=== PATIENT | female | born 1940 | race Caucasian/White ===

== ENCOUNTER → 2016-08-10 | Outpatient (CLI) | payer MEDICARE, MEDICAID ==
[~2016-08-10] MED LIST: /CELE20CA OR; /ESOM40CA; /ZOLP6ER OR; /ZOLP6ER PO; ACET65TA; ACET65TA OR; ALLE25CA OR; AMBI10TA; AMLO5TAB OR; ASPI325T OR; ATEN50TA2; ATEN50TA2 PO; BABY81CH; CATA0.1T; CATA0.1T OR; CATA0.2T; CATA0.2T OR; CELE20TA; CELE40TA OR; CHOLESTEROL MED PO; CLONIDINE; COZAAR; FERR325T PO; FISH300C2 OR; FISHCAP; HYZAAR; LASI20TA PO; MELOPOW PO; MILKSUS OR; MIRALEX PO; MULTIVIT; NEXIUM PO; NORV5TAB; NORV5TAB OR; OXYC40TA19 OR; PERC5TAB8 OR; PERC7.5T8 OR; SENN8.6T5 OR; SOMA350T; SOMA350T OR; TRAM50TA2; TRAM50TA2 OR; VICODINES TAB; ZOCO40TA OR
--- NOTE | 2016-08-10 08:38 | REP ---
Clinical: Right upper quadrant abdominal pain. Technique: Winslow scale ultrasound using curved array transducer. Findings: The liver and pancreas are normal in contour, size, and echogenicity without focal hepatic or pancreatic lesions identified. The gallbladder is normal without gallstones, wall thickening or pericholecystic fluid. No intrahepatic biliary ductal dilatation is appreciated, and the common bile duct measures 9.0 mm diameter. The right kidney is normal in reniform shape without hydronephrosis and measures 9.4 x 5.3 x 5.6 cm. No ascites. Visualized portions of the abdominal aorta normal. A known midline fat containing ventral hernia inferior to the xyphoid is appreciated. Impression: Fat containing supraumbilical hernia. Mildly distended common bile duct measuring 9 mm but without further biliary ductal dilatation or findings related to the gallbladder. Signed by Rene Medina MD 08/10/2016 08:29 A
== END ==
LOC: M RAD 06:35
PROVIDERS: ATTEND Nurse Practitioner Family
DX: R10.11 Right upper quadrant pain (principal)

== ENCOUNTER → 2016-09-02 | Outpatient (CLI) | payer MEDICARE, MEDICAID ==
--- NOTE | 2016-09-02 15:49 | REP ---
UPPER GI, SINGLE CONTRAST: The procedure was performed under the direct supervision of Dr. Mendoza. The images were reviewed with Dr. Mendoza. The [place] film shows no organomegaly or pathological masses. Intestinal gas pattern is nonspecific. The patient is status post right hip arthroplasty. There are degenerative changes of the spine. Liquid barium was given in the erect and prone oblique positions. The oral and pharyngeal stages of deglutition are unremarkable. 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 During esophageal transport there are tertiary waves demonstrated. There is no esophagitis, stricture or mucosal ring. The patient is status post hiatal hernia repair. There is a small residual hiatal hernia. Gastroesophageal reflux is not demonstrated on this examination. The stomach was grossly normal. The rugal folds are smooth and regular. There is no evidence of gastritis, neoplasm or ulcer disease. The duodenum is grossly normal. The rugal folds are smooth and regular. There is no evidence of duodenitis, pancreatitis, peptic ulcer disease or neoplasm. The visualized portion of the proximal small bowel appears normal in course and caliber. IMPRESSION: 1. Cricopharyngeal hypertrophy. 2. Esophageal dysmotility. 3. The patient is status post hiatal hernia repair. There is a small residual hiatal hernia identified. 2 minutes and 7 seconds of fluoroscopy time was utilized for this procedure. IMPRESSION: 1. There is cricopharyngeal hypertrophy. 2. Esophageal dysmotility. 3. Status post hiatal hernia repair. There is a small residual hiatal hernia. Reviewed by RAJENDRA Lew 09/02/2016 04:09 PEdited and Signed by Son Mendoza MD 09/02/2016 07:23 P
== END ==
LOC: M RAD 10:03
PROVIDERS: ATTEND Nurse Practitioner Adult Health
DX: R10.13 Epigastric pain (principal)

== ENCOUNTER → 2016-10-19 | Outpatient (CLI) | payer MEDICARE, MEDICAID ==
--- NOTE | 2016-10-19 14:04 | REP ---
Clinical: Incisional hernia. Comparison: 06/23/2010. Findings: Lung bases demonstrate chronic interstitial changes. Liver, spleen, pancreas, gallbladder, bilateral adrenal glands and kidneys are essentially normal for noncontrast evaluation. Previously noted large hiatal hernia has improved. Fat containing midline ventral hernia is identified measuring roughly 8 cm in maximal diameter through an anterior abdominal wall defect of approximately 2 cm. Visualized small large bowel is grossly unremarkable. No free air. No ascites. No obvious adenopathy. Skeletal structures demonstrate degenerative changes. Impression: Moderate fat containing ventral hernia. Signed by Rene Medina MD 10/19/2016 01:55 P
== END ==
LOC: M RAD 12:55
PROVIDERS: ATTEND Surgery
DX: K43.3 Parastomal hernia with obstruction, without gangrene (principal)

== ENCOUNTER → 2016-12-02 | Outpatient (REF) | payer MEDICARE, MEDICAID ==
[~2016-12-02] MED LIST changes: +AMLO10TA2 PO; +ASPI1TAB PO; +IRON65TA PO; +METO-209 PO; +METO100T PO; +METO25TAB PO; +NEXI40CA PO; +SIMV20TA2 PO
[2016-12-02 11:50] LABS: MEAN CORPUSCULAR HEMOGLOBIN 31.6 pg (27.0-33.0); MEAN CORPUSCULAR HGB CONC 32.3 g/dl (32.0-36.5); MEAN CORPUSCULAR VOLUME 97.7 fl (80.0-96.0); RED CELL DISTRIBUTION WIDTH 13.3 % (11.5-14.5); WHITE BLOOD COUNT 4.9 K/mm3 (4.0-10.0)
[2016-12-02 12:08] LABS: ALBUMIN/GLOBULIN RATIO 1.29 (1.00-1.93); BILIRUBIN,TOTAL 0.6 MG/DL (0.2-1.0); CREATININE FOR GFR 0.98 MG/DL (0.55-1.02); GLOMERULAR FILTRATION RATE 59.1 (>39); POTASSIUM SERUM 4.4 MEQ/L (3.5-5.1); TOTAL PROTEIN 7.1 GM/DL (6.4-8.2)
== END ==
LOC: M SFHCPLAZ 07:58
PROVIDERS: ATTEND Internal Medicine
DX: Z01.818 Encounter for other preprocedural examination (principal); M19.90 Unspecified osteoarthritis, unspecified site; K21.9 Gastro-esophageal reflux disease without esophagitis; I10 Essential (primary) hypertension; I48.2 Chronic atrial fibrillation; Z79.899 Other long term (current) drug therapy; K43.0 Incisional hernia with obstruction, without gangrene; E78.5 Hyperlipidemia, unspecified
CPT/HCPCS: 36415; 80053; 80061; 84443; 85027; 93005; G0463

== ENCOUNTER → 2016-12-07 | Day surgery (SDC) | payer MEDICARE, MEDICAID ==
[~2016-12-07] VITALS: Ht 167.6 cm; Wt 90.7 kg
[~2016-12-07] MED LIST changes: +BUPIVACAINE/EPIN 0.25% 30 ML VIAL As Ordered ONE; +GLYCOPYRROLATE INJ 0.2 MG/ML 2 ML VIAL As Ordered ONE; +KETOROLAC 30 MG/ML VIAL (J1885) IV PRN; +LIDOCAINE 2% INJ 100 MG/5 ML SDV (FOR ANES.) As Ordered ONE; +LR 1,000 ML IV ONE; +LR 1,000 ML IV SCH; +MEPERIDINE INJ 25 MG/ML VIAL (J2175) IV PRN; +METOPROLOL SUCC (TopROL XL) 100MG *XL* TAB PO ONE; +MIDAZOLAM INJ 2 MG/2 ML VIAL (J2250) As Ordered ONE; +NEOSTIGMINE 1MG/ML 5 ML SYRINGE (J2710) As Ordered ONE; +NORCO, ANEXSIA 5/325MG TABLET (HYDROcodone/ACETAMINOPHEN) PO PRN; +ONDANSETRON 4MG/2ML VIAL (J2405) As Ordered ONE; +ONDANSETRON 4MG/2ML VIAL (J2405) IV PRN; +PERCOCET 5MG/325MG TAB As Ordered ONE; +PERCOCET 5MG/325MG TAB PO PRN; +PHENYLephrine HCL 500 MCG/5 ML (100MCG/ML) SYRINGE (J2370) As Ordered ONE; +PROPOFOL 200 MG/20 ML VIAL As Ordered ONE; +ROCURONIUM BROMIDE 50 MG/5 ML VIAL As Ordered ONE; +dexameTHASONE 4 MG/ML 1ML VIAL (J1100) As Ordered ONE; +ePHEDrine SULFATE 25 MG/5 ML(5MG/ML) SYRINGE As Ordered ONE; +fentaNYL 100 MCG/2 ML INJECTION (J3010) IV PRN; +fentaNYL 250 MCG/5 ML INJECTION (J3010) As Ordered ONE
[2016-12-07 07:25] VITALS: BP 120/71
[2016-12-07] MEDS: PERCOCET 5MG/325MG TAB PO PRN ×2 (11:11→12:07)
[2016-12-07 14:30] VITALS: BP 135/63
--- NOTE | 2016-12-08 11:29 | RO ---
DATE OF PROCEDURE: 12/07/2016 PREOPERATIVE DIAGNOSIS: Incarcerated incisional hernia. POSTOPERATIVE DIAGNOSIS: Incarcerated incisional hernia. PROCEDURE: Laparoscopic incarcerated incisional hernia repair with mesh. SURGEON: Dr. Cortez Love HOT BILLET SHEAR OPERATOR: None. ANESTHESIA: General: ESTIMATED BLOOD LOSS: 5. COMPLICATIONS: None. INDICATIONS FOR PROCEDURE: The patient is a 76-year-old female who underwent a laparoscopic Vicente fundoplication a few years ago. Postoperatively she developed a hernia in her upper midline of her abdomen, it has been increasing in size over the past couple of years and starting to cause her a lot of pain. She has CT scan which confirmed that there is a large hernia in the upper midline that corresponds with her port site. Recommendation was to proceed with laparoscopic possible open repair. Risks and benefits of the procedure not limited but including bleeding, infection, hernia formation, hernia recurrence, damage to surrounding structures, need for further surgery discussed detail. The patient formed was obtained. Procedure as planned. PROCEDURE: The patient brought back to operating room #3. After sufficient sedation the abdomen was sterilely prepped and draped. A time-out was done to confirm proper patient and proper procedure. Next a 5 mm incision made in left upper quadrant, Veress needle was inserted and the abdomen was insufflated 50 mmHg. Veress needle was then removed 5 mm port was used to gain access to the abdomen. Once the abdomen was entered the hernia site was examined. Anotehr 5 mm port was placed in left lower quadrant. Using the grasper the hernia was all reduced. Next the ENSEAL was used to excise the hernia sac and take down the falciform ligament. Once this was completed, a 9 cm round Parietex composite mesh was taken 0 Vicryl sutures placed in all four corners, it was rolled up placed inside the abdomen 0 Vicryl sutures were brought out through the abdominal wall through a stab incision using Vinny-Santillan needle and then tied in place. Once this was tied in place and the mesh was securely centered over top of the defect, two secure strap tackers were used to place three rows of tacks around the periphery of the mesh, thus holding it in place. The patient tolerated the procedure well. Abdomen was then desufflated. Skin incision closed with 4-0 Vicryl subcuticular sutures. The patient was awakened and brought to the PACU in stable condition.
== END | disposition home or self-care (01) ==
LOC: M SDC 05:53
PROVIDERS: ATTEND Surgery
DX: K43.0 Incisional hernia with obstruction, without gangrene (principal); I10 Essential (primary) hypertension; F41.9 Anxiety disorder, unspecified; D50.9 Iron deficiency anemia, unspecified; M54.5 Low back pain; G89.29 Other chronic pain; K21.9 Gastro-esophageal reflux disease without esophagitis; K57.30 Diverticulosis of large intestine without perforation or abscess without bleeding; I48.2 Chronic atrial fibrillation; M19.90 Unspecified osteoarthritis, unspecified site; G47.00 Insomnia, unspecified; G47.30 Sleep apnea, unspecified; Z91.040 Latex allergy status; Z79.899 Other long term (current) drug therapy; Z79.82 Long term (current) use of aspirin; Z96.651 Presence of right artificial knee joint; Z98.1 Arthrodesis status; Z87.891 Personal history of nicotine dependence; Z78.0 Asymptomatic menopausal state
CPT/HCPCS: 49655; C1781; J0690; J1100; J2250; J2370; J2405; J2710; J3010

== ENCOUNTER 2018-02-26 19:33 | Inpatient (IN) | payer MEDICARE, MEDICAID ==
[2018-02-26 20:09] LABS: VENOUS BASE EXCESS 3.4 (-2.0-2.0); VENOUS HCO3 29.2 MEQ/L (23.0-27.0); VENOUS O2 SATURATION 72.9 % (60.0-80.0); VENOUS PARTIAL PRESSURE CO2 48.2 mmHg (38.0-50.0); VENOUS PARTIAL PRESSURE O2 40.7 mmHg (30.0-50.0); VENOUS STANDARD HCO3 26.8 MEQ/L; VENOUS TOTAL CO2 30.7 MEQ/L (24.0-28.0)
[2018-02-26] MEDS: NS 1,000 ML IV (20:11)
[2018-02-26 20:31] LABS: AMMONIA 27 uMOL/L (<32)
[2018-02-26 20:32] LABS: LACTIC ACID SEPSIS PROTOCOL 1.8 MMOL/L (0.4-2.0)
[2018-02-26 20:57] LABS: BASO % 0.5 % (0.0-1.0); EOS % 0.5 % (0.0-3.0); HEMATOCRIT 36.8 % (36.0-47.0); HEMOGLOBIN 13.7 g/dl (12.0-15.5); IMMATURE GRANULOCYTE % 0.5 % (0-3.0); LYMPH # 0.6 10^3/uL (1.5-4.5); LYMPH % 7.5 % (24.0-44.0); MEAN CORPUSCULAR HEMOGLOBIN 30.9 pg (27.0-33.0); MEAN CORPUSCULAR VOLUME 83.1 fl (80.0-96.0); MONO # 1.1 10^3/uL (0.0-0.8); MONO % 14.9 % (0.0-5.0); NEUTROPHILS # 5.6 10^3/uL (1.8-7.7); NEUTROPHILS % 76.1 % (36.0-66.0); PLATELET COUNT, AUTOMATED 237 10^3/uL (150-450); RED BLOOD COUNT 4.43 10^6/uL (4.00-5.40); RED CELL DISTRIBUTION WIDTH 12.3 % (11.5-14.5); WHITE BLOOD COUNT 7.4 10^3/uL (4.0-10.0)
[2018-02-26 21:30] LABS: MEAN CORPUSCULAR HGB CONC 37.2 g/dl (32.0-36.5)
[2018-02-26 22:43] LABS: ALBUMIN 3.1 GM/DL (3.2-5.2); ALBUMIN/GLOBULIN RATIO 0.94 (1.00-1.93); ALT/SGPT 30 U/L (12-78); ANION GAP 18 MEQ/L (8-16); AST/SGOT 70 U/L (7-37); BILIRUBIN,DIRECT 0.2 MG/DL (0.0-0.2); BLOOD UREA NITROGEN 9 MG/DL (7-18); CARBON DIOXIDE LEVEL 24 MEQ/L (21-32); CHLORIDE LEVEL 75 MEQ/L (98-107); CPK CREATINE PHOSPHOKINASE 544 U/L (26-192); CREATININE FOR GFR 0.95 MG/DL (0.55-1.30); GLOMERULAR FILTRATION RATE > 60.0 (>39); POTASSIUM SERUM 3.4 MEQ/L (3.5-5.1); SALICYLATE LEVEL 1.9 MG/DL (5.0-30.0); TOTAL PROTEIN 6.4 GM/DL (6.4-8.2); TROPONIN I < 0.02 NG/ML (< 0.10)
[2018-02-26 22:45] LABS: KETONE, URINE AUTO RFX TRACE mg/dL (NEGATIVE); LEUKOCYTE ESTERASE UR AUTO RFX NEGATIVE (NEGATIVE); NITRITE, URINE AUTO RFX NEGATIVE (NEGATIVE); RBC, URINE AUTO RFX 1 /HPF (0-3); SPECIFIC GRAVITY UR AUTO RFX 1.004 (1.002-1.035); SQUAM EPITHELIAL CELL UR AURFX 0 /HPF (0-6); WBC, URINE AUTO RFX 5 /HPF (0-3)
[2018-02-26 22:48] LABS: CK-MB VALUE MASS 7.3 NG/ML (<3.6); MB/CK RELATIVE INDEX 1.34 (< OR =4)
[2018-02-26 23:02] LABS: AMPHETAMINES LEVEL URINE NEGATIVE (NEGATIVE); BARBITURATES URINE NEGATIVE (NEGATIVE); BENZODIAZEPINES URINE NEGATIVE (NEGATIVE); CANNABINOIDS URINE POSITIVE (NEGATIVE); COCAINE METABOLITE URINE NEGATIVE (NEGATIVE); METHADONE URINE NEGATIVE (NEGATIVE); OPIATES URINE NEGATIVE (NEGATIVE); PHENCYCLIDINE URINE NEGATIVE (NEGATIVE)
[2018-02-26 23:08] LABS: ACETAMINOPHEN LEVEL < 2.0 UG/ML (10.0-30.0); ALKALINE PHOSPHATASE 134 U/L (45-117); ETHYL ALCOHOL (ETHANOL) < 0.003 % (0.000-0.010); GLUCOSE, FASTING 83 MG/DL (70-100)
[2018-02-26 23:09] LABS: SODIUM LEVEL 117 MEQ/L (136-145)
[2018-02-27] MEDS ORDERED: BISACODYL 10 MG SUPP PR (01:45)
[2018-02-27] MEDS: NS 1,000 ML IV ×3 (02:51→11:00)
[2018-02-27 04:58] LABS: BASO % 0.2 % (0.0-1.0); EOS % 0.2 % (0.0-3.0); HEMATOCRIT 31.4 % (36.0-47.0); IMMATURE GRANULOCYTE % 0.4 % (0-3.0); LYMPH # 0.3 10^3/uL (1.5-4.5); LYMPH % 6.5 % (24.0-44.0); MEAN CORPUSCULAR HEMOGLOBIN 31.7 pg (27.0-33.0); MEAN CORPUSCULAR HGB CONC 36.9 g/dl (32.0-36.5); MEAN CORPUSCULAR VOLUME 85.8 fl (80.0-96.0); MONO # 0.6 10^3/uL (0.0-0.8); MONO % 10.6 % (0.0-5.0); NEUTROPHILS # 4.3 10^3/uL (1.8-7.7); NEUTROPHILS % 82.1 % (36.0-66.0); PLATELET COUNT, AUTOMATED 209 10^3/uL (150-450); RED BLOOD COUNT 3.66 10^6/uL (4.00-5.40); RED CELL DISTRIBUTION WIDTH 12.5 % (11.5-14.5); WHITE BLOOD COUNT 5.3 10^3/uL (4.0-10.0)
[2018-02-27 05:01] LABS: HEMOGLOBIN 11.6 g/dl (12.0-15.5)
[2018-02-27 05:17] LABS: ALBUMIN 2.9 GM/DL (3.2-5.2); ALBUMIN/GLOBULIN RATIO 0.94 (1.00-1.93); ALKALINE PHOSPHATASE 104 U/L (45-117); ALT/SGPT 35 U/L (12-78); ANION GAP 16 MEQ/L (8-16); AST/SGOT 96 U/L (7-37); BILIRUBIN,TOTAL 0.7 MG/DL (0.2-1.0); BLOOD UREA NITROGEN 10 MG/DL (7-18); CALCIUM LEVEL 7.3 MG/DL (8.8-10.2); CARBON DIOXIDE LEVEL 25 MEQ/L (21-32); CHLORIDE LEVEL 82 MEQ/L (98-107); CREATININE FOR GFR 0.87 MG/DL (0.55-1.30); GLOMERULAR FILTRATION RATE > 60.0 (>39); GLUCOSE, FASTING 85 MG/DL (70-100); POTASSIUM SERUM 2.5 MEQ/L (3.5-5.1); SODIUM LEVEL 123 MEQ/L (136-145)
[2018-02-27] MEDS: MAG SULF 1GM/100ML (MAG RUN) 1 GM in APPROPRIATE DILUENT 1 EA IV ×2 (06:00→13:51)
[2018-02-27] MEDS: POTASSIUM CHLORIDE 10 MEQ SR TABLET PO ×3 (06:02→13:51)
[2018-02-27] MEDS: HEPARIN SOD (PORCINE) 5000 UNITS/ML VIAL SC ×3 (06:02→21:27)
[2018-02-27] MEDS: KCL 10MEQ/100ML SWI (KRUN) 10 MEQ in APPROPRIATE DILUENT 1 EA IV ×2 (07:27→08:43)
[2018-02-27] MEDS: ASPIRIN 325 MG TAB PO (08:45)
[2018-02-27] MEDS: PANTOPRAZOLE 40MG TAB (PROTONIX) PO (08:45)
[2018-02-27] MEDS: FERROUS SULFATE 325MG TAB PO (08:46)
[2018-02-27] MEDS: PARoxetine 20 MG TAB PO (08:46)
[2018-02-27] MEDS: PREVNAR 13 VACCINE SYRINGE (CPT CODE:90670) IM (08:47)
[2018-02-27 11:30] LABS: PHOSPHORUS LEVEL 4.4 MG/DL (2.5-4.9)
[2018-02-27 12:56] LABS: ANION GAP 14 MEQ/L (8-16); BLOOD UREA NITROGEN 11 MG/DL (7-18); CALCIUM LEVEL 7.7 MG/DL (8.8-10.2); CARBON DIOXIDE LEVEL 26 MEQ/L (21-32); CHLORIDE LEVEL 85 MEQ/L (98-107); CREATININE FOR GFR 0.99 MG/DL (0.55-1.30); GLOMERULAR FILTRATION RATE 58.2 (>39); GLUCOSE, FASTING 86 MG/DL (70-100); MAGNESIUM LEVEL 1.5 MG/DL (1.8-2.4); POTASSIUM SERUM 3.1 MEQ/L (3.5-5.1); SODIUM LEVEL 125 MEQ/L (136-145)
[2018-02-27] MEDS: D5W 1,000 ML IV (13:52)
[2018-02-27] MEDS: NYSTATIN 100,000 UNITS/GM TOPICAL PWD 15 GM TOP ×2 (13:59→21:23)
[2018-02-27 15:04] LABS: CREATININE,RANDOM URINE 39.6 MG/DL; SODIUM,RANDOM URINE 17 MEQ/L
[2018-02-27 15:28] LABS: OSMOLALITY URINE 165 MOSM/KG (500-800)
[2018-02-27] MEDS: POTASSIUM CHLORIDE INJ 40 MEQ in D5W 1,000 ML IV (17:36)
[2018-02-27 17:40] LABS: OSMOLALITY URINE 336 MOSM/KG (500-800)
[2018-02-27 17:47] LABS: OSMOLALITY SERUM 257 MOSM/KG (280-301)
[2018-02-27 17:49] LABS: ANION GAP 10 MEQ/L (8-16); BLOOD UREA NITROGEN 13 MG/DL (7-18); CALCIUM LEVEL 7.9 MG/DL (8.8-10.2); CARBON DIOXIDE LEVEL 27 MEQ/L (21-32); CHLORIDE LEVEL 86 MEQ/L (98-107); CREATININE FOR GFR 1.15 MG/DL (0.55-1.30); GLUCOSE, FASTING 122 MG/DL (70-100); POTASSIUM SERUM 3.4 MEQ/L (3.5-5.1); SODIUM LEVEL 123 MEQ/L (136-145)
[2018-02-27 18:02] LABS: SODIUM,RANDOM URINE 13 MEQ/L
[2018-02-27] MEDS: SIMVASTATIN 20 MG TAB PO (21:22)
[2018-02-27 21:31] LABS: OSMOLALITY URINE 328 MOSM/KG (500-800)
[2018-02-27 21:45] LABS: SODIUM,RANDOM URINE 13 MEQ/L
[2018-02-27 21:51] LABS: ANION GAP 9 MEQ/L (8-16); BLOOD UREA NITROGEN 12 MG/DL (7-18); CALCIUM LEVEL 7.8 MG/DL (8.8-10.2); CARBON DIOXIDE LEVEL 27 MEQ/L (21-32); CHLORIDE LEVEL 88 MEQ/L (98-107); CREATININE FOR GFR 1.03 MG/DL (0.55-1.30); GLOMERULAR FILTRATION RATE 55.6 (>39); GLUCOSE, FASTING 120 MG/DL (70-100); SODIUM LEVEL 124 MEQ/L (136-145)
[2018-02-27] MEDS: KCL 40MEQ IN D5/0.45NS 1000ML 1,000 ML IV (22:59)
[2018-02-27] MEDS: VANCOMYCIN HCL 1,000 MG, VIAL MATE ADAPTER 1 EACH in D5W 250 ML IV (22:59)
[2018-02-28 01:17] LABS: ANION GAP 10 MEQ/L (8-16); BLOOD UREA NITROGEN 12 MG/DL (7-18); CALCIUM LEVEL 8.1 MG/DL (8.8-10.2); CARBON DIOXIDE LEVEL 26 MEQ/L (21-32); CHLORIDE LEVEL 87 MEQ/L (98-107); CREATININE FOR GFR 1.12 MG/DL (0.55-1.30); GLOMERULAR FILTRATION RATE 50.5 (>39); GLUCOSE, FASTING 144 MG/DL (70-100); POTASSIUM SERUM 3.9 MEQ/L (3.5-5.1); SODIUM LEVEL 123 MEQ/L (136-145)
[2018-02-28 01:50] LABS: SODIUM,RANDOM URINE 16 MEQ/L
[2018-02-28 01:51] LABS: OSMOLALITY URINE 357 MOSM/KG (500-800)
[2018-02-28 05:01] LABS: HEMATOCRIT 29.7 % (36.0-47.0); HEMOGLOBIN 10.7 g/dl (12.0-15.5); MEAN CORPUSCULAR HEMOGLOBIN 31.6 pg (27.0-33.0); MEAN CORPUSCULAR VOLUME 87.6 fl (80.0-96.0); PLATELET COUNT, AUTOMATED 198 10^3/uL (150-450); RED BLOOD COUNT 3.39 10^6/uL (4.00-5.40); RED CELL DISTRIBUTION WIDTH 12.9 % (11.5-14.5); WHITE BLOOD COUNT 5.9 10^3/uL (4.0-10.0)
[2018-02-28 05:07] LABS: OSMOLALITY URINE 191 MOSM/KG (500-800)
[2018-02-28 05:13] LABS: SODIUM,RANDOM URINE 14 MEQ/L
[2018-02-28 05:16] LABS: ANION GAP 9 MEQ/L (8-16); BLOOD UREA NITROGEN 11 MG/DL (7-18); C REACTIVE PROTEIN QUANTITATIV 2.82 MG/DL (0.00-0.30); CARBON DIOXIDE LEVEL 27 MEQ/L (21-32); CHLORIDE LEVEL 88 MEQ/L (98-107); CREATININE FOR GFR 0.92 MG/DL (0.55-1.30); GLOMERULAR FILTRATION RATE > 60.0 (>39); GLUCOSE, FASTING 111 MG/DL (70-100); MAGNESIUM LEVEL 1.4 MG/DL (1.8-2.4); POTASSIUM SERUM 3.9 MEQ/L (3.5-5.1); SODIUM LEVEL 124 MEQ/L (136-145)
[2018-02-28] MEDS: NS 1,000 ML IV (06:17)
[2018-02-28] MEDS: FUROSEMIDE 20 MG/2 ML VIAL (J1940) IV (06:18)
[2018-02-28] MEDS: HEPARIN SOD (PORCINE) 5000 UNITS/ML VIAL SC ×3 (06:18→21:32)
[2018-02-28] MEDS: MAG SULF 1GM/100ML (MAG RUN) 1 GM in APPROPRIATE DILUENT 1 EA IV (07:21)
[2018-02-28] MEDS: NYSTATIN 100,000 UNITS/GM TOPICAL PWD 15 GM TOP ×2 (08:09→21:30)
[2018-02-28] MEDS: FERROUS SULFATE 325MG TAB PO (08:09)
[2018-02-28] MEDS: ASPIRIN 325 MG TAB PO (08:09)
[2018-02-28] MEDS: MAGNESIUM OXIDE 400 MG TAB (MAG-OX) PO ×2 (08:09→20:22)
[2018-02-28] MEDS: PANTOPRAZOLE 40MG TAB (PROTONIX) PO (08:09)
[2018-02-28] MEDS: ACETAMINOPHEN TAB 650MG DOSE (2X325MG) PO ×2 (08:21→18:24)
[2018-02-28 08:51] LABS: SODIUM,RANDOM URINE 83 MEQ/L
[2018-02-28 08:57] LABS: OSMOLALITY URINE 242 MOSM/KG (500-800)
[2018-02-28] MEDS: POTASSIUM CHLORIDE 10 MEQ SR TABLET PO ×2 (09:53→12:41)
[2018-02-28] MEDS: VANCOMYCIN HCL 1,000 MG, VIAL MATE ADAPTER 1 EACH in D5W 250 ML IV ×2 (09:54→21:29)
[2018-02-28 09:57] LABS: CORTISOL AM 20.6 UG/DL (4.3-22.4)
[2018-02-28 10:13] LABS: ANION GAP 9 MEQ/L (8-16); BLOOD UREA NITROGEN 9 MG/DL (7-18); CALCIUM LEVEL 8.7 MG/DL (8.8-10.2); CARBON DIOXIDE LEVEL 28 MEQ/L (21-32); CHLORIDE LEVEL 88 MEQ/L (98-107); CREATININE FOR GFR 1.09 MG/DL (0.55-1.30); GLOMERULAR FILTRATION RATE 52.1 (>39); GLUCOSE, FASTING 113 MG/DL (70-100); POTASSIUM SERUM 3.4 MEQ/L (3.5-5.1); SODIUM LEVEL 125 MEQ/L (136-145)
[2018-02-28 12:53] LABS: OSMOLALITY URINE 364 MOSM/KG (500-800)
[2018-02-28 13:07] LABS: ANION GAP 9 MEQ/L (8-16); BLOOD UREA NITROGEN 10 MG/DL (7-18); CALCIUM LEVEL 8.8 MG/DL (8.8-10.2); CARBON DIOXIDE LEVEL 29 MEQ/L (21-32); CHLORIDE LEVEL 86 MEQ/L (98-107); CREATININE FOR GFR 1.11 MG/DL (0.55-1.30); GLUCOSE, FASTING 113 MG/DL (70-100); POTASSIUM SERUM 3.8 MEQ/L (3.5-5.1); SODIUM LEVEL 124 MEQ/L (136-145)
[2018-02-28 13:24] LABS: SODIUM,RANDOM URINE 56 MEQ/L
[2018-02-28] MEDS: TOLVAPTAN 15 MG TAB (SAMSCA) PO (13:58)
[2018-02-28 16:36] LABS: ANION GAP 9 MEQ/L (8-16); BLOOD UREA NITROGEN 12 MG/DL (7-18); CALCIUM LEVEL 8.5 MG/DL (8.8-10.2); CARBON DIOXIDE LEVEL 27 MEQ/L (21-32); CHLORIDE LEVEL 89 MEQ/L (98-107); CREATININE FOR GFR 1.15 MG/DL (0.55-1.30); GLUCOSE, FASTING 104 MG/DL (70-100); POTASSIUM SERUM 4.1 MEQ/L (3.5-5.1); SODIUM LEVEL 125 MEQ/L (136-145)
[2018-02-28 16:49] LABS: SODIUM,RANDOM URINE 12 MEQ/L
[2018-02-28] MEDS ORDERED: SODIUM CHLORIDE 0.9% INJ 10 ML SYR IV (17:00)
[2018-02-28 17:43] LABS: OSMOLALITY URINE 74 MOSM/KG (500-800)
[2018-02-28] MEDS: SODIUM CHLORIDE 0.9% INJ 10 ML SYR IV (18:00)
[2018-02-28] MEDS: SIMVASTATIN 20 MG TAB PO (20:22)
[2018-02-28 20:41] LABS: OSMOLALITY URINE 119 MOSM/KG (500-800)
[2018-02-28 20:47] LABS: SODIUM,RANDOM URINE < 10 MEQ/L
[2018-02-28 20:55] LABS: ANION GAP 9 MEQ/L (8-16); BLOOD UREA NITROGEN 14 MG/DL (7-18); CALCIUM LEVEL 8.5 MG/DL (8.8-10.2); CARBON DIOXIDE LEVEL 29 MEQ/L (21-32); CHLORIDE LEVEL 92 MEQ/L (98-107); CREATININE FOR GFR 1.01 MG/DL (0.55-1.30); GLOMERULAR FILTRATION RATE 56.9 (>39); GLUCOSE, FASTING 108 MG/DL (70-100); POTASSIUM SERUM 4.2 MEQ/L (3.5-5.1); SODIUM LEVEL 130 MEQ/L (136-145); VANCOMYCIN LEVEL TROUGH 17.2 UG/ML (10.0-20.0)
[2018-03-01 00:21] LABS: OSMOLALITY URINE 146 MOSM/KG (500-800)
[2018-03-01 00:28] LABS: SODIUM,RANDOM URINE < 10 MEQ/L
[2018-03-01 00:37] LABS: ANION GAP 6 MEQ/L (8-16); BLOOD UREA NITROGEN 14 MG/DL (7-18); CALCIUM LEVEL 8.5 MG/DL (8.8-10.2); CARBON DIOXIDE LEVEL 31 MEQ/L (21-32); CHLORIDE LEVEL 93 MEQ/L (98-107); CREATININE FOR GFR 0.92 MG/DL (0.55-1.30); GLOMERULAR FILTRATION RATE > 60.0 (>39); GLUCOSE, FASTING 99 MG/DL (70-100); POTASSIUM SERUM 4.5 MEQ/L (3.5-5.1); SODIUM LEVEL 130 MEQ/L (136-145)
[2018-03-01 04:31] LABS: OSMOLALITY URINE 110 MOSM/KG (500-800)
[2018-03-01 04:34] LABS: HEMATOCRIT 30.4 % (36.0-47.0); HEMOGLOBIN 10.7 g/dl (12.0-15.5); MEAN CORPUSCULAR HEMOGLOBIN 31.5 pg (27.0-33.0); MEAN CORPUSCULAR HGB CONC 35.2 g/dl (32.0-36.5); MEAN CORPUSCULAR VOLUME 89.4 fl (80.0-96.0); PLATELET COUNT, AUTOMATED 220 10^3/uL (150-450); RED CELL DISTRIBUTION WIDTH 13.4 % (11.5-14.5); WHITE BLOOD COUNT 5.5 10^3/uL (4.0-10.0)
[2018-03-01 04:45] LABS: SODIUM,RANDOM URINE 11 MEQ/L
[2018-03-01 04:52] LABS: ANION GAP 9 MEQ/L (8-16); BLOOD UREA NITROGEN 11 MG/DL (7-18); CALCIUM LEVEL 8.8 MG/DL (8.8-10.2); CARBON DIOXIDE LEVEL 30 MEQ/L (21-32); CHLORIDE LEVEL 94 MEQ/L (98-107); CREATININE FOR GFR 0.85 MG/DL (0.55-1.30); GLOMERULAR FILTRATION RATE > 60.0 (>39); GLUCOSE, FASTING 90 MG/DL (70-100); MAGNESIUM LEVEL 1.7 MG/DL (1.8-2.4); POTASSIUM SERUM 4.6 MEQ/L (3.5-5.1); SODIUM LEVEL 133 MEQ/L (136-145)
[2018-03-01] MEDS: SODIUM CHLORIDE 0.9% INJ 10 ML SYR IV ×2 (06:37→17:58)
[2018-03-01] MEDS: HEPARIN SOD (PORCINE) 5000 UNITS/ML VIAL SC ×3 (06:37→21:06)
[2018-03-01] MEDS: PANTOPRAZOLE 40MG TAB (PROTONIX) PO (08:36)
[2018-03-01] MEDS: MAG SULF 1GM/100ML (MAG RUN) 1 GM in APPROPRIATE DILUENT 1 EA IV (08:36)
[2018-03-01] MEDS: ASPIRIN 325 MG TAB PO (08:36)
[2018-03-01] MEDS: NYSTATIN 100,000 UNITS/GM TOPICAL PWD 15 GM TOP ×2 (08:37→21:06)
[2018-03-01] MEDS: MAGNESIUM OXIDE 400 MG TAB (MAG-OX) PO ×2 (08:37→21:06)
[2018-03-01] MEDS: FERROUS SULFATE 325MG TAB PO (08:37)
[2018-03-01] MEDS: ACETAMINOPHEN TAB 650MG DOSE (2X325MG) PO ×2 (08:39→19:53)
[2018-03-01] MEDS: METOPROLOL SUCC (TopROL XL) 100MG *XL* TAB PO (08:39)
[2018-03-01 09:01] LABS: SODIUM,RANDOM URINE 37 MEQ/L
[2018-03-01 09:11] LABS: ANION GAP 8 MEQ/L (8-16); BLOOD UREA NITROGEN 11 MG/DL (7-18); CALCIUM LEVEL 9.2 MG/DL (8.8-10.2); CARBON DIOXIDE LEVEL 29 MEQ/L (21-32); CHLORIDE LEVEL 95 MEQ/L (98-107); CREATININE FOR GFR 0.92 MG/DL (0.55-1.30); GLOMERULAR FILTRATION RATE > 60.0 (>39); GLUCOSE, FASTING 116 MG/DL (70-100); POTASSIUM SERUM 4.4 MEQ/L (3.5-5.1); SODIUM LEVEL 132 MEQ/L (136-145)
[2018-03-01 09:14] LABS: OSMOLALITY URINE 254 MOSM/KG (500-800)
[2018-03-01] MEDS: SODIUM CHLORIDE 1 GM TAB PO ×2 (11:43→21:06)
[2018-03-01] MEDS: FUROSEMIDE 20 MG TAB PO ×2 (11:43→17:57)
[2018-03-01] MEDS: ANALGESIC BALM CRM 120 GM TOP ×2 (11:44→19:53)
[2018-03-01 18:38] LABS: ALBUMIN 3.5 GM/DL (3.2-5.2); ANION GAP 10 MEQ/L (8-16); BLOOD UREA NITROGEN 12 MG/DL (7-18); CALCIUM LEVEL 9.2 MG/DL (8.8-10.2); CARBON DIOXIDE LEVEL 28 MEQ/L (21-32); CHLORIDE LEVEL 93 MEQ/L (98-107); CREATININE FOR GFR 1.05 MG/DL (0.55-1.30); GLOMERULAR FILTRATION RATE 54.4 (>39); GLUCOSE, FASTING 137 MG/DL (70-100); PHOSPHORUS LEVEL 2.6 MG/DL (2.5-4.9); POTASSIUM SERUM 4.2 MEQ/L (3.5-5.1); SODIUM LEVEL 131 MEQ/L (136-145)
[2018-03-01] MEDS: SIMVASTATIN 20 MG TAB PO (21:06)
[2018-03-01] MEDS: ONDANSETRON 4 MG TAB (S0181) PO (21:13)
[2018-03-02] MEDS: HEPARIN SOD (PORCINE) 5000 UNITS/ML VIAL SC ×3 (05:00→21:39)
[2018-03-02] MEDS: SODIUM CHLORIDE 0.9% INJ 10 ML SYR IV ×2 (05:00→17:04)
[2018-03-02 05:12] LABS: HEMATOCRIT 29.1 % (36.0-47.0); HEMOGLOBIN 10.3 g/dl (12.0-15.5); MEAN CORPUSCULAR HEMOGLOBIN 32.1 pg (27.0-33.0); MEAN CORPUSCULAR HGB CONC 35.4 g/dl (32.0-36.5); MEAN CORPUSCULAR VOLUME 90.7 fl (80.0-96.0); PLATELET COUNT, AUTOMATED 218 10^3/uL (150-450); RED BLOOD COUNT 3.21 10^6/uL (4.00-5.40); RED CELL DISTRIBUTION WIDTH 13.7 % (11.5-14.5); WHITE BLOOD COUNT 5.4 10^3/uL (4.0-10.0)
[2018-03-02 05:17] LABS: MAGNESIUM LEVEL 1.5 MG/DL (1.8-2.4)
[2018-03-02 07:57] LABS: PHOSPHORUS LEVEL 3.2 MG/DL (2.5-4.9)
[2018-03-02 08:11] LABS: BEDSIDE GLUCOSE 114 MG/DL (83-110)
[2018-03-02] MEDS: MAG SULF 1GM/100ML (MAG RUN) 1 GM in APPROPRIATE DILUENT 1 EA IV ×2 (08:20→08:23)
[2018-03-02] MEDS: FUROSEMIDE 20 MG TAB PO ×2 (08:21→17:00)
[2018-03-02] MEDS: PANTOPRAZOLE 40MG TAB (PROTONIX) PO (08:21)
[2018-03-02] MEDS: FERROUS SULFATE 325MG TAB PO (08:21)
[2018-03-02] MEDS: SODIUM CHLORIDE 1 GM TAB PO ×2 (08:21→21:39)
[2018-03-02] MEDS: ASPIRIN 325 MG TAB PO (08:21)
[2018-03-02] MEDS: MAGNESIUM OXIDE 400 MG TAB (MAG-OX) PO ×3 (08:22→21:39)
[2018-03-02] MEDS: METOPROLOL SUCC (TopROL XL) 100MG *XL* TAB PO (08:22)
[2018-03-02] MEDS: NYSTATIN 100,000 UNITS/GM TOPICAL PWD 15 GM TOP ×2 (08:23→21:38)
[2018-03-02] MEDS: ACETAMINOPHEN TAB 650MG DOSE (2X325MG) PO ×2 (09:08→21:41)
[2018-03-02 09:35] LABS: ALBUMIN 2.9 GM/DL (3.2-5.2); BLOOD UREA NITROGEN 14 MG/DL (7-18); CALCIUM LEVEL 9.1 MG/DL (8.8-10.2); CHLORIDE LEVEL 94 MEQ/L (98-107); CREATININE FOR GFR 0.85 MG/DL (0.55-1.30); GLOMERULAR FILTRATION RATE > 60.0 (>39); GLUCOSE, FASTING 87 MG/DL (70-100); POTASSIUM SERUM 4.5 MEQ/L (3.5-5.1); SODIUM LEVEL 132 MEQ/L (136-145)
[2018-03-02 09:51] LABS: CARBON DIOXIDE LEVEL 29 MEQ/L (21-32)
[2018-03-02 09:54] LABS: ANION GAP 9 MEQ/L (8-16)
[2018-03-02] MEDS: ANALGESIC BALM CRM 120 GM TOP (21:38)
[2018-03-02] MEDS: SIMVASTATIN 20 MG TAB PO (21:39)
[2018-03-03] MEDS: SODIUM CHLORIDE 0.9% INJ 10 ML SYR IV ×2 (05:04→17:07)
[2018-03-03] MEDS: HEPARIN SOD (PORCINE) 5000 UNITS/ML VIAL SC ×3 (05:04→21:52)
[2018-03-03 05:16] LABS: HEMATOCRIT 30.3 % (36.0-47.0); HEMOGLOBIN 10.4 g/dl (12.0-15.5); MEAN CORPUSCULAR HEMOGLOBIN 31.2 pg (27.0-33.0); MEAN CORPUSCULAR HGB CONC 34.3 g/dl (32.0-36.5); PLATELET COUNT, AUTOMATED 217 10^3/uL (150-450); RED BLOOD COUNT 3.33 10^6/uL (4.00-5.40); RED CELL DISTRIBUTION WIDTH 13.7 % (11.5-14.5); WHITE BLOOD COUNT 6.4 10^3/uL (4.0-10.0)
[2018-03-03 05:30] LABS: ANION GAP 5 MEQ/L (8-16); BLOOD UREA NITROGEN 14 MG/DL (7-18); CALCIUM LEVEL 9.1 MG/DL (8.8-10.2); CARBON DIOXIDE LEVEL 34 MEQ/L (21-32); CHLORIDE LEVEL 92 MEQ/L (98-107); CREATININE FOR GFR 0.74 MG/DL (0.55-1.30); GLOMERULAR FILTRATION RATE > 60.0 (>39); GLUCOSE, FASTING 93 MG/DL (70-100); MAGNESIUM LEVEL 1.6 MG/DL (1.8-2.4); POTASSIUM SERUM 4.4 MEQ/L (3.5-5.1); SODIUM LEVEL 131 MEQ/L (136-145)
[2018-03-03] MEDS: FERROUS SULFATE 325MG TAB PO (08:44)
[2018-03-03] MEDS: KCL 10MEQ/100ML SWI (KRUN) 10 MEQ in APPROPRIATE DILUENT 1 EA IV (08:44)
[2018-03-03] MEDS: ASPIRIN 325 MG TAB PO (08:46)
[2018-03-03] MEDS: MAGNESIUM OXIDE 400 MG TAB (MAG-OX) PO ×3 (08:47→21:52)
[2018-03-03] MEDS: SODIUM CHLORIDE 1 GM TAB PO ×2 (08:47→21:52)
[2018-03-03] MEDS: PANTOPRAZOLE 40MG TAB (PROTONIX) PO (08:47)
[2018-03-03] MEDS: FUROSEMIDE 20 MG TAB PO ×2 (08:47→17:00)
[2018-03-03] MEDS: METOPROLOL SUCC (TopROL XL) 100MG *XL* TAB PO (08:48)
[2018-03-03] MEDS: MAG SULF 1GM/100ML (MAG RUN) 1 GM in APPROPRIATE DILUENT 1 EA IV ×2 (09:24→10:51)
[2018-03-03] MEDS: ACETAMINOPHEN TAB 650MG DOSE (2X325MG) PO (09:36)
[2018-03-03] MEDS: NYSTATIN 100,000 UNITS/GM TOPICAL PWD 15 GM TOP ×2 (12:22→21:55)
[2018-03-03] MEDS: SIMVASTATIN 20 MG TAB PO (21:52)
[2018-03-04] MEDS: HEPARIN SOD (PORCINE) 5000 UNITS/ML VIAL SC ×3 (05:49→21:00)
[2018-03-04] MEDS: SODIUM CHLORIDE 0.9% INJ 10 ML SYR IV ×2 (05:49→17:10)
[2018-03-04 06:03] LABS: HEMOGLOBIN 10.2 g/dl (12.0-15.5); MEAN CORPUSCULAR HEMOGLOBIN 31.6 pg (27.0-33.0); MEAN CORPUSCULAR HGB CONC 35.2 g/dl (32.0-36.5); MEAN CORPUSCULAR VOLUME 89.8 fl (80.0-96.0); PLATELET COUNT, AUTOMATED 234 10^3/uL (150-450); RED BLOOD COUNT 3.23 10^6/uL (4.00-5.40); RED CELL DISTRIBUTION WIDTH 13.6 % (11.5-14.5); WHITE BLOOD COUNT 5.4 10^3/uL (4.0-10.0)
[2018-03-04 07:26] LABS: ANION GAP 8 MEQ/L (8-16); BLOOD UREA NITROGEN 16 MG/DL (7-18); CALCIUM LEVEL 9.4 MG/DL (8.8-10.2); CARBON DIOXIDE LEVEL 32 MEQ/L (21-32); CHLORIDE LEVEL 95 MEQ/L (98-107); CREATININE FOR GFR 0.85 MG/DL (0.55-1.30); GLOMERULAR FILTRATION RATE > 60.0 (>39); GLUCOSE, FASTING 88 MG/DL (70-100); MAGNESIUM LEVEL 1.7 MG/DL (1.8-2.4); POTASSIUM SERUM 4.5 MEQ/L (3.5-5.1); SODIUM LEVEL 135 MEQ/L (136-145)
[2018-03-04] MEDS: MAGNESIUM OXIDE 400 MG TAB (MAG-OX) PO ×3 (09:49→20:59)
[2018-03-04] MEDS: FERROUS SULFATE 325MG TAB PO (09:50)
[2018-03-04] MEDS: ASPIRIN 325 MG TAB PO (09:50)
[2018-03-04] MEDS: PANTOPRAZOLE 40MG TAB (PROTONIX) PO (09:50)
[2018-03-04] MEDS: METOPROLOL SUCC (TopROL XL) 100MG *XL* TAB PO (09:51)
[2018-03-04] MEDS: FUROSEMIDE 20 MG TAB PO ×2 (09:51→17:11)
[2018-03-04] MEDS: SODIUM CHLORIDE 1 GM TAB PO ×2 (09:52→20:59)
[2018-03-04] MEDS: NYSTATIN 100,000 UNITS/GM TOPICAL PWD 15 GM TOP ×2 (09:53→21:00)
[2018-03-04] MEDS: SIMVASTATIN 20 MG TAB PO (20:59)
[2018-03-05] MEDS: HEPARIN SOD (PORCINE) 5000 UNITS/ML VIAL SC ×3 (05:54→20:40)
[2018-03-05] MEDS: SODIUM CHLORIDE 0.9% INJ 10 ML SYR IV ×2 (05:55→18:17)
[2018-03-05 06:20] LABS: HEMATOCRIT 31.1 % (36.0-47.0); HEMOGLOBIN 10.8 g/dl (12.0-15.5); MEAN CORPUSCULAR HEMOGLOBIN 31.6 pg (27.0-33.0); MEAN CORPUSCULAR HGB CONC 34.7 g/dl (32.0-36.5); MEAN CORPUSCULAR VOLUME 90.9 fl (80.0-96.0); PLATELET COUNT, AUTOMATED 261 10^3/uL (150-450); RED BLOOD COUNT 3.42 10^6/uL (4.00-5.40); RED CELL DISTRIBUTION WIDTH 13.8 % (11.5-14.5); WHITE BLOOD COUNT 5.4 10^3/uL (4.0-10.0)
[2018-03-05 06:42] LABS: ANION GAP 8 MEQ/L (8-16); BLOOD UREA NITROGEN 15 MG/DL (7-18); CALCIUM LEVEL 9.1 MG/DL (8.8-10.2); CARBON DIOXIDE LEVEL 33 MEQ/L (21-32); CHLORIDE LEVEL 93 MEQ/L (98-107); CREATININE FOR GFR 0.76 MG/DL (0.55-1.30); GLOMERULAR FILTRATION RATE > 60.0 (>39); GLUCOSE, FASTING 91 MG/DL (70-100); POTASSIUM SERUM 4.2 MEQ/L (3.5-5.1); SODIUM LEVEL 134 MEQ/L (136-145)
[2018-03-05 07:34] LABS: MAGNESIUM LEVEL 1.5 MG/DL (1.8-2.4)
[2018-03-05] MEDS: FERROUS SULFATE 325MG TAB PO (09:40)
[2018-03-05] MEDS: SODIUM CHLORIDE 1 GM TAB PO ×2 (09:40→20:39)
[2018-03-05] MEDS: PANTOPRAZOLE 40MG TAB (PROTONIX) PO (09:40)
[2018-03-05] MEDS: ASPIRIN 325 MG TAB PO (09:40)
[2018-03-05] MEDS: FUROSEMIDE 20 MG TAB PO ×2 (09:41→16:46)
[2018-03-05] MEDS: METOPROLOL SUCC (TopROL XL) 100MG *XL* TAB PO (09:42)
[2018-03-05] MEDS: MAGNESIUM OXIDE 400 MG TAB (MAG-OX) PO ×3 (09:42→20:39)
[2018-03-05] MEDS: NYSTATIN 100,000 UNITS/GM TOPICAL PWD 15 GM TOP ×2 (09:43→20:39)
[2018-03-05] MEDS: MAG SULF 1GM/100ML (MAG RUN) 1 GM in APPROPRIATE DILUENT 1 EA IV ×2 (11:59→12:00)
[2018-03-05 12:51] LABS: AMMONIA 12 uMOL/L (<32)
[2018-03-05 13:27] LABS: ALBUMIN 3.4 GM/DL (3.2-5.2); ALBUMIN/GLOBULIN RATIO 1.03 (1.00-1.93); ALKALINE PHOSPHATASE 101 U/L (45-117); ALT/SGPT 27 U/L (12-78); AST/SGOT 33 U/L (7-37); BILIRUBIN,DIRECT 0.1 MG/DL (0.0-0.2); BILIRUBIN,TOTAL 0.5 MG/DL (0.2-1.0); TOTAL PROTEIN 6.7 GM/DL (6.4-8.2)
[2018-03-05] MEDS: SIMVASTATIN 20 MG TAB PO (20:39)
[2018-03-06] MEDS: SODIUM CHLORIDE 0.9% INJ 10 ML SYR IV ×2 (05:25→17:23)
[2018-03-06] MEDS: HEPARIN SOD (PORCINE) 5000 UNITS/ML VIAL SC ×3 (05:27→20:47)
[2018-03-06 05:40] LABS: HEMATOCRIT 31.3 % (36.0-47.0); HEMOGLOBIN 10.9 g/dl (12.0-15.5); MEAN CORPUSCULAR HEMOGLOBIN 31.9 pg (27.0-33.0); MEAN CORPUSCULAR HGB CONC 34.8 g/dl (32.0-36.5); MEAN CORPUSCULAR VOLUME 91.5 fl (80.0-96.0); PLATELET COUNT, AUTOMATED 283 10^3/uL (150-450); RED BLOOD COUNT 3.42 10^6/uL (4.00-5.40); RED CELL DISTRIBUTION WIDTH 13.9 % (11.5-14.5); WHITE BLOOD COUNT 6.2 10^3/uL (4.0-10.0)
[2018-03-06 06:00] LABS: KETONE, URINE AUTO RFX NEGATIVE (NEGATIVE); NITRITE, URINE AUTO RFX NEGATIVE (NEGATIVE); RBC, URINE AUTO RFX 24 /HPF (0-3); SPECIFIC GRAVITY UR AUTO RFX 1.014 (1.002-1.035); SQUAM EPITHELIAL CELL UR AURFX 3 /HPF (0-6); TRANSITIONAL EPITHELIAL AU RFX 4 /HPF
[2018-03-06 06:06] LABS: ANION GAP 8 MEQ/L (8-16); BLOOD UREA NITROGEN 18 MG/DL (7-18); CALCIUM LEVEL 9.5 MG/DL (8.8-10.2); CARBON DIOXIDE LEVEL 31 MEQ/L (21-32); CHLORIDE LEVEL 95 MEQ/L (98-107); CREATININE FOR GFR 0.87 MG/DL (0.55-1.30); GLOMERULAR FILTRATION RATE > 60.0 (>39); GLUCOSE, FASTING 102 MG/DL (70-100); LEUKOCYTE ESTERASE UR AUTO RFX 3+ (NEGATIVE); POTASSIUM SERUM 4.2 MEQ/L (3.5-5.1); SODIUM LEVEL 134 MEQ/L (136-145); WBC, URINE AUTO RFX TNTC /HPF (0-3)
[2018-03-06 08:31] LABS: MAGNESIUM LEVEL 1.9 MG/DL (1.8-2.4)
[2018-03-06] MEDS: PANTOPRAZOLE 40MG TAB (PROTONIX) PO (09:30)
[2018-03-06] MEDS: MAGNESIUM OXIDE 400 MG TAB (MAG-OX) PO ×3 (09:30→20:46)
[2018-03-06] MEDS: FERROUS SULFATE 325MG TAB PO (09:30)
[2018-03-06] MEDS: ASPIRIN 325 MG TAB PO (09:30)
[2018-03-06] MEDS: SODIUM CHLORIDE 1 GM TAB PO ×2 (09:30→20:46)
[2018-03-06] MEDS: FUROSEMIDE 20 MG TAB PO ×2 (09:31→17:23)
[2018-03-06] MEDS: NYSTATIN 100,000 UNITS/GM TOPICAL PWD 15 GM TOP ×2 (09:33→20:48)
[2018-03-06] MEDS: METOPROLOL SUCC (TopROL XL) 100MG *XL* TAB PO (09:33)
[2018-03-06] MEDS: SIMVASTATIN 20 MG TAB PO (20:46)
[2018-03-06] MEDS: ONDANSETRON 4 MG TAB (S0181) PO (21:40)
[2018-03-06] MEDS: ACETAMINOPHEN TAB 650MG DOSE (2X325MG) PO (21:40)
[2018-03-06] MEDS: NITROFURANTOIN (MACROBID) 100 MG CAP PO (21:56)
[2018-03-07] MEDS: HEPARIN SOD (PORCINE) 5000 UNITS/ML VIAL SC ×3 (05:34→21:13)
[2018-03-07] MEDS: SODIUM CHLORIDE 0.9% INJ 10 ML SYR IV ×2 (05:34→17:41)
[2018-03-07 05:45] LABS: BASO # 0.1 10^3/uL (0.0-0.2); BASO % 1.5 % (0.0-1.0); EOS # 0.3 10^3/uL (0.0-0.50); EOS % 5.3 % (0.0-3.0); HEMATOCRIT 33.5 % (36.0-47.0); HEMOGLOBIN 11.4 g/dl (12.0-15.5); IMMATURE GRANULOCYTE % 0.4 % (0-3.0); LYMPH # 1.2 10^3/uL (1.5-4.5); LYMPH % 22.1 % (24.0-44.0); MEAN CORPUSCULAR HEMOGLOBIN 31.1 pg (27.0-33.0); MEAN CORPUSCULAR VOLUME 91.3 fl (80.0-96.0); MONO # 0.7 10^3/uL (0.0-0.8); MONO % 12.4 % (0.0-5.0); NEUTROPHILS # 3.2 10^3/uL (1.8-7.7); NEUTROPHILS % 58.3 % (36.0-66.0); PLATELET COUNT, AUTOMATED 306 10^3/uL (150-450); RED BLOOD COUNT 3.67 10^6/uL (4.00-5.40); RED CELL DISTRIBUTION WIDTH 13.6 % (11.5-14.5); WHITE BLOOD COUNT 5.5 10^3/uL (4.0-10.0)
[2018-03-07 06:27] LABS: ANION GAP 8 MEQ/L (8-16); BLOOD UREA NITROGEN 19 MG/DL (7-18); CALCIUM LEVEL 9.5 MG/DL (8.8-10.2); CARBON DIOXIDE LEVEL 30 MEQ/L (21-32); CHLORIDE LEVEL 97 MEQ/L (98-107); CREATININE FOR GFR 0.86 MG/DL (0.55-1.30); GLOMERULAR FILTRATION RATE > 60.0 (>39); GLUCOSE, FASTING 95 MG/DL (70-100); POTASSIUM SERUM 4.1 MEQ/L (3.5-5.1); SODIUM LEVEL 135 MEQ/L (136-145)
[2018-03-07] MEDS: ASPIRIN 325 MG TAB PO (09:22)
[2018-03-07] MEDS: SODIUM CHLORIDE 1 GM TAB PO ×2 (09:22→21:13)
[2018-03-07] MEDS: FUROSEMIDE 20 MG TAB PO ×2 (09:23→16:44)
[2018-03-07] MEDS: FERROUS SULFATE 325MG TAB PO (09:23)
[2018-03-07] MEDS: PANTOPRAZOLE 40MG TAB (PROTONIX) PO (09:23)
[2018-03-07] MEDS: MAGNESIUM OXIDE 400 MG TAB (MAG-OX) PO ×3 (09:23→21:13)
[2018-03-07] MEDS: NYSTATIN 100,000 UNITS/GM TOPICAL PWD 15 GM TOP ×2 (09:24→21:13)
[2018-03-07] MEDS: NITROFURANTOIN (MACROBID) 100 MG CAP PO ×2 (09:29→21:13)
[2018-03-07] MEDS: METOPROLOL SUCC (TopROL XL) 100MG *XL* TAB PO (09:29)
[2018-03-07] MEDS: SIMVASTATIN 20 MG TAB PO (21:13)
[2018-03-08 00:13] LABS: ADH PANEL OSMOLALITY 253 mOsmol/kg (280-301); ANTI-DIURETIC HORMONE <0.8 pg/mL (0.0-4.7)
[2018-03-08] MEDS: HEPARIN SOD (PORCINE) 5000 UNITS/ML VIAL SC ×3 (04:57→20:54)
[2018-03-08] MEDS: SODIUM CHLORIDE 0.9% INJ 10 ML SYR IV ×2 (04:57→17:08)
[2018-03-08 06:19] LABS: BASO # 0.1 10^3/uL (0.0-0.2); BASO % 1.6 % (0.0-1.0); EOS # 0.3 10^3/uL (0.0-0.50); EOS % 4.7 % (0.0-3.0); HEMATOCRIT 32.2 % (36.0-47.0); IMMATURE GRANULOCYTE % 0.7 % (0-3.0); LYMPH # 1.1 10^3/uL (1.5-4.5); LYMPH % 20.4 % (24.0-44.0); MEAN CORPUSCULAR HEMOGLOBIN 31.6 pg (27.0-33.0); MEAN CORPUSCULAR HGB CONC 34.2 g/dl (32.0-36.5); MEAN CORPUSCULAR VOLUME 92.5 fl (80.0-96.0); MONO # 0.7 10^3/uL (0.0-0.8); MONO % 12.6 % (0.0-5.0); NEUTROPHILS # 3.3 10^3/uL (1.8-7.7); PLATELET COUNT, AUTOMATED 319 10^3/uL (150-450); RED BLOOD COUNT 3.48 10^6/uL (4.00-5.40); RED CELL DISTRIBUTION WIDTH 13.7 % (11.5-14.5); WHITE BLOOD COUNT 5.5 10^3/uL (4.0-10.0)
[2018-03-08 06:39] LABS: ANION GAP 9 MEQ/L (8-16); BLOOD UREA NITROGEN 19 MG/DL (7-18); CALCIUM LEVEL 9.6 MG/DL (8.8-10.2); CARBON DIOXIDE LEVEL 29 MEQ/L (21-32); CHLORIDE LEVEL 99 MEQ/L (98-107); CREATININE FOR GFR 0.89 MG/DL (0.55-1.30); GLOMERULAR FILTRATION RATE > 60.0 (>39); GLUCOSE, FASTING 91 MG/DL (70-100); POTASSIUM SERUM 3.9 MEQ/L (3.5-5.1); SODIUM LEVEL 137 MEQ/L (136-145)
[2018-03-08] MEDS: ASPIRIN 325 MG TAB PO (08:51)
[2018-03-08] MEDS: FERROUS SULFATE 325MG TAB PO (08:52)
[2018-03-08] MEDS: NITROFURANTOIN (MACROBID) 100 MG CAP PO (08:52)
[2018-03-08] MEDS: PANTOPRAZOLE 40MG TAB (PROTONIX) PO (08:52)
[2018-03-08] MEDS: MAGNESIUM OXIDE 400 MG TAB (MAG-OX) PO ×3 (08:52→20:53)
[2018-03-08] MEDS: SODIUM CHLORIDE 1 GM TAB PO ×2 (08:52→20:53)
[2018-03-08] MEDS: METOPROLOL SUCC (TopROL XL) 100MG *XL* TAB PO (08:52)
[2018-03-08] MEDS: NYSTATIN 100,000 UNITS/GM TOPICAL PWD 15 GM TOP ×2 (08:53→20:54)
[2018-03-08] MEDS: FUROSEMIDE 20 MG TAB PO ×2 (08:53→17:08)
[2018-03-08] MEDS: ONDANSETRON 4 MG TAB (S0181) PO (10:03)
[2018-03-08] MEDS: ACETAMINOPHEN TAB 650MG DOSE (2X325MG) PO (11:00)
[2018-03-08] MEDS: LevoFLOXacin 500 MG TABLET PO (14:58)
[2018-03-08] MEDS: SIMVASTATIN 20 MG TAB PO (20:53)
[2018-03-09] MEDS: LevoFLOXacin 500 MG TABLET PO (05:34)
[2018-03-09] MEDS: SODIUM CHLORIDE 0.9% INJ 10 ML SYR IV (05:35)
[2018-03-09] MEDS: HEPARIN SOD (PORCINE) 5000 UNITS/ML VIAL SC (05:35)
[2018-03-09 05:55] LABS: BASO # 0.1 10^3/uL (0.0-0.2); BASO % 1.3 % (0.0-1.0); EOS # 0.2 10^3/uL (0.0-0.50); EOS % 2.9 % (0.0-3.0); HEMATOCRIT 33.5 % (36.0-47.0); HEMOGLOBIN 11.6 g/dl (12.0-15.5); IMMATURE GRANULOCYTE % 0.3 % (0-3.0); LYMPH # 1.3 10^3/uL (1.5-4.5); LYMPH % 20.1 % (24.0-44.0); MEAN CORPUSCULAR HEMOGLOBIN 31.3 pg (27.0-33.0); MEAN CORPUSCULAR HGB CONC 34.6 g/dl (32.0-36.5); MEAN CORPUSCULAR VOLUME 90.3 fl (80.0-96.0); MONO # 0.9 10^3/uL (0.0-0.8); MONO % 14.7 % (0.0-5.0); NEUTROPHILS # 3.8 10^3/uL (1.8-7.7); NEUTROPHILS % 60.7 % (36.0-66.0); PLATELET COUNT, AUTOMATED 351 10^3/uL (150-450); RED BLOOD COUNT 3.71 10^6/uL (4.00-5.40); RED CELL DISTRIBUTION WIDTH 13.7 % (11.5-14.5); WHITE BLOOD COUNT 6.3 10^3/uL (4.0-10.0)
[2018-03-09 06:35] LABS: BLOOD UREA NITROGEN 23 MG/DL (7-18); CHLORIDE LEVEL 98 MEQ/L (98-107); CREATININE FOR GFR 0.99 MG/DL (0.55-1.30); GLOMERULAR FILTRATION RATE 58.1 (>39); GLUCOSE, FASTING 92 MG/DL (70-100); POTASSIUM SERUM 4.1 MEQ/L (3.5-5.1); SODIUM LEVEL 136 MEQ/L (136-145)
[2018-03-09 06:36] LABS: ANION GAP 7 MEQ/L (8-16); CALCIUM LEVEL 9.7 MG/DL (8.8-10.2); CARBON DIOXIDE LEVEL 31 MEQ/L (21-32)
[2018-03-09] MEDS: NYSTATIN 100,000 UNITS/GM TOPICAL PWD 15 GM TOP (09:28)
[2018-03-09] MEDS: ASPIRIN 325 MG TAB PO (09:28)
[2018-03-09] MEDS: FUROSEMIDE 20 MG TAB PO (09:29)
[2018-03-09] MEDS: MAGNESIUM OXIDE 400 MG TAB (MAG-OX) PO (09:29)
[2018-03-09] MEDS: SODIUM CHLORIDE 1 GM TAB PO (09:30)
[2018-03-09] MEDS: FERROUS SULFATE 325MG TAB PO (09:30)
[2018-03-09] MEDS: PANTOPRAZOLE 40MG TAB (PROTONIX) PO (09:30)
[2018-03-09] MEDS: METOPROLOL SUCC (TopROL XL) 100MG *XL* TAB PO (09:31)
== END 2018-03-09 11:27 | disposition home or self-care (01) | DRG 641 ==
LOC: M ED INP 02-27 01:36 → M MS5PR 03-03 12:39 → M PCU 02-27 04:14 → M ICU 02-27 14:29 → M ED 19:33
PROC: 02HV33Z Insertion of Infusion Device into Superior Vena Cava, Percutaneous Approach (ICD-10-PCS; principal; 2018-02-28)
DX: E87.1 Hypo-osmolality and hyponatremia (principal); N39.0 Urinary tract infection, site not specified; K21.9 Gastro-esophageal reflux disease without esophagitis; R41.82 Altered mental status, unspecified; I48.2 Chronic atrial fibrillation; I10 Essential (primary) hypertension; E87.8 Other disorders of electrolyte and fluid balance, not elsewhere classified; E83.42 Hypomagnesemia; E66.9 Obesity, unspecified; F41.9 Anxiety disorder, unspecified; E78.5 Hyperlipidemia, unspecified; E87.6 Hypokalemia; Z79.82 Long term (current) use of aspirin; Z79.899 Other long term (current) drug therapy; Z91.040 Latex allergy status; F03.90 Unspecified dementia, unspecified severity, without behavioral disturbance, psychotic disturbance, mood disturbance, and anxiety; B96.1 Klebsiella pneumoniae [K. pneumoniae] as the cause of diseases classified elsewhere; B96.4 Proteus (mirabilis) (morganii) as the cause of diseases classified elsewhere

== ENCOUNTER 2018-03-10 21:02 | Inpatient (IN) | payer MEDICARE, MEDICAID ==
[2018-03-10] MEDS: SIMVASTATIN 20 MG TAB PO (21:00)
[2018-03-10 21:53] LABS: BASO # 0.1 10^3/uL (0.0-0.2); BASO % 0.9 % (0.0-1.0); EOS # 0.2 10^3/uL (0.0-0.50); EOS % 2.3 % (0.0-3.0); HEMATOCRIT 36.2 % (36.0-47.0); HEMOGLOBIN 12.3 g/dl (12.0-15.5); IMMATURE GRANULOCYTE % 0.4 % (0-3.0); LYMPH # 1.4 10^3/uL (1.5-4.5); LYMPH % 20.1 % (24.0-44.0); MEAN CORPUSCULAR HEMOGLOBIN 31.5 pg (27.0-33.0); MEAN CORPUSCULAR VOLUME 92.8 fl (80.0-96.0); MONO % 14.5 % (0.0-5.0); NEUTROPHILS # 4.2 10^3/uL (1.8-7.7); NEUTROPHILS % 61.8 % (36.0-66.0); PLATELET COUNT, AUTOMATED 369 10^3/uL (150-450); RED CELL DISTRIBUTION WIDTH 13.8 % (11.5-14.5); WHITE BLOOD COUNT 6.8 10^3/uL (4.0-10.0)
[2018-03-10 21:57] LABS: APPEARANCE, URINE CLEAR (CLEAR); BACTERIA, URINE AUTO NEGATIVE (NEGATIVE); BILIRUBIN, URINE AUTO NEGATIVE (NEGATIVE); BLOOD, URINE BLOOD NEGATIVE (NEGATIVE); COLOR, URINE YELLOW (YELLOW); GLUCOSE, URINE (UA) AUTO NEGATIVE (NEGATIVE); KETONE, URINE AUTO NEGATIVE (NEGATIVE); LEUKOCYTE ESTERASE, URINE AUTO TRACE (NEGATIVE); MUCUS, URINE SMALL (NEGATIVE); NITRITE, URINE AUTO NEGATIVE (NEGATIVE); PROTEIN, URINE AUTO NEGATIVE (NEGATIVE); RBC, URINE AUTO 2 /HPF (0-3); SPECIFIC GRAVITY URINE AUTO 1.008 (1.002-1.035); SQUAMOUS EPITHELIAL CELL UR AU 0 /HPF (0-6); TRANSITIONAL EPITHELIAL AUTO <1 /HPF; UROBILINOGEN, URINE AUTO 0.2 mg/dL (0.0-2.0); WBC, URINE AUTO 3 /HPF (0-3)
[2018-03-10] MEDS: NS 500 ML IV ×2 (22:05→22:48)
[2018-03-10 22:16] LABS: LACTIC ACID SEPSIS PROTOCOL 1.5 MMOL/L (0.4-2.0)
[2018-03-10 22:25] LABS: ALBUMIN 3.4 GM/DL (3.2-5.2); ALBUMIN/GLOBULIN RATIO 0.89 (1.00-1.93); ALKALINE PHOSPHATASE 105 U/L (45-117); ALT/SGPT 25 U/L (12-78); ANION GAP 10 MEQ/L (8-16); AST/SGOT 29 U/L (7-37); BILIRUBIN,DIRECT 0.1 MG/DL (0.0-0.2); BILIRUBIN,TOTAL 0.4 MG/DL (0.2-1.0); BLOOD UREA NITROGEN 21 MG/DL (7-18); CALCIUM LEVEL 9.6 MG/DL (8.8-10.2); CARBON DIOXIDE LEVEL 27 MEQ/L (21-32); CHLORIDE LEVEL 99 MEQ/L (98-107); CREATININE FOR GFR 1.18 MG/DL (0.55-1.30); FREE THYROXINE INDEX 3.6 % (1.3-4.8); GLOMERULAR FILTRATION RATE 47.4 (>39); GLUCOSE, FASTING 106 MG/DL (70-100); POTASSIUM SERUM 4.1 MEQ/L (3.5-5.1); SODIUM LEVEL 136 MEQ/L (136-145); T UPTAKE 36 % (30-39); TOTAL PROTEIN 7.2 GM/DL (6.4-8.2)
[2018-03-10 22:34] LABS: ABG HCO3 23.7 MEQ/L (22.0-26.0); ABG O2 SATURATION 98.6 % (95.0-99.0); ABG PARTIAL PRESSURE CO2 31.9 mmHg (35.0-45.0); ABG PARTIAL PRESSURE O2 113.3 mmHg (75.0-100.0); ABG STANDARD HCO3 25.4 MEQ/L (22.0-26.0); ABG TOTAL CO2 24.7 MEQ/L (23.0-31.0); ABG pH (ARTERIAL) 7.489 UNITS (7.350-7.450)
[2018-03-10 22:38] LABS: CK-MB VALUE MASS 1.1 NG/ML (<3.6); CPK CREATINE PHOSPHOKINASE 38 U/L (26-192); MB/CK RELATIVE INDEX 2.89 (< OR =4); TROPONIN I < 0.02 NG/ML (< 0.10)
[2018-03-10 23:38] LABS: ETHYL ALCOHOL (ETHANOL) 0.005 % (0.000-0.010)
[2018-03-10 23:51] LABS: AMPHETAMINES LEVEL URINE NEGATIVE (NEGATIVE); BARBITURATES URINE NEGATIVE (NEGATIVE); BENZODIAZEPINES URINE NEGATIVE (NEGATIVE); CANNABINOIDS URINE NEGATIVE (NEGATIVE); COCAINE METABOLITE URINE NEGATIVE (NEGATIVE); METHADONE URINE NEGATIVE (NEGATIVE); OPIATES URINE NEGATIVE (NEGATIVE); PHENCYCLIDINE URINE NEGATIVE (NEGATIVE)
[2018-03-10] MEDS: NS 1,000 ML IV (23:58)
[2018-03-11] MEDS ORDERED: ISOVUE-370 76% 100ML VIAL (Q9967) As Ordered (00:04)
[2018-03-11 00:42] LABS: AMMONIA 28 uMOL/L (<32)
[2018-03-11 05:44] LABS: BASO # 0.1 10^3/uL (0.0-0.2); BASO % 1.3 % (0.0-1.0); EOS # 0.2 10^3/uL (0.0-0.50); EOS % 2.4 % (0.0-3.0); HEMATOCRIT 31.3 % (36.0-47.0); IMMATURE GRANULOCYTE % 0.4 % (0-3.0); LYMPH # 1.2 10^3/uL (1.5-4.5); LYMPH % 17.8 % (24.0-44.0); MEAN CORPUSCULAR HEMOGLOBIN 31.6 pg (27.0-33.0); MEAN CORPUSCULAR HGB CONC 35.1 g/dl (32.0-36.5); MEAN CORPUSCULAR VOLUME 89.9 fl (80.0-96.0); MONO # 0.9 10^3/uL (0.0-0.8); MONO % 13.3 % (0.0-5.0); NEUTROPHILS # 4.4 10^3/uL (1.8-7.7); NEUTROPHILS % 64.8 % (36.0-66.0); PLATELET COUNT, AUTOMATED 341 10^3/uL (150-450); RED BLOOD COUNT 3.48 10^6/uL (4.00-5.40); RED CELL DISTRIBUTION WIDTH 13.6 % (11.5-14.5); WHITE BLOOD COUNT 6.8 10^3/uL (4.0-10.0)
[2018-03-11 06:03] LABS: ALBUMIN/GLOBULIN RATIO 0.86 (1.00-1.93); ALKALINE PHOSPHATASE 83 U/L (45-117); ALT/SGPT 21 U/L (12-78); ANION GAP 7 MEQ/L (8-16); AST/SGOT 23 U/L (7-37); BILIRUBIN,TOTAL 0.5 MG/DL (0.2-1.0); BLOOD UREA NITROGEN 19 MG/DL (7-18); CALCIUM LEVEL 9.1 MG/DL (8.8-10.2); CARBON DIOXIDE LEVEL 27 MEQ/L (21-32); CHLORIDE LEVEL 103 MEQ/L (98-107); CREATININE FOR GFR 0.86 MG/DL (0.55-1.30); GLOMERULAR FILTRATION RATE > 60.0 (>39); GLUCOSE, FASTING 99 MG/DL (70-100); POTASSIUM SERUM 3.5 MEQ/L (3.5-5.1); SODIUM LEVEL 137 MEQ/L (136-145); TOTAL PROTEIN 6.5 GM/DL (6.4-8.2)
[2018-03-11] MEDS: HEPARIN SOD (PORCINE) 5000 UNITS/ML VIAL SC ×3 (06:39→21:25)
[2018-03-11 07:06] LABS: PHOSPHORUS LEVEL 4.2 MG/DL (2.5-4.9)
[2018-03-11] MEDS: MAGNESIUM OXIDE 400 MG TAB (MAG-OX) PO ×3 (09:51→21:25)
[2018-03-11] MEDS: PANTOPRAZOLE 40MG TAB (PROTONIX) PO (09:51)
[2018-03-11] MEDS: LevoFLOXacin 500 MG TABLET PO (09:51)
[2018-03-11] MEDS: ASPIRIN 325 MG TAB PO (09:51)
[2018-03-11] MEDS: METOPROLOL SUCC (TopROL XL) 100MG *XL* TAB PO (09:51)
[2018-03-11] MEDS: PARoxetine 20 MG TAB PO (09:52)
[2018-03-11] MEDS: FUROSEMIDE 20 MG TAB PO ×2 (09:52→17:31)
[2018-03-11] MEDS: FERROUS SULFATE 325MG TAB PO (09:52)
[2018-03-11] MEDS: SIMVASTATIN 20 MG TAB PO (21:24)
[2018-03-12] MEDS: HEPARIN SOD (PORCINE) 5000 UNITS/ML VIAL SC ×4 (05:27→21:05)
[2018-03-12 06:54] LABS: BASO # 0.1 10^3/uL (0.0-0.2); BASO % 1.5 % (0.0-1.0); EOS # 0.2 10^3/uL (0.0-0.50); EOS % 3.2 % (0.0-3.0); HEMOGLOBIN 10.8 g/dl (12.0-15.5); IMMATURE GRANULOCYTE % 0.6 % (0-3.0); LYMPH # 1.2 10^3/uL (1.5-4.5); LYMPH % 22.2 % (24.0-44.0); MEAN CORPUSCULAR HEMOGLOBIN 31.3 pg (27.0-33.0); MEAN CORPUSCULAR HGB CONC 34.8 g/dl (32.0-36.5); MEAN CORPUSCULAR VOLUME 89.9 fl (80.0-96.0); MONO # 0.6 10^3/uL (0.0-0.8); MONO % 12.1 % (0.0-5.0); NEUTROPHILS # 3.2 10^3/uL (1.8-7.7); NEUTROPHILS % 60.4 % (36.0-66.0); PLATELET COUNT, AUTOMATED 291 10^3/uL (150-450); RED BLOOD COUNT 3.45 10^6/uL (4.00-5.40); RED CELL DISTRIBUTION WIDTH 13.8 % (11.5-14.5); WHITE BLOOD COUNT 5.3 10^3/uL (4.0-10.0)
[2018-03-12 07:16] LABS: POS COUNT POS FLAG
[2018-03-12 07:32] LABS: ALBUMIN/GLOBULIN RATIO 0.81 (1.00-1.93); ALKALINE PHOSPHATASE 80 U/L (45-117); ALT/SGPT 19 U/L (12-78); ANION GAP 8 MEQ/L (8-16); AST/SGOT 23 U/L (7-37); BILIRUBIN,TOTAL 0.4 MG/DL (0.2-1.0); BLOOD UREA NITROGEN 18 MG/DL (7-18); CALCIUM LEVEL 9.4 MG/DL (8.8-10.2); CARBON DIOXIDE LEVEL 24 MEQ/L (21-32); CHLORIDE LEVEL 105 MEQ/L (98-107); CREATININE FOR GFR 0.83 MG/DL (0.55-1.30); GLOMERULAR FILTRATION RATE > 60.0 (>39); GLUCOSE, FASTING 86 MG/DL (70-100); SODIUM LEVEL 137 MEQ/L (136-145); TOTAL PROTEIN 6.7 GM/DL (6.4-8.2)
[2018-03-12] MEDS: LevoFLOXacin 500 MG TABLET PO (09:46)
[2018-03-12] MEDS: PARoxetine 20 MG TAB PO (09:47)
[2018-03-12] MEDS: FERROUS SULFATE 325MG TAB PO (09:47)
[2018-03-12] MEDS: METOPROLOL SUCC (TopROL XL) 100MG *XL* TAB PO (09:48)
[2018-03-12] MEDS: PANTOPRAZOLE 40MG TAB (PROTONIX) PO (09:48)
[2018-03-12] MEDS: ASPIRIN 325 MG TAB PO (09:48)
[2018-03-12] MEDS: FUROSEMIDE 20 MG TAB PO ×2 (09:48→16:26)
[2018-03-12] MEDS: MAGNESIUM OXIDE 400 MG TAB (MAG-OX) PO ×3 (09:48→20:41)
[2018-03-12] MEDS: SIMVASTATIN 20 MG TAB PO (20:41)
[2018-03-13] MEDS: HEPARIN SOD (PORCINE) 5000 UNITS/ML VIAL SC ×3 (05:44→21:00)
[2018-03-13] MEDS: PARoxetine 20 MG TAB PO (08:41)
[2018-03-13] MEDS: FERROUS SULFATE 325MG TAB PO (08:41)
[2018-03-13] MEDS: LevoFLOXacin 500 MG TABLET PO (08:41)
[2018-03-13] MEDS: PANTOPRAZOLE 40MG TAB (PROTONIX) PO (08:41)
[2018-03-13] MEDS: ASPIRIN 325 MG TAB PO (08:41)
[2018-03-13] MEDS: MAGNESIUM OXIDE 400 MG TAB (MAG-OX) PO ×3 (08:41→20:58)
[2018-03-13] MEDS: FUROSEMIDE 20 MG TAB PO ×2 (08:41→16:13)
[2018-03-13] MEDS: METOPROLOL SUCC (TopROL XL) 100MG *XL* TAB PO (08:41)
[2018-03-13 08:49] LABS: HEMATOCRIT 37.8 % (36.0-47.0); MEAN CORPUSCULAR HEMOGLOBIN 31.7 pg (27.0-33.0); MEAN CORPUSCULAR HGB CONC 33.9 g/dl (32.0-36.5); MEAN CORPUSCULAR VOLUME 93.6 fl (80.0-96.0); PLATELET COUNT, AUTOMATED 339 10^3/uL (150-450); RED BLOOD COUNT 4.04 10^6/uL (4.00-5.40); RED CELL DISTRIBUTION WIDTH 13.5 % (11.5-14.5); WHITE BLOOD COUNT 6.7 10^3/uL (4.0-10.0)
[2018-03-13 08:52] LABS: HEMOGLOBIN 12.8 g/dl (12.0-15.5)
[2018-03-13 09:15] LABS: ANION GAP 10 MEQ/L (8-16); BLOOD UREA NITROGEN 20 MG/DL (7-18); CALCIUM LEVEL 9.5 MG/DL (8.8-10.2); CARBON DIOXIDE LEVEL 22 MEQ/L (21-32); CHLORIDE LEVEL 102 MEQ/L (98-107); CREATININE FOR GFR 0.94 MG/DL (0.55-1.30); GLOMERULAR FILTRATION RATE > 60.0 (>39); GLUCOSE, FASTING 106 MG/DL (70-100); MAGNESIUM LEVEL 1.4 MG/DL (1.8-2.4); POTASSIUM SERUM 3.8 MEQ/L (3.5-5.1); SODIUM LEVEL 134 MEQ/L (136-145)
[2018-03-13] MEDS: SIMVASTATIN 20 MG TAB PO (20:58)
[2018-03-13] MEDS: ACETAMINOPHEN TAB 650MG DOSE (2X325MG) PO (23:23)
[2018-03-14] MEDS: HEPARIN SOD (PORCINE) 5000 UNITS/ML VIAL SC ×3 (06:20→21:11)
[2018-03-14 08:16] LABS: HEMATOCRIT 35.1 % (36.0-47.0); HEMOGLOBIN 12.2 g/dl (12.0-15.5); MEAN CORPUSCULAR HEMOGLOBIN 31.5 pg (27.0-33.0); MEAN CORPUSCULAR HGB CONC 34.8 g/dl (32.0-36.5); MEAN CORPUSCULAR VOLUME 90.7 fl (80.0-96.0); PLATELET COUNT, AUTOMATED 388 10^3/uL (150-450); RED BLOOD COUNT 3.87 10^6/uL (4.00-5.40); RED CELL DISTRIBUTION WIDTH 13.5 % (11.5-14.5); WHITE BLOOD COUNT 5.6 10^3/uL (4.0-10.0)
[2018-03-14 08:41] LABS: ALBUMIN 3.2 GM/DL (3.2-5.2); ALBUMIN/GLOBULIN RATIO 0.94 (1.00-1.93); ALKALINE PHOSPHATASE 78 U/L (45-117); ALT/SGPT 16 U/L (12-78); ANION GAP 12 MEQ/L (8-16); AST/SGOT 19 U/L (7-37); BILIRUBIN,TOTAL 0.6 MG/DL (0.2-1.0); BLOOD UREA NITROGEN 24 MG/DL (7-18); CALCIUM LEVEL 9.4 MG/DL (8.8-10.2); CARBON DIOXIDE LEVEL 25 MEQ/L (21-32); CHLORIDE LEVEL 101 MEQ/L (98-107); CREATININE FOR GFR 1.07 MG/DL (0.55-1.30); GLOMERULAR FILTRATION RATE 53.1 (>39); GLUCOSE, FASTING 129 MG/DL (70-100); MAGNESIUM LEVEL 1.5 MG/DL (1.8-2.4); POTASSIUM SERUM 3.9 MEQ/L (3.5-5.1); SODIUM LEVEL 138 MEQ/L (136-145); TOTAL PROTEIN 6.6 GM/DL (6.4-8.2)
[2018-03-14] MEDS: ASPIRIN 325 MG TAB PO (09:22)
[2018-03-14] MEDS: MAGNESIUM OXIDE 400 MG TAB (MAG-OX) PO ×3 (09:23→21:10)
[2018-03-14] MEDS: FERROUS SULFATE 325MG TAB PO (09:23)
[2018-03-14] MEDS: PARoxetine 20 MG TAB PO (09:23)
[2018-03-14] MEDS: FUROSEMIDE 20 MG TAB PO ×2 (09:23→18:02)
[2018-03-14] MEDS: PANTOPRAZOLE 40MG TAB (PROTONIX) PO (09:23)
[2018-03-14] MEDS: METOPROLOL SUCC (TopROL XL) 100MG *XL* TAB PO (09:23)
[2018-03-14] MEDS: ACETAMINOPHEN TAB 650MG DOSE (2X325MG) PO (14:36)
[2018-03-14] MEDS ORDERED: SLF 3 ML SYR IV ×2 (18:00→22:00)
[2018-03-14 18:51] LABS: FOLATE 9.6 NG/ML (>5.4)
[2018-03-14] MEDS: SIMVASTATIN 20 MG TAB PO (21:11)
[2018-03-15] MEDS: HEPARIN SOD (PORCINE) 5000 UNITS/ML VIAL SC ×3 (05:46→20:52)
[2018-03-15 06:31] LABS: HEMATOCRIT 35.4 % (36.0-47.0); HEMOGLOBIN 11.9 g/dl (12.0-15.5); MEAN CORPUSCULAR HEMOGLOBIN 30.9 pg (27.0-33.0); MEAN CORPUSCULAR HGB CONC 33.6 g/dl (32.0-36.5); MEAN CORPUSCULAR VOLUME 91.9 fl (80.0-96.0); PLATELET COUNT, AUTOMATED 367 10^3/uL (150-450); RED BLOOD COUNT 3.85 10^6/uL (4.00-5.40); RED CELL DISTRIBUTION WIDTH 13.6 % (11.5-14.5)
[2018-03-15 06:47] LABS: ANION GAP 7 MEQ/L (8-16); BLOOD UREA NITROGEN 26 MG/DL (7-18); CALCIUM LEVEL 9.4 MG/DL (8.8-10.2); CARBON DIOXIDE LEVEL 26 MEQ/L (21-32); CHLORIDE LEVEL 104 MEQ/L (98-107); CREATININE FOR GFR 1.02 MG/DL (0.55-1.30); GLOMERULAR FILTRATION RATE 56.1 (>39); GLUCOSE, FASTING 87 MG/DL (70-100); MAGNESIUM LEVEL 1.7 MG/DL (1.8-2.4); POTASSIUM SERUM 4.2 MEQ/L (3.5-5.1); SODIUM LEVEL 137 MEQ/L (136-145)
[2018-03-15] MEDS: ACETAMINOPHEN TAB 650MG DOSE (2X325MG) PO ×2 (10:03→17:17)
[2018-03-15] MEDS: METOPROLOL SUCC (TopROL XL) 100MG *XL* TAB PO (10:04)
[2018-03-15] MEDS: MAGNESIUM OXIDE 400 MG TAB (MAG-OX) PO ×3 (10:04→20:52)
[2018-03-15] MEDS: FUROSEMIDE 20 MG TAB PO ×2 (10:05→17:17)
[2018-03-15] MEDS: PANTOPRAZOLE 40MG TAB (PROTONIX) PO (10:05)
[2018-03-15] MEDS: FERROUS SULFATE 325MG TAB PO (10:05)
[2018-03-15] MEDS: ASPIRIN 325 MG TAB PO (10:05)
[2018-03-15] MEDS: SIMVASTATIN 40 MG TAB PO (20:52)
[2018-03-16] MEDS: HEPARIN SOD (PORCINE) 5000 UNITS/ML VIAL SC ×3 (05:31→21:08)
[2018-03-16 06:07] LABS: HEMATOCRIT 35.1 % (36.0-47.0); HEMOGLOBIN 11.9 g/dl (12.0-15.5); MEAN CORPUSCULAR HEMOGLOBIN 31.4 pg (27.0-33.0); MEAN CORPUSCULAR HGB CONC 33.9 g/dl (32.0-36.5); MEAN CORPUSCULAR VOLUME 92.6 fl (80.0-96.0); PLATELET COUNT, AUTOMATED 372 10^3/uL (150-450); RED BLOOD COUNT 3.79 10^6/uL (4.00-5.40); RED CELL DISTRIBUTION WIDTH 13.6 % (11.5-14.5); WHITE BLOOD COUNT 4.6 10^3/uL (4.0-10.0)
[2018-03-16 06:20] LABS: ANION GAP 7 MEQ/L (8-16); BLOOD UREA NITROGEN 26 MG/DL (7-18); CALCIUM LEVEL 9.3 MG/DL (8.8-10.2); CARBON DIOXIDE LEVEL 27 MEQ/L (21-32); CHLORIDE LEVEL 103 MEQ/L (98-107); GLOMERULAR FILTRATION RATE 57.4 (>39); GLUCOSE, FASTING 86 MG/DL (70-100); MAGNESIUM LEVEL 1.8 MG/DL (1.8-2.4); POTASSIUM SERUM 4.3 MEQ/L (3.5-5.1); SODIUM LEVEL 137 MEQ/L (136-145)
[2018-03-16] MEDS: CLOPIDOGREL 75 MG TAB PO (08:22)
[2018-03-16] MEDS: FUROSEMIDE 20 MG TAB PO ×2 (08:23→16:17)
[2018-03-16] MEDS: FERROUS SULFATE 325MG TAB PO (08:23)
[2018-03-16] MEDS: ACETAMINOPHEN TAB 650MG DOSE (2X325MG) PO ×2 (08:23→16:17)
[2018-03-16] MEDS: MAGNESIUM OXIDE 400 MG TAB (MAG-OX) PO ×3 (08:23→21:07)
[2018-03-16] MEDS: PANTOPRAZOLE 40MG TAB (PROTONIX) PO (08:23)
[2018-03-16] MEDS: METOPROLOL SUCC (TopROL XL) 100MG *XL* TAB PO (08:24)
[2018-03-16] MEDS: SIMVASTATIN 40 MG TAB PO (21:08)
[2018-03-17 05:35] LABS: HEMATOCRIT 34.7 % (36.0-47.0); HEMOGLOBIN 11.8 g/dl (12.0-15.5); MEAN CORPUSCULAR HEMOGLOBIN 31.1 pg (27.0-33.0); MEAN CORPUSCULAR VOLUME 91.3 fl (80.0-96.0); PLATELET COUNT, AUTOMATED 390 10^3/uL (150-450); RED CELL DISTRIBUTION WIDTH 13.3 % (11.5-14.5)
[2018-03-17] MEDS: HEPARIN SOD (PORCINE) 5000 UNITS/ML VIAL SC ×3 (05:38→20:48)
[2018-03-17 05:50] LABS: ANION GAP 9 MEQ/L (8-16); BLOOD UREA NITROGEN 23 MG/DL (7-18); CALCIUM LEVEL 9.4 MG/DL (8.8-10.2); CARBON DIOXIDE LEVEL 28 MEQ/L (21-32); CHLORIDE LEVEL 101 MEQ/L (98-107); CREATININE FOR GFR 0.91 MG/DL (0.55-1.30); GLOMERULAR FILTRATION RATE > 60.0 (>39); GLUCOSE, FASTING 83 MG/DL (70-100); MAGNESIUM LEVEL 1.9 MG/DL (1.8-2.4); POTASSIUM SERUM 3.9 MEQ/L (3.5-5.1); SODIUM LEVEL 138 MEQ/L (136-145)
[2018-03-17] MEDS: PANTOPRAZOLE 40MG TAB (PROTONIX) PO (08:40)
[2018-03-17] MEDS: FUROSEMIDE 20 MG TAB PO ×2 (08:40→16:17)
[2018-03-17] MEDS: MAGNESIUM OXIDE 400 MG TAB (MAG-OX) PO ×3 (08:40→20:48)
[2018-03-17] MEDS: FERROUS SULFATE 325MG TAB PO (08:40)
[2018-03-17] MEDS: CLOPIDOGREL 75 MG TAB PO (08:40)
[2018-03-17] MEDS: METOPROLOL SUCC (TopROL XL) 100MG *XL* TAB PO (08:48)
[2018-03-17] MEDS: SIMVASTATIN 40 MG TAB PO (20:48)
[2018-03-17] MEDS: ACETAMINOPHEN TAB 650MG DOSE (2X325MG) PO (21:18)
[2018-03-18] MEDS: HEPARIN SOD (PORCINE) 5000 UNITS/ML VIAL SC ×2 (05:34→13:23)
[2018-03-18 06:02] LABS: HEMATOCRIT 34.8 % (36.0-47.0); HEMOGLOBIN 11.6 g/dl (12.0-15.5); MEAN CORPUSCULAR HGB CONC 33.3 g/dl (32.0-36.5); PLATELET COUNT, AUTOMATED 389 10^3/uL (150-450); RED BLOOD COUNT 3.74 10^6/uL (4.00-5.40); RED CELL DISTRIBUTION WIDTH 13.5 % (11.5-14.5); WHITE BLOOD COUNT 5.4 10^3/uL (4.0-10.0)
[2018-03-18 06:30] LABS: ANION GAP 8 MEQ/L (8-16); BLOOD UREA NITROGEN 26 MG/DL (7-18); CALCIUM LEVEL 9.5 MG/DL (8.8-10.2); CARBON DIOXIDE LEVEL 30 MEQ/L (21-32); CHLORIDE LEVEL 101 MEQ/L (98-107); CREATININE FOR GFR 1.08 MG/DL (0.55-1.30); GLOMERULAR FILTRATION RATE 52.5 (>39); GLUCOSE, FASTING 88 MG/DL (70-100); MAGNESIUM LEVEL 1.8 MG/DL (1.8-2.4); SODIUM LEVEL 139 MEQ/L (136-145)
[2018-03-18] MEDS: CLOPIDOGREL 75 MG TAB PO (09:32)
[2018-03-18] MEDS: PANTOPRAZOLE 40MG TAB (PROTONIX) PO (09:32)
[2018-03-18] MEDS: FERROUS SULFATE 325MG TAB PO (09:32)
[2018-03-18] MEDS: FUROSEMIDE 20 MG TAB PO ×2 (09:32→16:36)
[2018-03-18] MEDS: METOPROLOL SUCC (TopROL XL) 100MG *XL* TAB PO (09:33)
[2018-03-18] MEDS: MAGNESIUM OXIDE 400 MG TAB (MAG-OX) PO ×2 (09:33→16:36)
[2018-03-21 00:07] LABS: VITAMIN B1 LEVEL WHOLE BLOOD 67.7 nmol/L (66.5-200.0)
== END 2018-03-18 19:13 | disposition home health service (06) | DRG 65 ==
LOC: M ED INP 23:58 → M PCU 03-11 01:56 → M MS5PR 03-12 11:21 → M ED 21:02
DX: I63.9 Cerebral infarction, unspecified (principal); N39.0 Urinary tract infection, site not specified; G37.2 Central pontine myelinolysis; F03.90 Unspecified dementia, unspecified severity, without behavioral disturbance, psychotic disturbance, mood disturbance, and anxiety; R47.01 Aphasia; I10 Essential (primary) hypertension; I48.91 Unspecified atrial fibrillation; E78.5 Hyperlipidemia, unspecified; K21.9 Gastro-esophageal reflux disease without esophagitis; F41.9 Anxiety disorder, unspecified; Z79.82 Long term (current) use of aspirin; Z79.899 Other long term (current) drug therapy; Z91.040 Latex allergy status

== ENCOUNTER → 2018-04-20 | Outpatient (REF) | payer MEDICARE, MEDICAID | LOC: M LAB REF 18:00 | DX: R19.7 Diarrhea, unspecified (principal) | CPT/HCPCS: 87507 ==

== ENCOUNTER → 2018-05-10 | Outpatient (REF) | payer MEDICARE, MEDICAID ==
[2018-05-10 16:05] LABS: HEMATOCRIT 38.8 % (36.0-47.0); HEMOGLOBIN 13.3 g/dl (12.0-15.5); MEAN CORPUSCULAR HEMOGLOBIN 31.4 pg (27.0-33.0); MEAN CORPUSCULAR HGB CONC 34.3 g/dl (32.0-36.5); MEAN CORPUSCULAR VOLUME 91.5 fl (80.0-96.0); PLATELET COUNT, AUTOMATED 324 10^3/uL (150-450); RED BLOOD COUNT 4.24 10^6/uL (4.00-5.40); RED CELL DISTRIBUTION WIDTH 12.6 % (11.5-14.5); WHITE BLOOD COUNT 7.2 10^3/uL (4.0-10.0)
[2018-05-10 16:37] LABS: ALBUMIN 4.4 GM/DL (3.2-5.2); ALBUMIN/GLOBULIN RATIO 1.33 (1.00-1.93); ALKALINE PHOSPHATASE 120 U/L (45-117); ALT/SGPT 15 U/L (12-78); ANION GAP 12 MEQ/L (8-16); AST/SGOT 20 U/L (7-37); BILIRUBIN,TOTAL 0.5 MG/DL (0.2-1.0); BLOOD UREA NITROGEN 12 MG/DL (7-18); CARBON DIOXIDE LEVEL 29 MEQ/L (21-32); CHLORIDE LEVEL 92 MEQ/L (98-107); CHOLESTEROL LEVEL 211 MG/DL (<200); CHOLESTEROL RISK RATIO 2.397 (<5); CREATININE FOR GFR 0.82 MG/DL (0.55-1.30); GLOMERULAR FILTRATION RATE > 60.0 (>39); GLUCOSE, FASTING 86 MG/DL (70-100); HDL CHOLESTEROL 88 MG/DL (>40); LDL CHOLESTEROL 95 MG/DL (<100); NON-HDL-C 123 MG/DL; POTASSIUM SERUM 4.1 MEQ/L (3.5-5.1); SODIUM LEVEL 133 MEQ/L (136-145); TOTAL PROTEIN 7.7 GM/DL (6.4-8.2); TRIGLYCERIDES LEVEL 142 MG/DL (<150)
== END ==
LOC: M SFHCPLAZ 13:50
DX: D50.9 Iron deficiency anemia, unspecified (principal); E78.2 Mixed hyperlipidemia; I10 Essential (primary) hypertension; Z23 Encounter for immunization
CPT/HCPCS: 80053

== ENCOUNTER 2018-06-14 13:07 | Emergency (ER) | payer MEDICARE, MEDICAID ==
[2018-06-14] MEDS: GI COCKTAIL 50ML BTL(HYOSCYAMINE/MAALOX/LIDOCAINE VISCOUS)(1:3:1) PO (14:51)
[2018-06-14 15:42] LABS: BASO # 0.1 10^3/uL (0.0-0.2); BASO % 0.9 % (0.0-1.0); EOS # 0.1 10^3/uL (0.0-0.50); EOS % 1.6 % (0.0-3.0); HEMATOCRIT 36.3 % (36.0-47.0); HEMOGLOBIN 12.4 g/dl (12.0-15.5); IMMATURE GRANULOCYTE % 0.3 % (0-3.0); LYMPH # 1.3 10^3/uL (1.5-4.5); LYMPH % 18.8 % (24.0-44.0); MEAN CORPUSCULAR HEMOGLOBIN 31.2 pg (27.0-33.0); MEAN CORPUSCULAR HGB CONC 34.2 g/dl (32.0-36.5); MEAN CORPUSCULAR VOLUME 91.2 fl (80.0-96.0); MONO # 0.7 10^3/uL (0.0-0.8); MONO % 10.7 % (0.0-5.0); NEUTROPHILS # 4.6 10^3/uL (1.8-7.7); NEUTROPHILS % 67.7 % (36.0-66.0); PLATELET COUNT, AUTOMATED 370 10^3/uL (150-450); RED BLOOD COUNT 3.98 10^6/uL (4.00-5.40); RED CELL DISTRIBUTION WIDTH 11.5 % (11.5-14.5); WHITE BLOOD COUNT 6.8 10^3/uL (4.0-10.0)
[2018-06-14 16:09] LABS: LACTIC ACID SEPSIS PROTOCOL 0.9 MMOL/L (0.4-2.0)
[2018-06-14 16:11] LABS: ALBUMIN 3.7 GM/DL (3.2-5.2); ALBUMIN/GLOBULIN RATIO 1.06 (1.00-1.93); ALKALINE PHOSPHATASE 114 U/L (45-117); ALT/SGPT 14 U/L (12-78); ANION GAP 9 MEQ/L (8-16); AST/SGOT 14 U/L (7-37); BILIRUBIN,DIRECT 0.1 MG/DL (0.0-0.2); BILIRUBIN,TOTAL 0.4 MG/DL (0.2-1.0); BLOOD UREA NITROGEN 18 MG/DL (7-18); CALCIUM LEVEL 9.9 MG/DL (8.8-10.2); CARBON DIOXIDE LEVEL 31 MEQ/L (21-32); CHLORIDE LEVEL 94 MEQ/L (98-107); CK-MB VALUE MASS < 1.0 NG/ML (<3.6); CPK CREATINE PHOSPHOKINASE 54 U/L (26-192); CREATININE FOR GFR 0.82 MG/DL (0.55-1.30); GLOMERULAR FILTRATION RATE > 60.0 (>39); GLUCOSE, FASTING 93 MG/DL (70-100); LIPASE 93 U/L (73-393); MB/CK RELATIVE INDEX 1.85 (< OR =4); POTASSIUM SERUM 3.8 MEQ/L (3.5-5.1); SODIUM LEVEL 134 MEQ/L (136-145); TOTAL PROTEIN 7.2 GM/DL (6.4-8.2); TROPONIN I < 0.02 NG/ML (< 0.10)
[2018-06-14] MEDS ORDERED: ISOVUE-370 76% 100ML VIAL (Q9967) As Ordered (16:58)
[2018-06-14] MEDS: SUCRALFATE SUSP 1GM/10ML UD PO (18:51)
== END 2018-06-14 18:56 | disposition home or self-care (01) ==
LOC: M ED 13:07
DX: K29.70 Gastritis, unspecified, without bleeding (principal); J44.9 Chronic obstructive pulmonary disease, unspecified; I48.91 Unspecified atrial fibrillation; I44.4 Left anterior fascicular block; K42.9 Umbilical hernia without obstruction or gangrene; K57.90 Diverticulosis of intestine, part unspecified, without perforation or abscess without bleeding; M51.36 Other intervertebral disc degeneration, lumbar region; Z96.641 Presence of right artificial hip joint; Z86.73 Personal history of transient ischemic attack (TIA), and cerebral infarction without residual deficits; E78.5 Hyperlipidemia, unspecified; F32.9 Major depressive disorder, single episode, unspecified; D50.9 Iron deficiency anemia, unspecified; K21.9 Gastro-esophageal reflux disease without esophagitis; Z79.899 Other long term (current) drug therapy; Z91.040 Latex allergy status
CPT/HCPCS: Q9967

== ENCOUNTER → 2018-11-19 | Outpatient (REF) | payer MEDICARE, MEDICAID ==
[~2018-11-19] MED LIST changes: -/CELE20CA OR; -/ESOM40CA; -AMLO10TA2 PO; +AMLO10TA5 PO; +ASPI-1 PO; -ASPI1TAB PO; +ASPI81TA26 PO; -BUPIVACAINE/EPIN 0.25% 30 ML VIAL As Ordered ONE; +CELE1CAP4 OR; +CLOP75TA2 PO; +FERR1TAB8 PO; +FURO20TA2 PO; -GLYCOPYRROLATE INJ 0.2 MG/ML 2 ML VIAL As Ordered ONE; -KETOROLAC 30 MG/ML VIAL (J1885) IV PRN; +LASI20TA3 PO; +LEVA1TAB2 PO; -LIDOCAINE 2% INJ 100 MG/5 ML SDV (FOR ANES.) As Ordered ONE; -LR 1,000 ML IV ONE; -LR 1,000 ML IV SCH; +MAG400TA PO; +MAGN400T2 PO; -MEPERIDINE INJ 25 MG/ML VIAL (J2175) IV PRN; -METO-209 PO; -METO100T PO; +METO100T5 PO; +METO1TAB33 PO; +METO25TA4 PO; -METO25TAB PO; -METOPROLOL SUCC (TopROL XL) 100MG *XL* TAB PO ONE; -MIDAZOLAM INJ 2 MG/2 ML VIAL (J2250) As Ordered ONE; -NEOSTIGMINE 1MG/ML 5 ML SYRINGE (J2710) As Ordered ONE; +NEXI1CAP3; +NORC1TAB7 PO; -NORCO, ANEXSIA 5/325MG TABLET (HYDROcodone/ACETAMINOPHEN) PO PRN; -ONDANSETRON 4MG/2ML VIAL (J2405) As Ordered ONE; -ONDANSETRON 4MG/2ML VIAL (J2405) IV PRN; +PARO20TA3 PO; +PATIENT COMMENTS; -PERCOCET 5MG/325MG TAB As Ordered ONE; -PERCOCET 5MG/325MG TAB PO PRN; -PHENYLephrine HCL 500 MCG/5 ML (100MCG/ML) SYRINGE (J2370) As Ordered ONE; -PROPOFOL 200 MG/20 ML VIAL As Ordered ONE; -ROCURONIUM BROMIDE 50 MG/5 ML VIAL As Ordered ONE; +SIMV40TA2 PO; +SUCR1TAB56 PO; -dexameTHASONE 4 MG/ML 1ML VIAL (J1100) As Ordered ONE; -ePHEDrine SULFATE 25 MG/5 ML(5MG/ML) SYRINGE As Ordered ONE; -fentaNYL 100 MCG/2 ML INJECTION (J3010) IV PRN; -fentaNYL 250 MCG/5 ML INJECTION (J3010) As Ordered ONE
[2018-11-19 11:58] LABS: HEMATOCRIT 37.9 % (36.0-47.0); HEMOGLOBIN 11.9 g/dl (12.0-15.5); MEAN CORPUSCULAR HEMOGLOBIN 29.2 pg (27.0-33.0); MEAN CORPUSCULAR HGB CONC 31.4 g/dl (32.0-36.5); MEAN CORPUSCULAR VOLUME 92.9 fl (80.0-96.0); PLATELET COUNT, AUTOMATED 287 10^3/uL (150-450); RED BLOOD COUNT 4.08 10^6/uL (4.00-5.40)
[2018-11-19 12:33] LABS: BILIRUBIN,TOTAL 0.4 MG/DL (0.2-1.0); CALCIUM LEVEL 8.9 MG/DL (8.8-10.2); CREATININE FOR GFR 1.2 MG/DL (0.55-1.30); GLOMERULAR FILTRATION RATE 46.5 (>39); POTASSIUM SERUM 4.7 MEQ/L (3.5-5.1)
[2018-11-19 12:34] LABS: ALBUMIN 3.7 GM/DL (3.2-5.2); CHOLESTEROL RISK RATIO 2.279 (<5); PERCENT SATURATION 23.9 % (13.2-45.0); THYROID STIMULATING HORMONE 3.23 uIU/ML (0.358-3.740); TOTAL PROTEIN 6.8 GM/DL (6.4-8.2)
== END ==
LOC: M SFHCPLAZ 10:38
PROVIDERS: ATTEND Nurse Practitioner Adult Health
DX: E78.2 Mixed hyperlipidemia (principal); D50.9 Iron deficiency anemia, unspecified; I10 Essential (primary) hypertension; I48.2 Chronic atrial fibrillation
CPT/HCPCS: 36415; 80053; 80061; 82728; 83550; 84443; 85027; G0463

== ENCOUNTER 2018-12-10 12:41 | Emergency (ER) | payer MEDICARE, MEDICAID ==
[~2018-12-10] VITALS: Ht 167.6 cm; Wt 90.9 kg
[2018-12-10] MEDS ORDERED: GI COCKTAIL 50ML BTL(HYOSCYAMINE/MAALOX/LIDOCAINE VISCOUS)(1:3:1) PO ONE (13:30)
[2018-12-10 14:15] LABS: BASO % 0.6 % (0.0-1.0); EOS # 0.1 10^3/uL (0.0-0.50); HEMATOCRIT 40.3 % (36.0-47.0); HEMOGLOBIN 13.3 g/dl (12.0-15.5); LYMPH # 1.1 10^3/uL (1.5-4.5); LYMPH % 15.3 % (24.0-44.0); MEAN CORPUSCULAR HEMOGLOBIN 29.7 pg (27.0-33.0); MONO # 0.6 10^3/uL (0.0-0.8); MONO % 8.8 % (0.0-5.0); NEUTROPHILS # 5.2 10^3/uL (1.8-7.7); NEUTROPHILS % 74.2 % (36.0-66.0); PLATELET COUNT, AUTOMATED 262 10^3/uL (150-450); RED BLOOD COUNT 4.48 10^6/uL (4.00-5.40); WHITE BLOOD COUNT 7.1 10^3/uL (4.0-10.0)
[2018-12-10] MEDS: GASTROGRAFIN SOLUTION 30ML PO SCH ×2 (14:35→14:57)
[2018-12-10 14:43] LABS: ALBUMIN 3.8 GM/DL (3.2-5.2); ALT/SGPT 16 U/L (12-78); BILIRUBIN,DIRECT 0.2 MG/DL (0.0-0.2); BILIRUBIN,TOTAL 0.5 MG/DL (0.2-1.0); BLOOD UREA NITROGEN 11 MG/DL (7-18); CALCIUM LEVEL 9.5 MG/DL (8.8-10.2); CARBON DIOXIDE LEVEL 27 MEQ/L (21-32); CHLORIDE LEVEL 101 MEQ/L (98-107); CK-MB VALUE MASS < 1.0 NG/ML (<3.6); CPK CREATINE PHOSPHOKINASE 45 U/L (26-192); CREATININE FOR GFR 0.78 MG/DL (0.55-1.30); GLOMERULAR FILTRATION RATE > 60.0 (>39); GLUCOSE, FASTING 96 MG/DL (70-100); LIPASE 83 U/L (73-393); MB/CK RELATIVE INDEX 2.22 (< OR =4); POTASSIUM SERUM 4.1 MEQ/L (3.5-5.1); SODIUM LEVEL 137 MEQ/L (136-145); TOTAL PROTEIN 7.4 GM/DL (6.4-8.2); TROPONIN I < 0.02 NG/ML (< 0.10)
[2018-12-10] MEDS ORDERED: ISOVUE-370 76% 100ML VIAL (Q9967) As Ordered ONE (15:27)
--- NOTE | 2018-12-10 15:37 | ECGEPIP ---
Stationary ECG Study [facility] - ED Test Date: 2018-12-10 Pat Name: GRETEL BUTT Department: Room: - Gender: F Data Architect Manager: : 1940 Requested By: LEILA CRISOSTOMO Order Number: [id number] Reading MD: Ifrah Dan Measurements Intervals [place] Rate: 101 P: DC: 0 QRS: -44 QRSD: 110 T: 41 QT: 372 QTc: 483 Interpretive Statements ATRIAL FIBRILLATION WITH RAPID VENTRICULAR RESPONSE MARKED LEFT AXIS DEVIATION MODERATE VOLTAGE CRITERIA FOR LVH, CONSIDER NORMAL VARIANT INCREASED RATE 06/14/18 Electronically Signed On 12-10-2018 15:37:45 EDT by Ifrah Dan
--- NOTE | 2018-12-10 17:45 | REP ---
CT abdomen pelvis with IV and oral contrast: History: Upper abdominal pain. Hiatal hernia. Comparison CT study is from June 14, 2018. CT contrast dose: 100 ml of intravenous Isovue [address] findings: Digital preliminary international travel consultant radiograph is noncontributory. A right hip arthroplasty is seen. The lung bases show mild interstitial fibrosis bilaterally. There is a small sliding-type hiatal hernia. No pleural effusion or upper abdominal ascites is seen. The heart is quite enlarged with four-chamber dilation. There is reflux of contrast opacified blood from the right heart into the intrahepatic and subhepatic of vena cava and reflux is seen well into the hepatic veins. This is consistent with significant right heart failure. No focal liver lesion is seen. Spleen is unremarkable. No adrenal lesion is seen. The kidneys enhance symmetrically and are morphologically intact. Vascular calcification is noted. Normal caliber aorta is seen. No pancreatic abnormality or gallbladder abnormality is seen. Small and large bowel loops are normal in caliber. No obstructive lesion is seen. There is diverticulosis affecting the sigmoid colon without CT evidence of diverticulitis. No uterine abnormality is seen. No ovarian mass lesion is observed. Urinary bladder is unremarkable. The appendix is not separately identified but there is no CT evidence to suggest acute appendicitis. No bony destructive lesion is appreciated. Impression: Four-chamber cardiac enlargement. Findings consistent with significant right heart failure with reflux of contrast opacified blood into the hepatic veins, the intrahepatic and subhepatic segment of the IVC. Question hepatic congestion. There is sigmoid colon diverticulosis without CT evidence of diverticulitis. No other acute abnormality. Electronically Signed by Son Mendoza MD 12/10/2018 07:37 P
[2018-12-10 18:17] VITALS: BP 156/62
--- NOTE | 2018-12-11 21:11 | ED PDOC ---
Post-Departure Follow-Up [facility] faxed formal report of ct abd/p for fu Jean Mast MD December 11, 2018 21:11
== END 2018-12-10 18:18 | disposition home or self-care (01) ==
LOC: M ED 12:41
DX: K44.9 Diaphragmatic hernia without obstruction or gangrene (principal); K76.1 Chronic passive congestion of liver; I11.0 Hypertensive heart disease with heart failure; I50.810 Right heart failure, unspecified; I48.91 Unspecified atrial fibrillation; E78.5 Hyperlipidemia, unspecified; K21.9 Gastro-esophageal reflux disease without esophagitis; K57.30 Diverticulosis of large intestine without perforation or abscess without bleeding; Z86.73 Personal history of transient ischemic attack (TIA), and cerebral infarction without residual deficits; Z91.040 Latex allergy status; Z79.899 Other long term (current) drug therapy; Z79.02 Long term (current) use of antithrombotics/antiplatelets
CPT/HCPCS: 36415; 74177; 80048; 80076; 82550; 82553; 83690; 84484; 85025; 93005; 99284; Q9963; Q9967

== ENCOUNTER → 2019-05-22 | Outpatient (REF) | payer MEDICARE, MEDICAID ==
[2019-05-22 13:58] LABS: HEMATOCRIT 43.6 % (36.0-47.0); HEMOGLOBIN 15.1 g/dl (12.0-15.5); MEAN CORPUSCULAR HEMOGLOBIN 30.9 pg (27.0-33.0); MEAN CORPUSCULAR HGB CONC 34.6 g/dl (32.0-36.5); MEAN CORPUSCULAR VOLUME 89.2 fl (80.0-96.0); PLATELET COUNT, AUTOMATED 306 10^3/uL (150-450); RED BLOOD COUNT 4.89 10^6/uL (4.00-5.40); WHITE BLOOD COUNT 6.9 10^3/uL (4.0-10.0)
[2019-05-22 14:26] LABS: ALBUMIN 4.2 GM/DL (3.2-5.2); ALT/SGPT 16 U/L (12-78); BILIRUBIN,TOTAL 0.5 MG/DL (0.2-1.0); BLOOD UREA NITROGEN 29 MG/DL (7-18); CALCIUM LEVEL 10.1 MG/DL (8.8-10.2); CARBON DIOXIDE LEVEL 28 MEQ/L (21-32); CHLORIDE LEVEL 94 MEQ/L (98-107); CHOLESTEROL LEVEL 242 MG/DL (<200); CHOLESTEROL RISK RATIO 2.349 (<5); CREATININE FOR GFR 0.91 MG/DL (0.55-1.30); FERRITIN 580 NG/ML (8-252); GLOMERULAR FILTRATION RATE > 60.0 (>39); GLUCOSE, FASTING 80 MG/DL (70-100); HDL CHOLESTEROL 103 MG/DL (>40); IRON (FE) 85 UG/DL (50-170); LDL CHOLESTEROL 120 MG/DL (<100); NON-HDL-C 139 MG/DL; POTASSIUM SERUM 3.6 MEQ/L (3.5-5.1); SODIUM LEVEL 130 MEQ/L (136-145); TOTAL IRON BINDING CAPACITY 387 UG/DL (250-450); TOTAL PROTEIN 8.1 GM/DL (6.4-8.2); TRIGLYCERIDES LEVEL 96 MG/DL (<150)
== END ==
LOC: M SFHCPLAZ 11:32
PROVIDERS: ATTEND Nurse Practitioner Adult Health
DX: D50.9 Iron deficiency anemia, unspecified (principal); I10 Essential (primary) hypertension; E78.2 Mixed hyperlipidemia; I48.20 Chronic atrial fibrillation, unspecified
CPT/HCPCS: 36415; 80053; 80061; 82728; 83550; 84443; 85027; 90682; G0008

== ENCOUNTER → 2019-07-09 | Outpatient (REF) | payer MEDICARE, MEDICAID ==
[~2019-07-09] MED LIST changes: -SIMV20TA2 PO; +SIMV20TA22 PO; -SIMV40TA2 PO; +SIMV40TA20 PO
[2019-07-09 16:47] LABS: C REACTIVE PROTEIN QUANTITATIV < 0.30 MG/DL (0.00-0.30); RHEUMATOID FACTOR QUANT 19.7 IU/ML (<15.0)
== END ==
LOC: M LABDRAW1 15:41
PROVIDERS: ATTEND Physician Assistant
DX: M47.894 Other spondylosis, thoracic region (principal)

== ENCOUNTER 2019-12-25 15:49 | Emergency (ER) | payer MEDICARE, OTHER ==
[~2019-12-25] VITALS: Ht 167.6 cm; Wt 94.1 kg
[2019-12-25] MEDS ORDERED: SPIR-10 (16:10)
[2019-12-25] MEDS ORDERED: GABA-1171 (16:10)
[2019-12-25 18:23] LABS: BASO # 0.1 10^3/uL (0.0-0.2); BASO % 0.7 % (0.0-1.0); EOS # 0.3 10^3/uL (0.0-0.5); HEMATOCRIT 41.9 % (36.0-47.0); LYMPH # 0.9 10^3/uL (1.5-5.0); LYMPH % 10.9 % (24.0-44.0); MEAN CORPUSCULAR HEMOGLOBIN 30.2 pg (27.0-33.0); MEAN CORPUSCULAR HGB CONC 33.4 g/dl (32.0-36.5); MEAN CORPUSCULAR VOLUME 90.3 fl (80.0-96.0); MONO # 0.8 10^3/uL (0.0-0.8); NEUTROPHILS # 6.3 10^3/uL (1.5-8.5); PLATELET COUNT, AUTOMATED 288 10^3/uL (150-450); RED BLOOD COUNT 4.64 10^6/uL (4.00-5.40); WHITE BLOOD COUNT 8.4 10^3/uL (4.0-10.0)
[2019-12-25 18:41] LABS: ERYTHROCYTE SEDIMENTATION RATE 40 mm/hr (0-30)
[2019-12-25 18:54] LABS: ALBUMIN 4.1 GM/DL (3.2-5.2); ALT/SGPT 26 U/L (12-78); BILIRUBIN,DIRECT 0.2 MG/DL (0.0-0.2); BILIRUBIN,TOTAL 0.7 MG/DL (0.2-1.0); BLOOD UREA NITROGEN 17 MG/DL (7-18); CALCIUM LEVEL 9.8 MG/DL (8.8-10.2); CARBON DIOXIDE LEVEL 28 MEQ/L (21-32); CHLORIDE LEVEL 96 MEQ/L (98-107); CREATININE FOR GFR 0.75 MG/DL (0.55-1.30); GLOMERULAR FILTRATION RATE > 60.0 (>39); GLUCOSE, FASTING 73 MG/DL (70-100); POTASSIUM SERUM 4.3 MEQ/L (3.5-5.1); SODIUM LEVEL 134 MEQ/L (136-145); TOTAL PROTEIN 7.9 GM/DL (6.4-8.2)
[2019-12-25] MEDS ORDERED: CLEO300C2 PO (19:09)
[2019-12-25] MEDS ORDERED: CLINDAMYCIN 150MG CAPSULE PO ONE (19:15)
[2019-12-25 19:20] VITALS: BP 171/91
== END 2019-12-25 19:21 | disposition home or self-care (01) ==
LOC: M ED 15:49
DX: L89.511 Pressure ulcer of right ankle, stage 1 (principal); L03.115 Cellulitis of right lower limb

== ENCOUNTER → 2020-01-10 | Outpatient (CLI) | payer MEDICARE, OTHER ==
[~2020-01-10] MED LIST changes: +CLEO300C2 PO; +GABA-1171; +SPIR-10
--- NOTE | 2020-01-10 13:59 | REP ---
REASON FOR EXAM: Atherosclerosis. Bilateral exam. RIGHT: Ankle-brachial index could not be obtained. PEAK SYSTOLIC VELOCITY PHASICITY WARP KNIT OPERATOR 64.5 cm/s Triphasic Profunda 37.0 cm/s Biphasic SFA proximal 74.0 cm/s Triphasic SFA mid 80.1 cm/s Triphasic SFA distal 84.2 cm/s Triphasic Popliteal 56.9 cm/s Triphasic DRAKE proximal 50.8 cm/s Biphasic Tibioperoneal trunk 50.8 cm/s Biphasic HARNESS INSTALLER proximal 53.9 cm/s Biphasic HARNESS INSTALLER distal 46.3 cm/s Biphasic DRAKE distal 57.0 cm/s Biphasic LEFT: Ankle-brachial index was not obtained PEAK SYSTOLIC VELOCITY PHASICITY WARP KNIT OPERATOR 78.3 cm/s Triphasic Profunda 39.5 cm/s Triphasic SFA proximal 65.9 cm/s Triphasic SFA mid 57.4 cm/s Triphasic SFA distal 61.1 cm/s Triphasic Popliteal 46.9 cm/s Triphasic DRAKE proximal 42.0 cm/s Biphasic Tibioperoneal trunk 27.1 cm/s Biphasic HARNESS INSTALLER proximal 21.3 cm/s Biphasic HARNESS INSTALLER distal 30.4 cm/s Biphasic DRAKE distal 44.2 cm/s Biphasic The technologist made note on the worksheet that vessels were heavily calcified, particularly HARNESS INSTALLER and DRAKE bilaterally. Electronically Signed by Ryan Quiñonez DO 01/10/2020 03:06 P
== END ==
LOC: M RAD 10:57
PROVIDERS: ATTEND Surgery Vascular Surgery
DX: I70.203 Unspecified atherosclerosis of native arteries of extremities, bilateral legs (principal); I72.8 Aneurysm of other specified arteries

== ENCOUNTER → 2020-01-13 | Outpatient (CLI) | payer MEDICARE, MEDICAID | LOC: M LABSMTC 11:56 | PROVIDERS: ATTEND Family Medicine | DX: Z03.818 Encounter for observation for suspected exposure to other biological agents ruled out (principal); Z11.59 Encounter for screening for other viral diseases | CPT/HCPCS: C9803; U0003 ==

== ENCOUNTER 2020-02-05 06:37 | Observation (INO) | payer MEDICARE, MEDICAID ==
[~2020-02-05] VITALS: Ht 168.9 cm; Wt 100.0 kg
[2020-02-05] MEDS ORDERED: fentaNYL 100 MCG/2 ML INJECTION (J3010) As Ordered ONE ×2 (07:24→08:31)
[2020-02-05] MEDS ORDERED: MIDAZOLAM INJ 2MG/2ML VIAL (J2250 PER 1MG) As Ordered ONE ×2 (07:24→08:32)
[2020-02-05] MEDS ORDERED: LIDOCAINE 1% MDV 20ML VIAL As Ordered ONE (07:25)
[2020-02-05] MEDS ORDERED: ISOVUE-300 61% 50ML VIAL As Ordered ONE (07:25)
[2020-02-05 08:10] LABS: HEMATOCRIT 37.8 % (36.0-47.0); HEMOGLOBIN 12.9 g/dl (12.0-15.5); MEAN CORPUSCULAR HEMOGLOBIN 30.1 pg (27.0-33.0); MEAN CORPUSCULAR HGB CONC 34.1 g/dl (32.0-36.5); MEAN CORPUSCULAR VOLUME 88.3 fl (80.0-96.0); PLATELET COUNT, AUTOMATED 183 10^3/uL (150-450); RED BLOOD COUNT 4.28 10^6/uL (4.00-5.40); WHITE BLOOD COUNT 5.3 10^3/uL (4.0-10.0)
[2020-02-05 08:41] LABS: ALT/SGPT 15 U/L (12-78); BILIRUBIN,TOTAL 0.3 MG/DL (0.2-1.0); BLOOD UREA NITROGEN 24 MG/DL (7-18); CALCIUM LEVEL 9.3 MG/DL (8.8-10.2); CARBON DIOXIDE LEVEL 23 MEQ/L (21-32); CHLORIDE LEVEL 100 MEQ/L (98-107); GLOMERULAR FILTRATION RATE > 60.0 (>39); GLUCOSE, FASTING 83 MG/DL (70-100); POTASSIUM SERUM 3.7 MEQ/L (3.5-5.1); SODIUM LEVEL 131 MEQ/L (136-145); TOTAL PROTEIN 7.1 GM/DL (6.4-8.2)
--- NOTE | 2020-02-05 09:39 | ROOPDOC ---
[facility] Report Of Operation Report of Operation DATE OF PROCEDURE: 02/05/20 PREPROCEDURE DIAGNOSES: Atherosclerosis of the [place] arteries with nonhealing wound right ankle and exposed orthopedic hardware POSTPROCEDURE DIAGNOSES: Same. PROCEDURE: 1. Ultrasound-guided access left common femoral artery 2. Aortoiliofemoral arteriogram 3. Selection of right common femoral and superficial femoral artery with right lower extremity runoff 4. Selection of distal right posterior tibial artery with arteriogram 5. Angioplasty right posterior tibial artery with 2.5 x 220 man balloon 6. Angioplasty right peroneal artery with 2.5 x 220 man balloon 7. Angioplasty right anterior tibial artery with 2.5 x 220 man balloon 8. Completion arteriograms 9. Mynx closure left common femoral artery SURGEON: Tim Sterling MD ANESTHESIA: Local anesthesia 8 mL lidocaine. Moderate intravenous conscious sedation was supervised by Dr. Sterling. The patient was independently monitored by registered nurse assigned in the department of radiology using automated blood pressure, EKG, and pulse oximetry. The detailed sedation record is permanently stored in the hospital information system. The following is a brief sedation record: Start time 08:12, stop time: 9:07, Versed 2.5 mg IV, fentanyl 125 g IV, heparin 5000 units IV. CONTRAST: 44 mL Isovue-300 INDICATION FOR PROCEDURE: This is a very pleasant 79-year-old patient with atherosclerosis of the [place] arteries and exposed hardware in the right ankle with a nonhealing ulceration. Although I did not see a significant amount of occlusive arterial disease or heavy stenosis in the right lower extremity, there is heavy calcification, especially in the tibial vessels, and if we can improve flow through the tibials this will help when the patient has future interventions to manage the exposed hardware. Any additional blood flow we can give her will be helpful. Risks benefits and alternatives to an arteriogram and potential intervention were discussed at length and she is agreeable to proceed. Informed consent was obtained. INTERPRETATION: 1. The distal aorta and iliac arteries are somewhat calcified but widely patent. No flow-limiting lesions are noted. There is excellent flow through the common i liacs, hypogastrics, and external iliac arteries. 2. The right common femoral artery and profunda are widely patent. There is e xcellent flow through the superficial femoral artery and the popliteal artery, although there are a few areas of mild calcified plaque, with a few focal stenoses that are less than 20%, and not flow-limiting. There is 3 vessel runoff to the foot. The posterior tibial artery appears to be the best of the 3, but it occludes just distal to the patient's hardware and then reconstitutes into the plantar vessels from collaterals at and proximal to the hardware that supply the distal pedal vessels. There is more sluggish flow through the anterior tibial and peroneal artery, which are somewhat diminutive in size compared to the posterior tibial artery. The tibials are calcified with scattered stenoses ranging from 30-60% focally, worse at the distal peroneal and anterior tibial artery, and a few in the mid and distal posterior tibial arteries well. The anterior tibial artery runs off into the dorsal pedis to the distal foot. The peroneal artery collateralizes around the hardware to give additional flow to the foot. 3. After angioplasty of all 3 tibial vessels with a 2.5 x 220 man balloon, there was improved rapid three-vessel tibial runoff to the ankle and foot. Although we were not able to cross the most distal occlusion of the posterior tibial vessel into the plantar vessel, there is still excellent collateralization from the posterior tibial and peroneal artery down to the plantar vessels in the foot. No embolization, extravasation, or dissections were noted post angioplasty. REPORT OF OPERATION: The patient was brought to the angiographic suite in stable condition. Her bilateral groins were prepped and draped in a sterile fashion. A timeout was performed. Sedation was administered without complication. Local anesthesia was administered to skin and subcutaneous tissue over the left common femoral artery and ultrasound was used to guide access with a microneedle. A wire was passed through this access and a 4 Congolese sheath was placed and flushed with saline. A Glidewire and flushing catheter were advanced into the distal aorta. An aortoiliofemoral arteriogram was performed, please see interpretation above. We then went up and over the bifurcation with a Glidewire in the flushing catheter and selected the right common femoral and superficial femoral artery. The right lower extremity arteriogram and runoff or perform, please see interpretation above. We then advanced a Glidewire under fluoroscopic guidance into the distal popliteal artery. The sheath was exchanged for a 6 Congolese 65 cm destination sheath. The sheath was flushed with saline. 5000 units of heparin was given a lab to circulate. In 018 Glidewire advantage was advanced into the posterior tibial artery under fluoroscopic guidance. We were able to cross to the ankle just distal to the hardware, but could not cross into the plantar vessels. We spent quite a bit of time with the wire and crossing catheter attempting to cross into the medial plantar vessels, but the occlusion was chronic. The vessels do fill distally from collaterals more proximally on the ankle that thread around through the hardware and down to the distal foot. We then angioplastied along the length of the posterior tibial artery for multiple three-minute inflations. There were several areas that appeared to have mild stenoses on initial arteriogram that had tight waist restrictions on the balloon. These took multiple inflations in order to open them. After multiple angioplasties, we had brisk patent inflow through the posterior tibial artery with collateralization around the hardware distal at the ankle into the foot. Next, we selected the peroneal artery with a Glidewire and were able to cross to the distal ankle. We angioplastied the length of the vessel with a 2.5 x 220 starling balloon for tube three-minute inflations. There were also lesions in the peroneal artery that were tighter than the appeared on initial arteriogram and can stick to the balloon considerably focally in those areas. However, we were able to open the areas with multiple inflations of the balloon. Following this, there was widely patent two-vessel brisk flow to the foot whereas before it was very sluggish flow. We then selected the anterior tibial artery and were able to cross to the dorsal pedis artery. We angioplastied the length of the vessel with a 2.5 x 220 starling balloon for three-minute inflations along the length of the vessel. Following this, we had rapid 3 vessel flow to the ankle and foot. No embolization extravasation or dissections were noted. Residual stenoses in the areas of heaviest plaque were less than 20%. We then exchange the sheath over an O35 Glidewire for short 6 Congolese sheath in a Mynx closure device was deployed in the left common femoral artery with good hemostasis. Pressure was held for 5 minutes and sterile dressings were applied. The patient was taken to recovery in stable condition. She tolerated the procedure and the sedation well. ESTIMATED BLOOD LOSS: Approximately 5 mL. COMPLICATIONS: None. PLAN: It is okay to resume the home diet and medications including Plavix. We will see the patient back in a week to check her groin access site and make sure she is doing okay after revascularization. I recommend she follow up with orthopedics as soon as she is able to discuss options for exposed hardware and nonhealing wound on the right ankle. Although her arterial flow in the right lower extremity is not perfect, it is very good and should be adequate from an arterial standpoint for healing. We appreciate the opportunity to participate the care of this patient. TIM STERLING MD Feb 05, 2020 09:39
[2020-02-05] MEDS ORDERED: ACETAMINOPHEN TAB 650MG DOSE (2X325MG) PO PRN (10:30)
[2020-02-05] MEDS ORDERED: NS 1,000 ML IV SCH (10:30)
[2020-02-05] MEDS ORDERED: ONDANSETRON 4MG/2ML VIAL As Ordered ONE (10:33)
[2020-02-05] MEDS ORDERED: ATROPINE SULF 1MG/10ML SYRINGE (J0461) As Ordered ONE (10:35)
[2020-02-05 10:49] LABS: HEMATOCRIT 35.3 % (36.0-47.0); HEMOGLOBIN 11.7 g/dl (12.0-15.5); MEAN CORPUSCULAR HEMOGLOBIN 30.6 pg (27.0-33.0); MEAN CORPUSCULAR HGB CONC 33.1 g/dl (32.0-36.5); MEAN CORPUSCULAR VOLUME 92.4 fl (80.0-96.0); RED BLOOD COUNT 3.82 10^6/uL (4.00-5.40); WHITE BLOOD COUNT 6.6 10^3/uL (4.0-10.0)
[2020-02-05 10:53] LABS: PLATELET COUNT, AUTOMATED 283 10^3/uL (150-450)
--- NOTE | 2020-02-05 12:20 | ECGEPIP ---
[facility] Test Date: 2020-02-05 Pat Name: GRETEL BUTT Department: Room: - Gender: Female Greige Goods Examiner: : 1940 Requested By: TIM Dover Order Number: [id number] Reading MD: Gardenia Castaneda Measurements Intervals [place] Rate: 59 P: IN: 0 QRS: -53 QRSD: 115 T: 23 QT: 496 QTc: 495 Interpretive Statements ATRIAL FIBRILLATION WITH SLOW VENTRICULAR RESPONSE LEFT ANTERIOR FASCICULAR BLOCK PROLONGED QT INTERVAL RATE SLOWER C/W 12/10/18 Electronically Signed on 02-05-2020 12:19:40 EDT by Gardenia Castaneda
[2020-02-05 12:48] LABS: CK-MB VALUE MASS < 1.0 NG/ML (<3.6); CPK CREATINE PHOSPHOKINASE 110 U/L (26-192); MB/CK RELATIVE INDEX 0.91 (< OR =4); TROPONIN I < 0.02 NG/ML (< 0.10)
[2020-02-05] MEDS: ACETAMINOPHEN TAB 650MG DOSE (2X325MG) PO PRN (14:13)
[2020-02-05 14:24] VITALS: BP 130/71
[2020-02-05] MEDS ORDERED: VITA400C53 PO (14:44)
[2020-02-05] MEDS ORDERED: VITA1TAB61 PO (14:44)
[2020-02-05] MEDS ORDERED: FURO20TA2 PO (14:44)
[2020-02-05] MEDS ORDERED: SPIR-10 PO (14:44)
[2020-02-05] MEDS ORDERED: EMER1CHW PO (14:44)
[2020-02-05] MEDS ORDERED: FERR325T3 PO (14:44)
[2020-02-05] MEDS ORDERED: MAGN400T2 PO (14:44)
[2020-02-05] MEDS ORDERED: METO1TAB33 PO (14:44)
[2020-02-05] MEDS ORDERED: SIMV40TA20 PO (14:44)
[2020-02-05] MEDS ORDERED: PLAV1TAB2 PO (14:44)
[2020-02-05] MEDS ORDERED: BRONCHW PO (14:44)
[2020-02-05] MEDS ORDERED: KETO0.3S OD (14:47)
[2020-02-05] MEDS ORDERED: NEOM1SUS22 OD (14:47)
[2020-02-05] MEDS ORDERED: PREDOPD OD (14:47)
[2020-02-05 15:00] VITALS: BP 139/66
[2020-02-05] MEDS: PERCOCET 5MG/325MG TAB PO PRN ×2 (15:27→21:42)
[2020-02-05] MEDS: CLOPIDOGREL 75 MG TAB PO SCH (15:28)
--- NOTE | 2020-02-05 15:50 | HPEPDOC ---
General Date of Admission Feb 05, 2020 at 12:22 Date of Service: Feb 05, 2020 Chief Complaint The patient is a 79-year-old female who I was called to evaluate for hypotensive/bradycardic patient post angiogram History of Present Illness Patient is a 79-year-old female with a PMHx of Dementia, HTN, A. fib (not on anticoagulation), DLP, Anxiety, GERD who presented to [facility] for an elective angiography of her right lower extremity for non-healing ulcer on the medial aspect of her right ankle. Patient has been following with her primary care provider who had referred her to Dr. Mason for continued wound care for her right lower extremity ulcer.. She was also scheduled with fast for surgery for angiography for evaluation of peripheral vascular disease. Patient received her angiography via her left groin for evaluation of her right lower extremity. She had an uneventful procedure. She received Versed 2.5 mg and fentanyl throughout the procedure. Patient was doing well after the procedure and was eating a meal when she began to experience nausea at that point she was found to be hypotensive and bradycardic. Patient was placed in Trendelenburg position, her blood pressure improved and heart rate normalized. Upon my evaluation, patient was laid down flat and eventually sat up she had normalization of her blood pressure and heart rate. Patient denied chest pain, shortness breath, palpitations, cough, nausea, vomiting, abdominal pain this patient, diarrhea, urinary discomfort or any recent fevers or chills. . She has not experienced any change in her weight or appetite. Home Medications Scheduled Clopidogrel Bisulfate (Plavix) 75 Mg Tablet, 75 MG PO DAILY, (Reported) Ferrous Sulfate (Ferrous Sulfate) 325 Mg Tablet.dr, 325 MG PO DAILY, (Reported) Furosemide (Furosemide) 20 Mg Tablet, 20 MG PO DAILY, (Reported) Ketorolac Tromethamine (Ketorolac Tromethamine) 0.4% Drops, 1 DROP OD QID, (Reported) STARTED 01/30/20 FOR 7 DAYS FOLLOWING SURGERY Magnesium Oxide (Magnesium Oxide) 400 Mg Tablet, 400 MG PO DAILY, (Reported) Metoprolol Succinate (Metoprolol Succinate) 100 Mg Tab.er.24h, 150 MG PO DAILY, (Reported) Multivitamin (Chewable-Cande) 1 Each Tab.chew, 1 CHW PO DAILY, (Reported) Neomycin/Polymyxin B/Dexametha (Ryista-Vamye-Tgvyolns Eye Drop) 5 Ml Drops.susp, 1 DROP OD QID, (Reported) STARTED 01/30/20 FOR 7 DAYS FOLLOWING SURGERY Prednisolone Acetate (Prednisolone Acetate 1% Opth Susp) 5 Ml Drops.susp, 1 DROP OD QID, (Reported) STARTED 01/30/20 FOR 8 DAYS FOLLOWING SURGERY Simvastatin (Simvastatin) 40 Mg Tablet, 40 MG PO QHS, (Reported) Spironolactone (Spironolactone) 25 Mg Tablet, 25 MG PO DAILY, (Reported) Vit C/Ascorb Sod/Multivit-Min (Emergen-C 500 mg Chewable Tab) 500 Mg Tab.chew, 2 CHW PO DAILY, (Reported) Vitamin C/Biotin (Hair, Skin and Nails Gummies) 1 Each Tab.chew, 1 CHEW PO DAILY, (Reported) Vitamin E (Vitamin E) 400 Unit Capsule, 400 UNIT PO DAILY, (Reported) Allergies Coded Allergies: latex (Verified Allergy, Intermediate, RASH, 12/10/18) Past Medical History Medical History Dementia, HTN, A. 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 - General: Lying in bed, Speaking in full sentences, AAOx3 - HEENT: NC, AT, PERRLA - CVS: RRR, +S1S2 - Lungs: Fair air entry bilaterally, No appreciable wheezing / rales / rhonchi - Abdomen: Soft, Non-distended, Non-tender - Extremities: No lower extremity edema, No calf tenderness - Neuro: No focal motor or sensory deficit - Skin: No visible rashes Laboratory Data Labs 24H Laboratory Tests 2 02/05/20 07:49: Nucleated Red Blood Cells % (auto) 0.0, Anion Gap 8, Glomerular Filtration Rate > 60.0, Calcium Level 9.3, Total Bilirubin 0.3, Aspartate Amino Transf (AST/SGOT) 20, Alanine Aminotransferase (ALT/SGPT) 15, Alkaline Phosphatase 104, Total Protein 7.1, Albumin 3.0L, Albumin/Globulin Ratio 0.7L 02/05/20 10:40: Nucleated Red Blood Cells % (auto) 0.0, Troponin I < 0.02 02/05/20 12:10: Troponin I < 0.02, Total Creatine Kinase 110, Creatine Kinase MB < 1.0, Creatine Kinase MB Relative Index 0.91 CBC/BMP Laboratory Tests 02/05/20 07:49 02/05/20 10:40 Plan / VTE VTE Prophylaxis Ordered?: Yes Plan Plan Hypotension/bradycardia - possibly 2/2 vasovagal episode - Patient was awake, alert and oriented throughout the event - Did not lose any consciousness - Physical did not reveal any deficits - Currently patient is hemodynamically stable and afebrile - EKG was reviewed and is without any ischemic changes; similar to prior - Will continue with telemetry monitoring - Will check echo and trend troponins Dementia - Patient is oriented to person, place and time - He does have a visiting home health aide that comes 3 times a week - Will order PT HTN - BP well controlled - c/w Metoprolol with holding parameters A. fib - Currently patient appears to be rate controlled A. fib - Well continue with rate control with metoprolol with holding parameters - She is not on full anticoagulation - Was on ASA alone initially; was switched to Plavix after she developed a CVA - Given her CHADSVASC, she would benefit from receiving full anticoagulation; - Discussed this with the patient and she has verbalized understanding; will have follow up with cardiology for further discussion Hx of CVA - c/w Simvastatin and Plavix DLP - c/w simvastatin Anxiety - currently not on any medications GERD - currently not on any medications DVT prophylaxis - Will start Eber/STERLING Handy MD Feb 05, 2020 15:50
[2020-02-05 16:00] VITALS: BP 157/79
[2020-02-05] MEDS: prednisoLONE ACET 1% OPHTH SUSP 5ML OD SCH ×2 (17:07→20:22)
[2020-02-05] MEDS: MAXITROL OPHTH SUSP 5 ML OD SCH ×2 (17:08→20:22)
[2020-02-05 18:40] LABS: CK-MB VALUE MASS < 1.0 NG/ML (<3.6); CPK CREATINE PHOSPHOKINASE 49 U/L (26-192); MB/CK RELATIVE INDEX 2.04 (< OR =4); TROPONIN I < 0.02 NG/ML (< 0.10)
[2020-02-05 20:00] VITALS: BP 104/73
[2020-02-05] MEDS ORDERED: SIMVASTATIN 40 MG TAB PO SCH (21:00)
[2020-02-06] VITALS (9 sets, daily range): BP systolic 96–142; BP diastolic 55–76
[2020-02-06 00:19] LABS: CK-MB VALUE MASS < 1.0 NG/ML (<3.6); CPK CREATINE PHOSPHOKINASE 27 U/L (26-192); TROPONIN I 0.02 NG/ML (< 0.10)
[2020-02-06] MEDS: ACETAMINOPHEN TAB 650MG DOSE (2X325MG) PO PRN (00:32)
[2020-02-06] MEDS: PERCOCET 5MG/325MG TAB PO PRN (05:23)
[2020-02-06 05:49] LABS: BASO % 0.4 % (0.0-1.0); EOS # 0.1 10^3/uL (0.0-0.5); EOS % 1.5 % (0.0-3.0); HEMATOCRIT 31.7 % (36.0-47.0); HEMOGLOBIN 10.3 g/dl (12.0-15.5); LYMPH # 1.2 10^3/uL (1.5-5.0); LYMPH % 14.7 % (24.0-44.0); MEAN CORPUSCULAR HEMOGLOBIN 30.1 pg (27.0-33.0); MEAN CORPUSCULAR HGB CONC 32.5 g/dl (32.0-36.5); MEAN CORPUSCULAR VOLUME 92.7 fl (80.0-96.0); MONO % 11.9 % (0.0-5.0); NEUTROPHILS # 5.7 10^3/uL (1.5-8.5); NEUTROPHILS % 71.1 % (36.0-66.0); PLATELET COUNT, AUTOMATED 273 10^3/uL (150-450); RED BLOOD COUNT 3.42 10^6/uL (4.00-5.40)
[2020-02-06 06:29] LABS: BLOOD UREA NITROGEN 19 MG/DL (7-18); CALCIUM LEVEL 9.1 MG/DL (8.8-10.2); CARBON DIOXIDE LEVEL 25 MEQ/L (21-32); CHLORIDE LEVEL 103 MEQ/L (98-107); CREATININE FOR GFR 0.86 MG/DL (0.55-1.30); GLOMERULAR FILTRATION RATE > 60.0 (>39); GLUCOSE, FASTING 88 MG/DL (70-100); MAGNESIUM LEVEL 1.7 MG/DL (1.8-2.4); POTASSIUM SERUM 4.3 MEQ/L (3.5-5.1); SODIUM LEVEL 136 MEQ/L (136-145)
[2020-02-06] MEDS: CLOPIDOGREL 75 MG TAB PO SCH (08:35)
[2020-02-06] MEDS: prednisoLONE ACET 1% OPHTH SUSP 5ML OD SCH ×2 (08:37→13:53)
[2020-02-06] MEDS: MAXITROL OPHTH SUSP 5 ML OD SCH ×2 (08:37→13:53)
[2020-02-06] MEDS ORDERED: MULTIVITAMINS/MINERALS THERAP 1 TAB PO SCH (09:00)
[2020-02-06] MEDS ORDERED: MAGNESIUM OXIDE 400 MG TAB (MAG-OX) PO SCH (09:00)
[2020-02-06] MEDS ORDERED: METOPROLOL SUCC (TopROL XL) 50MG **XL** TAB PO SCH (09:00)
[2020-02-06] MEDS ORDERED: FERROUS SULFATE 325MG TAB PO SCH (09:00)
--- NOTE | 2020-02-06 10:20 | DS.PDOC ---
Discharge Summary General Date of Admission Feb 05, 2020 at 12:22 Date of Discharge 02/06/2020 Discharge Summary ADMITTING DIAGNOSES / DISCHARGE DIAGNOSES: Hypotension/bradycardia - possibly 2/2 vasovagal episode Dementia HTN A. fib Hx of CVA DLP Anxiety GERD COMPLICATIONS/CHIEF COMPLAINT: Hypotension / Bradycardia HISTORY OF PRESENT ILLNESS: Patient is a 79-year-old female with a PMHx of Dementia, HTN, A. fib (not on anticoagulation), DLP, Anxiety, GERD who presented to [facility] for an elective angiography of her right lower extremity for non-healing ulcer on the medial aspect of her right ankle. Patient has been following with her primary care provider who had referred her to Dr. Mason for continued wound care for her right lower extremity ulcer. She was also scheduled with vascular surgery for angiography for evaluation of peripheral vascular disease. Patient received her angiography via her left groin for evaluation of her right lower extremity. She had an uneventful procedure. She received Versed 2.5 mg and fentanyl throughout the procedure. Patient was doing well after the procedure and was eating a meal when she began to experience nausea at that point she was found to be hypotensive and bradycardic. Patient was placed in Trendelenburg position, her blood pressure improved and heart rate normalized. Upon my evaluation, patient was laid down flat and eventually sat up she had normalization of her blood pressure and heart rate. HOSPITAL COURSE: Hypotension/bradycardia - possibly 2/2 vasovagal episode - Patient was awake, alert and oriented throughout the event - Did not lose any consciousness; physical did not reveal any deficits - Currently patient is hemodynamically stable and afebrile - Troponin x 3 negative - EKG was reviewed and is without any ischemic changes; similar to prior - No event on telemetry - ECHO will be completed prior to discharge - We'll have outpatient follow-up with primary care provider, vascular surgery a nd cardiology within 7 days Dementia - Patient is oriented to person, place and time - He does have a visiting home health aide that comes 3 times a week - Cleared PT for DC home HTN - BP well controlled - c/w Metoprolol with holding parameters A. fib - Currently patient appears to be rate controlled A. fib - Will continue with rate control with metoprolol with holding parameters - She is not on full anticoagulation - Was on ASA alone initially; was switched to Plavix after she developed a CVA - Given her CHADSVASC, she would benefit from receiving full anticoagulation; - Discussed this with the patient and she has verbalized understanding; will have follow up with cardiology for further discussion - Will have follow-up with cardiology within 7 days Hx of CVA - c/w Simvastatin and Plavix DLP - c/w simvastatin Anxiety - currently not on any medications GERD - currently not on any medications DVT prophylaxis - c/w TEDs/Sequentials DISCHARGE MEDICATIONS: Please see below. ALLERGIES: Please see below. PHYSICAL EXAMINATION ON DISCHARGE: VITAL SIGNS: Please see below. Vitals (See below) General: Lying in bed, appears comfortable, AAOx3 HEENT: NC, AT CVS: +S1S2 Lungs: Fair air entry b/l, air entry is fair bilaterally without evidence of rhonchi, crackles or wheezing Abdomen: Soft, ND, NT Extremities: - Edema, - Calf tenderness LABORATORY DATA: Please see below. ACTIVITY: [As tolerated]. DISCHARGE PLAN: Follow-up with primary care provider, vascular surgery, and cardiology within 7 days Remain compliant with treatment plan and medications Return to the ER if you experience any problems DISPOSITION: Home DISCHARGE CONDITION: [Stable]. TIME SPENT ON DISCHARGE: 20 minutes Vital Signs/I&Os Vital Signs Date Time Temp Pulse Resp B/P (MAP) Pulse Ox O2 Delivery O2 Flow Rate FiO2 02/06/20 08:36 81 130/60 02/06/20 08:00 97.9 20 97 Room Air 02/05/20 16:00 2.0 97 I&O- Last 24 Hours up to 6 AM 02/06/20 06:00 Intake Total 240 ml Balance 240 ml Laboratory Data Labs 24H Laboratory Tests 2 02/05/20 10:40: Nucleated Red Blood Cells % (auto) 0.0, Troponin I < 0.02 02/05/20 12:10: Troponin I < 0.02, Total Creatine Kinase 110, Creatine Kinase MB < 1.0, Creatine Kinase MB Relative Index 0.91 02/05/20 17:53: Troponin I < 0.02, Total Creatine Kinase 49, Creatine Kinase MB < 1.0, Creatine Kinase MB Relative Index 2.04 02/05/20 23:31: Troponin I 0.02, Total Creatine Kinase 27, Creatine Kinase MB < 1.0, Creatine Kinase MB Relative Index 3.70 02/06/20 05:07: Immature Granulocyte % (Auto) 0.4, Neutrophils (%) (Auto) 71.1H, Lymphocytes (%) (Auto) 14.7L, Monocytes (%) (Auto) 11.9H, Eosinophils (%) (Auto) 1.5, Basophils (%) (Auto) 0.4, Neutrophils # (Auto) 5.7, Lymphocytes # (Auto) 1.2L, Monocytes # (Auto) 1.0H, Eosinophils # (Auto) 0.1, Basophils # (Auto) 0.0, Nucleated Red Blood Cells % (auto) 0.0, Anion Gap 8, Glomerular Filtration Rate > 60.0, Calcium Level 9.1, Magnesium Level 1.7L CBC/BMP Laboratory Tests 02/05/20 10:40 02/06/20 05:07 Discharge Medications Scheduled Clopidogrel Bisulfate (Plavix) 75 Mg Tablet, 75 MG PO DAILY, (Reported) Ferrous Sulfate (Ferrous Sulfate) 325 Mg Tablet.dr, 325 MG PO DAILY, (Reported) Furosemide (Furosemide) 20 Mg Tablet, 20 MG PO DAILY, (Reported) Ketorolac Tromethamine (Ketorolac Tromethamine) 0.4% Drops, 1 DROP OD QID, (Reported) STARTED 01/30/20 FOR 7 DAYS FOLLOWING SURGERY Magnesium Oxide (Magnesium Oxide) 400 Mg Tablet, 400 MG PO DAILY, (Reported) Metoprolol Succinate (Metoprolol Succinate) 100 Mg Tab.er.24h, 150 MG PO DAILY, (Reported) Multivitamin (Chewable-Cande) 1 Each Tab.chew, 1 CHW PO DAILY, (Reported) Neomycin/Polymyxin B/Dexametha (Hpagys-Wotpp-Sokxrucv Eye Drop) 5 Ml Drops.susp, 1 DROP OD QID, (Reported) STARTED 01/30/20 FOR 7 DAYS FOLLOWING SURGERY Prednisolone Acetate (Prednisolone Acetate 1% Opth Susp) 5 Ml Drops.susp, 1 DROP OD QID, (Reported) STARTED 01/30/20 FOR 8 DAYS FOLLOWING SURGERY Simvastatin (Simvastatin) 40 Mg Tablet, 40 MG PO QHS, (Reported) Spironolactone (Spironolactone) 25 Mg Tablet, 25 MG PO DAILY, (Reported) Vit C/Ascorb Sod/Multivit-Min (Emergen-C 500 mg Chewable Tab) 500 Mg Tab.chew, 2 CHW PO DAILY, (Reported) Vitamin C/Biotin (Hair, Skin and Nails Gummies) 1 Each Tab.chew, 1 CHEW PO DAILY, (Reported) Vitamin E (Vitamin E) 400 Unit Capsule, 400 UNIT PO DAILY, (Reported) Allergies Coded Allergies: latex (Verified Allergy, Intermediate, RASH, 12/10/18) STERLING MITCHELL MD Feb 06, 2020 10:20
--- NOTE | 2020-02-07 07:53 | IPNPDOC ---
Date Seen The patient was seen on 02/06/20. Progress Note Pt seen and examined in the morning POD #1 s/p RLE arteriogram and intervention, admitted post procedure for observation by our hospitalist colleagues 2/2 a suspected vasovagal episode after eating post procedure. She had acute hypotension, bradycardia. This resolved spontaneously after 20-30 min. She did well overnight. VSS. No new issues. Says she feels well and ready to go home. Her left groin access site is c/d/i with scant bruising, soft, no hematoma noted, dressing dry. RLE DP/PT signals biphasic and strong. Foot pink and warm, <1sec capillary refill. Ulcer right ankle clean, new dressing applied. Ok for d/c home from vascular standpoint. Plavix has been resumed without bleeding postprocedure, and will continue at home. We will see the patient back in a week to check her incision. We appreciate the hospitalist assistance with this patricio patient. VS, I&O, 24H, Fishbone Vital Signs/I&O Vital Signs Date Time Temp Pulse Resp B/P (MAP) Pulse Ox O2 Delivery O2 Flow Rate FiO2 02/06/20 14:05 97.1 88 18 142/76 (98) 99 Room Air 02/05/20 16:00 2.0 97 I&O- Last 24 Hours up to 6 AM 02/07/20 06:00 Intake Total 560 ml Balance 560 ml TIM GARCIA MD Feb 07, 2020 07:53
--- NOTE | 2020-02-07 18:07 | ECHO ---
DATE OF PROCEDURE: 02/06/2020 DATE OF : 1940 REFERRING PROVIDER: Dr. Barrera Tucker ROOM NUMBER: [id number] REASON FOR THE STUDY: Abnormal EKG. 2D MEASUREMENTS: IVS: 1.0 cm LV: 5.0 cm LVPW: 1.2 cm LA: 4.8 cm Aorta: 3.2 cm IVC: 1.9 cm DOPPLER MEASUREMENTS: Peak velocity across the aortic valve: 1.2 meters per second. Peak velocity across the LVOT: 0.5 meters per second. Maximum tricuspid valve velocity: 2.7 meters per second 2D COMMENTS: 1. Normal left ventricular size, wall thickness, and left ventricular systolic function appeared to be moderately depressed. The estimated left ventricular systolic ejection fraction is 35%. 2. Mildly enlarged left atrium and right atrium. Normal right ventricle. 3. The atrial septum appeared to be normal without evidence of defect or shunt. 4. Normal aortic root. 5. No pericardial effusion seen. 6. Mildly calcified aortic valve with normal leaflet excursion. Mildly calcified mitral annulus with normal anterior mitral valve leaflet motion. Normal tricuspid valve and pulmonic valve. The proximal pulmonary artery branches were not well visualized. 7. The inferior vena cava was not well visualized. DOPPLER: It detects trace aortic regurgitation, mild mitral regurgitation, mild tricuspid regurgitation. The calculated pulmonary artery systolic pressure varies between 30-40 mmHg. Assessment of the left ventricular diastolic function was limited in view of the underlying arrhythmias. IMPRESSION: 1. Moderate global left ventricular systolic dysfunction with diffuse hypokinesis. Assessment of the left ventricular diastolic function was limited. 2. Aortic valve sclerosis with trace aortic regurgitation but no aortic stenosis. 3. Mitral annulus calcification with a mildly enlarged left atrium and mild mitral regurgitation. 4. Mild tricuspid regurgitation with probably mild pulmonary hypertension. The right atrium appeared to be mildly enlarged. The right ventricle was normal in size.
== END 2020-02-06 18:10 | disposition home or self-care (01) ==
LOC: M IRPRO 06:37 → M ICU 12:22
PROVIDERS: ADMIT Internal Medicine; ATTEND Internal Medicine
DX: I70.233 Atherosclerosis of native arteries of right leg with ulceration of ankle (principal); L97.319 Non-pressure chronic ulcer of right ankle with unspecified severity; I95.9 Hypotension, unspecified; R00.1 Bradycardia, unspecified; I10 Essential (primary) hypertension; I48.91 Unspecified atrial fibrillation; E78.00 Pure hypercholesterolemia, unspecified; E78.5 Hyperlipidemia, unspecified; F03.90 Unspecified dementia, unspecified severity, without behavioral disturbance, psychotic disturbance, mood disturbance, and anxiety; F32.9 Major depressive disorder, single episode, unspecified; F41.9 Anxiety disorder, unspecified; K21.9 Gastro-esophageal reflux disease without esophagitis; Z79.02 Long term (current) use of antithrombotics/antiplatelets; Z79.899 Other long term (current) drug therapy; Z86.73 Personal history of transient ischemic attack (TIA), and cerebral infarction without residual deficits; Z87.81 Personal history of (healed) traumatic fracture; Z91.040 Latex allergy status
CPT/HCPCS: 36415; 37228; 37232; 75630; 75774; 80048; 80053; 82550; 82553; 83735; 84484; 85025; 85027; 93005; 93306; 97161; 99152; 99153; C1725; C1729; C1760; C1769; C1887; C1894; G0378; J1644; J2250; J2405; J3010; Q9967

== ENCOUNTER → 2020-02-28 | Outpatient (CLI) | payer MEDICARE, MEDICAID ==
[~2020-02-28] MED LIST changes: -AMLO10TA5 PO; +AMLO1TAB25 PO; +BRONCHW PO; +EMER1CHW PO; +FERR325T3 PO; +KETO0.3S OD; +NEOM1SUS22 OD; +PLAV1TAB2 PO; +PREDOPD OD; +SPIR-10 PO; +VITA1TAB61 PO; +VITA400C53 PO
== END ==
LOC: M LABSMTC 11:40
PROVIDERS: ATTEND Orthopaedic Surgery
DX: Z11.59 Encounter for screening for other viral diseases (principal); Z20.828 Contact with and (suspected) exposure to other viral communicable diseases

== ENCOUNTER → 2020-03-02 | Outpatient (CLI) | payer MEDICARE, MEDICAID | LOC: M LABSMTC 10:55 | PROVIDERS: ATTEND Orthopaedic Surgery | DX: Z11.59 Encounter for screening for other viral diseases (principal); Z20.828 Contact with and (suspected) exposure to other viral communicable diseases | CPT/HCPCS: C9803; U0003 ==

== ENCOUNTER → 2020-03-02 | Outpatient (CLI) | payer MEDICARE, MEDICAID ==
--- NOTE | 2020-04-11 14:48 | ECGEPIP ---
[facility] Test Date: 2020-03-02 Pat Name: GRETEL BUTT Department: Room: - Gender: Female Travel Manager: LETITIA : 1940 Requested By: Debbie Kaye Order Number: [id number] Reading MD: Marco A Holloway Measurements Intervals [place] Rate: 84 P: [place]: 0 QRS: -44 QRSD: 117 T: 48 QT: 392 QTc: 465 Interpretive Statements ATRIAL FIBRILLATION WITH CONTROLLED VR LAFB NO COMPARISON AVAILABLE SEE SCANNED DOWNTIME REPORT
== END ==
LOC: M EKG 12:35
PROVIDERS: ATTEND Orthopaedic Surgery
DX: Z01.818 Encounter for other preprocedural examination (principal); I10 Essential (primary) hypertension

== ENCOUNTER → 2020-03-20 | Outpatient (REF) | payer MEDICARE, MEDICAID, OTHER | LOC: M LAB REF 11:59 | PROVIDERS: ATTEND Surgery | DX: I70.25 Atherosclerosis of native arteries of other extremities with ulceration (principal); L98.499 Non-pressure chronic ulcer of skin of other sites with unspecified severity ==

== ENCOUNTER → 2020-04-15 | Outpatient (CLI) | payer MEDICARE, MEDICAID ==
--- NOTE | 2020-05-01 14:17 | REP ---
BILATERAL LOWER EXTREMITY ULTRASOUND: 04/15/20 CLINICAL: Atherosclerotic disease for follow-up. COMPARISON: 01/10/20. TECHNIQUE: Real time albarran scale and color Doppler evaluation using linear high frequency transducer. FINDINGS: Extensive marked calcified atherosclerotic changes are noted throughout the bilateral lateral extremities and significantly prominent involving the calves and bilateral ankles (left greater than right).Vessels appear attenuated thought he calve and ankle. No discrete focal area of stenosis or occlusion is appreciated bilaterally. RIGHT LEFT SENIOR FIELD SERVICE ENGINEER: 99 biphasic 64 triphasic Profunda: 49 biphasic 45 triphasic Proximal SFA: 76 biphasic 58 triphasic Mid SFA: 76 biphasic 52 triphasic Distal SFA: 69 biphasic 43 triphasic Popliteal artery: 42 biphasic 28 biphasic Proximal DRAKE: 43 biphasic 45 biphasic Tibial peroneal trunk: 40 biphasic 28 biphasic Proximal SERVICE MANAGER: 28 biphasic 28 biphasic Distal SERVICE MANAGER: 43 biphasic 12 monophasic Distal DRAKE: 33 biphasic 25 biphasic IMPRESSION: Extensive calcified atherosclerotic changes noted bilaterally. Findings extending into the left ankle may have progressed since prior examination. MTDD
== END ==
LOC: M RAD 10:38
PROVIDERS: ATTEND Physician Assistant
DX: I70.233 Atherosclerosis of native arteries of right leg with ulceration of ankle (principal); I70.202 Unspecified atherosclerosis of native arteries of extremities, left leg

== ENCOUNTER 2020-06-20 11:40 | Observation (INO) | payer MEDICARE, MEDICAID ==
[~2020-06-20] VITALS: Ht 167.6 cm; Wt 89.1 kg
[2020-06-20 13:07] LABS: BASO # 0.1 10^3/uL (0.0-0.2); BASO % 0.7 % (0.0-1.0); EOS # 0.2 10^3/uL (0.0-0.5); EOS % 2.5 % (0.0-3.0); HEMATOCRIT 40.9 % (36.0-47.0); HEMOGLOBIN 13.1 g/dl (12.0-15.5); LYMPH # 0.9 10^3/uL (1.5-5.0); LYMPH % 12.6 % (24.0-44.0); MEAN CORPUSCULAR HEMOGLOBIN 29.3 pg (27.0-33.0); MEAN CORPUSCULAR VOLUME 91.5 fl (80.0-96.0); MONO # 0.6 10^3/uL (0.0-0.8); MONO % 9.2 % (0.0-5.0); NEUTROPHILS % 74.9 % (36.0-66.0); PLATELET COUNT, AUTOMATED 278 10^3/uL (150-450); RED BLOOD COUNT 4.47 10^6/uL (4.00-5.40); WHITE BLOOD COUNT 6.7 10^3/uL (4.0-10.0)
--- NOTE | 2020-06-20 13:17 | REP ---
INDICATION: RUQ pain into LUQ COMPARISON: None. TECHNIQUE: Real time albarran scale ultrasound examination using curved array transducer. FINDINGS: Liver is normal in contour, size, and echogenicity without focal hepatic lesions identified. Pancreas is incompletely evaluated due to interposed bowel gas. The gallbladder is contracted and incompletely evaluated, but cholelithiasis is suggested. No obvious biliary ductal dilatation is appreciated and the common bile duct measures 3.6 mm diameter. Right kidney is normal in reniform shape without hydronephrosis and measures 8.2 x 4.4 x 4.1 cm. No ascites in the visualized right upper quadrant. IMPRESSION: 1. Gallbladder is incompletely evaluated due to extensive overlying bowel gas, but cholelithiasis is suggested. No biliary ductal dilatation noted. 2. Otherwise normal right upper quadrant ultrasound. <Electronically signed by Rene Medina > 06/20/20 [id number]
[2020-06-20 13:33] LABS: ALBUMIN 4.4 GM/DL (3.2-5.2); ALT/SGPT 15 U/L (12-78); BILIRUBIN,DIRECT 0.2 MG/DL (0.0-0.2); BILIRUBIN,TOTAL 0.6 MG/DL (0.2-1.0); BLOOD UREA NITROGEN 18 MG/DL (7-18); CALCIUM LEVEL 9.7 MG/DL (8.8-10.2); CARBON DIOXIDE LEVEL 28 MEQ/L (21-32); CHLORIDE LEVEL 103 MEQ/L (98-107); CPK CREATINE PHOSPHOKINASE 48 U/L (26-192); CREATININE FOR GFR 0.84 MG/DL (0.55-1.30); GLOMERULAR FILTRATION RATE > 60.0 (>39); GLUCOSE, FASTING 87 MG/DL (70-100); LIPASE 93 U/L (73-393); MB/CK RELATIVE INDEX 2.08 (< OR =4); POTASSIUM SERUM 4.5 MEQ/L (3.5-5.1); SODIUM LEVEL 136 MEQ/L (136-145); TOTAL PROTEIN 7.5 GM/DL (6.4-8.2); TROPONIN I < 0.02 NG/ML (< 0.10)
[2020-06-20] MEDS ORDERED: MORPHINE 4 MG/ML 1ML VIAL/SYRINGE (J2270) IV ONE (13:45)
[2020-06-20] MEDS ORDERED: ONDANSETRON 4MG/2ML VIAL IV ONE (13:45)
[2020-06-20] MEDS ORDERED: ISOVUE-370 76% 100ML VIAL As Ordered ONE ×2 (13:52→15:47)
--- NOTE | 2020-06-20 15:07 | ECGEPIP ---
[facility] - ED Test Date: 2020-06-20 Pat Name: GRETEL BUTT Department: Room: - Gender: Female Law Enforcement Instructor: shanna : 1940 Requested By: HARRY Hilton PA-C Order Number: [id number] Reading MD: Jean Gtz Measurements Intervals [place] Rate: 90 P: [place]: 0 QRS: -45 QRSD: 110 T: 41 QT: 348 QTc: 427 Interpretive Statements ATRIAL FIBRILLATION PATTERN CONSISTENT WITH PULMONARY DISEASE LAD LEFT ANTERIOR FASCICULAR BLOCK MODERATE VOLTAGE CRITERIA FOR LVH, CONSIDER NORMAL VARIANT CW 03/02/[address] T WAVE CHANGES Electronically Signed on 06-20-2020 15:07:16 EST by Jean Gtz
[2020-06-20 15:12] LABS: INR 1.2; PROTHROMBIN TIME 15.5 SECONDS (12.5-14.3)
[2020-06-20 15:13] LABS: PARTIAL THROMBOPLASTIN TIME 26.9 SECONDS (24.2-38.5)
[2020-06-20 15:15] LABS: D-DIMER QUANT 1451.74 ng/ml (<500)
--- NOTE | 2020-06-20 15:38 | REP ---
INDICATION: upper abd pain into back COMPARISON: 03/10/2018 TECHNIQUE: PA and lateral. FINDINGS: Cardiomegaly again noted. Lung peralta demonstrate chronic interstitial changes. No focal consolidation, effusion, or pneumothorax. Skeletal structures demonstrate osteopenia and age-related degenerative changes. IMPRESSION: Cardiomegaly and diffuse chronic interstitial changes. No focal consolidation or effusion. <Electronically signed by Rene Medina > 06/20/20 [id number]
[2020-06-20 16:00] LABS: NT-PRO BNP 3448 PG/ML (<450)
--- NOTE | 2020-06-20 16:14 | REP ---
INDICATION: severe epigastic pain into back COMPARISON: None. TECHNIQUE: Axial contrast enhanced images from the thoracic inlet to the upper abdomen using arterial angiographic technique with multiplanar re-formations. 75 ml Isovue 370 intravenous contrast material administered without complication. This CT examination was performed using the following dose reduction techniques: Automated exposure control, adjustment of mA and/or kv according to the patient's size, and use of iterative reconstruction technique. FINDINGS: Satisfactory enhancement of the thoracic aorta is achieved and there is no evidence for thoracic aortic aneurysm or dissection. Mild cardiomegaly is appreciated along with atherosclerotic changes to the coronary arteries. No pericardial effusion. The pulmonary vasculature appears normal and without filling defect to suggest pulmonary embolus. Lung peralta demonstrate chronic subpleural fibrosis and interstitial changes without acute consolidation. No pleural effusion or pneumothorax. No adenopathy. Musculoskeletal structures demonstrate age-related changes without acute osseous abnormality. IMPRESSION: 1. No evidence for thoracic aortic aneurysm or dissection. 2. No obvious pulmonary embolus. 3. Lung peralta demonstrate chronic fibrosis and interstitial changes without acute mediastinal or pleuroparenchymal process. <Electronically signed by Rene Medina > 06/20/20 [id number]
--- NOTE | 2020-06-20 16:18 | REP ---
INDICATION: severe epigastic pain into back COMPARISON: 06/14/2018, 12/10/2018 TECHNIQUE: Axial noncontrast images from the lung bases to the pubic symphysis with coronal and sagittal reformations using arterial angiographic technique. 75 cc Isovue 370 intravenous contrast material administered without complication. This CT examination was performed using the following dose reduction techniques: Automated exposure control, adjustment of mA and/or kv according to the patient's size, and use of iterative reconstruction technique. FINDINGS: Abdominal aorta appears essentially normal and without evidence for aneurysm or dissection and no significant atherosclerotic changes. Liver, spleen, pancreas, gallbladder, bilateral adrenal glands and kidneys are essentially normal. The enteric system is without obstruction or acute inflammatory process. Scattered colonic and sigmoid diverticulosis noted without acute diverticulitis. Pelvis demonstrates normal bladder and age-appropriate uterus/adnexa. No ascites. No free air. No adenopathy. Osseous structures demonstrate degenerative changes without acute fracture or dislocation. Right hip replacement noted. IMPRESSION: 1. Normal abdominal aorta without aneurysm or dissection. 2. Colonic diverticulosis without acute diverticulitis. 3. No acute abdominopelvic pathology appreciated. <Electronically signed by Rene Medina > 06/20/20 [id number]
[2020-06-20] MEDS ORDERED: FUROSEMIDE 20MG/2ML VIAL (J1940) IV ONE (17:00)
[2020-06-20] MEDS ORDERED: ACETAMINOPHEN TAB 650MG DOSE (2X325MG) PO PRN (17:45)
[2020-06-20] MEDS ORDERED: B-12100021 PO (17:50)
[2020-06-20] MEDS ORDERED: ESOM40CA35 PO (17:50)
--- NOTE | 2020-06-20 18:21 | HPEPDOC ---
[facility] Medical History & Physical Date of Admission Jun 20, 2020 Date of Service: Jun 20, 2020 Primary Care Physician: Nighat Huertas Attending Physician: BARRERA TUCKER MD History and Physical CHIEF COMPLAINT: epigastric/RUQ pain HISTORY OF PRESENT ILLNESS: Koki Robles is a 80-year-old female who presented to the emergency room today with epigastric and right upper quadrant pain. She states her pain has been going on for the past couple of weeks but has been more consistent over the past 3 days. She states she gets a sharp pain from her epigastric area that radiates. This last about a minute and has been waxing and waning. She also has noted some nausea especially over the past 3 days which has been quite consistent. She denies any vomiting. She also notes one episode of loose diarrhea yesterday. Denies any persistent diarrhea, constipation, or blood in her stool. She also denies any black tarry stools. On ED evaluation she was found to have possible gallstones on gallbladder ultrasound. CTA of the chest, abdomen, and pelvis was negative for aneurysm. The patient was also found to have an elevated BNP and give a dose of IV lasix. She denies any shortness of breath or leg swelling. PAST MEDICAL HISTORY: 1. Dementia 2. Atrial fibrillation, not on anticoagulation 3. HTN 4. PVD 5. HLD 6. Depression 7. GERD 8. Iron deficiency anemia 9. Subacute CVA 10. Portal HTN 11. Right sided heart failure 12. Osteoarthritis PAST SURGICAL HISTORY: 1. Lumbar vertebral fusion 2. Right hip replacement 3. Right ankle repair 4. Removal of hardware from right ankle 5. Laprascopic Vicente Fundoplication with repair of Paresophageal hernia-repair 6. 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 ALLERGIES: Please see below. REVIEW OF SYSTEMS: CONSTITUTIONAL: Denies fevers, chills, night sweats, fatigue, unexpected change in weight. HEENT: Denies change in vision, change in hearing. CARDIOVASCULAR: Denies chest pain, palpitations, shortness of breath, lightheadedness. RESPIRATORY: Denies dyspnea, cough, wheezing. GASTROINTESTINAL: Endorses pain per HPI. Denies vomiting, constipation. GENITOURINARY: Denies dysuria, urinary frequency, urinary urgency. SKIN: Denies rash, lesions. MUSCULOSKELETAL: Endorses chronic joint pains due to osteoarthritis. NEUROLOGICAL: Denies headache, dizziness, weakness. PSYCHIATRIC: Denies change in mood. HOME MEDICATIONS: Please see below. PHYSICAL EXAMINATION: VITAL SIGNS: see below GENERAL: Alert, comfortable, in no acute distress HEENT: Normocephalic, atraumatic, EOMI, moist mucous membranes NECK: Trachea midline, no JVD CARDIOVASCULAR: Normal rate with irregularly irregular rhythm, normal S1 and S2. RESPIRATORY: Clear to auscultation bilaterally with equal air entry bilaterally. No wheezing, rhonchi, or rales. ABDOMEN: Obese, soft, nondistended, bowel sounds present, tenderness to palpation over the epigastric area and the right upper quadrant with a positive Melendez sign. EXTREMITIES: No cyanosis or edema. Pulses 2+/4 in bilateral upper and lower extremities SKIN: Ulceration over the right medial ankle covered in a clean bandage, appears clean without any drainage or surrounding erythema, warmth, swelling. NEUROLOGIC: Alert and oriented x3 to person, place and time. No focal deficits appreciated PSYCHIATRIC: Mood and affect appropriate LABORATORY DATA: See below. IMAGING: -Gallbladder U/S 1. Gallbladder is incompletely evaluated due to extensive overlying bowel gas, but cholelithiasis is suggested. No biliary ductal dilatation noted. 2. Otherwise normal right upper quadrant ultrasound. -CTA abdomen/pelvis 1. Normal abdominal aorta without aneurysm or dissection. 2. Colonic diverticulosis without acute diverticulitis. 3. No acute abdominopelvic pathology appreciated. -CTA chest 1. No evidence for thoracic aortic aneurysm or dissection. 2. No obvious pulmonary embolus. 3. Lung peralta demonstrate chronic fibrosis and interstitial changes without acute mediastinal or pleuroparenchymal process. -CXR Cardiomegaly and diffuse chronic interstitial changes. No focal consolidation or effusion. MICROBIOLOGY: Please see below. ASSESSMENT: 80-year-old female with past history of atrial fibrillation, hypertension, possible right heart failure, dementia, and history of CVA, who presented with right upper quadrant pain, found to have possible gallstones on gallbladder ultrasound, admitted for observation of likely biliary colic PLAN: 1. RUQ and epigastric pain - Suspected biliary colic without evidence of acute cholecystitis - Case discussed by ED provider with Dr. Erwin who recommended outpatient follow up - Will start clear liquid diet and progress to low fat diet as tolerated - Pain control with Tylenol and IV morphine prn 2. Atrial fibrillation - Currently patient appears to be rate controlled A. fib - Continue with Metoprolol for rate control - She is not on full anticoagulation, per PCP notes she has refused this. On Plavix due to hx of CVA - Given her CHADSVASC, she would benefit from receiving full anticoagulation; - Discussed this with the patient and she has verbalized understanding; will have follow up with cardiology for further discussion 3. Possible Right Heart Failure - Elevated BNP without evidence of fluid overload. No evidence of acute heart failure. - Per PCP record, pt has right heart failure. f/u PCP for echocardiogram - continue Lasix and Spironolactone 4. HTN - continue Metoprolol, Spironolactone, Lasix 5. Dementia - Patient is oriented to person, place and time 6. Hx of CVA - continue Simvastatin and Plavix 7. Iron deficiency anemia - continue oral iron supplement 8. GERD - continue PPI 9. Chronic right medial ankle wound - follow with Dr. Mason, no sign of acute infection DVT prophylaxis: TEDs/Sequentials Disposition: admitted for observation, likely d/c within 24 hours if tolerating low fat diet Vital Signs Vital Signs Date Time Temp Pulse Resp B/P (MAP) Pulse Ox O2 Delivery O2 Flow Rate FiO2 06/20/20 17:13 16 06/20/20 17:04 74 99 06/20/20 17:00 171/77 (108) 06/20/20 16:25 Room Air 06/20/20 11:51 97.0 Laboratory Data Labs 24H Laboratory Tests 2 06/20/20 12:11: Immature Granulocyte % (Auto) 0.1, Neutrophils (%) (Auto) 74.9H, Lymphocytes (%) (Auto) 12.6L, Monocytes (%) (Auto) 9.2H, Eosinophils (%) (Auto) 2.5, Basophils (%) (Auto) 0.7, Neutrophils # (Auto) 5.0, Lymphocytes # (Auto) 0.9L, Monocytes # (Auto) 0.6, Eosinophils # (Auto) 0.2, Basophils # (Auto) 0.1, Nucleated Red Blood Cells % (auto) 0.0, Anion Gap 5L, Glomerular Filtration Rate > 60.0, Calcium Level 9.7, Total Bilirubin 0.6, Direct Bilirubin 0.2, Aspartate Amino Transf (AST/SGOT) 21, Alanine Aminotransferase (ALT/SGPT) 15, Alkaline Phosphatase 115, Total Creatine Kinase 48, Creatine Kinase MB 1.0, Creatine Kinase MB Relative Index 2.08, Troponin I < 0.02, PR-Gmo-T-Type Natriuretic Peptide 3448H, Total Protein 7.5, Albumin 4.4, Albumin/Globulin Ratio 1.4, Lipase 93 06/20/20 12:16: Urine Color COLORLESS, Urine Appearance CLEAR, Urine pH 6.0, Urine Specific [place] 1.004, Urine Protein NEGATIVE, Urine Glucose (UA) NEGATIVE, Urine Ketones NEGATIVE, Urine Blood NEGATIVE, Urine Nitrite NEGATIVE, Urine Bilirubin NEGATIVE, Urine Urobilinogen 0.2, Urine Leukocyte Esterase NEGATIVE, Urine WBC (Auto) 0, Urine RBC (Auto) 0, Urine Hyaline Casts (Auto) 0, Urine Bacteria (Auto) NEGATIVE, Urine Squamous Epithelial Cells 0, Urine Sperm (Auto) 06/20/20 14:52: Prothrombin Time 15.5H, Prothromb Time International Ratio 1.20, Activated Partial Thromboplast Time 26.9, D-Dimer, Quantitative 1451.74H CBC/BMP Laboratory Tests 06/20/20 12:11 Home Medications Scheduled Clopidogrel Bisulfate (Plavix) 75 Mg Tablet, 75 MG PO DAILY Cyanocobalamin (Vitamin B-12) (B-12) 1,000 Mcg Tablet, 500 MCG PO DAILY Esomeprazole Magnesium (Esomeprazole Magnesium Dr) 40 Mg Capsule.dr, 40 MG PO DAILY Ferrous Sulfate (Ferrous Sulfate) 325 Mg Tablet.dr, 325 MG PO DAILY Furosemide (Furosemide) 20 Mg Tablet, 20 MG PO BID Ketorolac Tromethamine (Ketorolac Tromethamine) 0.4% Drops, 1 DROP OD QID VERIFIED WITH MD CONTINUE UNTIL 06/02/20 Metoprolol Succinate (Metoprolol Succinate) 100 Mg Tab.er.24h, 150 MG PO DAILY Prednisolone Acetate (Prednisolone Acetate 1% Opth Susp) 5 Ml Drops.susp, 1 DROP OD QID VERIFIED WITH MD CONTINUE UNTIL 06/02/20 Simvastatin (Simvastatin) 40 Mg Tablet, 40 MG PO QHS Spironolactone (Spironolactone) 25 Mg Tablet, 25 MG PO DAILY Vitamin E (Vitamin E) 400 Unit Capsule, 400 UNIT PO DAILY Scheduled PRN Acetaminophen/Diphenhydramine (Acetaminophen-Diphenhyd 500-25) 1 Each Tablet, 2 TAB PO QHS PRN for SLEEP Tramadol HCl (Tramadol HCl ER) 100 Mg Tbmp.24hr, 1 TAB PO DAILYPRN PRN for pain Allergies Coded Allergies: latex (Verified Allergy, Intermediate, RASH, 06/20/20) A-FIB/CHADSVASC A-FIB History Current/History of A-Fib/PAF?: Yes Current PO Anticoag Therapy: No Age/Risk Factor Scoring CHADSVASC: CHADSVASC Response (Comments) Value Age Risk Factor Age >/= 75 years old 2 Gender Risk Factor Female 1 Hx of CHF No 0 Hx of HTN Yes 1 Hx of Stroke/TIA/or VTE Yes 2 Hx of Diabetes No 0 Hx of Vascular Disease No 0 Total 6 Treatment Treatment ordered: NONE Reason Anticoagulant not given: Patient refusal GME ATTESTATION GME ATTESTATION My faculty preceptor for this patient encounter was physically present during the encounter and was fully available. All aspects of the patient interview, examination, medical decision making process, and medical care plan development were reviewed and approved by the faculty preceptor. The faculty preceptor is aware and concurs with the plan as stated in the body of this note and will attest to such by his/her cosignature. ATTENDING NOTE I, Barrera Tucker, have independently examined this patient and performed my own physical exam, as well as reviewed the documentation and edited where necessary. I have discussed in detail with the resident / student the findings and plan of treatment as documented by the resident / student and edited their note. I agree with their findings and treatment plan and have edited their documentation. I will continue to follow the patient during this hospital stay. JOAO KING D.O. Jun 20, 2020 18:21 BARRERA TUCKER MD Jul 01, 2020 05:26
[2020-06-20 19:38] VITALS: BP 164/89
[2020-06-20] MEDS ORDERED: SIMVASTATIN 40 MG TAB PO SCH (21:00)
[2020-06-20] MEDS: MORPHINE 2 MG/ML 1ML VIAL (J2270) IV PRN (21:26)
[2020-06-20] MEDS: prednisoLONE ACET 1% OPHTH SUSP 5ML OD SCH (21:27)
[2020-06-21] MEDS: ONDANSETRON 4 MG ORAL DISINTEGRATING TAB PO PRN ×2 (05:26→11:57)
[2020-06-21] MEDS: MORPHINE 2 MG/ML 1ML VIAL (J2270) IV PRN (05:38)
[2020-06-21 06:00] VITALS: BP 131/74
[2020-06-21 06:35] LABS: HEMATOCRIT 41.8 % (36.0-47.0); HEMOGLOBIN 13.6 g/dl (12.0-15.5); MEAN CORPUSCULAR HEMOGLOBIN 29.6 pg (27.0-33.0); MEAN CORPUSCULAR HGB CONC 32.5 g/dl (32.0-36.5); MEAN CORPUSCULAR VOLUME 90.9 fl (80.0-96.0); PLATELET COUNT, AUTOMATED 271 10^3/uL (150-450); WHITE BLOOD COUNT 6.1 10^3/uL (4.0-10.0)
[2020-06-21 07:11] LABS: BLOOD UREA NITROGEN 16 MG/DL (7-18); CALCIUM LEVEL 9.3 MG/DL (8.8-10.2); CARBON DIOXIDE LEVEL 27 MEQ/L (21-32); CHLORIDE LEVEL 100 MEQ/L (98-107); CREATININE FOR GFR 0.92 MG/DL (0.55-1.30); GLOMERULAR FILTRATION RATE > 60.0 (>39); GLUCOSE, FASTING 75 MG/DL (70-100); POTASSIUM SERUM 4.2 MEQ/L (3.5-5.1); SODIUM LEVEL 133 MEQ/L (136-145)
[2020-06-21 08:20] VITALS: BP 129/71
[2020-06-21] MEDS: prednisoLONE ACET 1% OPHTH SUSP 5ML OD SCH ×2 (08:20→12:00)
[2020-06-21] MEDS ORDERED: SPIRONOLACTONE 25 MG TAB PO SCH (09:00)
[2020-06-21] MEDS ORDERED: PANTOPRAZOLE 40MG TAB (PROTONIX) PO SCH (09:00)
[2020-06-21] MEDS ORDERED: CLOPIDOGREL 75 MG TAB PO SCH (09:00)
[2020-06-21] MEDS ORDERED: FERROUS SULFATE 325MG TAB PO SCH (09:00)
[2020-06-21] MEDS ORDERED: METOPROLOL SUCC (TopROL XL) 50MG **XL** TAB PO SCH (09:00)
[2020-06-21] MEDS ORDERED: FUROSEMIDE 20 MG TAB PO SCH (09:00)
[2020-06-21 10:01] LABS: ALBUMIN 3.7 GM/DL (3.2-5.2); ALT/SGPT 16 U/L (12-78); BILIRUBIN,DIRECT 0.1 MG/DL (0.0-0.2); BILIRUBIN,TOTAL 0.6 MG/DL (0.2-1.0); TOTAL PROTEIN 7.2 GM/DL (6.4-8.2)
--- NOTE | 2020-06-21 11:26 | DS.PDOC ---
Discharge Summary General Date of Admission Jun 20, 2020 at 17:35 Date of Discharge 06/21/2020 Discharge Summary PROCEDURES PERFORMED DURING STAY: [None]. ADMITTING DIAGNOSES / DISCHARGE DIAGNOSES: s/p Right upper quadrant pain - likely 2/2 biliary colic, less likely 2/2 acute cholecystitis Atrial fibrillation Possible Right Heart Failure HTN Dementia Hx of CVA Iron deficiency anemia GERD Chronic right medial ankle wound DVT prophylaxis COMPLICATIONS/CHIEF COMPLAINT: Right upper abdominal pain HISTORY OF PRESENT ILLNESS: Patient is a 80-year-old female with a PMHx of Dementia, A. fib (not on anticoagulation), HTN, Right sided CHF, PVD, DLP, Depression, VEGA, Hx of CVA, OA, GERD who presented to the hospital with complaints of right upper quadrant abdominal pain. Patient reports that she's been expressing this pain for a year on and off. Patient reports that currently it has worsened over this one week and she has come to the emergency room for further evaluation. Patient reports that the pain is intermittent and describes it as a sharp / spastic pain. Patient reports that the pain at the highest is a 10, but then comes down to 0 when it's gone. Patient has reported nausea earlier this week but is currently not nauseous. Has not experience any vomiting. Denies any chest pain, shortness breath, palpitations, constipation, diarrhea, or urinary discomfort. In the emergency room, patient has had extensive CT angiogram imaging of her chest, abdomen and pelvis and US imaging of her gallbladder; which was all relatively unrevealing. HOSPITAL COURSE: s/p Right upper quadrant pain - likely 2/2 biliary colic, less likely 2/2 acute cholecystitis - Currently patient has had significant improvement of her right upper quadrant pain - Lab work without any elevation of bilirubin / liver function - Imaging reviewed without any evidence of acute cholecystitis - Suspected biliary colic without evidence of acute cholecystitis - Patient's diet has been advanced to low cholesterol / low fat diet - has been tolerating - c/w Tylenol as an outpatient - Will have outpatient follow-up with primary care provider and surgery within next 7 days Atrial fibrillation - Currently patient appears to be rate controlled A. fib - c/w Metoprolol for rate control - She is not on full anticoagulation, per PCP notes she has refused this. On Plavix due to hx of CVA - Given her CHADSVASC, she would benefit from receiving full anticoagulation; - Discussed this with the patient and she has verbalized understanding; will have follow up with cardiology for further discussion - Will have outpatient follow up with PCP / Cardiology Possible Right Heart Failure - Elevated BNP without evidence of fluid overload. No evidence of acute heart failure. - Per PCP record, pt has right heart failure. f/u PCP for echocardiogram - c/w Lasix and Spironolactone on discharge HTN - c/w Metoprolol, Spironolactone, Lasix Dementia - Patient is oriented to person, place and time - Patient is functional and can perform all her ADLs - Will provide home health services on discharge Hx of CVA - c/w Simvastatin and Plavix Iron deficiency anemia - c/w iron supplement GERD - c/w PPI Chronic right medial ankle wound - Follow with Dr. Mason, no sign of acute infection DVT prophylaxis - c/w TEDs/Sequentials DISCHARGE MEDICATIONS: Please see below. ALLERGIES: Please see below. PHYSICAL EXAMINATION ON DISCHARGE: Vitals (See below) General: Lying in bed, remains comfortable, AAOx3 HEENT: NC, AT CVS: RRR, +S1S2 Lungs: Fair air entry b/l, -w/r/r Abdomen: Soft, ND, NT Extremities: Right ankle with dressing in place - no evidence of infection, - Edema, - Calf tenderness LABORATORY DATA: Please see below. ACTIVITY: [As tolerated]. DISCHARGE PLAN: Follow-up with primary care provider and surgery within the next 7 days Remain compliant with treatment plan and medications Return to the ER if you experience any problems DISPOSITION: Home with services DISCHARGE CONDITION: [Stable]. TIME SPENT ON DISCHARGE: 25 minutes. Vital Signs/I&Os Vital Signs Date Time Temp Pulse Resp B/P (MAP) Pulse Ox O2 Delivery O2 Flow Rate FiO2 06/21/20 08:20 76 129/71 06/21/20 06:00 96.6 18 98 Room Air I&O- Last 24 Hours up to 6 AM 06/21/20 06:00 Intake Total 100 ml Output Total 200 ml Balance -100 ml Laboratory Data Labs 24H Laboratory Tests 2 06/20/20 12:11: Immature Granulocyte % (Auto) 0.1, Neutrophils (%) (Auto) 74.9H, Lymphocytes (%) (Auto) 12.6L, Monocytes (%) (Auto) 9.2H, Eosinophils (%) (Auto) 2.5, Basophils (%) (Auto) 0.7, Neutrophils # (Auto) 5.0, Lymphocytes # (Auto) 0.9L, Monocytes # (Auto) 0.6, Eosinophils # (Auto) 0.2, Basophils # (Auto) 0.1, Nucleated Red Blood Cells % (auto) 0.0, Anion Gap 5L, Glomerular Filtration Rate > 60.0, Calcium Level 9.7, Total Bilirubin 0.6, Direct Bilirubin 0.2, Aspartate Amino Transf (AST/SGOT) 21, Alanine Aminotransferase (ALT/SGPT) 15, Alkaline Phosphatase 115, Total Creatine Kinase 48, Creatine Kinase MB 1.0, Creatine Kinase MB Relative Index 2.08, Troponin I < 0.02, QQ-Yba-T-Type Natriuretic Peptide 3448H, Total Protein 7.5, Albumin 4.4, Albumin/Globulin Ratio 1.4, Lipase 93 06/20/20 12:16: Urine Color COLORLESS, Urine Appearance CLEAR, Urine pH 6.0, Urine Specific [place] 1.004, Urine Protein NEGATIVE, Urine Glucose (UA) NEGATIVE, Urine K etones NEGATIVE, Urine Blood NEGATIVE, Urine Nitrite NEGATIVE, Urine Bilirubin NEGATIVE, Urine Urobilinogen 0.2, Urine Leukocyte Esterase NEGATIVE, Urine WBC (Auto) 0, Urine RBC (Auto) 0, Urine Hyaline Casts (Auto) 0, Urine Bacteria (Auto) NEGATIVE, Urine Squamous Epithelial Cells 0, Urine Sperm (Auto) 06/20/20 14:52: Prothrombin Time 15.5H, Prothromb Time International Ratio 1.20, Activated Partial Thromboplast Time 26.9, D-Dimer, Quantitative 1451.74H 06/20/20 18:10: Coronavirus (COVID-19)(PCR) NEGATIVE 06/21/20 05:51: Nucleated Red Blood Cells % (auto) 0.0, Anion Gap 6L, Glomerular Filtration Rate > 60.0, Calcium Level 9.3, Total Bilirubin 0.6, Direct Bilirubin 0.1, Aspartate Amino Transf (AST/SGOT) 28, Alanine Aminotransferase (ALT/SGPT) 16, Alkaline Phosphatase 87, Total Protein 7.2, Albumin 3.7, Albumin/Globulin Ratio 1.1L CBC/BMP Laboratory Tests 06/20/20 12:11 06/21/20 05:51 Discharge Medications Scheduled Clopidogrel Bisulfate (Plavix) 75 Mg Tablet, 75 MG PO DAILY, (Reported) Cyanocobalamin (Vitamin B-12) (B-12) 1,000 Mcg Tablet, 500 MCG PO DAILY, (Reported) Esomeprazole Magnesium (Esomeprazole Magnesium Dr) 40 Mg Capsule.dr, 40 MG PO DAILY, (Reported) Ferrous Sulfate (Ferrous Sulfate) 325 Mg Tablet.dr, 325 MG PO DAILY, (Reported) Furosemide (Furosemide) 20 Mg Tablet, 20 MG PO BID, (Reported) Ketorolac Tromethamine (Ketorolac Tromethamine) 0.4% Drops, 1 DROP OD QID, (Reported) Metoprolol Succinate (Metoprolol Succinate) 100 Mg Tab.er.24h, 150 MG PO DAILY, (Reported) Prednisolone Acetate (Prednisolone Acetate 1% Opth Susp) 5 Ml Drops.susp, 1 DROP OD QID, (Reported) Simvastatin (Simvastatin) 40 Mg Tablet, 40 MG PO QHS, (Reported) Spironolactone (Spironolactone) 25 Mg Tablet, 25 MG PO DAILY, (Reported) Vitamin E (Vitamin E) 400 Unit Capsule, 400 UNIT PO DAILY, (Reported) Allergies Coded Allergies: latex (Verified Allergy, Intermediate, RASH, 06/20/20) STERLING MITCHELL MD Jun 21, 2020 11:26
== END 2020-06-21 13:34 | disposition home or self-care (01) ==
LOC: EDBD 11:40 → M ED 11:40 → M ED INP 17:35 → ENRESERV 18:03 → M MSPAV 19:44
PROVIDERS: ADMIT Internal Medicine; ATTEND Internal Medicine
DX: K80.50 Calculus of bile duct without cholangitis or cholecystitis without obstruction (principal); I48.91 Unspecified atrial fibrillation; I10 Essential (primary) hypertension; F03.90 Unspecified dementia, unspecified severity, without behavioral disturbance, psychotic disturbance, mood disturbance, and anxiety; Z86.73 Personal history of transient ischemic attack (TIA), and cerebral infarction without residual deficits; D50.9 Iron deficiency anemia, unspecified; L97.319 Non-pressure chronic ulcer of right ankle with unspecified severity; I73.9 Peripheral vascular disease, unspecified; E78.49 Other hyperlipidemia; F32.9 Major depressive disorder, single episode, unspecified; K21.9 Gastro-esophageal reflux disease without esophagitis; Z91.040 Latex allergy status; Z79.899 Other long term (current) drug therapy

== ENCOUNTER 2020-06-23 13:41 | Inpatient (IN) | payer MEDICARE, MEDICAID ==
[~2020-06-23] VITALS: Ht 167.6 cm; Wt 71.2 kg
[~2020-06-23 13:41] MED LIST changes: +B-12100021 PO; +ESOM40CA35 PO
[2020-06-23] MEDS ORDERED: NS 500 ML IV ONE (14:15)
[2020-06-23] MEDS ORDERED: MORPHINE 2 MG/ML 1ML VIAL (J2270) IV ONE (14:15)
[2020-06-23] MEDS ORDERED: ONDANSETRON 4MG/2ML VIAL IV ONE (14:15)
[2020-06-23 15:41] LABS: CLOSTRIDIUM DIFFICILE PCR NEGATIVE (NEGATIVE)
[2020-06-23 17:36] LABS: BASO % 0.3 % (0.0-1.0); EOS % 0.2 % (0.0-3.0); HEMOGLOBIN 14.7 g/dl (12.0-15.5); LYMPH # 0.5 10^3/uL (1.5-5.0); LYMPH % 3.4 % (24.0-44.0); MEAN CORPUSCULAR HEMOGLOBIN 29.7 pg (27.0-33.0); MEAN CORPUSCULAR HGB CONC 32.7 g/dl (32.0-36.5); MEAN CORPUSCULAR VOLUME 90.9 fl (80.0-96.0); MONO % 6.9 % (0.0-5.0); NEUTROPHILS # 13.4 10^3/uL (1.5-8.5); NEUTROPHILS % 88.9 % (36.0-66.0); PLATELET COUNT, AUTOMATED 287 10^3/uL (150-450); RED BLOOD COUNT 4.95 10^6/uL (4.00-5.40); WHITE BLOOD COUNT 15.1 10^3/uL (4.0-10.0)
[2020-06-23 18:04] LABS: ALBUMIN 3.8 GM/DL (3.2-5.2); ALT/SGPT 14 U/L (12-78); BILIRUBIN,DIRECT 0.2 MG/DL (0.0-0.2); BILIRUBIN,TOTAL 0.7 MG/DL (0.2-1.0); BLOOD UREA NITROGEN 28 MG/DL (7-18); CALCIUM LEVEL 10.5 MG/DL (8.8-10.2); CARBON DIOXIDE LEVEL 26 MEQ/L (21-32); CHLORIDE LEVEL 99 MEQ/L (98-107); CK-MB VALUE MASS < 1.0 NG/ML (<3.6); CPK CREATINE PHOSPHOKINASE 64 U/L (26-192); CREATININE FOR GFR 1.06 MG/DL (0.55-1.30); GLOMERULAR FILTRATION RATE 53.4 (>39); GLUCOSE, FASTING 94 MG/DL (70-100); LIPASE 56 U/L (73-393); MB/CK RELATIVE INDEX 1.56 (< OR =4); POTASSIUM SERUM 4.3 MEQ/L (3.5-5.1); SODIUM LEVEL 133 MEQ/L (136-145); TOTAL PROTEIN 6.9 GM/DL (6.4-8.2); TROPONIN I < 0.02 NG/ML (< 0.10)
[2020-06-23] MEDS ORDERED: DICYCLOMINE INJ 20MG/2ML (J0500) IM ONE (18:30)
[2020-06-23] MEDS ORDERED: ISOVUE-370 76% 100ML VIAL As Ordered ONE (18:41)
--- NOTE | 2020-06-23 19:11 | REPVR ---
PROCEDURE INFORMATION: Exam: CT Abdomen And Pelvis With Contrast Exam date and time: 06/23/2020 6:39 PM Age: 80 years old Clinical indication: Abdominal pain; Generalized; Additional info: Upper abdominal pain/diarrhea; R/O cholecystitis/colitis TECHNIQUE: Imaging protocol: Computed tomography of the abdomen and pelvis with intravenous contrast. Radiation optimization: All CT scans at this facility use at least one of these dose optimization techniques: automated exposure control; mA and/or kV adjustment per patient size (includes targeted exams where dose is matched to clinical indication); or iterative reconstruction. Contrast material: ISOVUE 370; Contrast volume: 100 ml; Contrast route: INTRAVENOUS (IV); COMPARISON: CT ANGIO ABD/PEL 06/20/2020 1:50 PM FINDINGS: Lungs: No suspicious mass or airspace process in the visualized lung bases. Mediastinal space: Small hiatal hernia measuring 4 cm, with suggestion of mucosal edema or possibly shallow ulceration. Liver: Liver appears normal with no focal abnormality. Gallbladder and bile ducts: Gallbladder is distended without stones. Intra and extrahepatic bile duct dilatation is present without calcified stone. Common duct measures up to 14 mm. Pancreas: Pancreas appears normal. No focal mass or peripancreatic inflammation. Spleen: Spleen appears homogeneous without focal mass. Adrenal glands: Adrenal glands are normal in appearance. Kidneys and ureters: Kidneys appear normal, with no stone, solid mass or hydronephrosis. Stomach and bowel: No evidence of small bowel obstruction. Long segment pericolonic stranding and mural edema involving the distal descending and proximal sigmoid colon with inspissated enteric contents. No identifiable mass. Distal to this segment, diverticular changes are present, but the overall pattern is not suggestive of diverticulitis given the segmental length. Appendix: Normal caliber appendix is identified, with no adjacent inflammation. Intraperitoneal space: No pneumoperitoneum. Vasculature: Atherosclerotic change present in the aorta, without aneurysm. Main portal and splenic veins enhance normally. Lymph nodes: No enlarged lymph nodes. Urinary bladder: Urinary bladder appears normal. Reproductive: No overt enlargement of the uterus. Poor visualization because of orthopedic hardware. Bones/joints: Bony structures are normal except for lumbar spine degenerative disc changes. Right hip arthroplasty hardware is present. Soft tissues: Hernia repair changes are present with ventral mesh and no complication. No concerning focal abnormality of the extra-abdominal and pelvic soft tissues. IMPRESSION: 1. Inflammatory process involving the distal descending and sigmoid colon and probable focal fecal impaction in the sigmoid. No identifiable obstructing mass or evidence of perforation or ischemia. This is new since the CT 3 days ago, suggesting an infectious or inflammatory process 2. Small hiatal hernia and possible distal esophageal reflux changes. 3. Intra and extrahepatic bile duct dilatation without evidence of stone or pancreatic head mass. This is a new finding since June 20 and should be correlated with biliary labs. Electronically signed by: Jose Angel Hinson On 06/23/2020 19:11:58 PM
[2020-06-23] MEDS ORDERED: PIPERACILLIN/TAZOBACTAM SOD 3.375 GM in D5W MINI-BAG PLUS 50 ML IV ONE (19:30)
[2020-06-23] MEDS ORDERED: ACET-1146 PO (19:44)
--- NOTE | 2020-06-23 19:44 | HPEPDOC ---
[facility] Medical History & Physical Date of Admission Jun 23, 2020 Date of Service: Jun 23, 2020 Primary Care Physician: Nighat Huertas Attending Physician: SHANDA FELIX MD History and Physical CHIEF COMPLAINT: RUQ abdominal pain, nausea HISTORY OF PRESENT ILLNESS: Patient is a 80-year-old female who presented to the emergency department via EMS with a chief complaint of continued right upper quadrant pain in the setting of nausea and emesis. Of historical note, patient was recently admitted overnight for observation for similar complaint on 06/20/20 and discharged . Patient states that when she was discharged home she was feeling much better however, given that she lives by herself and she is required to be up and active. She says that her increased activity has really exacerbated her right upper quadrant abdominal pain. She says the pain radiates posteriorly to her back right shoulder. This pain comes and goes, worse with activity. She has been able to eat up until today when nausea limited her intake. She has continued to have loose stools but denies any persistent diarrhea, constipation or dark tarry stools or hematochezia. Emergency department, laboratory evaluation demonstrated a an elevated white count of 15.1. H&H and MCV within normal limits. Sodium of 133, BUN/CR of 28/1.06, T bili, direct bili, AST/ALT within normal limits. Mild elevation of alkaline phosphatase at 133. Lipase of 56. C. difficile testing negative, GI panel pending. Patient was given 2 mg of morphine IV for her pain and discomfort, Zofran for nausea. She did receive a liter bolus, Bentyl and started on Zosyn. Repeat CT imaging consistent with focal fecal impaction of the sigmoid, question of inflammatory process in the distal and sigmoid colon. No evidence of mass, perforation or ischemia. Bile duct dilation without any evidence of stone or pancreatic mass. Given the above findings, in the setting of the patient's continued pain and discomfort, she will be admitted to the floor for further evaluation and management. 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 FAMILY HISTORY: Mother: , 84, colon cancer Father, , 72, CVA ALLERGIES: Latex REVIEW OF SYSTEMS: CONSTITUTIONAL: Denies fevers, chills, night sweats, fatigue, unexpected change in weight. HEENT: Denies change in vision, change in hearing. No difficulty swallowing CARDIOVASCULAR: Denies chest pain, palpitations, shortness of breath, lightheadedness. RESPIRATORY: Denies dyspnea, cough, wheezing. GASTROINTESTINAL: Please see HPI, patient indicates a 2 day history of worsening nausea and dry emesis. Right upper quadrant abdominal pain, worse with movement with radiation to her back. Patient reports that she is able to pass flatus, loose bowel movements. GENITOURINARY: Denies dysuria, urinary frequency, urinary urgency. SKIN: Right lower extremity ulceration, currently being followed by wound clinic. Denies any changes. MUSCULOSKELETAL: Reports chronic joint pains due to osteoarthritis. NEUROLOGICAL: Denies headache, dizziness, weakness. PSYCHIATRIC: Denies change in mood. HOME MEDICATIONS: Please see below. PHYSICAL EXAMINATION: VITAL SIGNS: Please see below GENERAL: Patient was interviewed and examined in the emergency department. Patient was found to be resting comfortably on her side in no acute distress. Patient was easily arousable, alert and oriented and able to give an accurate account of her medical history. She appears stated age. HEENT: Normocephalic, atraumatic, EOMI, moist mucous membranes NECK: Trachea midline, no appreciable JVD CARDIOVASCULAR: Normal rate with irregularly irregular rhythm, normal S1 and S2 that any murmurs. RESPIRATORY: Clear to auscultation bilaterally with equal air entry bilaterally. No wheezing, rhonchi, or rales. Conversational dyspnea. ABDOMEN: Obese, soft, nondistended, bowel sounds present, tenderness to palpation over the epigastric area and the right upper quadrant with a positive Melendez sign. EXTREMITIES: No lower extremity edema or calf tenderness. Pulses 2+/4 in bilateral upper and lower extremities SKIN: Ulceration over the right medial ankle covered in a clean bandage, appears clean without any drainage or surrounding erythema, warmth, swelling. NEUROLOGIC: Alert and oriented x3 to person, place and time. No focal deficits a ppreciated PSYCHIATRIC: Mood and affect appropriate LABORATORY DATA: See below. IMAGING: EKG (06/23/20) atrial fibrillation, left anterior fascicular block, minimal voltage criteria for LVH, consider normal variant, delayed anterior R-wave progression Gallbladder ultrasound (06/20/20): Gallbladder is incompletely evaluated due to extensive overlying bowel gas, but cholelithiasis is suggested. No biliary duct dilation noted. Otherwise normal right upper quadrant ultrasound. CT angiogram abdomen/pelvis (06/20/20): Normal abdominal aorta without aneurysm or dissection. Colonic diverticulosis without acute diverticulitis. No acute abdomenopelvic pathology appreciated. CT angiogram chest (06/20/20): No evidence for thoracic aortic aneurysm or dissection. No obvious pulmonary embolus. Lung peralta demonstrate chronic fibrosis interstitial changes without acute mediastinal or pleural parenchymal process. Chest x-ray (06/20/20): 30 mentally and diffuse chronic interstitial changes. No focal consolidation or effusion. CT abdomen/pelvis (06/23/20): Inflammatory process involving the distal d escending and sigmoid colon and probable focal fecal impaction in the sigmoid. No identifiable obstructing mass or evidence of perforation or ischemia. This is new since CT 3 days ago suggesting an infectious or inflammatory process. Small hiatal hernia and possible distal esophageal reflux changes. Intra-and extrahepatic bile duct dilation without evidence of stone or pancreatic head mass. This is a new finding since June 20 and should be correlated with biliary labs. MICROBIOLOGY: Stool panel (06/23/20): Pending ASSESSMENT: Patient is is a 80-year-old female who returns to the hospital with a chief complaint of right upper quadrant abdominal pain, nausea and emesis. Question of biliary colic versus inflammatory process. Admitted to the floor for continued pain/ nausea control and further workup/management. PLAN: #RUQ pain, biliary colic versus enteritis -Intrafuctal dilation of bile duct without evidence of stone, AKLP slightly elevated. Bili/AST/ALT/Lipase WNL. -Plan to repeat RUQ US, cholithiasis suggested on previous US imaging. Consider surgical consultation. -Discomfort well controlled at the time of admission. -PPI, IVF, pain control with morphine PRN, zofran for nausea. #Fecal impaction versus inflammatory reaction -WBC of 15. Afebrile. GI panel pending. S/P Zosyn in the ED -Continue stool softner -Trend Vitals, WBC, BMP #Atrial fibrillation -Rate controlled atrial fibrillation -Well-controlled with home dose of metoprolol -Patient not on anticoagulation, only on Plavix secondary to history of CVA -Mentioned in prior admission notes, patient would benefit from full anticoagulation, though she continues to remain hesitant. -Continue to stress outpatient discussion with primary care provider. -Patient also states that she does not follow with cardiology, suggest referral upon discharge. #Possible Right Heart Failure -Patient carries a history of right-sided heart failure -Last echo from 02/06/20, EF of 35%, global left ventricular systolic d ysfunction, trace aortic regurg, mild mitral regurg and mild tricuspid regurg. 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 Mason, no sign of acute infection DVT PROPHYLAXIS: TEDS/Seq CODE STATUS: FULL CODE DISPOSITION: Anticipate 2 nights stay Vital Signs Vital Signs Date Time Temp Pulse Resp B/P (MAP) Pulse Ox O2 Delivery O2 Flow Rate FiO2 06/23/20 18:00 87 18 99 Room Air 06/23/20 17:46 130/58 (82) 06/23/20 13:46 96.4 Laboratory Data Labs 24H Laboratory Tests 2 06/23/20 14:44: Clostridium difficile [id number] PRESUMPTIVE NEGATIVE, Clostridium difficile Toxin (PCR) NEGATIVE 06/23/20 17:24: Immature Granulocyte % (Auto) 0.3, Neutrophils (%) (Auto) 88.9H, Lymphocytes (%) (Auto) 3.4L, Monocytes (%) (Auto) 6.9H, Eosinophils (%) (Auto) 0.2, Basophils (%) (Auto) 0.3, Neutrophils # (Auto) 13.4H, Lymphocytes # (Auto) 0.5L, Monocytes # (Auto) 1.0H, Eosinophils # (Auto) 0.0, Basophils # (Auto) 0.0, Nucleated Red Blood Cells % (auto) 0.0, Anion Gap 8, Glomerular Filtration Rate 53.4, Calcium Level 10.5H, Total Bilirubin 0.7, Direct Bilirubin 0.2, Aspartate Amino Transf (AST/SGOT) 23, Alanine Aminotransferase (ALT/SGPT) 14, Alkaline Phosphatase 133H, Total Creatine Kinase 64, Creatine Kinase MB < 1.0, Creatine Kinase MB Relative Index 1.56, Troponin I < 0.02, Total Protein 6.9, Albumin 3.8, Albumin/Globulin Ratio 1.2, Lipase 56L CBC/BMP Laboratory Tests 06/23/20 17:24 Microbiology Microbiology 06/23/20 Campylobacter (PCR), Received Pending 06/23/20 Clostridium difficile Toxin A&B PCR, Received Pending 06/23/20 Plesiomonas shigelloides (PCR), Received Pending 06/23/20 Salmonella (PCR)(HEIDI), Received Pending 06/23/20 Vibrio Species (PCR), Received Pending 06/23/20 Vibrio Cholerae (PCR), Received Pending 06/23/20 Yersinia enterocolitica (PCR), Received Pending 06/23/20 Enteroaggregative E. coli (PCR), Received Pending 06/23/20 Enteropathogenic E. coli (PCR), Received Pending 06/23/20 Enterotoxigenic E. coli (PCR), Received Pending 06/23/20 E. coli Shiga-like Toxin (PCR), Received Pending 06/23/20 Escherichia coli 0157 (PCR), Received Pending 06/23/20 Enteroinvasive E. coli/Shigella PCR, Received Pending 06/23/20 Cryptosporidium (PCR), Received Pending 06/23/20 Cyclospora cayetanensis (PCR), Received Pending 06/23/20 Entamoeba histolytica (PCR), Received Pending 06/23/20 Giardia lamblia (PCR), Received Pending 06/23/20 Adenovirus Type F 40/41 (PCR), Received Pending 06/23/20 Astrovirus (PCR), Received Pending 06/23/20 Norovirus GI/GII (PCR), Received Pending 06/23/20 Rotavirus A (PCR), Received Pending 06/23/20 Sapovirus I/II/IV/V (PCR), Received Pending Home Medications Scheduled Clopidogrel Bisulfate (Plavix) 75 Mg Tablet, 75 MG PO DAILY Cyanocobalamin (Vitamin B-12) (B-12) 1,000 Mcg Tablet, 500 MCG PO DAILY Esomeprazole Magnesium (Esomeprazole Magnesium Dr) 40 Mg Capsule.dr, 40 MG PO DAILY Ferrous Sulfate (Ferrous Sulfate) 325 Mg Tablet.dr, 325 MG PO DAILY Furosemide (Furosemide) 20 Mg Tablet, 20 MG PO BID Ketorolac Tromethamine (Ketorolac Tromethamine) 0.4% Drops, 1 DROP OD QID VERIFIED WITH MD CONTINUE UNTIL 06/02/20 Metoprolol Succinate (Metoprolol Succinate) 100 Mg Tab.er.24h, 150 MG PO DAILY Prednisolone Acetate (Prednisolone Acetate 1% Opth Susp) 5 Ml Drops.susp, 1 DROP OD QID VERIFIED WITH MD CONTINUE UNTIL 06/02/20 Simvastatin (Simvastatin) 40 Mg Tablet, 40 MG PO QHS Spironolactone (Spironolactone) 25 Mg Tablet, 25 MG PO DAILY Vitamin E (Vitamin E) 400 Unit Capsule, 400 UNIT PO DAILY Scheduled PRN Acetaminophen/Diphenhydramine (Acetaminophen-Diphenhyd 500-25) 1 Each Tablet, 2 TAB PO QHS PRN for SLEEP Allergies Coded Allergies: latex (Verified Allergy, Intermediate, RASH, 06/20/20) A-FIB/CHADSVASC A-FIB History Current/History of A-Fib/PAF?: No Current PO Anticoag Therapy: No GME ATTESTATION GME ATTESTATION My faculty preceptor for this patient encounter was physically present during t he encounter and was fully available. All aspects of the patient interview, examination, medical decision making process, and medical care plan development were reviewed and approved by the faculty preceptor. The faculty preceptor is aware and concurs with the plan as stated in the body of this note and will attest to such by his/her cosignature. ATTENDING NOTE Time of service 10:55 PM Ms. Robles is a 80 yr old with a history of mentioned, HTN, A. fib, PVD, depression, VEGA, subacute CVA, and right-sided heart failure who presented with complaints of nausea and nonbloody diarrhea; CT revealed the presence of inflammation at the distal descending and sigmoid colon along with fecal impaction. She will be admitted for management of enteritis. - f/u stool panel, consider PO abx if she develops SIRS vs early dc Rest per Dr. Casey's H&P ALEXIA CASEY DO Jun 23, 2020 19:44 SHANDA FELIX MD Jun 24, 2020 06:34
[2020-06-23] MEDS ORDERED: MORPHINE 2 MG/ML 1ML VIAL (J2270) IV PRN (19:45)
[2020-06-23] MEDS: NS 1,000 ML IV SCH (21:33)
--- NOTE | 2020-06-23 22:06 | ECGEPIP ---
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
[2020-06-23 22:55] VITALS: BP 115/73
[2020-06-24] MEDS: ONDANSETRON 4MG/2ML VIAL IV PRN ×2 (00:10→16:19)
[2020-06-24] MEDS: SIMVASTATIN 40 MG TAB PO SCH ×2 (00:10→21:11)
[2020-06-24] MEDS: NS 1,000 ML IV SCH ×2 (05:39→12:25)
[2020-06-24 06:00] VITALS: BP 114/55
[2020-06-24 06:38] LABS: HEMATOCRIT 41.2 % (36.0-47.0); HEMOGLOBIN 13.8 g/dl (12.0-15.5); MEAN CORPUSCULAR HEMOGLOBIN 30.5 pg (27.0-33.0); MEAN CORPUSCULAR HGB CONC 33.5 g/dl (32.0-36.5); MEAN CORPUSCULAR VOLUME 91.2 fl (80.0-96.0); PLATELET COUNT, AUTOMATED 272 10^3/uL (150-450); RED BLOOD COUNT 4.52 10^6/uL (4.00-5.40)
[2020-06-24 07:03] LABS: BILIRUBIN,TOTAL 0.7 MG/DL (0.2-1.0); CREATININE FOR GFR 1.03 MG/DL (0.55-1.30); GLOMERULAR FILTRATION RATE 55.2 (>39); MAGNESIUM LEVEL 1.8 MG/DL (1.8-2.4); POTASSIUM SERUM 3.8 MEQ/L (3.5-5.1); TOTAL PROTEIN 6.5 GM/DL (6.4-8.2)
[2020-06-24] MEDS: prednisoLONE ACET 1% OPHTH SUSP 5ML OD SCH ×4 (09:00→21:00)
[2020-06-24] MEDS ORDERED: CLOPIDOGREL 75 MG TAB PO SCH (09:00)
[2020-06-24] MEDS: FUROSEMIDE 20 MG TAB PO SCH ×2 (09:59→16:19)
[2020-06-24] MEDS: FERROUS SULFATE 325MG TAB PO SCH (10:00)
[2020-06-24] MEDS: SPIRONOLACTONE 25 MG TAB PO SCH (10:00)
[2020-06-24] MEDS: METOPROLOL SUCC (TopROL XL) 50MG **XL** TAB PO SCH (10:01)
[2020-06-24 14:00] VITALS: BP 120/76
--- NOTE | 2020-06-24 16:02 | IPNPDOC ---
Text Note Date of Service The patient was seen on 06/24/20. NOTE Subjective: Patient stated that she feels better today. She stated that she feels nauseated. She had a bowel movement in the morning. Objective: GENERAL APPEARANCE: NAD HEENT: no scleral icterus, no JVD, EOMI CARDIOVASCULAR: S1S2 LUNGS: Diminished lung sounds ABDOMEN: Mild Right upper quadrant tenderness MUSCULOSKELETAL: no cyanosis, no swelling, stage III wound on tibial surface of the right ankle with some purulent discharge NEUROLOGICAL: cranial nerve function from 2-12 intact intact, follows commands, speech not dysarthric Assessment and plan Patient is 80 years old female with past history of dementia, atrial fibrillation, hypertension, CVA presented to the hospital with right upper quadrant pain. Right upper quadrant pain CT abdomen/pelvis (06/23/20): Inflammatory process involving the distal descending and sigmoid colon and probable focal fecal impaction in the sigmoid. No identifiable obstructing mass or evidence of perforation or ischemia Gallbladder ultrasound (06/20/20): Gallbladder is incompletely evaluated due to extensive overlying bowel gas, but cholelithiasis is suggested. No biliary duct dilation noted. Otherwise normal right upper quadrant ultrasound. Will repeat ultrasound tomorrow. There is concern for acute cholecystitis, biliary colic. Continue IV antibiotics Pain management I will hold Plavix for now due to possible cholecystectomy. I will ask surgical evaluation after ultrasound results Constipation Resolved Atrial fibrillation Heart rate under control Patient refused oral targeted anticoagulation in the past I stopped Plavix for now due to possible cholecystectomy Systolic CHF Node-negative exacerbation I's and O's Continue cardiac diet Last echo from 02/06/20, EF of 35%, global left ventricular systolic dysfunctio n, trace aortic regurg, mild mitral regurg and mild tricuspid regurg. Hypertension Blood pressure control Continue home cardioprotective medications History of CVA Continue statin Plavix and hold Chronic right medial ankle wound Appreciate/agree with Dr. Mason consult Armin VOGT I+O Armin VOGT I+O Laboratory Tests 06/23/20 17:24 06/24/20 05:58 Vital Signs Date Time Temp Pulse Resp B/P (MAP) Pulse Ox O2 Delivery O2 Flow Rate FiO2 06/24/20 14:00 97.5 88 16 120/76 (91) 96 Room Air I&O- Last 24 Hours up to 6 AM 06/24/20 06:00 Intake Total 1810 ml Output Total 100 ml Balance 1710 ml FRANCIS FRANCIS DO Jun 24, 2020 16:02
[2020-06-24] MEDS: PIPERACILLIN/TAZOBACTAM SOD 3.375 GM in D5W MINI-BAG PLUS 50 ML IV SCH ×2 (16:19→21:10)
[2020-06-24] MEDS: ACETAMINOPHEN TAB 650MG DOSE (2X325MG) PO PRN (21:11)
[2020-06-24 22:00] VITALS: BP 129/66
[2020-06-25] MEDS: NS 1,000 ML IV SCH ×3 (00:40→12:32)
[2020-06-25] MEDS: PIPERACILLIN/TAZOBACTAM SOD 3.375 GM in D5W MINI-BAG PLUS 50 ML IV SCH ×4 (03:57→21:19)
[2020-06-25 06:00] VITALS: BP 127/68
--- NOTE | 2020-06-25 06:55 | REPVR ---
PROCEDURE INFORMATION: Exam: US Abdomen, Limited; Right Upper Quadrant Exam date and time: 06/25/2020 6:39 AM Age: 80 years old Clinical indication: Abdominal pain; Epigastric; Additional info: Ruq pain TECHNIQUE: Imaging protocol: US abdomen. Real time ultrasound with image documentation. Limited exam focused on the right upper quadrant. COMPARISON: GALLBLADDER US 06/20/2020 12:57 PM FINDINGS: Liver: Limited visualization of the liver demonstrate coarse echotexture possibly due to fatty infiltration. Gallbladder: Minimal amount of gallbladder sludge seen. Sonographic Melendez's sign was reported by technologist. Common bile duct: The CBD is dilated measuring up to 1.5 cm in diameter. Pancreas: The pancreas is obscured by bowel gas. Right kidney: The right kidney measures 9.4 x 3.9 x 4.4 cm. There is a 0.8 x 0.8 x 0.4 cm right upper renal pole hypoechogenicity likely a cyst, incompletely characterized on this exam. IMPRESSION: Mild gallbladder sludge with reported sonographic Melendez's sign and significant dilatation of the CBD up to 1.5 cm suggestive of CBD obstructive process. Correlation with clinical history, LFTs and bilirubin level as well as MRI with MRCP is suggested. COMMENTS: Consistent with the [place] [employer]'s Incidental Findings Committee white paper (J Am Solis Radiol 2018): Any incidental renal lesion less than 1 cm or classified as too small to characterize, or any incidental cystic renal lesion characterized as simple-appearing, is likely benign. No follow-up imaging is recommended for these lesions per consensus recommendations based on imaging criteria. Electronically signed by: Franck Mcneil On 06/25/2020 06:55:05 AM
[2020-06-25] MEDS: prednisoLONE ACET 1% OPHTH SUSP 5ML OD SCH ×5 (09:00→21:22)
[2020-06-25 09:11] LABS: HEMATOCRIT 36.5 % (36.0-47.0); MEAN CORPUSCULAR HEMOGLOBIN 30.2 pg (27.0-33.0); MEAN CORPUSCULAR HGB CONC 32.3 g/dl (32.0-36.5); MEAN CORPUSCULAR VOLUME 93.4 fl (80.0-96.0); PLATELET COUNT, AUTOMATED 248 10^3/uL (150-450); RED BLOOD COUNT 3.91 10^6/uL (4.00-5.40); WHITE BLOOD COUNT 6.7 10^3/uL (4.0-10.0)
[2020-06-25] MEDS: FUROSEMIDE 20 MG TAB PO SCH ×2 (09:18→17:38)
[2020-06-25] MEDS: FERROUS SULFATE 325MG TAB PO SCH (09:18)
[2020-06-25] MEDS: SPIRONOLACTONE 25 MG TAB PO SCH (09:18)
[2020-06-25] MEDS: METOPROLOL SUCC (TopROL XL) 50MG **XL** TAB PO SCH (09:19)
[2020-06-25 09:27] LABS: HEMOGLOBIN 11.8 g/dl (12.0-15.5)
[2020-06-25 09:33] LABS: ALT/SGPT 10 U/L (12-78); BILIRUBIN,TOTAL 0.8 MG/DL (0.2-1.0); BLOOD UREA NITROGEN 17 MG/DL (7-18); CALCIUM LEVEL 8.6 MG/DL (8.8-10.2); CARBON DIOXIDE LEVEL 26 MEQ/L (21-32); CHLORIDE LEVEL 106 MEQ/L (98-107); CREATININE FOR GFR 0.95 MG/DL (0.55-1.30); GLOMERULAR FILTRATION RATE > 60.0 (>39); GLUCOSE, FASTING 80 MG/DL (70-100); MAGNESIUM LEVEL 1.4 MG/DL (1.8-2.4); POTASSIUM SERUM 3.5 MEQ/L (3.5-5.1); SODIUM LEVEL 139 MEQ/L (136-145); TOTAL PROTEIN 5.7 GM/DL (6.4-8.2)
[2020-06-25] MEDS ORDERED: POTASSIUM CHLORIDE 10 MEQ SR TABLET PO ONE (10:30)
--- NOTE | 2020-06-25 12:20 | REPVR ---
PROCEDURE INFORMATION: Exam: MR Abdomen Without Contrast, MRCP Exam date and time: 06/25/2020 10:23 AM Age: 80 years old Clinical indication: Abdominal pain; Tenderness; Right; Patient HX: Pain, dilatation; Additional info: Cbd dilatation TECHNIQUE: Imaging protocol: MR of the abdomen without contrast. Exam focused on the bile ducts and pancreatic ducts. 3D MRCP images were acquired and processed without radiologist supervision. 3D rendering (Not supervised by radiologist): MIP and/or 3D reconstructed images were created by the technologist. COMPARISON: CT ABD/PEL W/IV CONTRAST ONLY 06/23/2020 6:33 PM FINDINGS: Liver: Mild intrahepatic biliary ductal dilatation. Gallbladder and bile ducts: The common bile duct measures 11.2 mm. No ductal calculi. A single 3.8 mm gallstone is present dependently in the nondistended gallbladder. No wall thickening or pericholecystic fluid identified. Pancreas: No pancreatic mass or pancreatic ductal dilatation identified. Intraperitoneal space: No fluid collection. IMPRESSION: 1. Cholelithiasis. 2. Intrahepatic and extrahepatic biliary ductal dilatation without evidence of choledocholithiasis. Electronically signed by: Apollo Johnson On 06/25/2020 12:20:51 PM
--- NOTE | 2020-06-25 13:01 | IPNPDOC ---
Text Note Date of Service The patient was seen on 06/25/20. NOTE Subjective: Patient stated that she feels better today. Patient denies fever, chills, nausea, diarrhea or dysuria Objective: GENERAL APPEARANCE: NAD HEENT: no scleral icterus, no JVD, EOMI CARDIOVASCULAR: S1S2 LUNGS: Diminished lung sounds ABDOMEN: Mild Right upper quadrant tenderness MUSCULOSKELETAL: no cyanosis, no swelling, stage III wound on tibial surface of the right ankle with some purulent discharge NEUROLOGICAL: cranial nerve function from 2-12 intact intact, follows commands, speech not dysarthric Assessment and plan Patient is 80 years old female with past history of dementia, atrial fibrillation, hypertension, CVA presented to the hospital with right upper quadrant pain. Right upper quadrant pain CT abdomen/pelvis (06/23/20): Inflammatory process involving the distal descending and sigmoid colon and probable focal fecal impaction in the sigmoid. No identifiable obstructing mass or evidence of perforation or ischemia Gallbladder ultrasound (06/20/20): Gallbladder is incompletely evaluated due to extensive overlying bowel gas, but cholelithiasis is suggested. No biliary duct dilation noted. Otherwise normal right upper quadrant ultrasound. MRCP showed 1 Cholelithiasis. 2. Intrahepatic and extrahepatic biliary ductal dilatation without evidence of choledocholithiasis I talked to Dr. Pan, he recommended HIDA scan Constipation Resolved Atrial fibrillation Heart rate under control Patient refused oral targeted anticoagulation in the past I stopped Plavix for now due to possible cholecystectomy Systolic CHF Node-negative exacerbation I's and O's Continue cardiac diet Last echo from 02/06/20, EF of 35%, global left ventricular systolic dysfunction, trace aortic regurg, mild mitral regurg and mild tricuspid regurg. Hypertension Blood pressure control Continue home cardioprotective medications History of CVA Continue statin Plavix and hold Chronic right medial ankle wound Appreciate/agree with Dr. Mason consult VS,Armin, I+O VS, Armin, I+O Laboratory Tests 06/25/20 08:38 Vital Signs Date Time Temp Pulse Resp B/P (MAP) Pulse Ox O2 Delivery O2 Flow Rate FiO2 06/25/20 09:19 85 127/69 06/25/20 06:00 97.0 18 96 Room Air I&O- Last 24 Hours up to 6 AM 06/25/20 06:00 Intake Total 1280 ml Output Total 500 ml Balance 780 ml FRANCIS FRANCIS DO Jun 25, 2020 13:01
[2020-06-25 14:00] VITALS: BP 114/53
[2020-06-25] MEDS ORDERED: MOM 30ML SUSPENSION UDC PO ONE (17:00)
[2020-06-25] MEDS: MIRALAX *UNIT DOSE* 17GM PACKET PO SCH (17:38)
[2020-06-25] MEDS: SIMVASTATIN 40 MG TAB PO SCH (21:19)
[2020-06-25 22:00] VITALS: BP 131/77
[2020-06-26] MEDS: NS 1,000 ML IV SCH (01:45)
[2020-06-26] MEDS: PIPERACILLIN/TAZOBACTAM SOD 3.375 GM in D5W MINI-BAG PLUS 50 ML IV SCH (03:59)
[2020-06-26 06:00] VITALS: BP 132/79
[2020-06-26 07:42] LABS: ALBUMIN 3.3 GM/DL (3.2-5.2); ALT/SGPT 12 U/L (12-78); BILIRUBIN,TOTAL 0.7 MG/DL (0.2-1.0); BLOOD UREA NITROGEN 11 MG/DL (7-18); CALCIUM LEVEL 9.1 MG/DL (8.8-10.2); CARBON DIOXIDE LEVEL 22 MEQ/L (21-32); CHLORIDE LEVEL 107 MEQ/L (98-107); CREATININE FOR GFR 0.94 MG/DL (0.55-1.30); GLOMERULAR FILTRATION RATE > 60.0 (>39); GLUCOSE, FASTING 77 MG/DL (70-100); MAGNESIUM LEVEL 1.5 MG/DL (1.8-2.4); POTASSIUM SERUM 4.7 MEQ/L (3.5-5.1); SODIUM LEVEL 138 MEQ/L (136-145); TOTAL PROTEIN 6.3 GM/DL (6.4-8.2)
[2020-06-26 07:42] LABS: BASO # 0.1 10^3/uL (0.0-0.2); EOS # 0.3 10^3/uL (0.0-0.5); EOS % 3.8 % (0.0-3.0); HEMATOCRIT 37.8 % (36.0-47.0); HEMOGLOBIN 12.4 g/dl (12.0-15.5); LYMPH # 1.3 10^3/uL (1.5-5.0); LYMPH % 15.2 % (24.0-44.0); MEAN CORPUSCULAR HEMOGLOBIN 30.4 pg (27.0-33.0); MEAN CORPUSCULAR HGB CONC 32.8 g/dl (32.0-36.5); MEAN CORPUSCULAR VOLUME 92.6 fl (80.0-96.0); MONO # 0.8 10^3/uL (0.0-0.8); MONO % 8.6 % (0.0-5.0); NEUTROPHILS # 6.3 10^3/uL (1.5-8.5); NEUTROPHILS % 71.1 % (36.0-66.0); PLATELET COUNT, AUTOMATED 267 10^3/uL (150-450); RED BLOOD COUNT 4.08 10^6/uL (4.00-5.40); WHITE BLOOD COUNT 8.8 10^3/uL (4.0-10.0)
[2020-06-26] MEDS: MIRALAX *UNIT DOSE* 17GM PACKET PO SCH (09:32)
[2020-06-26] MEDS: SPIRONOLACTONE 25 MG TAB PO SCH (09:33)
[2020-06-26] MEDS: FERROUS SULFATE 325MG TAB PO SCH (09:33)
[2020-06-26] MEDS: FUROSEMIDE 20 MG TAB PO SCH ×2 (09:33→17:51)
[2020-06-26] MEDS: METOPROLOL SUCC (TopROL XL) 50MG **XL** TAB PO SCH (09:36)
[2020-06-26] MEDS: prednisoLONE ACET 1% OPHTH SUSP 5ML OD SCH ×4 (09:36→20:03)
--- NOTE | 2020-06-26 12:20 | IPNPDOC ---
Text Note Date of Service The patient was seen on 06/26/20. NOTE Subjective: No any acute events overnight. Patient denies fever, chills, nausea, diarrhea or dysuria Objective: GENERAL APPEARANCE: NAD HEENT: no scleral icterus, no JVD, EOMI CARDIOVASCULAR: S1S2 LUNGS: Diminished lung sounds ABDOMEN: Mild Right upper quadrant tenderness MUSCULOSKELETAL: no cyanosis, no swelling, stage III wound on tibial surface of the right ankle with some purulent discharge NEUROLOGICAL: cranial nerve function from 2-12 intact intact, follows commands, speech not dysarthric Assessment and plan Patient is 80 years old female with past history of dementia, atrial fibrillation, hypertension, CVA presented to the hospital with right upper quadrant pain. Right upper quadrant pain CT abdomen/pelvis (06/23/20): Inflammatory process involving the distal descending and sigmoid colon and probable focal fecal impaction in the sigmoid. No identifiable obstructing mass or evidence of perforation or ischemia Gallbladder ultrasound (06/20/20): Gallbladder is incompletely evaluated due to extensive overlying bowel gas, but cholelithiasis is suggested. No biliary duct dilation noted. Otherwise normal right upper quadrant ultrasound. MRCP showed 1 Cholelithiasis. 2. Intrahepatic and extrahepatic biliary ductal dilatation without evidence of choledocholithiasis I talked to Dr. Pan, he recommended HIDA scan. HIDA scan not available today Right upper quadrant pain resolved DC antibiotics Constipation Resolved Atrial fibrillation Heart rate under control Patient refused oral targeted anticoagulation in the past I stopped Plavix for now due to possible cholecystectomy Systolic CHF Node-negative exacerbation I's and O's Continue cardiac diet Last echo from 02/06/20, EF of 35%, global left ventricular systolic dysfunction, trace aortic regurg, mild mitral regurg and mild tricuspid regurg. Hypertension Blood pressure control Continue home cardioprotective medications History of CVA Continue statin Plavix on hold Chronic right medial ankle wound Appreciate/agree with Dr. Mason consult Armin VOGT I+O Armin VOGT I+O Laboratory Tests 06/26/20 06:33 06/26/20 07:21 Vital Signs Date Time Temp Pulse Resp B/P (MAP) Pulse Ox O2 Delivery O2 Flow Rate FiO2 06/26/20 09:36 86 136/78 06/26/20 06:00 97.6 18 96 Room Air I&O- Last 24 Hours up to 6 AM 06/26/20 06:00 Intake Total 2120 ml Output Total 1250 ml Balance 870 ml FRANCIS FRANCIS DO Jun 26, 2020 12:20
--- NOTE | 2020-06-26 12:32 | CR ---
CONSULTATION I saw this patient inpatient. REQUESTING PHYSICIAN: Hospitalist service. REASON FOR CONSULTATION: Right-sided abdominal pain and abnormal CT scan. HISTORY OF PRESENT ILLNESS: Mrs. Rojas is a 80-year-old female with a lengthy history of intermittent episodes of right-sided abdominal pain that resolve after she lies flat but exacerbates when she lifts or moves about the house. This not a constant feature; however, it is intermittent. The patient presented to the hospital and was evaluated for right-sided abdominal pain by ultrasound and CT scan. Her ultrasound shows possible gallstones and a 14-15 mm common bile duct and some intrahepatic duct dilatation. It is noted that her liver enzymes are completely normal without any cholestasis. She subsequently underwent a CT of the abdomen and pelvis, which again shows some intrahepatic ductal dilatation of her bile duct up to 14 mm. On followup lab evaluations, again, her lab work reveals normal liver functions. She underwent magnetic resonance cholangiopancreatography (MRCP), which showed mild intra and extrahepatic ductal dilatation up to 11 mm but no obstructing lesions or stones. She did have a gallstone in her gallbladder. MEDICAL HISTORY: 1. Dementia. 2. Atrial fibrillation, not in anticoagulation. 3. Hypertension. 4. Right-sided heart failure. 5. Gastroesophageal reflux disease. 6. Anemia. SURGICAL HISTORY: 1. Paraesophageal hernia repair. 2. Vicente fundoplication. 3. Incisional hernia repair. 4. Lumbar vertebral fusion. SOCIAL HISTORY: Negative for tobacco. Negative for alcohol. FAMILY HISTORY: Noncontributory. ALLERGIES: LATEX. HOME MEDICATIONS: Plavix, cyanocobalamin, esomeprazole, iron sulfate, Lasix, metoprolol, prednisolone, simvastatin, spironolactone, and vitamin E. PHYSICAL EXAMINATION: VITAL SIGNS: Temperature 97.0, heart rate is 85 and regular, blood pressure 127/69. Her weight is 90.3 kg. GENERAL: She is awake, alert, and oriented in no acute distress. She is not toxic in appearance. HEAD, EYES, EARS, NOSE, AND THROAT: Grossly without abnormality. There is no oral thrush. NECK: Negative for lymphadenopathy or thyromegaly. CHEST: Distant breath sounds but clear. No rhonchi or crackles are appreciated. Her chest wall is markedly tender to palpation along the right costal margin and right flank but also over her sternum and left costal margin. ABDOMEN: Soft, nontender, Positive bowel sounds. No masses appreciated. No rebound tenderness. Her abdominal exam is benign, EXTREMITIES: Negative for edema. Rectal examination has been deferred as per patient's request. CT scan of June 23, abdominal ultrasound of June 25, and MRCP of June 25 have been reviewed. Lab work has been reviewed. IMPRESSION: 1. Chest wall pain, Teitze syndrome. 2. History of possible abdominal pain, resolved. 3. Abnormal CT, ultrasound, and MRCP with a dilated common bile duct, intrahepatic duct, but normal liver enzymes. 4. History of paraesophageal hernia repair. 5. Abnormal CT showing a fecal impaction in the sigmoid. DISCUSSION: At this time of my examination, the patient has no biliary symptoms whatsoever. Her abdominal exam is benign. The only discomfort I can elicit is very exquisite right costal margin tenderness to light palpation even. Palpation over the rest of her chest wall also reveals tenderness but to a lesser degree. The only pain I can elicit today is that of costochondritis rather than abdominal pain. In view of abnormal radiology, however, I would continue evaluating her biliary tree via MRCP, and if that is negative would proceed with a CCK-HIDA. This will allow us to delineate her gallbladder function as well as prove patency of her bile duct. I think the lack of liver enzyme elevation/cholestasis is likely sufficient proof; however, in view of her recurrent presentation, I think this is prudent. 2. Would recommend a dose of milk of magnesia 60 mL today and start her on a dose of MiraLax on a daily basis to treat and prevent fecal impactions in future. 3. Depending on results above, further recommendations to follow.
[2020-06-26 14:00] VITALS: BP 134/80
[2020-06-26] MEDS: SIMVASTATIN 40 MG TAB PO SCH (20:02)
[2020-06-26 21:32] VITALS: BP 140/90
[2020-06-26] MEDS: ACETAMINOPHEN TAB 650MG DOSE (2X325MG) PO PRN (22:13)
[2020-06-27 06:00] VITALS: BP 162/82
[2020-06-27 06:17] LABS: BASO # 0.1 10^3/uL (0.0-0.2); BASO % 0.9 % (0.0-1.0); EOS # 0.3 10^3/uL (0.0-0.5); EOS % 4.7 % (0.0-3.0); HEMATOCRIT 35.9 % (36.0-47.0); HEMOGLOBIN 11.8 g/dl (12.0-15.5); LYMPH # 1.2 10^3/uL (1.5-5.0); MEAN CORPUSCULAR HEMOGLOBIN 29.5 pg (27.0-33.0); MEAN CORPUSCULAR HGB CONC 32.9 g/dl (32.0-36.5); MEAN CORPUSCULAR VOLUME 89.8 fl (80.0-96.0); MONO # 0.6 10^3/uL (0.0-0.8); MONO % 9.7 % (0.0-5.0); NEUTROPHILS # 4.1 10^3/uL (1.5-8.5); NEUTROPHILS % 65.5 % (36.0-66.0); PLATELET COUNT, AUTOMATED 279 10^3/uL (150-450); WHITE BLOOD COUNT 6.3 10^3/uL (4.0-10.0)
[2020-06-27 06:35] LABS: ALBUMIN 3.3 GM/DL (3.2-5.2); ALT/SGPT 12 U/L (12-78); BILIRUBIN,TOTAL 0.5 MG/DL (0.2-1.0); BLOOD UREA NITROGEN 13 MG/DL (7-18); CALCIUM LEVEL 9.1 MG/DL (8.8-10.2); CARBON DIOXIDE LEVEL 27 MEQ/L (21-32); CHLORIDE LEVEL 103 MEQ/L (98-107); CREATININE FOR GFR 0.82 MG/DL (0.55-1.30); GLOMERULAR FILTRATION RATE > 60.0 (>39); GLUCOSE, FASTING 84 MG/DL (70-100); MAGNESIUM LEVEL 1.4 MG/DL (1.8-2.4); POTASSIUM SERUM 3.8 MEQ/L (3.5-5.1); SODIUM LEVEL 137 MEQ/L (136-145); TOTAL PROTEIN 6.1 GM/DL (6.4-8.2)
[2020-06-27] MEDS: FUROSEMIDE 20 MG TAB PO SCH ×2 (08:53→17:17)
[2020-06-27] MEDS: FERROUS SULFATE 325MG TAB PO SCH (08:53)
[2020-06-27] MEDS: MIRALAX *UNIT DOSE* 17GM PACKET PO SCH (08:53)
[2020-06-27] MEDS: SPIRONOLACTONE 25 MG TAB PO SCH (08:53)
[2020-06-27] MEDS: prednisoLONE ACET 1% OPHTH SUSP 5ML OD SCH ×4 (08:54→21:32)
[2020-06-27] MEDS: METOPROLOL SUCC (TopROL XL) 50MG **XL** TAB PO SCH (08:54)
--- NOTE | 2020-06-27 11:25 | IPNPDOC ---
Text Note Date of Service The patient was seen on 06/27/20. NOTE Subjective: No any acute events overnight. Objective: GENERAL APPEARANCE: NAD HEENT: no scleral icterus, no JVD, EOMI CARDIOVASCULAR: S1S2 LUNGS: Diminished lung sounds ABDOMEN: Mild Right upper quadrant tenderness MUSCULOSKELETAL: no cyanosis, no swelling, stage III wound on tibial surface of the right ankle with some purulent discharge NEUROLOGICAL: cranial nerve function from 2-12 intact intact, follows commands, speech not dysarthric Assessment and plan Patient is 80 years old female with past history of dementia, atrial fibrillation, hypertension, CVA presented to the hospital with right upper quadrant pain. Right upper quadrant pain CT abdomen/pelvis (06/23/20): Inflammatory process involving the distal descending and sigmoid colon and probable focal fecal impaction in the sigmoid. No identifiable obstructing mass or evidence of perforation or ischemia Gallbladder ultrasound (06/20/20): Gallbladder is incompletely evaluated due to extensive overlying bowel gas, but cholelithiasis is suggested. No biliary duct dilation noted. Otherwise normal right upper quadrant ultrasound. MRCP showed 1 Cholelithiasis. 2. Intrahepatic and extrahepatic biliary ductal dilatation without evidence of choledocholithiasis I talked to Dr. Pan, he recommended HIDA scan. HIDA scan not available today Right upper quadrant pain resolved DC antibiotics Constipation Resolved Chronic Atrial fibrillation Heart rate under control Patient refused oral targeted anticoagulation in the past I stopped Plavix for now due to possible cholecystectomy Systolic CHF Node-negative exacerbation I's and O's Continue cardiac diet Last echo from 02/06/20, EF of 35%, global left ventricular systolic dysfunction, trace aortic regurg, mild mitral regurg and mild tricuspid regurg. Hypertension Blood pressure control Continue home cardioprotective medications History of CVA Continue statin Plavix on hold Chronic right medial ankle wound Appreciate/agree with Dr. Mason consult VS,Armin, I+O VS, Armin, I+O Laboratory Tests 06/27/20 05:25 Vital Signs Date Time Temp Pulse Resp B/P (MAP) Pulse Ox O2 Delivery O2 Flow Rate FiO2 06/27/20 08:54 79 163/83 06/27/20 06:00 96.8 16 96 Room Air I&O- Last 24 Hours up to 6 AM 06/27/20 06:00 Intake Total 900 ml Output Total 0 ml Balance 900 ml FRANCIS FRANCIS DO Jun 27, 2020 11:25
[2020-06-27] MEDS: MAGNESIUM CHLORIDE 64 MG TABCR (SLO MAG) PO SCH (11:47)
[2020-06-27 14:00] VITALS: BP 162/73
[2020-06-27 15:15] VITALS: BP 152/90
[2020-06-27] MEDS: ACETAMINOPHEN TAB 650MG DOSE (2X325MG) PO PRN (15:24)
[2020-06-27] MEDS: SIMVASTATIN 40 MG TAB PO SCH (21:32)
[2020-06-27 22:00] VITALS: BP 155/80
[2020-06-28 06:00] VITALS: BP 153/81
[2020-06-28 06:09] LABS: BASO # 0.1 10^3/uL (0.0-0.2); BASO % 0.9 % (0.0-1.0); EOS # 0.3 10^3/uL (0.0-0.5); EOS % 4.3 % (0.0-3.0); HEMATOCRIT 36.3 % (36.0-47.0); HEMOGLOBIN 11.9 g/dl (12.0-15.5); LYMPH # 1.4 10^3/uL (1.5-5.0); LYMPH % 24.1 % (24.0-44.0); MEAN CORPUSCULAR HEMOGLOBIN 29.5 pg (27.0-33.0); MEAN CORPUSCULAR HGB CONC 32.8 g/dl (32.0-36.5); MEAN CORPUSCULAR VOLUME 89.9 fl (80.0-96.0); MONO # 0.7 10^3/uL (0.0-0.8); MONO % 11.5 % (0.0-5.0); NEUTROPHILS # 3.5 10^3/uL (1.5-8.5); PLATELET COUNT, AUTOMATED 286 10^3/uL (150-450); RED BLOOD COUNT 4.04 10^6/uL (4.00-5.40); WHITE BLOOD COUNT 5.8 10^3/uL (4.0-10.0)
[2020-06-28 06:22] LABS: ALT/SGPT 12 U/L (12-78); BILIRUBIN,TOTAL 0.5 MG/DL (0.2-1.0); BLOOD UREA NITROGEN 16 MG/DL (7-18); CARBON DIOXIDE LEVEL 24 MEQ/L (21-32); CHLORIDE LEVEL 101 MEQ/L (98-107); CREATININE FOR GFR 0.81 MG/DL (0.55-1.30); GLOMERULAR FILTRATION RATE > 60.0 (>39); GLUCOSE, FASTING 92 MG/DL (70-100); MAGNESIUM LEVEL 1.5 MG/DL (1.8-2.4); SODIUM LEVEL 134 MEQ/L (136-145); TOTAL PROTEIN 6.3 GM/DL (6.4-8.2)
[2020-06-28] MEDS: prednisoLONE ACET 1% OPHTH SUSP 5ML OD SCH ×4 (09:00→20:38)
[2020-06-28] MEDS: FUROSEMIDE 20 MG TAB PO SCH ×2 (09:34→17:31)
[2020-06-28] MEDS: SPIRONOLACTONE 25 MG TAB PO SCH (09:34)
[2020-06-28] MEDS: MIRALAX *UNIT DOSE* 17GM PACKET PO SCH (09:34)
[2020-06-28] MEDS: FERROUS SULFATE 325MG TAB PO SCH (09:35)
[2020-06-28] MEDS: METOPROLOL SUCC (TopROL XL) 50MG **XL** TAB PO SCH (09:38)
[2020-06-28] MEDS: MAGNESIUM CHLORIDE 64 MG TABCR (SLO MAG) PO SCH (09:41)
[2020-06-28] MEDS ORDERED: SENNA 8.6 MG TAB (SENOKOT) PO ONE (11:15)
--- NOTE | 2020-06-28 11:17 | IPNPDOC ---
Text Note Date of Service The patient was seen on 06/28/20. NOTE Subjective: No any acute events overnight. Patient denied fever, chills, nausea, vomiting, diarrhea or dysuria Objective: GENERAL APPEARANCE: NAD HEENT: no scleral icterus, no JVD, EOMI CARDIOVASCULAR: S1S2 LUNGS: Diminished lung sounds ABDOMEN: Mild Right upper quadrant tenderness MUSCULOSKELETAL: no cyanosis, no swelling, stage III wound on tibial surface of the right ankle with some purulent discharge NEUROLOGICAL: cranial nerve function from 2-12 intact intact, follows commands, speech not dysarthric Assessment and plan Patient is 80 years old female with past history of dementia, atrial fibrillation, hypertension, CVA presented to the hospital with right upper quadrant pain. Right upper quadrant pain CT abdomen/pelvis (06/23/20): Inflammatory process involving the distal descending and sigmoid colon and probable focal fecal impaction in the sigmoid. No identifiable obstructing mass or evidence of perforation or ischemia Gallbladder ultrasound (06/20/20): Gallbladder is incompletely evaluated due to extensive overlying bowel gas, but cholelithiasis is suggested. No biliary duct dilation noted. Otherwise normal right upper quadrant ultrasound. MRCP showed 1 Cholelithiasis. 2. Intrahepatic and extrahepatic biliary ductal dilatation without evidence of choledocholithiasis I talked to Dr. Pan, he recommended HIDA scan. HIDA scan not available today Right upper quadrant pain resolved DC antibiotics Constipation Resolved Chronic Atrial fibrillation Heart rate under control Patient refused oral targeted anticoagulation in the past I stopped Plavix for now due to possible cholecystectomy Systolic CHF Node-negative exacerbation I's and O's Continue cardiac diet Last echo from 02/06/20, EF of 35%, global left ventricular systolic dysfunct ion, trace aortic regurg, mild mitral regurg and mild tricuspid regurg. Hypertension Blood pressure control Continue home cardioprotective medications History of CVA Continue statin Plavix on hold Chronic right medial ankle wound Appreciate/agree with Dr. Mason consult Armin VOGT I+O Armin VOGT I+O Laboratory Tests 06/28/20 05:19 Vital Signs Date Time Temp Pulse Resp B/P (MAP) Pulse Ox O2 Delivery O2 Flow Rate FiO2 06/28/20 09:38 92 142/95 06/28/20 06:00 96.6 18 96 Room Air I&O- Last 24 Hours up to 6 AM 06/28/20 06:00 Intake Total 1230 ml Output Total 2200 ml Balance -970 ml FRANCIS FRANCIS DO Jun 28, 2020 11:17
[2020-06-28] MEDS: ASPIRIN 81 MG CHEW TABLET PO SCH (12:45)
[2020-06-28 14:00] VITALS: BP 154/85
[2020-06-28] MEDS: SIMVASTATIN 40 MG TAB PO SCH (20:37)
[2020-06-28 22:00] VITALS: BP 142/86
[2020-06-29 06:00] VITALS: BP 149/79
[2020-06-29 07:04] LABS: BASO # 0.1 10^3/uL (0.0-0.2); BASO % 1.2 % (0.0-1.0); EOS # 0.2 10^3/uL (0.0-0.5); EOS % 3.5 % (0.0-3.0); HEMATOCRIT 40.1 % (36.0-47.0); HEMOGLOBIN 13.5 g/dl (12.0-15.5); LYMPH # 1.3 10^3/uL (1.5-5.0); LYMPH % 19.1 % (24.0-44.0); MEAN CORPUSCULAR HEMOGLOBIN 30.6 pg (27.0-33.0); MEAN CORPUSCULAR HGB CONC 33.7 g/dl (32.0-36.5); MEAN CORPUSCULAR VOLUME 90.9 fl (80.0-96.0); MONO # 0.7 10^3/uL (0.0-0.8); MONO % 11.2 % (0.0-5.0); NEUTROPHILS # 4.2 10^3/uL (1.5-8.5); NEUTROPHILS % 64.7 % (36.0-66.0); PLATELET COUNT, AUTOMATED 311 10^3/uL (150-450); RED BLOOD COUNT 4.41 10^6/uL (4.00-5.40); WHITE BLOOD COUNT 6.5 10^3/uL (4.0-10.0)
[2020-06-29 07:30] LABS: ALBUMIN 3.3 GM/DL (3.2-5.2); ALT/SGPT 11 U/L (12-78); BILIRUBIN,TOTAL 0.5 MG/DL (0.2-1.0); BLOOD UREA NITROGEN 19 MG/DL (7-18); CALCIUM LEVEL 9.3 MG/DL (8.8-10.2); CARBON DIOXIDE LEVEL 25 MEQ/L (21-32); CHLORIDE LEVEL 101 MEQ/L (98-107); CREATININE FOR GFR 0.83 MG/DL (0.55-1.30); GLOMERULAR FILTRATION RATE > 60.0 (>39); GLUCOSE, FASTING 91 MG/DL (70-100); MAGNESIUM LEVEL 1.7 MG/DL (1.8-2.4); SODIUM LEVEL 132 MEQ/L (136-145); TOTAL PROTEIN 6.8 GM/DL (6.4-8.2)
[2020-06-29] MEDS: FUROSEMIDE 40 MG TAB PO SCH ×2 (09:00→17:10)
[2020-06-29] MEDS: prednisoLONE ACET 1% OPHTH SUSP 5ML OD SCH ×4 (09:00→21:09)
--- NOTE | 2020-06-29 10:32 | IPNPDOC ---
Text Note Date of Service The patient was seen on 06/29/20. NOTE Subjective: Patient stated that abdominal pain resolved. Patient denied fever, chills, nausea, vomiting, diarrhea or dysuria Objective: GENERAL APPEARANCE: NAD HEENT: no scleral icterus, no JVD, EOMI CARDIOVASCULAR: S1S2 LUNGS: Diminished lung sounds ABDOMEN: Mild Right upper quadrant tenderness MUSCULOSKELETAL: no cyanosis, no swelling, stage III wound on tibial surface of the right ankle with some purulent discharge NEUROLOGICAL: cranial nerve function from 2-12 intact intact, follows commands, speech not dysarthric Assessment and plan Patient is 80 years old female with past history of dementia, atrial fibrillation, hypertension, CVA presented to the hospital with right upper quadrant pain. Right upper quadrant pain CT abdomen/pelvis (06/23/20): Inflammatory process involving the distal descending and sigmoid colon and probable focal fecal impaction in the sigmoid. No identifiable obstructing mass or evidence of perforation or ischemia Gallbladder ultrasound (06/20/20): Gallbladder is incompletely evaluated due to extensive overlying bowel gas, but cholelithiasis is suggested. No biliary duct dilation noted. Otherwise normal right upper quadrant ultrasound. MRCP showed 1 Cholelithiasis. 2. Intrahepatic and extrahepatic biliary ductal dilatation without evidence of choledocholithiasis I talked to Dr. Pan, he recommended HIDA scan. HIDA scan will be done today Right upper quadrant pain resolved Constipation Resolved Chronic Atrial fibrillation Heart rate under control Patient refused oral targeted anticoagulation in the past I stopped Plavix for now due to possible cholecystectomy Systolic CHF Node-negative exacerbation I's and O's Continue cardiac diet Last echo from 02/06/20, EF of 35%, global left ventricular systolic dysfuncti on, trace aortic regurg, mild mitral regurg and mild tricuspid regurg. Hypertension Blood pressure control Continue home cardioprotective medications History of CVA Continue statin Plavix on hold Chronic right medial ankle wound Appreciate/agree with Dr. Mason consult VSArmin I+O VSArmin I+O Laboratory Tests 06/29/20 06:45 Vital Signs Date Time Temp Pulse Resp B/P (MAP) Pulse Ox O2 Delivery O2 Flow Rate FiO2 06/29/20 06:00 97.9 87 19 149/79 (102) 97 Room Air I&O- Last 24 Hours up to 6 AM 06/29/20 06:00 Intake Total 1240 ml Output Total 0 ml Balance 1240 ml DROZHZHIN,FRANCIS DO Jun 29, 2020 10:32
[2020-06-29] MEDS: MAGNESIUM CHLORIDE 64 MG TABCR (SLO MAG) PO SCH (13:18)
[2020-06-29] MEDS: ASPIRIN 81 MG CHEW TABLET PO SCH (13:18)
[2020-06-29] MEDS: FERROUS SULFATE 325MG TAB PO SCH (13:18)
[2020-06-29] MEDS: MIRALAX *UNIT DOSE* 17GM PACKET PO SCH (13:18)
[2020-06-29] MEDS: METOPROLOL SUCC (TopROL XL) 50MG **XL** TAB PO SCH (13:18)
[2020-06-29] MEDS: SPIRONOLACTONE 25 MG TAB PO SCH (13:18)
--- NOTE | 2020-06-29 13:18 | REP ---
INDICATION: acute cholecystitis. COMPARISON: Comparison MR high abdomen study June 25, 2020, MRCP exam.. TECHNIQUE/RADIOTRACER AND DOSE: 6.6 mCi of Technetium-99m mebrofenin was injected and sequential anterior images are acquired. FINDINGS: The initial hepatocellular parenchymal uptake phase is normal and homogeneous. Intra- and extra-hepatic bile ducts are labeled by the 15-minute image. The gallbladder is first labeled on the 30-minute image. There is normal washout from the liver parenchyma into the gallbladder and small intestine on subsequent images. There is no scintigraphic evidence of cholecystitis. IMPRESSION: Normal hepatobiliary scan. No evidence of cholecystitis. <Electronically signed by Sarmad Mendoza > 06/29/20 [id number]
[2020-06-29 14:00] VITALS: BP 173/74
[2020-06-29 18:54] VITALS: BP 143/84
[2020-06-29] MEDS: SIMVASTATIN 40 MG TAB PO SCH (21:09)
[2020-06-29] MEDS: ACETAMINOPHEN TAB 650MG DOSE (2X325MG) PO PRN (21:11)
[2020-06-29 22:00] VITALS: BP 155/89
[2020-06-30] MEDS: ACETAMINOPHEN TAB 650MG DOSE (2X325MG) PO PRN (03:33)
[2020-06-30 06:00] VITALS: BP 155/90
[2020-06-30 07:12] LABS: BASO # 0.1 10^3/uL (0.0-0.2); BASO % 1.1 % (0.0-1.0); EOS # 0.2 10^3/uL (0.0-0.5); HEMATOCRIT 39.7 % (36.0-47.0); HEMOGLOBIN 13.2 g/dl (12.0-15.5); LYMPH # 1.2 10^3/uL (1.5-5.0); LYMPH % 18.4 % (24.0-44.0); MEAN CORPUSCULAR HEMOGLOBIN 30.3 pg (27.0-33.0); MEAN CORPUSCULAR HGB CONC 33.2 g/dl (32.0-36.5); MEAN CORPUSCULAR VOLUME 91.1 fl (80.0-96.0); MONO # 0.8 10^3/uL (0.0-0.8); MONO % 12.6 % (0.0-5.0); NEUTROPHILS # 4.1 10^3/uL (1.5-8.5); NEUTROPHILS % 64.4 % (36.0-66.0); PLATELET COUNT, AUTOMATED 323 10^3/uL (150-450); RED BLOOD COUNT 4.36 10^6/uL (4.00-5.40); WHITE BLOOD COUNT 6.4 10^3/uL (4.0-10.0)
[2020-06-30 07:37] LABS: ALBUMIN 3.6 GM/DL (3.2-5.2); ALT/SGPT 12 U/L (12-78); BILIRUBIN,TOTAL 0.5 MG/DL (0.2-1.0); BLOOD UREA NITROGEN 25 MG/DL (7-18); CALCIUM LEVEL 9.9 MG/DL (8.8-10.2); CARBON DIOXIDE LEVEL 28 MEQ/L (21-32); CHLORIDE LEVEL 99 MEQ/L (98-107); CREATININE FOR GFR 0.94 MG/DL (0.55-1.30); GLOMERULAR FILTRATION RATE > 60.0 (>39); GLUCOSE, FASTING 91 MG/DL (70-100); MAGNESIUM LEVEL 1.8 MG/DL (1.8-2.4); POTASSIUM SERUM 4.6 MEQ/L (3.5-5.1); SODIUM LEVEL 133 MEQ/L (136-145); TOTAL PROTEIN 6.8 GM/DL (6.4-8.2)
[2020-06-30] MEDS: prednisoLONE ACET 1% OPHTH SUSP 5ML OD SCH ×2 (09:00→13:00)
[2020-06-30] MEDS: ASPIRIN 81 MG CHEW TABLET PO SCH (09:35)
[2020-06-30] MEDS: FUROSEMIDE 40 MG TAB PO SCH (09:35)
[2020-06-30] MEDS: FERROUS SULFATE 325MG TAB PO SCH (09:36)
[2020-06-30] MEDS: MIRALAX *UNIT DOSE* 17GM PACKET PO SCH (09:36)
[2020-06-30] MEDS: SPIRONOLACTONE 25 MG TAB PO SCH (09:36)
[2020-06-30] MEDS: MAGNESIUM CHLORIDE 64 MG TABCR (SLO MAG) PO SCH (09:36)
[2020-06-30 09:38] VITALS: BP 112/62
[2020-06-30] MEDS: METOPROLOL SUCC (TopROL XL) 50MG **XL** TAB PO SCH (09:38)
[2020-06-30] MEDS ORDERED: TRAM100T18 PO (13:23)
--- NOTE | 2020-06-30 15:25 | CR ---
CONSULTATION Advanced wound care consult performed via telemedicine consent obtained verbally from patient CONSULTATION REQUESTED BY: Dr. Gilmore A 80-year-old female, admitted for gallbladder symptoms, undergoing workup, which incudes ultrasound of the gallbladder and HIDA scan. Patient has been followed at our clinic for a right medial ankle wound secondary to an orthopedic procedure to remove internal hardware. This wound has shown significant improvement and has been treated with wound debridement, foam dressings, and more recently with an advanced tissue product, Myriad. The wound is now almost closed. It measures 4.5 cm x 0.5 cm with scattered small area of denuded tissue. The majority of the wound is epithelialized. There is minimal serous drainage noted. There is no significant edema involving the leg. Patient is scheduled for discharge and will be seen in our clinic in followup, as she is an established patient with us. At this time, a protective foam dressing and a TubiGrip support stocking is advised. No indication for antibiotic therapy. MTDD
--- NOTE | 2020-06-30 16:28 | DS.PDOC ---
Discharge Summary General Date of Admission Jun 23, 2020 at 19:25 Date of Discharge 06/30/20 Discharge Summary PROCEDURES PERFORMED DURING STAY: [None]. ADMITTING DIAGNOSES: Constipation Right upper quadrant pain Chronic Atrial fibrillation Systolic CHF History of CVA Hypertension Chronic right medial ankle wound DISCHARGE DIAGNOSES: Constipation Right upper quadrant pain Chronic Atrial fibrillation Systolic CHF History of CVA Hypertension Chronic right medial ankle wound COMPLICATIONS/CHIEF COMPLAINT: Abd Pain. HISTORY OF PRESENT ILLNESS: Patient is 80 years old female with past history of dementia, atrial fibrillation, hypertension, CVA presented to the hospital with right upper quadrant pain. HOSPITAL COURSE: During hospital stay following issue addressed Right upper quadrant pain CT abdomen/pelvis (06/23/20): Inflammatory process involving the distal descending and sigmoid colon and probable focal fecal impaction in the sigmoid. No identifiable obstructing mass or evidence of perforation or ischemia Gallbladder ultrasound (06/20/20): Gallbladder is incompletely evaluated due to extensive overlying bowel gas, but cholelithiasis is suggested. No biliary duct dilation noted. Otherwise normal right upper quadrant ultrasound. MRCP showed 1 Cholelithiasis. 2. Intrahepatic and extrahepatic biliary ductal dilatation without evidence of choledocholithiasis I talked to Dr. Pan, he recommended HIDA scan. See HIDA scan reported below Right upper quadrant pain resolved Constipation Resolved Chronic Atrial fibrillation Heart rate under control Patient refused oral targeted anticoagulation in the past Systolic CHF Node-negative exacerbation I's and O's Continue cardiac diet Last echo from 02/06/20, EF of 35%, global left ventricular systolic dysfunction, trace aortic regurg, mild mitral regurg and mild tricuspid regurg. Hypertension Blood pressure control Continue home cardioprotective medications History of CVA Continue statin Chronic right medial ankle wound Appreciate/agree with Dr. Mason consult DISCHARGE MEDICATIONS: Please see below. ALLERGIES: Please see below. PHYSICAL EXAMINATION ON DISCHARGE: VITAL SIGNS: Please see below. GENERAL APPEARANCE: NAD HEENT: no scleral icterus, no JVD, EOMI CARDIOVASCULAR: S1S2 LUNGS: Diminished lung sounds ABDOMEN: Mild Right upper quadrant tenderness MUSCULOSKELETAL: no cyanosis, no swelling, stage III wound on tibial surface of the right ankle with some purulent discharge NEUROLOGICAL: cranial nerve function from 2-12 intact intact, follows commands, speech not dysarthric LABORATORY DATA: Please see below. IMAGING:acute cholecystitis. COMPARISON: Comparison MR high abdomen study June 25, 2020, MRCP exam.. TECHNIQUE/RADIOTRACER AND DOSE: 6.6 mCi of Technetium-99m mebrofenin was injected and sequential anterior images are acquired. FINDINGS: The initial hepatocellular parenchymal uptake phase is normal and homogeneous. Intra- and extra-hepatic bile ducts are labeled by the 15-minute image. The gallbladder is first labeled on the 30-minute image. There is normal washout from the liver parenchyma into the gallbladder and small intestine on subsequent images. There is no scintigraphic evidence of cholecystitis. IMPRESSION: Normal hepatobiliary scan. No evidence of cholecystitis. PROGNOSIS: Fair ACTIVITY: [As tolerated]. DIET: Cardiac DISPOSITION: 01 Home, Self-Care. ITEMS TO FOLLOWUP ON ON OUTPATIENT: Follow-up with PCP in the outpatient settings DISCHARGE CONDITION: [Stable]. TIME SPENT ON DISCHARGE: Greater than 30 minutes. Vital Signs/I&Os Vital Signs Date Time Temp Pulse Resp B/P (MAP) Pulse Ox O2 Delivery O2 Flow Rate FiO2 06/30/20 09:38 98 112/62 06/30/20 06:00 98.0 18 98 06/29/20 14:00 Room Air I&O- Last 24 Hours up to 6 AM 06/30/20 06:00 Intake Total 1050 ml Output Total 800 ml Balance 250 ml Laboratory Data Labs 24H Laboratory Tests 2 06/30/20 06:34: Anion Gap 6L, Glomerular Filtration Rate > 60.0, Calcium Level 9.9, Magnesium Level 1.8, Total Bilirubin 0.5, Aspartate Amino Transf (AST/SGOT) 18, Alanine Aminotransferase (ALT/SGPT) 12, Alkaline Phosphatase 88, Total Protein 6.8, Albumin 3.6, Albumin/Globulin Ratio 1.1L 06/30/20 06:35: Immature Granulocyte % (Auto) 0.5, Neutrophils (%) (Auto) 64.4, Lymphocytes (%) (Auto) 18.4L, Monocytes (%) (Auto) 12.6H, Eosinophils (%) (Auto) 3.0, Basophils (%) (Auto) 1.1H, Neutrophils # (Auto) 4.1, Lymphocytes # (Auto) 1.2L, Monocytes # (Auto) 0.8, Eosinophils # (Auto) 0.2, Basophils # (Auto) 0.1, Nucleated Red Blood Cells % (auto) 0.0 CBC/BMP Laboratory Tests 06/30/20 06:34 06/30/20 06:35 Microbiology Microbiology 06/23/20 Campylobacter (PCR) - Final, Complete 06/23/20 Clostridium difficile Toxin A&B PCR - Final, Complete 06/23/20 Plesiomonas shigelloides (PCR) - Final, Complete 06/23/20 Salmonella (PCR)(HEIDI) - Final, Complete 06/23/20 Vibrio Species (PCR) - Final, Complete 06/23/20 Vibrio Cholerae (PCR) - Final, Complete 06/23/20 Yersinia enterocolitica (PCR) - Final, Complete 06/23/20 Enteroaggregative E. coli (PCR) - Final, Complete 06/23/20 Enteropathogenic E. coli (PCR) - Final, Complete 06/23/20 Enterotoxigenic E. coli (PCR) - Final, Complete 06/23/20 E. coli Shiga-like Toxin (PCR) - Final, Complete 06/23/20 Escherichia coli 0157 (PCR) - Final, Complete 06/23/20 Enteroinvasive E. coli/Shigella PCR - Final, Complete 06/23/20 Cryptosporidium (PCR) - Final, Complete 06/23/20 Cyclospora cayetanensis (PCR) - Final, Complete 06/23/20 Entamoeba histolytica (PCR) - Final, Complete 06/23/20 Giardia lamblia (PCR) - Final, Complete 06/23/20 Adenovirus Type F 40/41 (PCR) - Final, Complete 06/23/20 Astrovirus (PCR) - Final, Complete 06/23/20 Norovirus GI/GII (PCR) - Final, Complete 06/23/20 Rotavirus A (PCR) - Final, Complete 06/23/20 Sapovirus I/II/IV/V (PCR) - Final, Complete Discharge Medications Scheduled Clopidogrel Bisulfate (Plavix) 75 Mg Tablet, 75 MG PO DAILY, (Reported) Cyanocobalamin (Vitamin B-12) (B-12) 1,000 Mcg Tablet, 500 MCG PO DAILY, (R eported) Esomeprazole Magnesium (Esomeprazole Magnesium Dr) 40 Mg Capsule.dr, 40 MG PO DAILY, (Reported) Ferrous Sulfate (Ferrous Sulfate) 325 Mg Tablet.dr, 325 MG PO DAILY, (Reported) Furosemide (Furosemide) 20 Mg Tablet, 20 MG PO BID, (Reported) Ketorolac Tromethamine (Ketorolac Tromethamine) 0.4% Drops, 1 DROP OD QID, (Reported) VERIFIED WITH MD CONTINUE UNTIL 06/02/20 Metoprolol Succinate (Metoprolol Succinate) 100 Mg Tab.er.24h, 150 MG PO DAILY, (Reported) Prednisolone Acetate (Prednisolone Acetate 1% Opth Susp) 5 Ml Drops.susp, 1 DROP OD QID, (Reported) VERIFIED WITH MD CONTINUE UNTIL 06/02/20 Simvastatin (Simvastatin) 40 Mg Tablet, 40 MG PO QHS, (Reported) Spironolactone (Spironolactone) 25 Mg Tablet, 25 MG PO DAILY, (Reported) Vitamin E (Vitamin E) 400 Unit Capsule, 400 UNIT PO DAILY, (Reported) Scheduled PRN Acetaminophen/Diphenhydramine (Acetaminophen-Diphenhyd 500-25) 1 Each Tablet, 2 TAB PO QHS PRN for SLEEP, (Reported) Tramadol HCl (Tramadol HCl ER) 100 Mg Tbmp.24hr, 1 TAB PO DAILYPRN PRN for pain Allergies Coded Allergies: latex (Verified Allergy, Intermediate, RASH, 06/20/20) FRANCIS FRANCIS DO Jun 30, 2020 16:28
== END 2020-06-30 14:06 | disposition home health service (06) | DRG 392 ==
LOC: M ED 13:41 → EDBD 13:41 → M ED INP 19:25 → ENRESERV 22:11 → M MSPAV 22:59
PROVIDERS: ADMIT Internal Medicine; ATTEND Internal Medicine
DX: K59.00 Constipation, unspecified (principal); K76.6 Portal hypertension; I50.22 Chronic systolic (congestive) heart failure; I48.20 Chronic atrial fibrillation, unspecified; K56.41 Fecal impaction; F03.90 Unspecified dementia, unspecified severity, without behavioral disturbance, psychotic disturbance, mood disturbance, and anxiety; I11.0 Hypertensive heart disease with heart failure; I73.9 Peripheral vascular disease, unspecified; E78.5 Hyperlipidemia, unspecified; K52.9 Noninfective gastroenteritis and colitis, unspecified; F32.9 Major depressive disorder, single episode, unspecified; K21.9 Gastro-esophageal reflux disease without esophagitis; D50.9 Iron deficiency anemia, unspecified; M94.0 Chondrocostal junction syndrome [Tietze]; I50.810 Right heart failure, unspecified; M19.90 Unspecified osteoarthritis, unspecified site; Z96.641 Presence of right artificial hip joint; Z86.73 Personal history of transient ischemic attack (TIA), and cerebral infarction without residual deficits; Z91.040 Latex allergy status; Z79.02 Long term (current) use of antithrombotics/antiplatelets; Z79.52 Long term (current) use of systemic steroids; Z79.899 Other long term (current) drug therapy; Z20.828 Contact with and (suspected) exposure to other viral communicable diseases; Z98.1 Arthrodesis status

== ENCOUNTER → 2020-12-21 | Outpatient (REF) | payer MEDICARE, MEDICAID ==
[~2020-12-21] MED LIST changes: +ACET-1146 PO; -MAG400TA PO; +MAGN400T35 PO; +TRAM100T18 PO
[2020-12-21 17:58] LABS: HEMATOCRIT 36.1 % (36.0-47.0); HEMOGLOBIN 12.1 g/dl (12.0-15.5); MEAN CORPUSCULAR HEMOGLOBIN 31.8 pg (27.0-33.0); MEAN CORPUSCULAR HGB CONC 33.5 g/dl (32.0-36.5); PLATELET COUNT, AUTOMATED 276 10^3/uL (150-450); WHITE BLOOD COUNT 4.8 10^3/uL (4.0-10.0)
[2020-12-21 18:27] LABS: ALBUMIN 4.2 GM/DL (3.2-5.2); BILIRUBIN,TOTAL 0.5 MG/DL (0.2-1.0); CALCIUM LEVEL 9.4 MG/DL (8.8-10.2); CHOLESTEROL RISK RATIO 2.476 (<5); CREATININE FOR GFR 1.2 MG/DL (0.55-1.30); GLOMERULAR FILTRATION RATE 46.3 (>39); PERCENT SATURATION 24.4 % (13.2-45.0); POTASSIUM SERUM 4.7 MEQ/L (3.5-5.1); THYROID STIMULATING HORMONE 2.04 uIU/ML (0.358-3.740)
== END ==
LOC: M SFHCPLAZ 14:55
PROVIDERS: ATTEND Nurse Practitioner Adult Health
DX: I50.42 Chronic combined systolic (congestive) and diastolic (congestive) heart failure (principal); E78.2 Mixed hyperlipidemia; I48.20 Chronic atrial fibrillation, unspecified
CPT/HCPCS: 36415; 80053; 80061; 82728; 83550; 83880; 84443; 85027; G0463

== ENCOUNTER → 2021-04-07 | Outpatient (CLI) | payer MEDICARE, OTHER ==
--- NOTE | 2021-04-07 14:35 | REP ---
INDICATION: PVD COMPARISON: None. TECHNIQUE: Bilateral real-time sonographic evaluation of the lower extremity arteries with Doppler FINDINGS: All numeric values represent peak systolic velocities in cm/SEC On the right: The ankle brachial index is unobtainable. ANTISQUEAK APPLIER: 98.1 biphasic Profunda: 64.0 triphasic SFA proximal: 71.5 triphasic SFA Mid: 67.3 biphasic/triphasic SFA distal: 81.0 biphasic Popliteal: 45.6 biphasic DRAKE proximal: 39.1 biphasic Tibioperoneal trunk: 32.6 biphasic TOOL RADIAL DRILL PRESS SET UP OPERATOR proximal: 33.8 biphasic TOOL RADIAL DRILL PRESS SET UP OPERATOR distal: Occluded versus heavily calcified DRAKE distal: 55.1 biphasic On the left: The ankle brachial index is unobtainable ANTISQUEAK APPLIER: 67.4 triphasic Profunda: 77.8 triphasic SFA proximal: 118.3 triphasic SFA Mid: 79.7 triphasic SFA distal: 63.6 biphasic Popliteal: 53.6 biphasic DRAKE proximal: 45.3 biphasic Tibioperoneal trunk: 33.8 biphasic TOOL RADIAL DRILL PRESS SET UP OPERATOR proximal: 19.3 biphasic TOOL RADIAL DRILL PRESS SET UP OPERATOR distal: 22.0 monophasic DRAKE distal: 49.5 biphasic Heavily calcified vessels were seen throughout both legs with a small degree of stenosis in the left superficial femoral artery proximally. The degree of calcification in the right posterior tibial artery distally made that artery difficult to evaluate. It appeared occluded or just severely heavily calcified. IMPRESSION: As above <Electronically signed by Ryan Quiñonez > 04/07/21 [id number]
== END ==
LOC: M RAD 12:34
PROVIDERS: ATTEND Physician Assistant
DX: I73.9 Peripheral vascular disease, unspecified (principal)

== ENCOUNTER → 2021-04-16 | Outpatient (CLI) | payer MEDICARE, MEDICAID ==
[2021-04-16 17:44] LABS: HEMATOCRIT 36.8 % (36.0-47.0); HEMOGLOBIN 12.3 g/dl (12.0-15.5); MEAN CORPUSCULAR HEMOGLOBIN 30.7 pg (27.0-33.0); MEAN CORPUSCULAR HGB CONC 33.4 g/dl (32.0-36.5); MEAN CORPUSCULAR VOLUME 91.8 fl (80.0-96.0); PLATELET COUNT, AUTOMATED 263 10^3/uL (150-450); RED BLOOD COUNT 4.01 10^6/uL (4.00-5.40); WHITE BLOOD COUNT 5.7 10^3/uL (4.0-10.0)
[2021-04-16 18:08] LABS: ALBUMIN 3.8 GM/DL (3.2-5.2); BILIRUBIN,TOTAL 0.5 MG/DL (0.2-1.0); C REACTIVE PROTEIN QUANTITATIV 0.3 MG/DL (0.00-0.30); CALCIUM LEVEL 9.5 MG/DL (8.8-10.2); CREATININE FOR GFR 1.1 MG/DL (0.55-1.30); POTASSIUM SERUM 4.6 MEQ/L (3.5-5.1); TOTAL PROTEIN 7.1 GM/DL (6.4-8.2)
[2021-04-16 19:18] LABS: ERYTHROCYTE SEDIMENTATION RATE 21 mm/hr (0-30)
== END ==
LOC: M PLALAB 15:06
PROVIDERS: ATTEND Physician Assistant
DX: R19.7 Diarrhea, unspecified (principal)

== ENCOUNTER → 2021-04-16 | Outpatient (REF) | payer MEDICARE, MEDICAID | LOC: M SFHCPLAZ 16:54 | PROVIDERS: ATTEND Physician Assistant | DX: R19.7 Diarrhea, unspecified (principal) | CPT/HCPCS: 36415; 80053; 83690; 85027; 85652; 86140; 87426; U0003 ==

== ENCOUNTER → 2021-05-04 | Outpatient (REF) | payer MEDICARE, MEDICAID | LOC: M LAB REF 12:45 | PROVIDERS: ATTEND Nurse Practitioner Adult Health | DX: R19.7 Diarrhea, unspecified (principal) ==

== ENCOUNTER → 2021-05-26 | Outpatient (REF) | payer MEDICARE, MEDICAID | LOC: M SFHCPLAZ 14:55 | PROVIDERS: ATTEND Nurse Practitioner Adult Health | DX: R19.7 Diarrhea, unspecified (principal) ==

== ENCOUNTER → 2021-07-07 | Outpatient (CLI) | payer MEDICARE, MEDICAID ==
--- NOTE | 2021-07-08 03:42 | REP ---
INDICATION: RT HIP PAIN, RT RADHA COMPARISON: None. TECHNIQUE: Limited images of the pelvis along with neutral and frog-lateral views of the right hip FINDINGS: Patient is status post satisfactory right hip replacement. No evidence for dislocation. No obvious loosening related to orthopedic hardware noted. IMPRESSION: Satisfactory right hip replacement radiographs. <Electronically signed by Rene Medina > 07/08/21 [id number]
== END ==
LOC: M SOG 13:02
PROVIDERS: ATTEND Orthopaedic Surgery Adult Reconstructive Orthopaedic Surgery
DX: M25.551 Pain in right hip (principal); Z96.641 Presence of right artificial hip joint

== ENCOUNTER 2021-12-10 09:31 | Emergency (ER) | payer MEDICAID, MEDICARE, OTHER ==
[~2021-12-10] VITALS: Ht 170.2 cm; Wt 79.1 kg
[~2021-12-10 09:31] MED LIST changes: +TRAM100T14 PO; -TRAM100T18 PO
[2021-12-10] MEDS ORDERED: ASPI81CH33 PO (10:02)
[2021-12-10] MEDS ORDERED: VITMTA PO (10:02)
[2021-12-10] MEDS ORDERED: ELIQ5TAB PO (10:02)
[2021-12-10] MEDS ORDERED: ENTR1TAB PO (10:02)
[2021-12-10 10:09] LABS: BASO # 0.1 10^3/uL (0.0-0.2); EOS % 0.4 % (0.0-3.0); HEMATOCRIT 25.6 % (36.0-47.0); HEMOGLOBIN 8.7 g/dl (12.0-15.5); LYMPH # 0.6 10^3/uL (1.5-5.0); LYMPH % 12.1 % (24.0-44.0); MEAN CORPUSCULAR HEMOGLOBIN 31.6 pg (27.0-33.0); MEAN CORPUSCULAR VOLUME 93.1 fl (80.0-96.0); MONO # 0.7 10^3/uL (0.0-0.8); MONO % 12.6 % (2.0-8.0); NEUTROPHILS # 3.9 10^3/uL (1.5-8.5); NEUTROPHILS % 73.7 % (36.0-66.0); PLATELET COUNT, AUTOMATED 190 10^3/uL (150-450); RED BLOOD COUNT 2.75 10^6/uL (4.00-5.40); WHITE BLOOD COUNT 5.2 10^3/uL (4.0-10.0)
[2021-12-10 10:38] LABS: CREATININE FOR GFR 1.2 MG/DL (0.55-1.30); GLOMERULAR FILTRATION RATE 46.1 (>39); POTASSIUM SERUM 4.7 MEQ/L (3.5-5.1)
[2021-12-10 10:45] VITALS: BP 149/68
== END 2021-12-10 11:56 | disposition home or self-care (01) ==
LOC: EDBD 09:31 → M ED 09:31
DX: S30.0XXA Contusion of lower back and pelvis, initial encounter (principal); W01.0XXA Fall on same level from slipping, tripping and stumbling without subsequent striking against object, initial encounter; Y92.009 Unspecified place in unspecified non-institutional (private) residence as the place of occurrence of the external cause; Y93.9 Activity, unspecified; Y99.9 Unspecified external cause status; Z96.641 Presence of right artificial hip joint; I50.9 Heart failure, unspecified; I48.91 Unspecified atrial fibrillation; E78.5 Hyperlipidemia, unspecified; D50.9 Iron deficiency anemia, unspecified; K21.9 Gastro-esophageal reflux disease without esophagitis; Z91.040 Latex allergy status; Z79.01 Long term (current) use of anticoagulants; Z79.82 Long term (current) use of aspirin; Z79.899 Other long term (current) drug therapy

== ENCOUNTER 2022-03-25 21:30 | Inpatient (IN) | payer MEDICAID, MEDICARE, OTHER ==
[~2022-03-25] VITALS: Ht 167.6 cm; Wt 76.5 kg
[~2022-03-25 21:30] MED LIST changes: +ASPI81CH33 PO; +ELIQ5TAB PO; +ENTR1TAB PO; +VITMTA PO
[2022-03-25] MEDS ORDERED: FUROSEMIDE 40MG/4ML VIAL (J1940) IV ONE (21:40)
[2022-03-25 22:12] LABS: BASO % 0.2 % (0.0-1.0); HEMATOCRIT 44.1 % (36.0-47.0); HEMOGLOBIN 13.7 g/dl (12.0-15.5); LYMPH # 0.8 10^3/uL (1.5-5.0); LYMPH % 6.4 % (24.0-44.0); MEAN CORPUSCULAR HEMOGLOBIN 31.3 pg (27.0-33.0); MEAN CORPUSCULAR HGB CONC 31.1 g/dl (32.0-36.5); MEAN CORPUSCULAR VOLUME 100.7 fl (80.0-96.0); MONO % 7.6 % (2.0-8.0); NEUTROPHILS # 10.6 10^3/uL (1.5-8.5); NEUTROPHILS % 84.8 % (36.0-66.0); PLATELET COUNT, AUTOMATED 283 10^3/uL (150-450); RED BLOOD COUNT 4.38 10^6/uL (4.00-5.40); WHITE BLOOD COUNT 12.4 10^3/uL (4.0-10.0)
[2022-03-25 22:50] LABS: RSV AMPLIFICATION NEGATIVE (NEGATIVE)
[2022-03-25 23:16] LABS: ALBUMIN 4.1 GM/DL (3.2-5.2); BILIRUBIN,DIRECT 0.6 MG/DL (0.0-0.2); CALCIUM LEVEL 10.1 MG/DL (8.8-10.2); CREATININE FOR GFR 2.62 MG/DL (0.55-1.30); GLOMERULAR FILTRATION RATE 18.7 (>32); POTASSIUM SERUM 5.3 MEQ/L (3.5-5.1); TOTAL PROTEIN 7.5 GM/DL (6.4-8.2)
[2022-03-25] MEDS ORDERED: PIPERACILLIN/TAZOBACTAM SOD 2.25 GM in D5W MINI-BAG PLUS 50 ML IV ONE (23:55)
[2022-03-26] VITALS (54 sets, daily range): BP systolic 65–145; BP diastolic 31–82
[2022-03-26] MEDS ORDERED: FLUC150T9 PO (00:44)
[2022-03-26] MEDS ORDERED: LEXA1TAB2 PO (00:44)
[2022-03-26] MEDS ORDERED: LOPE1CAP5 PO (00:44)
[2022-03-26] MEDS ORDERED: med rec comment (00:46)
[2022-03-26] MEDS ORDERED: HOME MED LIST COMPLETE! XX SCH (00:50)
[2022-03-26] MEDS ORDERED: GLUCOSE 4GM CHEW TABLET PO PRN (01:55)
[2022-03-26] MEDS ORDERED: DEXTROSE 50% 50 ML SYRINGE IV PRN (01:55)
[2022-03-26] MEDS ORDERED: SODIUM BICARBONATE 8.4% INJ 50 ML SYRINGE IV STA (02:04)
[2022-03-26] MEDS ORDERED: NS 1,000 ML IV SCH (02:40)
[2022-03-26] MEDS ORDERED: VANCOMYCIN INTERMITTENT/PULSE DOSING BY CLINICAL PHARMACIST PER DOSING PROTOCOL XX SCH (03:30)
[2022-03-26] MEDS: CEFEPIME HCL 1 GM in D5W MINI-BAG PLUS 50 ML IV SCH ×2 (03:56→16:20)
[2022-03-26] MEDS: D5W/0.9% SODIUM CHLORIDE 1,000 ML IV SCH ×2 (04:48→16:18)
[2022-03-26] MEDS ORDERED: VANCOMYCIN HCL 1,000 MG, VIAL MATE ADAPTER 1 EACH in NS 250 ML IV ONE (05:00)
[2022-03-26] MEDS ORDERED: HEPARIN SOD (PORCINE) 5000UNITS/ML 1ML VIAL/SYRINGE IV PRN (05:45)
[2022-03-26] MEDS ORDERED: VANCOMYCIN HCL 500 MG in D5W MINI-BAG PLUS 100 ML IV ONE (06:00)
[2022-03-26 06:33] LABS: BASO % 0.1 % (0.0-1.0); HEMATOCRIT 34.9 % (36.0-47.0); LYMPH # 0.4 10^3/uL (1.5-5.0); LYMPH % 2.8 % (24.0-44.0); MEAN CORPUSCULAR HEMOGLOBIN 31.3 pg (27.0-33.0); MEAN CORPUSCULAR HGB CONC 32.1 g/dl (32.0-36.5); MEAN CORPUSCULAR VOLUME 97.5 fl (80.0-96.0); MONO # 0.9 10^3/uL (0.0-0.8); NEUTROPHILS # 13.4 10^3/uL (1.5-8.5); NEUTROPHILS % 90.3 % (36.0-66.0); PLATELET COUNT, AUTOMATED 224 10^3/uL (150-450); RED BLOOD COUNT 3.58 10^6/uL (4.00-5.40); WHITE BLOOD COUNT 14.8 10^3/uL (4.0-10.0)
[2022-03-26 06:34] LABS: VENOUS BASE EXCESS -3.2 (-2.0-2.0); VENOUS HCO3 25.7 MEQ/L (23.0-27.0); VENOUS O2 SATURATION 67.7 % (60.0-80.0); VENOUS PARTIAL PRESSURE CO2 65.9 mmHg (38.0-50.0); VENOUS PARTIAL PRESSURE O2 42.8 mmHg (30.0-50.0); VENOUS PH 7.209 UNITS (7.330-7.430); VENOUS STANDARD HCO3 21.2 MEQ/L; VENOUS TOTAL CO2 27.7 MEQ/L (24.0-28.0)
[2022-03-26 06:44] LABS: HEMOGLOBIN 11.2 g/dl (12.0-15.5)
[2022-03-26 06:54] LABS: INR 3.27; PARTIAL THROMBOPLASTIN TIME 38.9 SECONDS (25.9-37.0); PROTHROMBIN TIME 33.6 SECONDS (12.7-14.5)
[2022-03-26 06:59] LABS: MAGNESIUM LEVEL 1.8 MG/DL (1.8-2.4); POTASSIUM SERUM 4.4 MEQ/L (3.5-5.1)
[2022-03-26 07:20] LABS: ALBUMIN 3.5 GM/DL (3.2-5.2); BILIRUBIN,TOTAL 0.5 MG/DL (0.2-1.0); CREATININE FOR GFR 2.95 MG/DL (0.55-1.30); GLOMERULAR FILTRATION RATE 16.3 (>32); POTASSIUM SERUM 4.3 MEQ/L (3.5-5.1); TOTAL PROTEIN 6.2 GM/DL (6.4-8.2)
[2022-03-26] MEDS: HEPARIN DRIP 25,000 UNITS in IV 1 EA IV SCH (07:33)
[2022-03-26] MEDS ORDERED: NS 500 ML IV ONE (08:35)
[2022-03-26] MEDS ORDERED: ENTRESTO 24-26MG TABLET (SACUBITRIL/VALSARTAN) PO SCH (09:00)
[2022-03-26] MEDS ORDERED: METOPROLOL SUCC (TopROL XL) 100MG *XL* TAB PO SCH (09:00)
[2022-03-26] MEDS ORDERED: ESCITALOPRAM OXALATE 10 MG TAB (LEXAPRO) PO SCH (09:00)
[2022-03-26] MEDS: PANTOPRAZOLE 40MG VIAL IV SCH (09:28)
[2022-03-26] MEDS: NOREPINEPHRINE/DEXTROSE 8 MG in IV 1 EA IV SCH ×3 (09:28→23:25)
[2022-03-26 09:38] LABS: ABG BASE EXCESS -5.6 (-2.0-2.0); ABG HCO3 20.8 MEQ/L (22.0-26.0); ABG O2 SATURATION 97.6 % (95.0-99.0); ABG PARTIAL PRESSURE CO2 43.9 mmHg (35.0-45.0); ABG PARTIAL PRESSURE O2 113.7 mmHg (75.0-100.0); ABG STANDARD HCO3 19.9 MEQ/L (22.0-26.0); ABG TOTAL CO2 22.1 MEQ/L (23.0-31.0); ABG pH (ARTERIAL) 7.293 UNITS (7.350-7.450)
[2022-03-26 10:34] LABS: SQUAMOUS EPITHELIAL CELL URINE SMALL AMOUNT /hpf (SMALL AMT); TRANSITIONAL EPI CELLS, URINE SMALL AMOUNT /hpf
[2022-03-26 10:35] LABS: BACTERIA, URINE SMALL AMOUNT; HYALINE CAST, URINE NONE SEEN /lpf (0-1)
[2022-03-26 10:46] LABS: AMPHETAMINES LEVEL URINE NEGATIVE (NEGATIVE); BARBITURATES URINE NEGATIVE (NEGATIVE); BENZODIAZEPINES URINE NEGATIVE (NEGATIVE); CANNABINOIDS URINE POSITIVE (NEGATIVE); COCAINE METABOLITE URINE NEGATIVE (NEGATIVE); METHADONE URINE POSITIVE (NEGATIVE); OPIATES URINE NEGATIVE (NEGATIVE); PHENCYCLIDINE URINE NEGATIVE (NEGATIVE)
[2022-03-26 10:47] LABS: CREATININE,RANDOM URINE 91.6 MG/DL
[2022-03-26 16:14] LABS: ABG BASE EXCESS -5.7 (-2.0-2.0); ABG HCO3 21.8 MEQ/L (22.0-26.0); ABG O2 SATURATION 97.4 % (95.0-99.0); ABG PARTIAL PRESSURE CO2 50.9 mmHg (35.0-45.0); ABG PARTIAL PRESSURE O2 107.6 mmHg (75.0-100.0); ABG STANDARD HCO3 19.8 MEQ/L (22.0-26.0); ABG TOTAL CO2 23.3 MEQ/L (23.0-31.0); ABG pH (ARTERIAL) 7.249 UNITS (7.350-7.450)
[2022-03-26] MEDS ORDERED: SIMVASTATIN 40 MG TAB PO SCH (21:00)
[2022-03-27] VITALS (81 sets, daily range): BP systolic 83–155; BP diastolic 39–89
[2022-03-27] MEDS: D5W/0.9% SODIUM CHLORIDE 1,000 ML IV SCH ×4 (01:51→20:38)
[2022-03-27] MEDS: CEFEPIME HCL 1 GM in D5W MINI-BAG PLUS 50 ML IV SCH ×2 (04:12→16:30)
[2022-03-27 04:32] LABS: BASO % 0.3 % (0.0-1.0); EOS % 0.2 % (0.0-3.0); HEMATOCRIT 35.5 % (36.0-47.0); HEMOGLOBIN 11.3 g/dl (12.0-15.5); LYMPH # 0.7 10^3/uL (1.5-5.0); LYMPH % 5.6 % (24.0-44.0); MEAN CORPUSCULAR HEMOGLOBIN 30.5 pg (27.0-33.0); MEAN CORPUSCULAR HGB CONC 31.8 g/dl (32.0-36.5); MEAN CORPUSCULAR VOLUME 95.9 fl (80.0-96.0); MONO # 0.7 10^3/uL (0.0-0.8); MONO % 6.1 % (2.0-8.0); NEUTROPHILS # 10.1 10^3/uL (1.5-8.5); NEUTROPHILS % 87.3 % (36.0-66.0); PLATELET COUNT, AUTOMATED 217 10^3/uL (150-450); WHITE BLOOD COUNT 11.6 10^3/uL (4.0-10.0)
[2022-03-27 05:55] LABS: ALBUMIN 3.3 GM/DL (3.2-5.2); BILIRUBIN,TOTAL 0.4 MG/DL (0.2-1.0); CREATININE FOR GFR 3.71 MG/DL (0.55-1.30); GLOMERULAR FILTRATION RATE 12.5 (>32); POTASSIUM SERUM 3.9 MEQ/L (3.5-5.1); THYROID STIMULATING HORMONE 2.35 uIU/ML (0.358-3.740); TOTAL PROTEIN 6.1 GM/DL (6.4-8.2); VANCOMYCIN RANDOM 16.2 UG/ML
[2022-03-27 06:00] LABS: ABG BASE EXCESS -4.2 (-2.0-2.0); ABG HCO3 22.8 MEQ/L (22.0-26.0); ABG O2 SATURATION 98.6 % (95.0-99.0); ABG PARTIAL PRESSURE CO2 49.6 mmHg (35.0-45.0); ABG PARTIAL PRESSURE O2 131.2 mmHg (75.0-100.0); ABG TOTAL CO2 24.3 MEQ/L (23.0-31.0)
[2022-03-27] MEDS ORDERED: VANCOMYCIN HCL 1,000 MG, VIAL MATE ADAPTER 1 EACH in NS 250 ML IV ONE (07:00)
[2022-03-27] MEDS: NOREPINEPHRINE/DEXTROSE 8 MG in IV 1 EA IV SCH (07:34)
[2022-03-27] MEDS: PANTOPRAZOLE 40MG VIAL IV SCH (07:51)
[2022-03-27] MEDS: HEPARIN DRIP 25,000 UNITS in IV 1 EA IV SCH (07:53)
[2022-03-27 11:38] LABS: ACETAMINOPHEN LEVEL 3.7 UG/ML (10.0-30.0)
[2022-03-27 12:10] LABS: CK-MB VALUE MASS 16.1 NG/ML (<3.6); MB/CK RELATIVE INDEX 1.05 (< OR =4)
[2022-03-28] VITALS (46 sets, daily range): BP systolic 96–184; BP diastolic 50–115
[2022-03-28] MEDS: CEFEPIME HCL 1 GM in D5W MINI-BAG PLUS 50 ML IV SCH ×2 (04:22→15:25)
[2022-03-28] MEDS: NOREPINEPHRINE/DEXTROSE 8 MG in IV 1 EA IV SCH (04:29)
[2022-03-28 05:34] LABS: ABG BASE EXCESS -5.7 (-2.0-2.0); ABG HCO3 19.2 MEQ/L (22.0-26.0); ABG O2 SATURATION 96.2 % (95.0-99.0); ABG PARTIAL PRESSURE CO2 35.4 mmHg (35.0-45.0); ABG PARTIAL PRESSURE O2 87.2 mmHg (75.0-100.0); ABG STANDARD HCO3 19.8 MEQ/L (22.0-26.0); ABG TOTAL CO2 20.3 MEQ/L (23.0-31.0); ABG pH (ARTERIAL) 7.353 UNITS (7.350-7.450)
[2022-03-28 05:57] LABS: CREATININE FOR GFR 3.79 MG/DL (0.55-1.30); GLOMERULAR FILTRATION RATE 12.2 (>32); POTASSIUM SERUM 3.5 MEQ/L (3.5-5.1)
[2022-03-28 05:58] LABS: ALBUMIN 2.6 GM/DL (3.2-5.2); BILIRUBIN,TOTAL 0.6 MG/DL (0.2-1.0); VANCOMYCIN RANDOM 22.9 UG/ML
[2022-03-28] MEDS: D5W/0.9% SODIUM CHLORIDE 1,000 ML IV SCH ×2 (06:38→15:23)
[2022-03-28] MEDS: PANTOPRAZOLE 40MG VIAL IV SCH (08:23)
[2022-03-28] MEDS ORDERED: FUROSEMIDE 20MG/2ML VIAL (J1940) IV ONE (11:15)
[2022-03-28 14:54] LABS: INR 1.69; PROTHROMBIN TIME 20.3 SECONDS (12.7-14.5)
[2022-03-28] MEDS ORDERED: LIDOCAINE 1% MDV 20ML VIAL As Ordered ONE (16:20)
[2022-03-28] MEDS: ROSUVASTATIN 10 MG TAB (CRESTOR) PO SCH (20:02)
[2022-03-28] MEDS: HEPARIN DRIP 25,000 UNITS in IV 1 EA IV SCH (22:55)
[2022-03-28 22:56] LABS: HEMOGLOBIN A1c 5.7 %
[2022-03-28 23:11] LABS: CHOLESTEROL RISK RATIO 2.894 (<5)
[2022-03-29] VITALS (11 sets, daily range): BP systolic 136–177; BP diastolic 63–109
[2022-03-29] MEDS: D5W/0.9% SODIUM CHLORIDE 1,000 ML IV SCH ×3 (01:38→18:41)
[2022-03-29] MEDS: CEFEPIME HCL 1 GM in D5W MINI-BAG PLUS 50 ML IV SCH ×2 (04:33→16:30)
[2022-03-29 05:21] LABS: BASO % 0.1 % (0.0-1.0); EOS % 0.2 % (0.0-3.0); HEMATOCRIT 27.2 % (36.0-47.0); LYMPH # 0.5 10^3/uL (1.5-5.0); LYMPH % 5.5 % (24.0-44.0); MEAN CORPUSCULAR HEMOGLOBIN 30.7 pg (27.0-33.0); MEAN CORPUSCULAR HGB CONC 33.1 g/dl (32.0-36.5); MEAN CORPUSCULAR VOLUME 92.8 fl (80.0-96.0); MONO # 0.9 10^3/uL (0.0-0.8); MONO % 10.5 % (2.0-8.0); NEUTROPHILS # 7.3 10^3/uL (1.5-8.5); NEUTROPHILS % 83.2 % (36.0-66.0); PLATELET COUNT, AUTOMATED 172 10^3/uL (150-450); RED BLOOD COUNT 2.93 10^6/uL (4.00-5.40); WHITE BLOOD COUNT 8.8 10^3/uL (4.0-10.0)
[2022-03-29 05:55] LABS: ALBUMIN 2.5 GM/DL (3.2-5.2); BILIRUBIN,TOTAL 0.9 MG/DL (0.2-1.0); CREATININE FOR GFR 3.49 MG/DL (0.55-1.30); GLOMERULAR FILTRATION RATE 13.4 (>32); MAGNESIUM LEVEL 1.3 MG/DL (1.8-2.4); PHOSPHORUS LEVEL 2.7 MG/DL (2.5-4.9); POTASSIUM SERUM 3.4 MEQ/L (3.5-5.1); TOTAL PROTEIN 5.3 GM/DL (6.4-8.2); VANCOMYCIN RANDOM 20.1 UG/ML
[2022-03-29] MEDS: KCL 10MEQ/100ML SWI (KRUN) 10 MEQ in IV 1 EA IV SCH ×2 (06:34→07:49)
[2022-03-29] MEDS: MAG SULF 1GM/100ML (MAG RUN) 1 GM in IV 1 EA IV SCH ×2 (06:40→07:50)
[2022-03-29] MEDS: PANTOPRAZOLE 40MG VIAL IV SCH (08:19)
[2022-03-29] MEDS ORDERED: KCL 20MEQ IN 100ML SWI (KRUN) 20 MEQ in IV 1 EA IV ONE ×2 (08:25)
[2022-03-29] MEDS ORDERED: ASPIRIN 81 MG CHEW TABLET PO SCH (09:00)
[2022-03-29] MEDS: ASPIRIN 300 MG SUPP PR SCH (16:30)
[2022-03-29 19:58] LABS: CALCIUM LEVEL 8.6 MG/DL (8.8-10.2); CREATININE FOR GFR 3.16 MG/DL (0.55-1.30); GLOMERULAR FILTRATION RATE 15.1 (>32); POTASSIUM SERUM 3.8 MEQ/L (3.5-5.1)
[2022-03-30] VITALS (22 sets, daily range): BP systolic 103–171; BP diastolic 54–97
[2022-03-30] MEDS: HYDROMORPHONE HCL 0.5 MG/ 0.5 ML SYRINGE (J1170 PER 1) IV PRN ×5 (01:15→21:14)
[2022-03-30] MEDS ORDERED: NS 250 ML IV ONE ×2 (01:40→03:10)
[2022-03-30] MEDS ORDERED: HYDROMORPHONE HCL 0.5 MG/ 0.5 ML SYRINGE (J1170 PER 1) IV ONE (03:10)
[2022-03-30] MEDS: CEFEPIME HCL 1 GM in D5W MINI-BAG PLUS 50 ML IV SCH ×2 (03:21→16:00)
[2022-03-30] MEDS: HEPARIN DRIP 25,000 UNITS in IV 1 EA IV SCH (03:24)
[2022-03-30 05:12] LABS: BASO % 0.1 % (0.0-1.0); LYMPH # 0.4 10^3/uL (1.5-5.0); LYMPH % 3.8 % (24.0-44.0); MEAN CORPUSCULAR HEMOGLOBIN 30.8 pg (27.0-33.0); MEAN CORPUSCULAR HGB CONC 32.8 g/dl (32.0-36.5); MEAN CORPUSCULAR VOLUME 93.8 fl (80.0-96.0); MONO # 1.2 10^3/uL (0.0-0.8); MONO % 12.9 % (2.0-8.0); NEUTROPHILS # 7.7 10^3/uL (1.5-8.5); NEUTROPHILS % 82.5 % (36.0-66.0); PLATELET COUNT, AUTOMATED 146 10^3/uL (150-450); RED BLOOD COUNT 2.11 10^6/uL (4.00-5.40); WHITE BLOOD COUNT 9.4 10^3/uL (4.0-10.0)
[2022-03-30 05:15] LABS: HEMATOCRIT 19.8 % (36.0-47.0); HEMOGLOBIN 6.5 g/dl (12.0-15.5)
[2022-03-30 05:42] LABS: ALBUMIN 2.2 GM/DL (3.2-5.2); CALCIUM LEVEL 8.1 MG/DL (8.8-10.2); CREATININE FOR GFR 3.06 MG/DL (0.55-1.30); GLOMERULAR FILTRATION RATE 15.6 (>32); POTASSIUM SERUM 3.7 MEQ/L (3.5-5.1); TOTAL PROTEIN 4.5 GM/DL (6.4-8.2)
[2022-03-30] MEDS ORDERED: LR 1,000 ML IV SCH (06:55)
[2022-03-30] MEDS: PANTOPRAZOLE 40MG VIAL IV SCH (09:37)
[2022-03-30] MEDS: D5W/0.9% SODIUM CHLORIDE 1,000 ML IV SCH (09:38)
[2022-03-30] MEDS: metroNIDAZOLE 500 MG in IV 1 EA IV SCH ×2 (14:15→21:09)
[2022-03-30 17:26] LABS: BASO % 0.1 % (0.0-1.0); HEMATOCRIT 24.1 % (36.0-47.0); HEMOGLOBIN 8.1 g/dl (12.0-15.5); LYMPH # 0.4 10^3/uL (1.5-5.0); LYMPH % 2.9 % (24.0-44.0); MEAN CORPUSCULAR HEMOGLOBIN 30.9 pg (27.0-33.0); MEAN CORPUSCULAR HGB CONC 33.6 g/dl (32.0-36.5); MONO % 14.9 % (2.0-8.0); NEUTROPHILS # 10.5 10^3/uL (1.5-8.5); NEUTROPHILS % 81.4 % (36.0-66.0); PLATELET COUNT, AUTOMATED 132 10^3/uL (150-450); RED BLOOD COUNT 2.62 10^6/uL (4.00-5.40); WHITE BLOOD COUNT 12.9 10^3/uL (4.0-10.0)
[2022-03-30 17:42] LABS: MONO # 1.9 10^3/uL (0.0-0.8)
[2022-03-31] VITALS (22 sets, daily range): BP systolic 99–162; BP diastolic 50–103
[2022-03-31] MEDS: HYDROMORPHONE HCL 0.5 MG/ 0.5 ML SYRINGE (J1170 PER 1) IV PRN ×2 (02:56→06:02)
[2022-03-31] MEDS: CEFEPIME HCL 1 GM in D5W MINI-BAG PLUS 50 ML IV SCH ×2 (04:25→15:18)
[2022-03-31] MEDS: D5W/0.9% SODIUM CHLORIDE 1,000 ML IV SCH ×2 (04:26→13:40)
[2022-03-31] MEDS: metroNIDAZOLE 500 MG in IV 1 EA IV SCH ×3 (05:38→21:44)
[2022-03-31 05:57] LABS: HEMOGLOBIN 7.5 g/dl (12.0-15.5); MEAN CORPUSCULAR HGB CONC 32.6 g/dl (32.0-36.5); PLATELET COUNT, AUTOMATED 139 10^3/uL (150-450); WHITE BLOOD COUNT 15.3 10^3/uL (4.0-10.0)
[2022-03-31 06:34] LABS: LYMPHOCYTES 6 % (16-44); MONOCYTES 2 % (0-5); NEUTROPHILS 89 % (28-66)
[2022-03-31 06:35] LABS: ANISOCYTOSIS 1+; HYPOCHROMASIA 2+; PLATELET ESTIMATE DECREASED (NORMAL)
[2022-03-31 06:42] LABS: ALBUMIN 2.1 GM/DL (3.2-5.2); CALCIUM LEVEL 8.8 MG/DL (8.8-10.2); CREATININE FOR GFR 2.9 MG/DL (0.55-1.30); GLOMERULAR FILTRATION RATE 16.6 (>32); POTASSIUM SERUM 3.7 MEQ/L (3.5-5.1); TOTAL PROTEIN 4.6 GM/DL (6.4-8.2)
[2022-03-31] MEDS: PANTOPRAZOLE 40MG VIAL IV SCH (08:07)
[2022-03-31] MEDS: METOPROLOL TART 25 MG TABLET PO SCH ×3 (08:07→18:14)
[2022-03-31 13:39] LABS: HEMATOCRIT 21.5 % (36.0-47.0)
[2022-03-31] MEDS ORDERED: LIDOCAINE 1% MDV 20ML VIAL As Ordered ONE (14:19)
[2022-03-31] MEDS: SODIUM CHLORIDE 0.9% INJ 10 ML SYR IV SCH (18:13)
[2022-03-31 18:21] LABS: HEMATOCRIT 23.5 % (36.0-47.0); HEMOGLOBIN 7.9 g/dl (12.0-15.5)
[2022-04-01] VITALS (9 sets, daily range): BP systolic 102–139; BP diastolic 57–79
[2022-04-01] MEDS: D5W/0.9% SODIUM CHLORIDE 1,000 ML IV SCH (02:08)
[2022-04-01] MEDS: CEFEPIME HCL 1 GM in D5W MINI-BAG PLUS 50 ML IV SCH (04:03)
[2022-04-01] MEDS: metroNIDAZOLE 500 MG in IV 1 EA IV SCH (06:21)
[2022-04-01] MEDS: METOPROLOL TART 25 MG TABLET PO SCH ×5 (06:22→23:54)
[2022-04-01] MEDS: SODIUM CHLORIDE 0.9% INJ 10 ML SYR IV SCH ×2 (06:22→18:29)
[2022-04-01 06:53] LABS: BASO % 0.2 % (0.0-1.0); EOS # 0.2 10^3/uL (0.0-0.5); HEMATOCRIT 23.1 % (36.0-47.0); HEMOGLOBIN 7.7 g/dl (12.0-15.5); LYMPH # 0.9 10^3/uL (1.5-5.0); MEAN CORPUSCULAR HEMOGLOBIN 30.4 pg (27.0-33.0); MEAN CORPUSCULAR HGB CONC 33.3 g/dl (32.0-36.5); MEAN CORPUSCULAR VOLUME 91.3 fl (80.0-96.0); MONO % 15.7 % (2.0-8.0); NEUTROPHILS # 7.7 10^3/uL (1.5-8.5); NEUTROPHILS % 73.1 % (36.0-66.0); PLATELET COUNT, AUTOMATED 129 10^3/uL (150-450); RED BLOOD COUNT 2.53 10^6/uL (4.00-5.40); WHITE BLOOD COUNT 10.6 10^3/uL (4.0-10.0)
[2022-04-01 06:55] LABS: MONO # 1.7 10^3/uL (0.0-0.8)
[2022-04-01 07:15] LABS: ALBUMIN 2.3 GM/DL (3.2-5.2); BILIRUBIN,TOTAL 1.1 MG/DL (0.2-1.0); CALCIUM LEVEL 8.8 MG/DL (8.8-10.2); CREATININE FOR GFR 2.91 MG/DL (0.55-1.30); GLOMERULAR FILTRATION RATE 16.6 (>32); POTASSIUM SERUM 3.8 MEQ/L (3.5-5.1); TOTAL PROTEIN 4.8 GM/DL (6.4-8.2)
[2022-04-01] MEDS: PANTOPRAZOLE 40MG VIAL IV SCH (09:11)
[2022-04-01] MEDS ORDERED: IPRATROPIUM 0.5MG/ALBUTEROL 2.5MG INH SOL UD 3ML (DUONEB) NEB PRN (12:50)
[2022-04-01] MEDS: IPRATROPIUM 0.5MG/ALBUTEROL 2.5MG INH SOL UD 3ML (DUONEB) NEB SCH ×2 (13:03→19:36)
[2022-04-01] MEDS ORDERED: metroNIDAZOLE 500 MG in IV 1 EA IV SCH (14:00)
[2022-04-01] MEDS ORDERED: CEFEPIME HCL 1 GM in D5W MINI-BAG PLUS 50 ML IV SCH (16:00)
[2022-04-01] MEDS: ASPIRIN 300 MG SUPP PR SCH (18:28)
[2022-04-02] VITALS (11 sets, daily range): BP systolic 95–130; BP diastolic 49–75
[2022-04-02] MEDS: IPRATROPIUM 0.5MG/ALBUTEROL 2.5MG INH SOL UD 3ML (DUONEB) NEB SCH ×4 (02:00→19:24)
[2022-04-02] MEDS: METOPROLOL TART 25 MG TABLET PO SCH ×4 (05:22→23:43)
[2022-04-02] MEDS: SODIUM CHLORIDE 0.9% INJ 10 ML SYR IV SCH ×2 (05:23→18:06)
[2022-04-02 05:45] LABS: BASO % 0.4 % (0.0-1.0); EOS # 0.4 10^3/uL (0.0-0.5); EOS % 5.1 % (0.0-3.0); HEMATOCRIT 22.7 % (36.0-47.0); HEMOGLOBIN 7.4 g/dl (12.0-15.5); LYMPH # 0.6 10^3/uL (1.5-5.0); LYMPH % 8.3 % (24.0-44.0); MEAN CORPUSCULAR HGB CONC 32.6 g/dl (32.0-36.5); MEAN CORPUSCULAR VOLUME 91.9 fl (80.0-96.0); MONO # 1.1 10^3/uL (0.0-0.8); MONO % 14.6 % (2.0-8.0); NEUTROPHILS # 5.4 10^3/uL (1.5-8.5); NEUTROPHILS % 70.4 % (36.0-66.0); PLATELET COUNT, AUTOMATED 146 10^3/uL (150-450); RED BLOOD COUNT 2.47 10^6/uL (4.00-5.40); WHITE BLOOD COUNT 7.6 10^3/uL (4.0-10.0)
[2022-04-02 06:16] LABS: ALBUMIN 2.2 GM/DL (3.2-5.2); BILIRUBIN,TOTAL 0.9 MG/DL (0.2-1.0); CALCIUM LEVEL 8.4 MG/DL (8.8-10.2); CREATININE FOR GFR 2.89 MG/DL (0.55-1.30); GLOMERULAR FILTRATION RATE 16.7 (>32); POTASSIUM SERUM 3.8 MEQ/L (3.5-5.1); TOTAL PROTEIN 4.7 GM/DL (6.4-8.2)
[2022-04-02] MEDS ORDERED: GLUCAGON INJ 1MG VIAL SC PRN (08:05)
[2022-04-02] MEDS ORDERED: DEXTROSE 50% 50 ML SYRINGE IV PRN (08:05)
[2022-04-02] MEDS ORDERED: GLUCOSE 4GM CHEW TABLET PO PRN (08:05)
[2022-04-02] MEDS: PANTOPRAZOLE 40MG VIAL IV SCH (08:21)
[2022-04-02] MEDS: ASPIRIN 300 MG SUPP PR SCH (08:21)
[2022-04-02] MEDS ORDERED: KCL 10MEQ/100ML SWI (KRUN) 10 MEQ in IV 1 EA IV SCH (10:00)
[2022-04-02] MEDS ORDERED: LR 1,000 ML IV SCH (10:50)
[2022-04-02] MEDS ORDERED: KCL 20MEQ IN 100ML SWI (KRUN) 20 MEQ in IV 1 EA IV ONE ×2 (12:00)
[2022-04-02] MEDS ORDERED: INSULIN LISPRO (NovoLOG) PER UNIT SC SCH ×2 (12:00→21:00)
[2022-04-02 12:35] LABS: HEMOGLOBIN 7.5 g/dl (12.0-15.5)
[2022-04-02 17:24] LABS: CALCIUM LEVEL 8.3 MG/DL (8.8-10.2); CREATININE FOR GFR 2.81 MG/DL (0.55-1.30); GLOMERULAR FILTRATION RATE 17.2 (>32); POTASSIUM SERUM 3.8 MEQ/L (3.5-5.1)
[2022-04-03] VITALS (7 sets, daily range): BP systolic 108–120; BP diastolic 55–65
[2022-04-03] MEDS: IPRATROPIUM 0.5MG/ALBUTEROL 2.5MG INH SOL UD 3ML (DUONEB) NEB SCH ×4 (02:00→18:57)
[2022-04-03] MEDS: SODIUM CHLORIDE 0.9% INJ 10 ML SYR IV SCH ×2 (06:01→18:06)
[2022-04-03] MEDS: METOPROLOL TART 25 MG TABLET PO SCH ×3 (06:01→18:08)
[2022-04-03 06:23] LABS: HEMATOCRIT 21.1 % (36.0-47.0); HEMOGLOBIN 7.1 g/dl (12.0-15.5); MEAN CORPUSCULAR HEMOGLOBIN 30.9 pg (27.0-33.0); MEAN CORPUSCULAR HGB CONC 33.6 g/dl (32.0-36.5); MEAN CORPUSCULAR VOLUME 91.7 fl (80.0-96.0); PLATELET COUNT, AUTOMATED 180 10^3/uL (150-450); WHITE BLOOD COUNT 6.6 10^3/uL (4.0-10.0)
[2022-04-03 06:36] LABS: ALBUMIN 2.2 GM/DL (3.2-5.2); BILIRUBIN,TOTAL 0.8 MG/DL (0.2-1.0); CREATININE FOR GFR 2.71 MG/DL (0.55-1.30); MAGNESIUM LEVEL 1.2 MG/DL (1.8-2.4); PHOSPHORUS LEVEL 2.8 MG/DL (2.5-4.9); POTASSIUM SERUM 4.2 MEQ/L (3.5-5.1); TOTAL PROTEIN 4.7 GM/DL (6.4-8.2)
[2022-04-03 07:08] LABS: ATYPICAL LYMPH 2 % (0-5); EOSINOPHILS 7 % (0-3); HYPOCHROMASIA 2+; LYMPHOCYTES 21 % (16-44); MONOCYTES 2 % (0-5); NEUTROPHILS 62 % (28-66)
[2022-04-03 07:09] LABS: ANISOCYTOSIS 1+; PLATELET ESTIMATE NORMAL (NORMAL)
[2022-04-03] MEDS: PANTOPRAZOLE 40MG VIAL IV SCH (08:28)
[2022-04-03] MEDS: MAG SULF 1GM/100ML (MAG RUN) 1 GM in IV 1 EA IV SCH ×3 (08:29→10:49)
[2022-04-03] MEDS: DIGOXIN INJ 0.5 MG/2 ML AMP (J1160) IV SCH ×2 (12:18→18:07)
[2022-04-03 12:34] LABS: HEMATOCRIT 22.8 % (36.0-47.0); HEMOGLOBIN 7.4 g/dl (12.0-15.5)
[2022-04-03 19:25] LABS: BASO % 0.3 % (0.0-1.0); EOS # 0.2 10^3/uL (0.0-0.5); EOS % 2.8 % (0.0-3.0); HEMATOCRIT 21.7 % (36.0-47.0); HEMOGLOBIN 7.1 g/dl (12.0-15.5); LYMPH # 0.4 10^3/uL (1.5-5.0); LYMPH % 5.8 % (24.0-44.0); MEAN CORPUSCULAR HEMOGLOBIN 30.2 pg (27.0-33.0); MEAN CORPUSCULAR HGB CONC 32.7 g/dl (32.0-36.5); MEAN CORPUSCULAR VOLUME 92.3 fl (80.0-96.0); MONO % 12.9 % (2.0-8.0); NEUTROPHILS # 5.8 10^3/uL (1.5-8.5); PLATELET COUNT, AUTOMATED 197 10^3/uL (150-450); RED BLOOD COUNT 2.35 10^6/uL (4.00-5.40); WHITE BLOOD COUNT 7.5 10^3/uL (4.0-10.0)
[2022-04-04] VITALS (13 sets, daily range): BP systolic 118–156; BP diastolic 55–93
[2022-04-04] MEDS: METOPROLOL TART 25 MG TABLET PO SCH ×5 (00:02→23:31)
[2022-04-04] MEDS: DIGOXIN INJ 0.5 MG/2 ML AMP (J1160) IV SCH ×2 (00:03→05:26)
[2022-04-04] MEDS: IPRATROPIUM 0.5MG/ALBUTEROL 2.5MG INH SOL UD 3ML (DUONEB) NEB SCH ×4 (02:00→19:14)
[2022-04-04] MEDS: SODIUM CHLORIDE 0.9% INJ 10 ML SYR IV SCH ×2 (05:27→17:46)
[2022-04-04 05:53] LABS: BASO % 0.4 % (0.0-1.0); EOS # 0.2 10^3/uL (0.0-0.5); EOS % 2.3 % (0.0-3.0); HEMATOCRIT 21.4 % (36.0-47.0); LYMPH # 0.4 10^3/uL (1.5-5.0); LYMPH % 5.1 % (24.0-44.0); MEAN CORPUSCULAR HEMOGLOBIN 30.2 pg (27.0-33.0); MEAN CORPUSCULAR HGB CONC 32.7 g/dl (32.0-36.5); MEAN CORPUSCULAR VOLUME 92.2 fl (80.0-96.0); MONO # 1.1 10^3/uL (0.0-0.8); MONO % 14.2 % (2.0-8.0); NEUTROPHILS % 76.5 % (36.0-66.0); PLATELET COUNT, AUTOMATED 205 10^3/uL (150-450); RED BLOOD COUNT 2.32 10^6/uL (4.00-5.40); WHITE BLOOD COUNT 7.9 10^3/uL (4.0-10.0)
[2022-04-04 07:36] LABS: BILIRUBIN,TOTAL 0.8 MG/DL (0.2-1.0); CALCIUM LEVEL 8.3 MG/DL (8.8-10.2); CREATININE FOR GFR 2.53 MG/DL (0.55-1.30); GLOMERULAR FILTRATION RATE 19.5 (>32); MAGNESIUM LEVEL 1.7 MG/DL (1.8-2.4); POTASSIUM SERUM 4.4 MEQ/L (3.5-5.1); TOTAL PROTEIN 4.6 GM/DL (6.4-8.2)
[2022-04-04] MEDS: OMEPRAZOLE 20MG CAP PO SCH (09:39)
[2022-04-04] MEDS: FUROSEMIDE 100MG/10ML VIAL (J1940) IV SCH ×2 (10:46→17:16)
[2022-04-04] MEDS ORDERED: MAG SULF 1GM/100ML (MAG RUN) 1 GM in IV 1 EA IV ONE (11:00)
[2022-04-04 12:58] LABS: HEMATOCRIT 25.8 % (36.0-47.0); HEMOGLOBIN 8.6 g/dl (12.0-15.5)
[2022-04-04 14:55] LABS: VENOUS BASE EXCESS -7.1 (-2.0-2.0); VENOUS HCO3 17.2 MEQ/L (23.0-27.0); VENOUS PARTIAL PRESSURE CO2 30.5 mmHg (38.0-50.0); VENOUS PARTIAL PRESSURE O2 71.9 mmHg (30.0-50.0); VENOUS PH 7.369 UNITS (7.330-7.430); VENOUS STANDARD HCO3 18.5 MEQ/L; VENOUS TOTAL CO2 18.1 MEQ/L (24.0-28.0)
[2022-04-05] MEDS: IPRATROPIUM 0.5MG/ALBUTEROL 2.5MG INH SOL UD 3ML (DUONEB) NEB SCH ×4 (02:53→19:26)
[2022-04-05] MEDS: METOPROLOL TART 25 MG TABLET PO SCH ×4 (05:10→23:50)
[2022-04-05] MEDS: SODIUM CHLORIDE 0.9% INJ 10 ML SYR IV SCH ×2 (05:12→17:38)
[2022-04-05 05:24] LABS: BASO % 0.3 % (0.0-1.0); EOS # 0.1 10^3/uL (0.0-0.5); HEMATOCRIT 26.4 % (36.0-47.0); HEMOGLOBIN 8.8 g/dl (12.0-15.5); LYMPH # 0.5 10^3/uL (1.5-5.0); LYMPH % 5.6 % (24.0-44.0); MEAN CORPUSCULAR HEMOGLOBIN 30.1 pg (27.0-33.0); MEAN CORPUSCULAR HGB CONC 33.3 g/dl (32.0-36.5); MEAN CORPUSCULAR VOLUME 90.4 fl (80.0-96.0); MONO # 1.3 10^3/uL (0.0-0.8); MONO % 14.6 % (2.0-8.0); NEUTROPHILS # 6.9 10^3/uL (1.5-8.5); NEUTROPHILS % 76.9 % (36.0-66.0); PLATELET COUNT, AUTOMATED 253 10^3/uL (150-450); RED BLOOD COUNT 2.92 10^6/uL (4.00-5.40); WHITE BLOOD COUNT 8.9 10^3/uL (4.0-10.0)
[2022-04-05 05:57] VITALS: BP 153/82
[2022-04-05 05:57] LABS: ALBUMIN 2.2 GM/DL (3.2-5.2); ALT/SGPT 137 U/L (12-78); BILIRUBIN,TOTAL 1.1 MG/DL (0.2-1.0); BLOOD UREA NITROGEN 63 MG/DL (7-18); CALCIUM LEVEL 8.6 MG/DL (8.8-10.2); CARBON DIOXIDE LEVEL 20 MEQ/L (21-32); CHLORIDE LEVEL 102 MEQ/L (98-107); CREATININE FOR GFR 2.27 MG/DL (0.55-1.30); GLOMERULAR FILTRATION RATE 22.1 (>32); GLUCOSE, FASTING 67 MG/DL (70-100); POTASSIUM SERUM 4.2 MEQ/L (3.5-5.1); SODIUM LEVEL 131 MEQ/L (136-145); TOTAL PROTEIN 5.1 GM/DL (6.4-8.2)
[2022-04-05] MEDS: OMEPRAZOLE 20MG CAP PO SCH (08:34)
[2022-04-05] MEDS: FUROSEMIDE 100MG/10ML VIAL (J1940) IV SCH ×2 (08:34→16:26)
[2022-04-05 12:27] LABS: MAGNESIUM LEVEL 1.7 MG/DL (1.8-2.4)
[2022-04-05 13:31] LABS: HEPATITIS B SURFACE ANTIGEN NEGATIVE (NEGATIVE)
[2022-04-05 13:57] LABS: HEPATITIS C VIRUS ABY INDEX 0.3 INDEX (<0.8)
[2022-04-05 13:58] LABS: HEPATITIS B CORE ANTIBODY IGM NEGATIVE (NEGATIVE)
[2022-04-05 14:00] VITALS: BP 138/88
[2022-04-05] MEDS: MAG SULF 1GM/100ML (MAG RUN) 1 GM in IV 1 EA IV SCH ×2 (15:29→16:48)
[2022-04-05 18:17] LABS: HEMATOCRIT 24.3 % (36.0-47.0); HEMOGLOBIN 7.6 g/dl (12.0-15.5)
[2022-04-05 20:54] VITALS: BP 138/74
[2022-04-06] MEDS: IPRATROPIUM 0.5MG/ALBUTEROL 2.5MG INH SOL UD 3ML (DUONEB) NEB SCH ×4 (01:08→20:18)
[2022-04-06 05:14] VITALS: BP 145/76
[2022-04-06] MEDS: METOPROLOL TART 25 MG TABLET PO SCH ×3 (05:26→19:01)
[2022-04-06] MEDS: SODIUM CHLORIDE 0.9% INJ 10 ML SYR IV SCH ×2 (05:26→19:01)
[2022-04-06 06:15] LABS: BASO % 0.3 % (0.0-1.0); EOS # 0.1 10^3/uL (0.0-0.5); EOS % 0.5 % (0.0-3.0); HEMATOCRIT 27.1 % (36.0-47.0); HEMOGLOBIN 9.2 g/dl (12.0-15.5); LYMPH # 0.5 10^3/uL (1.5-5.0); LYMPH % 5.7 % (24.0-44.0); MEAN CORPUSCULAR HEMOGLOBIN 30.3 pg (27.0-33.0); MEAN CORPUSCULAR HGB CONC 33.9 g/dl (32.0-36.5); MEAN CORPUSCULAR VOLUME 89.1 fl (80.0-96.0); MONO # 1.2 10^3/uL (0.0-0.8); MONO % 13.1 % (2.0-8.0); NEUTROPHILS # 7.3 10^3/uL (1.5-8.5); NEUTROPHILS % 79.4 % (36.0-66.0); PLATELET COUNT, AUTOMATED 311 10^3/uL (150-450); RED BLOOD COUNT 3.04 10^6/uL (4.00-5.40); WHITE BLOOD COUNT 9.2 10^3/uL (4.0-10.0)
[2022-04-06 06:53] LABS: ALBUMIN 2.3 GM/DL (3.2-5.2); BILIRUBIN,TOTAL 1.2 MG/DL (0.2-1.0); CALCIUM LEVEL 8.6 MG/DL (8.8-10.2); CREATININE FOR GFR 1.87 MG/DL (0.55-1.30); GLOMERULAR FILTRATION RATE 27.6 (>32); MAGNESIUM LEVEL 1.7 MG/DL (1.8-2.4); PHOSPHORUS LEVEL 3.4 MG/DL (2.5-4.9); POTASSIUM SERUM 3.7 MEQ/L (3.5-5.1); TOTAL PROTEIN 5.1 GM/DL (6.4-8.2)
[2022-04-06] MEDS: OMEPRAZOLE 20MG CAP PO SCH (09:13)
[2022-04-06] MEDS: FUROSEMIDE 100MG/10ML VIAL (J1940) IV SCH (09:15)
[2022-04-06] MEDS: SODIUM CHLORIDE 0.9% INJ 10 ML SYR IV PRN ×2 (09:16→12:42)
[2022-04-06] MEDS: ASPIRIN 81 MG CHEW TABLET PO SCH (10:13)
[2022-04-06] MEDS ORDERED: MAG SULF 1GM/100ML (MAG RUN) 1 GM in IV 1 EA IV ONE (11:00)
[2022-04-06] MEDS ORDERED: POTASSIUM CHLORIDE 10MEQ SR TABLET PO ONE ×2 (11:15→16:55)
[2022-04-06 14:00] VITALS: BP 168/88
[2022-04-06 20:06] VITALS: BP 130/58
[2022-04-06] MEDS: RAMELTEON 8 MG TAB (ROZEREM) PO PRN (21:28)
[2022-04-06] MEDS: ROSUVASTATIN 10 MG TAB (CRESTOR) PO SCH (21:28)
[2022-04-06] MEDS: HEPARIN SOD (PORCINE) 5000UNITS/ML 1ML VIAL/SYRINGE SQ SCH (21:29)
[2022-04-06] MEDS: NYSTATIN 100,000 UNITS/GM TOPICAL PWD 15 GM TOP SCH (21:29)
[2022-04-06] MEDS ORDERED: ACETAMINOPHEN 325 MG TAB PO ONE (22:00)
[2022-04-06] MEDS ORDERED: LIDOCAINE 5% (LIDODERM) PATCH TD ONE (22:00)
[2022-04-07] MEDS: IPRATROPIUM 0.5MG/ALBUTEROL 2.5MG INH SOL UD 3ML (DUONEB) NEB SCH ×4 (01:33→19:56)
[2022-04-07 04:57] VITALS: BP 143/74
[2022-04-07] MEDS: SODIUM CHLORIDE 0.9% INJ 10 ML SYR IV SCH (05:33)
[2022-04-07] MEDS: HEPARIN SOD (PORCINE) 5000UNITS/ML 1ML VIAL/SYRINGE SQ SCH ×3 (05:34→20:14)
[2022-04-07 05:53] LABS: BASO % 0.2 % (0.0-1.0); EOS % 0.4 % (0.0-3.0); HEMOGLOBIN 8.8 g/dl (12.0-15.5); LYMPH # 0.5 10^3/uL (1.5-5.0); LYMPH % 5.7 % (24.0-44.0); MEAN CORPUSCULAR HEMOGLOBIN 30.6 pg (27.0-33.0); MEAN CORPUSCULAR HGB CONC 33.8 g/dl (32.0-36.5); MEAN CORPUSCULAR VOLUME 90.3 fl (80.0-96.0); MONO # 1.1 10^3/uL (0.0-0.8); MONO % 13.9 % (2.0-8.0); NEUTROPHILS # 6.4 10^3/uL (1.5-8.5); NEUTROPHILS % 78.9 % (36.0-66.0); PLATELET COUNT, AUTOMATED 335 10^3/uL (150-450); RED BLOOD COUNT 2.88 10^6/uL (4.00-5.40); WHITE BLOOD COUNT 8.1 10^3/uL (4.0-10.0)
[2022-04-07 07:20] LABS: ALBUMIN 2.3 GM/DL (3.2-5.2); BILIRUBIN,TOTAL 1.2 MG/DL (0.2-1.0); CALCIUM LEVEL 8.4 MG/DL (8.8-10.2); CREATININE FOR GFR 1.56 MG/DL (0.55-1.30); MAGNESIUM LEVEL 1.5 MG/DL (1.8-2.4); POTASSIUM SERUM 3.7 MEQ/L (3.5-5.1); TOTAL PROTEIN 5.3 GM/DL (6.4-8.2)
[2022-04-07 07:49] LABS: PERCENT SATURATION 17.9 % (13.2-45.0)
[2022-04-07] MEDS: ASPIRIN 81 MG CHEW TABLET PO SCH (08:28)
[2022-04-07] MEDS: OMEPRAZOLE 20MG CAP PO SCH (08:28)
[2022-04-07] MEDS: FERROUS SULFATE 325MG TAB PO SCH (08:30)
[2022-04-07] MEDS: atenoloL 50 MG TAB PO SCH (08:30)
[2022-04-07] MEDS ORDERED: **NOTE PATIENT COMMENT** MISC XX SCH (09:00)
[2022-04-07] MEDS: NYSTATIN 100,000 UNITS/GM TOPICAL PWD 15 GM TOP SCH ×2 (09:07→20:15)
[2022-04-07] MEDS: MAG SULF 1GM/100ML (MAG RUN) 1 GM in IV 1 EA IV SCH ×2 (12:14→12:15)
[2022-04-07] MEDS: SODIUM CHLORIDE 0.9% INJ 10 ML SYR IV PRN (15:00)
[2022-04-07] MEDS: TORSEMIDE 20 MG TAB PO SCH (17:14)
[2022-04-07 17:17] VITALS: BP 135/72
[2022-04-07] MEDS: ROSUVASTATIN 10 MG TAB (CRESTOR) PO SCH (20:14)
[2022-04-08] MEDS: IPRATROPIUM 0.5MG/ALBUTEROL 2.5MG INH SOL UD 3ML (DUONEB) NEB SCH ×4 (02:00→19:44)
[2022-04-08] MEDS: HEPARIN SOD (PORCINE) 5000UNITS/ML 1ML VIAL/SYRINGE SQ SCH ×3 (06:08→21:09)
[2022-04-08] MEDS: atenoloL 50 MG TAB PO SCH (09:48)
[2022-04-08] MEDS: TORSEMIDE 20 MG TAB PO SCH (09:48)
[2022-04-08] MEDS: FERROUS SULFATE 325MG TAB PO SCH (09:48)
[2022-04-08] MEDS: ASPIRIN 81 MG CHEW TABLET PO SCH (09:48)
[2022-04-08] MEDS: OMEPRAZOLE 20MG CAP PO SCH (09:48)
[2022-04-08] MEDS: NYSTATIN 100,000 UNITS/GM TOPICAL PWD 15 GM TOP SCH ×2 (09:49→21:10)
[2022-04-08 12:36] LABS: FOLATE 14.4 NG/ML (>3.0)
[2022-04-08] MEDS ORDERED: ACETAMINOPHEN TAB 650MG DOSE (2X325MG) PO ONE (19:05)
[2022-04-08] MEDS: RAMELTEON 8 MG TAB (ROZEREM) PO PRN (21:09)
[2022-04-08] MEDS: ROSUVASTATIN 10 MG TAB (CRESTOR) PO SCH (21:10)
[2022-04-09] MEDS: IPRATROPIUM 0.5MG/ALBUTEROL 2.5MG INH SOL UD 3ML (DUONEB) NEB SCH ×4 (01:34→19:20)
[2022-04-09 05:15] VITALS: BP 128/77
[2022-04-09] MEDS: HEPARIN SOD (PORCINE) 5000UNITS/ML 1ML VIAL/SYRINGE SQ SCH ×3 (05:22→21:30)
[2022-04-09] MEDS: FERROUS SULFATE 325MG TAB PO SCH (08:27)
[2022-04-09] MEDS: TORSEMIDE 20 MG TAB PO SCH (08:27)
[2022-04-09] MEDS: OMEPRAZOLE 20MG CAP PO SCH (08:27)
[2022-04-09] MEDS: NYSTATIN 100,000 UNITS/GM TOPICAL PWD 15 GM TOP SCH ×2 (08:27→21:30)
[2022-04-09] MEDS: ASPIRIN 81 MG CHEW TABLET PO SCH (08:27)
[2022-04-09] MEDS: atenoloL 50 MG TAB PO SCH (08:27)
[2022-04-09 10:02] LABS: BASO % 0.5 % (0.0-1.0); HEMATOCRIT 26.3 % (36.0-47.0); HEMOGLOBIN 8.7 g/dl (12.0-15.5); LYMPH # 0.5 10^3/uL (1.5-5.0); LYMPH % 6.4 % (24.0-44.0); MEAN CORPUSCULAR HEMOGLOBIN 30.6 pg (27.0-33.0); MEAN CORPUSCULAR HGB CONC 33.1 g/dl (32.0-36.5); MEAN CORPUSCULAR VOLUME 92.6 fl (80.0-96.0); MONO # 0.8 10^3/uL (0.0-0.8); MONO % 10.5 % (2.0-8.0); NEUTROPHILS # 6.6 10^3/uL (1.5-8.5); NEUTROPHILS % 82.1 % (36.0-66.0); PLATELET COUNT, AUTOMATED 384 10^3/uL (150-450); RED BLOOD COUNT 2.84 10^6/uL (4.00-5.40)
[2022-04-09 10:35] LABS: ALBUMIN 2.4 GM/DL (3.2-5.2); BILIRUBIN,TOTAL 0.8 MG/DL (0.2-1.0); CALCIUM LEVEL 8.8 MG/DL (8.8-10.2); CREATININE FOR GFR 1.33 MG/DL (0.55-1.30); GLOMERULAR FILTRATION RATE 40.9 (>32); POTASSIUM SERUM 3.6 MEQ/L (3.5-5.1); TOTAL PROTEIN 5.6 GM/DL (6.4-8.2)
[2022-04-09] MEDS: ROSUVASTATIN 10 MG TAB (CRESTOR) PO SCH (21:30)
[2022-04-09] MEDS: RAMELTEON 8 MG TAB (ROZEREM) PO PRN (21:37)
[2022-04-10] MEDS: IPRATROPIUM 0.5MG/ALBUTEROL 2.5MG INH SOL UD 3ML (DUONEB) NEB SCH ×4 (02:00→19:35)
[2022-04-10 05:26] VITALS: BP 134/63
[2022-04-10] MEDS: HEPARIN SOD (PORCINE) 5000UNITS/ML 1ML VIAL/SYRINGE SQ SCH ×3 (05:29→21:07)
[2022-04-10 07:57] LABS: BASO % 0.5 % (0.0-1.0); EOS % 0.1 % (0.0-3.0); HEMATOCRIT 25.8 % (36.0-47.0); HEMOGLOBIN 8.4 g/dl (12.0-15.5); LYMPH # 0.7 10^3/uL (1.5-5.0); LYMPH % 8.4 % (24.0-44.0); MEAN CORPUSCULAR HEMOGLOBIN 30.2 pg (27.0-33.0); MEAN CORPUSCULAR HGB CONC 32.6 g/dl (32.0-36.5); MEAN CORPUSCULAR VOLUME 92.8 fl (80.0-96.0); MONO % 11.7 % (2.0-8.0); NEUTROPHILS # 6.5 10^3/uL (1.5-8.5); NEUTROPHILS % 78.7 % (36.0-66.0); PLATELET COUNT, AUTOMATED 405 10^3/uL (150-450); RED BLOOD COUNT 2.78 10^6/uL (4.00-5.40); WHITE BLOOD COUNT 8.3 10^3/uL (4.0-10.0)
[2022-04-10] MEDS: NYSTATIN 100,000 UNITS/GM TOPICAL PWD 15 GM TOP SCH ×2 (08:36→21:08)
[2022-04-10] MEDS: TORSEMIDE 20 MG TAB PO SCH (08:36)
[2022-04-10] MEDS: FERROUS SULFATE 325MG TAB PO SCH (08:36)
[2022-04-10] MEDS: ASPIRIN 81 MG CHEW TABLET PO SCH (08:36)
[2022-04-10] MEDS: atenoloL 50 MG TAB PO SCH (08:36)
[2022-04-10] MEDS: OMEPRAZOLE 20MG CAP PO SCH (08:36)
[2022-04-10 08:50] LABS: ALBUMIN 2.4 GM/DL (3.2-5.2); BILIRUBIN,TOTAL 0.9 MG/DL (0.2-1.0); CALCIUM LEVEL 8.2 MG/DL (8.8-10.2); CREATININE FOR GFR 1.2 MG/DL (0.55-1.30); POTASSIUM SERUM 3.6 MEQ/L (3.5-5.1); TOTAL PROTEIN 5.6 GM/DL (6.4-8.2)
[2022-04-10] MEDS: ROSUVASTATIN 10 MG TAB (CRESTOR) PO SCH (21:07)
[2022-04-10] MEDS: RAMELTEON 8 MG TAB (ROZEREM) PO PRN (21:07)
[2022-04-11] MEDS: HEPARIN SOD (PORCINE) 5000UNITS/ML 1ML VIAL/SYRINGE SQ SCH ×3 (06:02→21:16)
[2022-04-11 07:07] VITALS: BP 128/64
[2022-04-11] MEDS: IPRATROPIUM 0.5MG/ALBUTEROL 2.5MG INH SOL UD 3ML (DUONEB) NEB SCH ×3 (07:28→20:17)
[2022-04-11] MEDS: FERROUS SULFATE 325MG TAB PO SCH (11:21)
[2022-04-11] MEDS: ASPIRIN 81 MG CHEW TABLET PO SCH (11:21)
[2022-04-11] MEDS: OMEPRAZOLE 20MG CAP PO SCH (11:21)
[2022-04-11] MEDS: TORSEMIDE 20 MG TAB PO SCH (11:22)
[2022-04-11] MEDS: atenoloL 50 MG TAB PO SCH (11:28)
[2022-04-11] MEDS: NYSTATIN 100,000 UNITS/GM TOPICAL PWD 15 GM TOP SCH ×2 (11:29→21:16)
[2022-04-11] MEDS: ROSUVASTATIN 10 MG TAB (CRESTOR) PO SCH (21:15)
[2022-04-12] MEDS: IPRATROPIUM 0.5MG/ALBUTEROL 2.5MG INH SOL UD 3ML (DUONEB) NEB SCH ×2 (02:00→07:27)
[2022-04-12] MEDS: HEPARIN SOD (PORCINE) 5000UNITS/ML 1ML VIAL/SYRINGE SQ SCH (05:02)
[2022-04-12 06:00] VITALS: BP 127/78
[2022-04-12 08:30] VITALS: BP 127/78
[2022-04-12] MEDS: OMEPRAZOLE 20MG CAP PO SCH (08:30)
[2022-04-12] MEDS: ASPIRIN 81 MG CHEW TABLET PO SCH (08:30)
[2022-04-12] MEDS: NYSTATIN 100,000 UNITS/GM TOPICAL PWD 15 GM TOP SCH (08:30)
[2022-04-12] MEDS: TORSEMIDE 20 MG TAB PO SCH (08:30)
[2022-04-12] MEDS: FERROUS SULFATE 325MG TAB PO SCH (08:30)
[2022-04-12] MEDS: atenoloL 50 MG TAB PO SCH (08:30)
[2022-04-12] MEDS ORDERED: TORS20TA2 PO (09:04)
[2022-04-12] MEDS ORDERED: ATEN50TA2 PO (09:04)
[2022-04-12] MEDS ORDERED: PROAAER10 INH (09:04)
[2022-04-12 11:46] LABS: ALBUMIN 2.5 GM/DL (3.2-5.2); CALCIUM LEVEL 8.4 MG/DL (8.8-10.2); CREATININE FOR GFR 0.98 MG/DL (0.55-1.30); GLOMERULAR FILTRATION RATE 58.1 (>32); POTASSIUM SERUM 3.6 MEQ/L (3.5-5.1); TOTAL PROTEIN 6.8 GM/DL (6.4-8.2)
== END 2022-04-12 12:24 | DRG 871 ==
LOC: EDBD 21:30 → M ED 21:30 → M ED INP 03-26 02:21 → ENRESERV 03-26 06:07 → M ICU 03-26 06:43 → M MSPAV 04-04 12:42
PROVIDERS: ADMIT Internal Medicine; ATTEND General Practice
PROC: 02HV33Z Insertion of Infusion Device into Superior Vena Cava, Percutaneous Approach (ICD-10-PCS; 2022-03-26)
PROC: 0J9C3ZX Drainage of Pelvic Region Subcutaneous Tissue and Fascia, Percutaneous Approach, Diagnostic (ICD-10-PCS; 2022-03-28)
PROC: 30233N1 Transfusion of Nonautologous Red Blood Cells into Peripheral Vein, Percutaneous Approach (ICD-10-PCS; 2022-03-30)
PROC: 02HV33Z Insertion of Infusion Device into Superior Vena Cava, Percutaneous Approach (ICD-10-PCS; principal; 2022-03-31 12:00)
DX: A41.9 Sepsis, unspecified organism (principal); J96.01 Acute respiratory failure with hypoxia; J96.02 Acute respiratory failure with hypercapnia; R65.21 Severe sepsis with septic shock; I50.43 Acute on chronic combined systolic (congestive) and diastolic (congestive) heart failure; K72.00 Acute and subacute hepatic failure without coma; I21.4 Non-ST elevation (NSTEMI) myocardial infarction; G93.41 Metabolic encephalopathy; K66.1 Hemoperitoneum; N17.9 Acute kidney failure, unspecified; E87.4 Mixed disorder of acid-base balance; I24.8 Other forms of acute ischemic heart disease; I13.0 Hypertensive heart and chronic kidney disease with heart failure and stage 1 through stage 4 chronic kidney disease, or unspecified chronic kidney disease; I48.20 Chronic atrial fibrillation, unspecified; D62 Acute posthemorrhagic anemia; E87.1 Hypo-osmolality and hyponatremia; L02.219 Cutaneous abscess of trunk, unspecified; D68.32 Hemorrhagic disorder due to extrinsic circulating anticoagulants; E78.5 Hyperlipidemia, unspecified; K57.30 Diverticulosis of large intestine without perforation or abscess without bleeding; K21.9 Gastro-esophageal reflux disease without esophagitis; R74.01 Elevation of levels of liver transaminase levels; D72.18 Eosinophilia in diseases classified elsewhere; N18.31 Chronic kidney disease, stage 3a; E16.2 Hypoglycemia, unspecified; E87.5 Hyperkalemia; I27.20 Pulmonary hypertension, unspecified; R13.10 Dysphagia, unspecified; M79.81 Nontraumatic hematoma of soft tissue; E83.42 Hypomagnesemia; E87.6 Hypokalemia; I44.4 Left anterior fascicular block; Z96.641 Presence of right artificial hip joint; Z91.040 Latex allergy status; Z98.1 Arthrodesis status; Z79.01 Long term (current) use of anticoagulants; Z79.82 Long term (current) use of aspirin; Z79.899 Other long term (current) drug therapy

== ENCOUNTER → 2022-04-14 | Outpatient (REF) ==
[~2022-04-14] MED LIST changes: +FLUC150T9 PO; +LEXA1TAB2 PO; +LOPE1CAP5 PO; +PROAAER10 INH; +TORS20TA2 PO; +med rec comment
[2022-04-14 10:58] LABS: BASO # 0.1 10^3/uL (0.0-0.2); BASO % 1.3 % (0.0-1.0); EOS % 0.2 % (0.0-3.0); HEMATOCRIT 29.5 % (36.0-47.0); HEMOGLOBIN 9.6 g/dl (12.0-15.5); LYMPH # 0.6 10^3/uL (1.5-5.0); LYMPH % 10.1 % (24.0-44.0); MEAN CORPUSCULAR HEMOGLOBIN 30.4 pg (27.0-33.0); MEAN CORPUSCULAR HGB CONC 32.5 g/dl (32.0-36.5); MEAN CORPUSCULAR VOLUME 93.4 fl (80.0-96.0); MONO # 1.1 10^3/uL (0.0-0.8); MONO % 18.5 % (2.0-8.0); NEUTROPHILS # 4.3 10^3/uL (1.5-8.5); NEUTROPHILS % 69.6 % (36.0-66.0); PLATELET COUNT, AUTOMATED 400 10^3/uL (150-450); RED BLOOD COUNT 3.16 10^6/uL (4.00-5.40); WHITE BLOOD COUNT 6.1 10^3/uL (4.0-10.0)
[2022-04-14 11:43] LABS: ALBUMIN 2.8 GM/DL (3.2-5.2); BILIRUBIN,TOTAL 0.9 MG/DL (0.2-1.0); CALCIUM LEVEL 8.3 MG/DL (8.8-10.2); CREATININE FOR GFR 0.98 MG/DL (0.55-1.30); GLOMERULAR FILTRATION RATE 58.1 (>32); POTASSIUM SERUM 3.4 MEQ/L (3.5-5.1); TOTAL PROTEIN 6.4 GM/DL (6.4-8.2)
== END ==
LOC: SKLAB4 07:00
PROVIDERS: ATTEND Nurse Practitioner Family
DX: R65.21 Severe sepsis with septic shock (principal)

== ENCOUNTER → 2022-04-15 | Outpatient (REF) | payer MEDICARE, MEDICAID | LOC: SKLAB4 16:05 | PROVIDERS: ATTEND Nurse Practitioner Family | DX: I48.91 Unspecified atrial fibrillation (principal); I44.7 Left bundle-branch block, unspecified ==

== ENCOUNTER → 2022-04-21 | Outpatient (REF) | payer MEDICARE, MEDICAID ==
[2022-04-21 10:30] LABS: BASO # 0.1 10^3/uL (0.0-0.2); BASO % 1.2 % (0.0-1.0); EOS # 0.2 10^3/uL (0.0-0.5); EOS % 2.8 % (0.0-3.0); HEMATOCRIT 31.7 % (36.0-47.0); LYMPH # 0.6 10^3/uL (1.5-5.0); LYMPH % 9.9 % (24.0-44.0); MEAN CORPUSCULAR HEMOGLOBIN 30.1 pg (27.0-33.0); MEAN CORPUSCULAR HGB CONC 31.5 g/dl (32.0-36.5); MEAN CORPUSCULAR VOLUME 95.5 fl (80.0-96.0); MONO # 0.8 10^3/uL (0.0-0.8); NEUTROPHILS # 4.4 10^3/uL (1.5-8.5); NEUTROPHILS % 72.3 % (36.0-66.0); PLATELET COUNT, AUTOMATED 340 10^3/uL (150-450); RED BLOOD COUNT 3.32 10^6/uL (4.00-5.40); WHITE BLOOD COUNT 6.1 10^3/uL (4.0-10.0)
[2022-04-21 11:14] LABS: ALBUMIN 3.4 GM/DL (3.2-5.2); ALT/SGPT 28 U/L (12-78); BLOOD UREA NITROGEN 22 MG/DL (7-18); CALCIUM LEVEL 9.1 MG/DL (8.8-10.2); CARBON DIOXIDE LEVEL 30 MEQ/L (21-32); CHLORIDE LEVEL 96 MEQ/L (98-107); CREATININE FOR GFR 0.95 MG/DL (0.55-1.30); GLOMERULAR FILTRATION RATE > 60.0 (>32); GLUCOSE, FASTING 114 MG/DL (70-100); POTASSIUM SERUM 4.1 MEQ/L (3.5-5.1); SODIUM LEVEL 131 MEQ/L (136-145); TOTAL PROTEIN 7.2 GM/DL (6.4-8.2)
== END ==
LOC: SKLAB4 09:33
PROVIDERS: ATTEND Nurse Practitioner Family
DX: I50.9 Heart failure, unspecified (principal); D64.9 Anemia, unspecified

== ENCOUNTER → 2022-04-28 | Outpatient (REF) | payer MEDICARE, MEDICAID ==
[2022-04-28 10:06] LABS: BASO # 0.1 10^3/uL (0.0-0.2); BASO % 0.8 % (0.0-1.0); EOS % 0.2 % (0.0-3.0); HEMATOCRIT 34.5 % (36.0-47.0); HEMOGLOBIN 10.6 g/dl (12.0-15.5); LYMPH # 0.8 10^3/uL (1.5-5.0); LYMPH % 12.5 % (24.0-44.0); MEAN CORPUSCULAR HEMOGLOBIN 29.9 pg (27.0-33.0); MEAN CORPUSCULAR HGB CONC 30.7 g/dl (32.0-36.5); MEAN CORPUSCULAR VOLUME 97.5 fl (80.0-96.0); MONO # 0.8 10^3/uL (0.0-0.8); MONO % 12.5 % (2.0-8.0); NEUTROPHILS # 4.5 10^3/uL (1.5-8.5); NEUTROPHILS % 73.3 % (36.0-66.0); PLATELET COUNT, AUTOMATED 361 10^3/uL (150-450); RED BLOOD COUNT 3.54 10^6/uL (4.00-5.40); WHITE BLOOD COUNT 6.1 10^3/uL (4.0-10.0)
[2022-04-28 10:49] LABS: ALBUMIN 3.4 GM/DL (3.2-5.2); BILIRUBIN,TOTAL 0.6 MG/DL (0.2-1.0); CALCIUM LEVEL 9.4 MG/DL (8.8-10.2); CREATININE FOR GFR 1.03 MG/DL (0.55-1.30); GLOMERULAR FILTRATION RATE 54.9 (>32); POTASSIUM SERUM 3.9 MEQ/L (3.5-5.1); THYROID STIMULATING HORMONE 1.22 uIU/ML (0.358-3.740); TOTAL PROTEIN 7.4 GM/DL (6.4-8.2)
== END ==
LOC: SKLAB4 10:40
PROVIDERS: ATTEND Internal Medicine
DX: R65.21 Severe sepsis with septic shock (principal); Z79.899 Other long term (current) drug therapy

== ENCOUNTER 2022-05-02 09:17 | Inpatient (IN) | payer MEDICARE, MEDICAID ==
[2022-05-02] VITALS (7 sets, daily range): BP systolic 88–106; BP diastolic 44–74
[~2022-05-02] VITALS: Ht 167.6 cm; Wt 72.8 kg
[~2022-05-02 09:17] MED LIST changes: +METOPROLOL SUCC (TopROL XL) 100MG *XL* TAB PO SCH; +TORSEMIDE 20 MG TAB PO SCH
[2022-05-02 10:24] LABS: BASO % 0.2 % (0.0-1.0); HEMATOCRIT 33.1 % (36.0-47.0); HEMOGLOBIN 10.5 g/dl (12.0-15.5); LYMPH # 0.6 10^3/uL (1.5-5.0); LYMPH % 4.4 % (24.0-44.0); MEAN CORPUSCULAR HEMOGLOBIN 30.3 pg (27.0-33.0); MEAN CORPUSCULAR HGB CONC 31.7 g/dl (32.0-36.5); MEAN CORPUSCULAR VOLUME 95.4 fl (80.0-96.0); MONO # 1.1 10^3/uL (0.0-0.8); MONO % 8.7 % (2.0-8.0); NEUTROPHILS # 11.2 10^3/uL (1.5-8.5); NEUTROPHILS % 86.1 % (36.0-66.0); PLATELET COUNT, AUTOMATED 309 10^3/uL (150-450); RED BLOOD COUNT 3.47 10^6/uL (4.00-5.40); WHITE BLOOD COUNT 13.1 10^3/uL (4.0-10.0)
[2022-05-02] MEDS ORDERED: METOPROLOL SUCC (TopROL XL) 100MG *XL* TAB PO ONE (10:30)
[2022-05-02] MEDS: METOPROLOL 5 MG/5 ML VIAL IV SCH ×3 (10:42→15:33)
[2022-05-02 10:52] LABS: CK-MB VALUE MASS < 1.0 NG/ML (<3.6); CPK CREATINE PHOSPHOKINASE 40 U/L (26-192)
[2022-05-02 11:59] LABS: RSV AMPLIFICATION NEGATIVE (NEGATIVE)
[2022-05-02 12:06] LABS: CK-MB VALUE MASS < 1.0 NG/ML (<3.6); CPK CREATINE PHOSPHOKINASE 39 U/L (26-192); MB/CK RELATIVE INDEX 2.56 (< OR =4)
[2022-05-02] MEDS ORDERED: PROAAER10 INH (13:00)
[2022-05-02] MEDS ORDERED: METO1TAB33 PO (13:05)
[2022-05-02] MEDS ORDERED: ELIQ5TAB PO (13:05)
[2022-05-02] MEDS ORDERED: ENTR1TAB PO (13:05)
[2022-05-02] MEDS ORDERED: FURO20TA2 PO (13:06)
[2022-05-02] MEDS ORDERED: HOME MED LIST COMPLETE! XX SCH (13:10)
[2022-05-02] MEDS ORDERED: ALBUTEROL 90 MCG/ACT 8GM HFA INHALER INH PRN (14:25)
[2022-05-02] MEDS: ESCITALOPRAM OXALATE 10 MG TAB (LEXAPRO) PO SCH (15:32)
[2022-05-02] MEDS: OMEPRAZOLE 20MG CAP PO SCH (15:32)
[2022-05-02] MEDS: NS 1,000 ML IV SCH (15:33)
[2022-05-02 15:55] LABS: ALBUMIN 2.8 GM/DL (3.2-5.2); BILIRUBIN,TOTAL 0.8 MG/DL (0.2-1.0); CALCIUM LEVEL 8.5 MG/DL (8.8-10.2); CREATININE FOR GFR 2.01 MG/DL (0.55-1.30); GLOMERULAR FILTRATION RATE 25.4 (>32); POTASSIUM SERUM 3.9 MEQ/L (3.5-5.1); TOTAL PROTEIN 6.2 GM/DL (6.4-8.2)
[2022-05-02] MEDS ORDERED: NS 250 ML IV ONE ×4 (19:55→22:00)
[2022-05-02] MEDS: SIMVASTATIN 40 MG TAB PO SCH (20:51)
[2022-05-03] VITALS (10 sets, daily range): BP systolic 82–118; BP diastolic 42–76
[2022-05-03] MEDS ORDERED: NS 250 ML IV ONE (06:00)
[2022-05-03] MEDS ORDERED: MIDODRINE 2.5 MG TAB PO ONE (06:00)
[2022-05-03] MEDS ORDERED: HYDROCORTISONE 100 MG/2 ML VIAL (J1720 PER 1) IV ONE (06:00)
[2022-05-03 06:01] LABS: HEMATOCRIT 28.8 % (36.0-47.0); HEMOGLOBIN 9.2 g/dl (12.0-15.5); MEAN CORPUSCULAR HGB CONC 31.9 g/dl (32.0-36.5); PLATELET COUNT, AUTOMATED 268 10^3/uL (150-450); RED BLOOD COUNT 2.97 10^6/uL (4.00-5.40); WHITE BLOOD COUNT 7.9 10^3/uL (4.0-10.0)
[2022-05-03 06:42] LABS: ALBUMIN 2.5 GM/DL (3.2-5.2); BILIRUBIN,TOTAL 0.7 MG/DL (0.2-1.0); CALCIUM LEVEL 8.2 MG/DL (8.8-10.2); CREATININE FOR GFR 1.67 MG/DL (0.55-1.30); GLOMERULAR FILTRATION RATE 31.4 (>32); MAGNESIUM LEVEL 1.4 MG/DL (1.8-2.4); POTASSIUM SERUM 4.3 MEQ/L (3.5-5.1); TOTAL PROTEIN 5.6 GM/DL (6.4-8.2)
[2022-05-03] MEDS: METOPROLOL SUCC (TopROL XL) 100MG *XL* TAB PO SCH (08:16)
[2022-05-03] MEDS: ESCITALOPRAM OXALATE 10 MG TAB (LEXAPRO) PO SCH (08:22)
[2022-05-03] MEDS: OMEPRAZOLE 20MG CAP PO SCH (08:22)
[2022-05-03] MEDS ORDERED: METOPROLOL SUCC (TopROL XL) 100MG *XL* TAB PO SCH (09:00)
[2022-05-03] MEDS: NS 1,000 ML IV SCH ×2 (13:03→23:31)
[2022-05-03] MEDS: cefTRIAXone SOD 1 GM in D5W MINI-BAG PLUS 50 ML IV SCH (19:59)
[2022-05-03] MEDS: SIMVASTATIN 40 MG TAB PO SCH (19:59)
[2022-05-03] MEDS: ACETAMINOPHEN TAB 650MG DOSE (2X325MG) PO PRN (20:02)
[2022-05-04] MEDS: RAMELTEON 8 MG TAB (ROZEREM) PO PRN ×2 (00:11→20:00)
[2022-05-04 02:00] VITALS: BP 108/60
[2022-05-04 05:00] VITALS: BP 114/60
[2022-05-04] MEDS: ESCITALOPRAM OXALATE 10 MG TAB (LEXAPRO) PO SCH (08:42)
[2022-05-04] MEDS: OMEPRAZOLE 20MG CAP PO SCH (08:42)
[2022-05-04] MEDS: METOPROLOL SUCC (TopROL XL) 100MG *XL* TAB PO SCH (08:45)
[2022-05-04 08:51] LABS: HEMATOCRIT 30.6 % (36.0-47.0); HEMOGLOBIN 9.5 g/dl (12.0-15.5); MEAN CORPUSCULAR HEMOGLOBIN 30.5 pg (27.0-33.0); MEAN CORPUSCULAR VOLUME 98.4 fl (80.0-96.0); PLATELET COUNT, AUTOMATED 295 10^3/uL (150-450); RED BLOOD COUNT 3.11 10^6/uL (4.00-5.40); WHITE BLOOD COUNT 5.3 10^3/uL (4.0-10.0)
[2022-05-04 09:28] LABS: ALBUMIN 2.5 GM/DL (3.2-5.2); BILIRUBIN,TOTAL 0.4 MG/DL (0.2-1.0); CALCIUM LEVEL 8.7 MG/DL (8.8-10.2); CREATININE FOR GFR 0.98 MG/DL (0.55-1.30); GLOMERULAR FILTRATION RATE 58.1 (>32); POTASSIUM SERUM 4.4 MEQ/L (3.5-5.1); TOTAL PROTEIN 5.7 GM/DL (6.4-8.2)
[2022-05-04 10:00] VITALS: BP 118/64
[2022-05-04] MEDS: NS 1,000 ML IV SCH (11:30)
[2022-05-04 14:00] VITALS: BP 115/63
[2022-05-04] MEDS ORDERED: TORS20TA2 PO (15:48)
[2022-05-04] MEDS ORDERED: B-12100T2 PO (15:48)
[2022-05-04] MEDS ORDERED: FERR325T3 PO (15:48)
[2022-05-04 18:00] VITALS: BP 126/74
[2022-05-04] MEDS: cefTRIAXone SOD 1 GM in D5W MINI-BAG PLUS 50 ML IV SCH (18:17)
[2022-05-04] MEDS: APIXABAN 5 MG TAB (ELIQUIS) PO SCH (20:00)
[2022-05-04] MEDS: SIMVASTATIN 40 MG TAB PO SCH (20:00)
[2022-05-04] MEDS: ACETAMINOPHEN TAB 650MG DOSE (2X325MG) PO PRN (20:00)
[2022-05-04] MEDS ORDERED: BISACODYL 5 MG TAB PO PRN (21:35)
[2022-05-04] MEDS: DOCUSATE SODIUM 100MG CAPSULE PO SCH (21:48)
[2022-05-04 22:00] VITALS: BP 108/66
[2022-05-05 02:00] VITALS: BP 109/66
[2022-05-05 06:00] VITALS: BP 107/65
[2022-05-05 06:16] LABS: HEMOGLOBIN 9.1 g/dl (12.0-15.5); MEAN CORPUSCULAR HEMOGLOBIN 30.6 pg (27.0-33.0); MEAN CORPUSCULAR HGB CONC 31.4 g/dl (32.0-36.5); MEAN CORPUSCULAR VOLUME 97.6 fl (80.0-96.0); PLATELET COUNT, AUTOMATED 292 10^3/uL (150-450); RED BLOOD COUNT 2.97 10^6/uL (4.00-5.40); WHITE BLOOD COUNT 5.1 10^3/uL (4.0-10.0)
[2022-05-05 06:48] LABS: ALBUMIN 2.5 GM/DL (3.2-5.2); ALT/SGPT 13 U/L (12-78); BILIRUBIN,TOTAL 0.3 MG/DL (0.2-1.0); BLOOD UREA NITROGEN 30 MG/DL (7-18); CALCIUM LEVEL 8.6 MG/DL (8.8-10.2); CARBON DIOXIDE LEVEL 25 MEQ/L (21-32); CHLORIDE LEVEL 110 MEQ/L (98-107); CREATININE FOR GFR 0.88 MG/DL (0.55-1.30); GLOMERULAR FILTRATION RATE > 60.0 (>32); GLUCOSE, FASTING 100 MG/DL (70-100); POTASSIUM SERUM 4.5 MEQ/L (3.5-5.1); SODIUM LEVEL 139 MEQ/L (136-145); TOTAL PROTEIN 5.7 GM/DL (6.4-8.2)
[2022-05-05] MEDS ORDERED: TORS10TA3 PO (08:00)
[2022-05-05] MEDS ORDERED: FOSF3PAC2 PO (08:05)
[2022-05-05] MEDS ORDERED: TORSEMIDE 10 MG TABLET PO SCH (09:00)
[2022-05-05 09:26] VITALS: BP 107/65
[2022-05-05] MEDS: METOPROLOL SUCC (TopROL XL) 100MG *XL* TAB PO SCH (09:26)
[2022-05-05] MEDS: DOCUSATE SODIUM 100MG CAPSULE PO SCH (09:26)
[2022-05-05] MEDS: OMEPRAZOLE 20MG CAP PO SCH (09:27)
[2022-05-05] MEDS: APIXABAN 5 MG TAB (ELIQUIS) PO SCH (09:27)
[2022-05-05] MEDS: ESCITALOPRAM OXALATE 10 MG TAB (LEXAPRO) PO SCH (09:27)
[2022-05-05 10:00] VITALS: BP 117/65
[2022-05-05] MEDS ORDERED: FOSFOMYCIN TROMETHAMINE 3 GM POWDER PACKET (MONUROL) PO ONE (10:00)
[2022-05-05] MEDS ORDERED: LEVO1TAB38 PO (10:51)
[2022-05-05] MEDS ORDERED: FLUBLOK(EGG FREE)(QUAD)INFLUENZA VACC 0.5ML SYRINGE 18YRS & OLDER IM.IMMUN ONE (11:00)
== END 2022-05-05 12:35 | disposition home or self-care (01) | DRG 309 ==
LOC: M ED 09:17 → M ED INP 14:11 → CANRESERV 15:57 → ENRESERV 15:57 → M MSPAV 18:00
PROVIDERS: ADMIT Family Medicine; ATTEND Internal Medicine
DX: I48.91 Unspecified atrial fibrillation (principal); I50.32 Chronic diastolic (congestive) heart failure; I13.0 Hypertensive heart and chronic kidney disease with heart failure and stage 1 through stage 4 chronic kidney disease, or unspecified chronic kidney disease; N17.9 Acute kidney failure, unspecified; N39.0 Urinary tract infection, site not specified; N18.9 Chronic kidney disease, unspecified; K21.9 Gastro-esophageal reflux disease without esophagitis; R07.89 Other chest pain; D64.9 Anemia, unspecified; R13.10 Dysphagia, unspecified; F32.A Depression, unspecified; F41.9 Anxiety disorder, unspecified; Z20.822 Contact with and (suspected) exposure to COVID-19; Z79.01 Long term (current) use of anticoagulants; Z79.899 Other long term (current) drug therapy; Z91.040 Latex allergy status; I95.9 Hypotension, unspecified; Z91.14 Patient's other noncompliance with medication regimen; R26.89 Other abnormalities of gait and mobility; B96.89 Other specified bacterial agents as the cause of diseases classified elsewhere

== ENCOUNTER 2022-06-29 19:55 | Inpatient (IN) | payer MEDICARE, MEDICAID ==
[~2022-06-29] VITALS: Ht 165.1 cm; Wt 78.1 kg
[~2022-06-29 19:55] MED LIST changes: +B-12100T2 PO; +CLOP75TA99 PO; +FOSF3PAC2 PO; +LEVO1TAB38 PO; -METOPROLOL SUCC (TopROL XL) 100MG *XL* TAB PO SCH; -PLAV1TAB2 PO; +TORS10TA3 PO; -TORSEMIDE 20 MG TAB PO SCH
[2022-06-29 20:44] LABS: BASO % 0.5 % (0.0-1.0); EOS % 0.2 % (0.0-3.0); HEMATOCRIT 40.8 % (36.0-47.0); HEMOGLOBIN 13.7 g/dl (12.0-15.5); LYMPH # 1.3 10^3/uL (1.5-5.0); LYMPH % 20.7 % (24.0-44.0); MEAN CORPUSCULAR HEMOGLOBIN 31.2 pg (27.0-33.0); MEAN CORPUSCULAR HGB CONC 33.6 g/dl (32.0-36.5); MEAN CORPUSCULAR VOLUME 92.9 fl (80.0-96.0); MONO # 0.7 10^3/uL (0.0-0.8); MONO % 11.9 % (2.0-8.0); NEUTROPHILS # 4.1 10^3/uL (1.5-8.5); NEUTROPHILS % 66.5 % (36.0-66.0); PLATELET COUNT, AUTOMATED 247 10^3/uL (150-450); RED BLOOD COUNT 4.39 10^6/uL (4.00-5.40); WHITE BLOOD COUNT 6.2 10^3/uL (4.0-10.0)
[2022-06-29 20:59] LABS: PARTIAL THROMBOPLASTIN TIME 29.3 SECONDS (24.8-34.2)
[2022-06-29 21:10] LABS: INR 1.52; PROTHROMBIN TIME 18.6 SECONDS (12.5-14.5)
[2022-06-29 21:13] LABS: CK-MB VALUE MASS 1.2 NG/ML (<3.6)
[2022-06-29 21:15] LABS: BILIRUBIN,DIRECT 0.1 MG/DL (<0.4)
[2022-06-29 21:17] LABS: FREE T4 0.95 NG/DL (0.89-1.76); THYROID STIMULATING HORMONE 2.926 uIU/ML (0.55-4.78)
[2022-06-29 21:20] LABS: ALBUMIN 3.9 G/DL (3.2-5.2); BILIRUBIN,TOTAL 0.4 MG/DL (0.3-1.2); CALCIUM LEVEL 9.5 MG/DL (8.3-10.6); CREATININE FOR GFR 1.02 MG/DL (0.55-1.30); GLOMERULAR FILTRATION RATE 55.5 (>32); MB/CK RELATIVE INDEX 2.06 (< OR =4); POTASSIUM SERUM 4.3 MMOL/L (3.5-5.1); TOTAL PROTEIN 7.1 G/DL (5.7-8.2)
[2022-06-29 21:22] LABS: RSV AMPLIFICATION NEGATIVE (NEGATIVE)
[2022-06-29 22:13] LABS: CK-MB VALUE MASS 1.6 NG/ML (<3.6)
[2022-06-29 22:16] LABS: MB/CK RELATIVE INDEX 3.33 (< OR =4)
[2022-06-29] MEDS ORDERED: B-121TAB3 PO (23:11)
[2022-06-29] MEDS ORDERED: ENTR1TAB PO (23:11)
[2022-06-29] MEDS ORDERED: MULTCHW12 PO (23:11)
[2022-06-29] MEDS ORDERED: TORS20TA2 PO (23:11)
[2022-06-29] MEDS ORDERED: HOME MED LIST COMPLETE! XX SCH (23:15)
[2022-06-29] MEDS ORDERED: ACETAMINOPHEN TAB 650MG DOSE (2X325MG) PO PRN (23:45)
[2022-06-29] MEDS ORDERED: NS 1,000 ML IV SCH (23:45)
[2022-06-30] MEDS: SIMVASTATIN 40 MG TAB PO SCH ×2 (00:03→20:21)
[2022-06-30] MEDS: APIXABAN 5 MG TAB (ELIQUIS) PO SCH ×3 (00:03→20:21)
[2022-06-30 01:35] VITALS: BP 141/77
[2022-06-30 05:38] LABS: HEMATOCRIT 35.7 % (36.0-47.0); HEMOGLOBIN 11.8 g/dl (12.0-15.5); MEAN CORPUSCULAR HEMOGLOBIN 30.7 pg (27.0-33.0); MEAN CORPUSCULAR HGB CONC 33.1 g/dl (32.0-36.5); PLATELET COUNT, AUTOMATED 214 10^3/uL (150-450); RED BLOOD COUNT 3.84 10^6/uL (4.00-5.40); WHITE BLOOD COUNT 5.7 10^3/uL (4.0-10.0)
[2022-06-30 05:59] LABS: CALCIUM LEVEL 9.1 MG/DL (8.3-10.6); CREATININE FOR GFR 1.01 MG/DL (0.55-1.30); GLOMERULAR FILTRATION RATE 56.1 (>32); POTASSIUM SERUM 4.4 MMOL/L (3.5-5.1)
[2022-06-30 07:43] VITALS: BP 130/62
[2022-06-30 08:27] LABS: VENOUS HCO3 24.1 MEQ/L (23.0-27.0); VENOUS O2 SATURATION 99.2 % (60.0-80.0); VENOUS PARTIAL PRESSURE CO2 37.2 mmHg (38.0-50.0); VENOUS PARTIAL PRESSURE O2 165.7 mmHg (30.0-50.0); VENOUS PH 7.429 UNITS (7.330-7.430); VENOUS STANDARD HCO3 24.6 MEQ/L; VENOUS TOTAL CO2 25.2 MEQ/L (24.0-28.0)
[2022-06-30] MEDS: FERROUS SULFATE 325MG TAB PO SCH (08:43)
[2022-06-30] MEDS: CYANOCOBALAMIN 500 MCG TAB PO SCH (08:44)
[2022-06-30] MEDS: OMEPRAZOLE 20MG CAP PO SCH (08:44)
[2022-06-30] MEDS: METOPROLOL SUCC (TopROL XL) 100MG *XL* TAB PO SCH (08:44)
[2022-06-30] MEDS ORDERED: ENTRESTO 24-26MG TABLET (SACUBITRIL/VALSARTAN) PO SCH (09:00)
[2022-06-30] MEDS ORDERED: TORSEMIDE 10 MG TABLET PO SCH (09:00)
[2022-06-30 09:05] LABS: CORTISOL BASELINE 15.9 UG/DL (4.3-22.4)
[2022-06-30] MEDS ORDERED: NS 1,000 ML IV SCH (09:35)
[2022-06-30 11:10] LABS: BLOOD UREA NITROGEN 36 MG/DL (9-23); CALCIUM LEVEL 9.3 MG/DL (8.3-10.6); CARBON DIOXIDE LEVEL 24 MMOL/L (20-31); CHLORIDE LEVEL 94 MMOL/L (98-107); CREATININE FOR GFR 0.95 MG/DL (0.55-1.30); GLOMERULAR FILTRATION RATE > 60.0 (>32); GLUCOSE, FASTING 124 MG/DL (74-106); POTASSIUM SERUM 4.3 MMOL/L (3.5-5.1); SODIUM LEVEL 127 MMOL/L (136-145)
[2022-06-30 12:11] VITALS: BP 145/73
[2022-06-30 16:27] VITALS: BP 120/59
[2022-06-30 18:32] LABS: BLOOD UREA NITROGEN 36 MG/DL (9-23); CALCIUM LEVEL 8.9 MG/DL (8.3-10.6); CARBON DIOXIDE LEVEL 25 MMOL/L (20-31); CHLORIDE LEVEL 96 MMOL/L (98-107); CREATININE FOR GFR 0.92 MG/DL (0.55-1.30); GLOMERULAR FILTRATION RATE > 60.0 (>32); GLUCOSE, FASTING 110 MG/DL (74-106); POTASSIUM SERUM 4.1 MMOL/L (3.5-5.1); SODIUM LEVEL 129 MMOL/L (136-145)
[2022-06-30 20:43] VITALS: BP 120/70
[2022-06-30 23:08] LABS: CREATININE,RANDOM URINE 67.3 MG/DL
[2022-06-30 23:25] LABS: CHLORIDE,RANDOM URINE 19.99999 MMOL/L
[2022-06-30 23:32] LABS: CALCIUM LEVEL 8.6 MG/DL (8.3-10.6); CREATININE FOR GFR 0.99 MG/DL (0.55-1.30); GLOMERULAR FILTRATION RATE 57.5 (>32); POTASSIUM SERUM 4.8 MMOL/L (3.5-5.1)
[2022-07-01 04:36] VITALS: BP 121/59
[2022-07-01 05:05] LABS: BASO % 0.8 % (0.0-1.0); EOS % 0.2 % (0.0-3.0); HEMOGLOBIN 11.2 g/dl (12.0-15.5); LYMPH % 19.5 % (24.0-44.0); MEAN CORPUSCULAR HEMOGLOBIN 30.3 pg (27.0-33.0); MEAN CORPUSCULAR VOLUME 94.6 fl (80.0-96.0); MONO # 0.7 10^3/uL (0.0-0.8); MONO % 13.2 % (2.0-8.0); NEUTROPHILS # 3.3 10^3/uL (1.5-8.5); NEUTROPHILS % 66.1 % (36.0-66.0); PLATELET COUNT, AUTOMATED 196 10^3/uL (150-450); WHITE BLOOD COUNT 4.9 10^3/uL (4.0-10.0)
[2022-07-01 06:02] LABS: MAGNESIUM LEVEL 1.8 MG/DL (1.8-2.4)
[2022-07-01 06:04] LABS: BLOOD UREA NITROGEN 42 MG/DL (9-23); CALCIUM LEVEL 9.1 MG/DL (8.3-10.6); CARBON DIOXIDE LEVEL 24 MMOL/L (20-31); CHLORIDE LEVEL 99 MMOL/L (98-107); CREATININE FOR GFR 0.87 MG/DL (0.55-1.30); GLOMERULAR FILTRATION RATE > 60.0 (>32); GLUCOSE, FASTING 102 MG/DL (74-106); POTASSIUM SERUM 4.7 MMOL/L (3.5-5.1); SODIUM LEVEL 132 MMOL/L (136-145)
[2022-07-01 08:00] VITALS: BP 129/63
[2022-07-01 09:10] VITALS: BP 129/63
[2022-07-01] MEDS: FERROUS SULFATE 325MG TAB PO SCH (09:10)
[2022-07-01] MEDS: METOPROLOL SUCC (TopROL XL) 100MG *XL* TAB PO SCH (09:10)
[2022-07-01] MEDS: APIXABAN 5 MG TAB (ELIQUIS) PO SCH (09:10)
[2022-07-01] MEDS: CYANOCOBALAMIN 500 MCG TAB PO SCH (09:10)
[2022-07-01] MEDS: OMEPRAZOLE 20MG CAP PO SCH (09:10)
== END 2022-07-01 12:41 | disposition home or self-care (01) | DRG 312 ==
LOC: EDBD 19:55 → M ED 19:55 → M ED INP 22:49 → M PCU 06-30 01:34
PROVIDERS: ADMIT Family Medicine; ATTEND Family Medicine
DX: R55 Syncope and collapse (principal); I50.32 Chronic diastolic (congestive) heart failure; I13.0 Hypertensive heart and chronic kidney disease with heart failure and stage 1 through stage 4 chronic kidney disease, or unspecified chronic kidney disease; E87.1 Hypo-osmolality and hyponatremia; Z66 Do not resuscitate; R26.89 Other abnormalities of gait and mobility; I48.91 Unspecified atrial fibrillation; N18.31 Chronic kidney disease, stage 3a; Z86.73 Personal history of transient ischemic attack (TIA), and cerebral infarction without residual deficits; E78.5 Hyperlipidemia, unspecified; I73.9 Peripheral vascular disease, unspecified; K21.9 Gastro-esophageal reflux disease without esophagitis; D64.9 Anemia, unspecified; G47.33 Obstructive sleep apnea (adult) (pediatric); F32.A Depression, unspecified; M81.0 Age-related osteoporosis without current pathological fracture; M19.90 Unspecified osteoarthritis, unspecified site; Z96.641 Presence of right artificial hip joint; Z79.01 Long term (current) use of anticoagulants; Z79.899 Other long term (current) drug therapy; Z20.822 Contact with and (suspected) exposure to COVID-19; Z91.040 Latex allergy status

== ENCOUNTER → 2022-07-27 | Outpatient (CLI) | payer MEDICARE, MEDICAID, OTHER ==
[~2022-07-27] MED LIST changes: +B-121TAB3 PO; +MULTCHW12 PO
== END ==
LOC: M PLAIMG 11:48
PROVIDERS: ATTEND Nurse Practitioner Adult Health
DX: M54.6 Pain in thoracic spine (principal); M40.204 Unspecified kyphosis, thoracic region

== ENCOUNTER → 2022-07-27 | Outpatient (CLI) | payer MEDICARE, MEDICAID | LOC: M RAD 12:44 | PROVIDERS: ATTEND Nurse Practitioner Adult Health | DX: K80.51 Calculus of bile duct without cholangitis or cholecystitis with obstruction (principal); R10.11 Right upper quadrant pain ==

== ENCOUNTER 2022-10-04 11:27 | Emergency (ER) | payer MEDICAID, MEDICARE, OTHER ==
[~2022-10-04] VITALS: Ht 165.1 cm; Wt 77.3 kg
[2022-10-04 12:36] LABS: BASO # 0.1 10^3/uL (0.0-0.2); BASO % 0.8 % (0.0-1.0); EOS % 0.3 % (0.0-3.0); HEMATOCRIT 39.8 % (36.0-47.0); HEMOGLOBIN 12.8 g/dl (12.0-15.5); LYMPH % 14.8 % (24.0-44.0); MEAN CORPUSCULAR HEMOGLOBIN 30.8 pg (27.0-33.0); MEAN CORPUSCULAR HGB CONC 32.2 g/dl (32.0-36.5); MEAN CORPUSCULAR VOLUME 95.7 fl (80.0-96.0); MONO # 0.8 10^3/uL (0.0-0.8); MONO % 12.6 % (2.0-8.0); NEUTROPHILS # 4.7 10^3/uL (1.5-8.5); NEUTROPHILS % 71.2 % (36.0-66.0); PLATELET COUNT, AUTOMATED 286 10^3/uL (150-450); RED BLOOD COUNT 4.16 10^6/uL (4.00-5.40); WHITE BLOOD COUNT 6.6 10^3/uL (4.0-10.0)
[2022-10-04 13:04] LABS: ALBUMIN 3.8 G/DL (3.2-5.2); BILIRUBIN,DIRECT 0.2 MG/DL (<0.4); BILIRUBIN,TOTAL 0.6 MG/DL (0.3-1.2); CALCIUM LEVEL 9.8 MG/DL (8.3-10.6); CREATININE FOR GFR 0.96 MG/DL (0.55-1.30); GLOMERULAR FILTRATION RATE 59.5 (>32); POTASSIUM SERUM 5.2 MMOL/L (3.5-5.1); TOTAL PROTEIN 6.8 G/DL (5.7-8.2)
[2022-10-04] MEDS ORDERED: NS 1,000 ML IV ONE (14:35)
[2022-10-04] MEDS ORDERED: ONDANSETRON 4MG 2ML VIAL IV ONE (14:35)
[2022-10-04] MEDS ORDERED: MORPHINE 4 MG/ML 1ML VIAL IV ONE (14:35)
[2022-10-04] MEDS ORDERED: ISOVUE-370 76% 100ML VIAL As Ordered ONE (15:34)
[2022-10-04 19:28] VITALS: BP 139/85
== END 2022-10-04 19:30 | disposition home or self-care (01) ==
LOC: M ED 11:27
DX: K80.20 Calculus of gallbladder without cholecystitis without obstruction (principal); I10 Essential (primary) hypertension; I48.91 Unspecified atrial fibrillation; K57.92 Diverticulitis of intestine, part unspecified, without perforation or abscess without bleeding; Z86.73 Personal history of transient ischemic attack (TIA), and cerebral infarction without residual deficits; M54.9 Dorsalgia, unspecified; Z91.040 Latex allergy status; Z79.899 Other long term (current) drug therapy
CPT/HCPCS: 74177; 76705; 80048; 80076; 81001; 83690; 85025; 87086; 96374; 96375; 99284; J2405; Q9967

== ENCOUNTER → 2022-11-25 | Outpatient (CLI) | payer MEDICARE, MEDICAID | LOC: M RAD 10:13 | PROVIDERS: ATTEND Internal Medicine Hematology | DX: K82.8 Other specified diseases of gallbladder (principal) | CPT/HCPCS: 78227; A9537 ==

== ENCOUNTER → 2023-04-11 | Outpatient (CLI) | payer MEDICARE, MEDICAID | LOC: M RAD 11:07 | PROVIDERS: ATTEND Surgery Vascular Surgery | DX: I73.9 Peripheral vascular disease, unspecified (principal) ==

== ENCOUNTER 2023-07-11 10:30 | Inpatient (IN) | payer MEDICARE, MEDICAID ==
[~2023-07-11] VITALS: Ht 167.6 cm; Wt 79.5 kg
[2023-07-11] MEDS: ESCITALOPRAM OXALATE 10 MG TAB (LEXAPRO) PO SCH (09:00)
[2023-07-11] MEDS: CYANOCOBALAMIN 500 MCG TAB PO SCH (09:00)
[2023-07-11] MEDS: METOPROLOL SUCC (TopROL XL) 100MG *XL* TAB PO SCH ×2 (09:00→18:58)
[2023-07-11] MEDS ORDERED: VANCOMYCIN HCL 1,500 MG in NS 250 ML IV ONE (11:10)
[2023-07-11] MEDS ORDERED: NS 2,260 ML in IV 1 EA IV ONE (11:10)
[2023-07-11 11:28] LABS: INR 2.09; PROTHROMBIN TIME 22.7 SECONDS (12.5-14.5)
[2023-07-11 11:40] LABS: ALBUMIN 2.8 G/DL (3.2-5.2); ALKALINE PHOSPHATASE 185 U/L (46-116); ALT/SGPT 10 U/L (7.0-40); AST/SGOT 17 U/L (<34); BILIRUBIN,DIRECT 0.5 MG/DL (<0.4); BILIRUBIN,TOTAL 0.9 MG/DL (0.3-1.2); BLOOD UREA NITROGEN 47 MG/DL (9-23); CALCIUM LEVEL 9.7 MG/DL (8.3-10.6); CARBON DIOXIDE LEVEL 26 MMOL/L (20-31); CHLORIDE LEVEL 100 MMOL/L (98-107); CREATININE FOR GFR 1.44 MG/DL (0.55-1.30); GLOMERULAR FILTRATION RATE 37.2 (>32); GLUCOSE, FASTING 110 MG/DL (74-106); POTASSIUM SERUM 3.4 MMOL/L (3.5-5.1); SODIUM LEVEL 135 MMOL/L (136-145); TOTAL PROTEIN 6.2 G/DL (5.7-8.2)
[2023-07-11 11:41] LABS: C REACTIVE PROTEIN QUANTITATIV > 30.40 MG/DL (<1.0)
[2023-07-11] MEDS ORDERED: VANCOMYCIN HCL 750 MG, VIAL MATE ADAPTER 1 EACH in D5W 250 ML IV ONE ×6 (11:45)
[2023-07-11 11:46] LABS: BASO % 0.2 % (0.0-1.0); EOS # 0.1 10^3/uL (0.0-0.5); EOS % 0.2 % (0.0-3.0); HEMATOCRIT 38.4 % (36.0-47.0); HEMOGLOBIN 12.6 g/dl (12.0-15.5); LYMPH # 0.6 10^3/uL (1.5-5.0); LYMPH % 2.6 % (24.0-44.0); MEAN CORPUSCULAR HEMOGLOBIN 31.6 pg (27.0-33.0); MEAN CORPUSCULAR HGB CONC 32.8 g/dl (32.0-36.5); MEAN CORPUSCULAR VOLUME 96.2 fl (80.0-96.0); MONO # 1.5 10^3/uL (0.0-0.8); MONO % 6.9 % (2.0-8.0); NEUTROPHILS # 18.8 10^3/uL (1.5-8.5); PLATELET COUNT, AUTOMATED 305 10^3/uL (150-450); RED BLOOD COUNT 3.99 10^6/uL (4.00-5.40); WHITE BLOOD COUNT 21.4 10^3/uL (4.0-10.0)
[2023-07-11 11:47] LABS: RSV AMPLIFICATION NEGATIVE (NEGATIVE)
[2023-07-11 12:05] LABS: ERYTHROCYTE SEDIMENTATION RATE 85 mm/hr (0-30)
[2023-07-11] MEDS ORDERED: MORPHINE 2 MG/ML 1ML VIAL IV PRN (13:15)
[2023-07-11] MEDS ORDERED: MED REC IN PROGRESS XX SCH (13:20)
[2023-07-11] MEDS: PERCOCET 5MG/325MG TAB PO PRN ×2 (13:26→21:41)
[2023-07-11] MEDS ORDERED: POTASSIUM CHLORIDE 10MEQ SR TABLET PO ONE (13:40)
[2023-07-11] MEDS ORDERED: LEXA1TAB PO (14:12)
[2023-07-11] MEDS ORDERED: VITA100065 PO (14:12)
[2023-07-11] MEDS ORDERED: HOME MED LIST COMPLETE! XX SCH (14:20)
[2023-07-11] MEDS: CIPRODEX OTIC SUSP 7.5ML AS SCH ×2 (15:10→22:47)
[2023-07-11 18:42] VITALS: BP 114/65; TEMP 98.8; O2SAT 98
[2023-07-11] MEDS: SIMVASTATIN 40 MG TAB PO SCH (21:33)
[2023-07-11] MEDS: ENOXAPARIN 100MG/1ML SYRINGE (J1650 PER 10MG) SC SCH (21:34)
[2023-07-11 23:25] VITALS: BP 102/57; TEMP 98.7; O2SAT 96
[2023-07-12 03:30] VITALS: BP 98/50; TEMP 98.2; O2SAT 96
[2023-07-12 07:41] LABS: HEMATOCRIT 34.6 % (36.0-47.0); HEMOGLOBIN 11.4 g/dl (12.0-15.5); MEAN CORPUSCULAR HEMOGLOBIN 31.8 pg (27.0-33.0); MEAN CORPUSCULAR HGB CONC 32.9 g/dl (32.0-36.5); MEAN CORPUSCULAR VOLUME 96.6 fl (80.0-96.0); PLATELET COUNT, AUTOMATED 259 10^3/uL (150-450); RED BLOOD COUNT 3.58 10^6/uL (4.00-5.40); WHITE BLOOD COUNT 19.9 10^3/uL (4.0-10.0)
[2023-07-12 08:32] VITALS: BP 106/70; TEMP 98.3; O2SAT 95
[2023-07-12 08:43] LABS: C REACTIVE PROTEIN QUANTITATIV 35.7 MG/DL (<1.0); CREATININE FOR GFR 1.53 MG/DL (0.55-1.30); GLOMERULAR FILTRATION RATE 34.7 (>32); POTASSIUM SERUM 4.5 MMOL/L (3.5-5.1)
[2023-07-12] MEDS ORDERED: METOPROLOL TART 25 MG TABLET PO SCH (09:00)
[2023-07-12] MEDS: ESCITALOPRAM OXALATE 10 MG TAB (LEXAPRO) PO SCH (10:00)
[2023-07-12] MEDS: PANTOPRAZOLE 40MG TAB (PROTONIX) PO SCH (10:00)
[2023-07-12] MEDS: VANCOMYCIN HCL 1,000 MG, VIAL MATE ADAPTER 1 EACH in D5W 250 ML IV SCH (10:00)
[2023-07-12] MEDS: ENOXAPARIN 100MG/1ML SYRINGE (J1650 PER 10MG) SC SCH ×2 (10:01→21:23)
[2023-07-12] MEDS: CYANOCOBALAMIN 500 MCG TAB PO SCH (10:01)
[2023-07-12] MEDS: CIPRODEX OTIC SUSP 7.5ML AS SCH ×2 (10:02→21:23)
[2023-07-12 12:58] VITALS: BP 114/55; TEMP 99.4; O2SAT 95
[2023-07-12] MEDS: TORSEMIDE 20 MG TAB PO SCH (13:32)
[2023-07-12] MEDS: PERCOCET 5MG/325MG TAB PO PRN (13:33)
[2023-07-12 16:00] VITALS: BP 98/56; TEMP 96.1; O2SAT 97
[2023-07-12] MEDS: METOPROLOL TART 25 MG TABLET PO SCH ×2 (16:00→21:16)
[2023-07-12 20:00] VITALS: BP 98/56; TEMP 99.1; O2SAT 97
[2023-07-12] MEDS: SIMVASTATIN 40 MG TAB PO SCH (21:23)
[2023-07-13] VITALS (7 sets, daily range): BP systolic 104–150; BP diastolic 59–82; TEMP 97.6–98.4; O2SAT 95–98
[2023-07-13] MEDS: METOPROLOL TART 25 MG TABLET PO SCH ×4 (03:08→21:16)
[2023-07-13 06:48] LABS: BASO % 0.2 % (0.0-1.0); EOS % 0.1 % (0.0-3.0); HEMATOCRIT 31.6 % (36.0-47.0); HEMOGLOBIN 10.6 g/dl (12.0-15.5); LYMPH # 0.7 10^3/uL (1.5-5.0); LYMPH % 3.7 % (24.0-44.0); MEAN CORPUSCULAR HGB CONC 33.5 g/dl (32.0-36.5); MEAN CORPUSCULAR VOLUME 95.5 fl (80.0-96.0); MONO % 8.9 % (2.0-8.0); NEUTROPHILS # 15.2 10^3/uL (1.5-8.5); NEUTROPHILS % 85.5 % (36.0-66.0); PLATELET COUNT, AUTOMATED 287 10^3/uL (150-450); RED BLOOD COUNT 3.31 10^6/uL (4.00-5.40); WHITE BLOOD COUNT 17.8 10^3/uL (4.0-10.0)
[2023-07-13 07:22] LABS: CALCIUM LEVEL 8.7 MG/DL (8.3-10.6); CREATININE FOR GFR 1.62 MG/DL (0.55-1.30); GLOMERULAR FILTRATION RATE 32.5 (>32); POTASSIUM SERUM 4.5 MMOL/L (3.5-5.1)
[2023-07-13 07:30] LABS: C REACTIVE PROTEIN QUANTITATIV 29.1 MG/DL (<1.0)
[2023-07-13 07:48] LABS: MONO # 1.6 10^3/uL (0.0-0.8)
[2023-07-13] MEDS: PERCOCET 5MG/325MG TAB PO PRN ×2 (08:23→21:17)
[2023-07-13] MEDS: VANCOMYCIN HCL 1,000 MG, VIAL MATE ADAPTER 1 EACH in D5W 250 ML IV SCH (08:23)
[2023-07-13] MEDS: TORSEMIDE 20 MG TAB PO SCH ×2 (08:34→10:55)
[2023-07-13] MEDS: ENOXAPARIN 100MG/1ML SYRINGE (J1650 PER 10MG) SC SCH (08:35)
[2023-07-13] MEDS: CYANOCOBALAMIN 500 MCG TAB PO SCH (08:37)
[2023-07-13] MEDS: PANTOPRAZOLE 40MG TAB (PROTONIX) PO SCH (08:37)
[2023-07-13] MEDS: ESCITALOPRAM OXALATE 10 MG TAB (LEXAPRO) PO SCH (08:37)
[2023-07-13] MEDS: CIPRODEX OTIC SUSP 7.5ML AS SCH ×2 (08:38→21:16)
[2023-07-13] MEDS ORDERED: FLUZONE HIGH DOSE(65YR UP)QUAD/PF 240MCG/0.7ML SYRINGE IM.IMMUN ONE (09:00)
[2023-07-13] MEDS ORDERED: PILL CUTTER 1 EACH XX ONE (10:24)
[2023-07-13 11:17] LABS: VANCOMYCIN RANDOM 17.8 UG/ML
[2023-07-13] MEDS: cefTRIAXone SOD 1 GM in D5W MINI-BAG PLUS 50 ML IV SCH (11:57)
[2023-07-13] MEDS: APIXABAN 2.5 MG TAB (ELIQUIS) PO SCH (21:16)
[2023-07-13] MEDS: SIMVASTATIN 40 MG TAB PO SCH (21:16)
[2023-07-13] MEDS ORDERED: ACETAMINOPHEN TAB 650MG DOSE (2X325MG) PO ONE (21:30)
[2023-07-14] VITALS (7 sets, daily range): BP systolic 110–154; BP diastolic 55–99; TEMP 96.8–98.1; O2SAT 95–98
[2023-07-14] MEDS: METOPROLOL TART 25 MG TABLET PO SCH ×4 (04:43→22:27)
[2023-07-14 07:08] LABS: BASO % 0.3 % (0.0-1.0); EOS # 0.1 10^3/uL (0.0-0.5); EOS % 0.4 % (0.0-3.0); LYMPH # 0.8 10^3/uL (1.5-5.0); LYMPH % 6.6 % (24.0-44.0); MEAN CORPUSCULAR HEMOGLOBIN 31.4 pg (27.0-33.0); MEAN CORPUSCULAR HGB CONC 33.3 g/dl (32.0-36.5); MEAN CORPUSCULAR VOLUME 94.3 fl (80.0-96.0); MONO # 1.2 10^3/uL (0.0-0.8); MONO % 10.3 % (2.0-8.0); NEUTROPHILS # 9.1 10^3/uL (1.5-8.5); NEUTROPHILS % 79.6 % (36.0-66.0); PLATELET COUNT, AUTOMATED 332 10^3/uL (150-450); WHITE BLOOD COUNT 11.4 10^3/uL (4.0-10.0)
[2023-07-14 07:28] LABS: C REACTIVE PROTEIN QUANTITATIV 22.9 MG/DL (<1.0)
[2023-07-14 07:34] LABS: CALCIUM LEVEL 9.2 MG/DL (8.3-10.6); CREATININE FOR GFR 1.3 MG/DL (0.55-1.30); GLOMERULAR FILTRATION RATE 41.9 (>32); POTASSIUM SERUM 4.5 MMOL/L (3.5-5.1)
[2023-07-14] MEDS: ESCITALOPRAM OXALATE 10 MG TAB (LEXAPRO) PO SCH (09:20)
[2023-07-14] MEDS: CIPRODEX OTIC SUSP 7.5ML AS SCH ×2 (09:20→20:30)
[2023-07-14] MEDS: PANTOPRAZOLE 40MG TAB (PROTONIX) PO SCH (09:20)
[2023-07-14] MEDS: APIXABAN 2.5 MG TAB (ELIQUIS) PO SCH ×2 (09:20→20:30)
[2023-07-14] MEDS: CYANOCOBALAMIN 500 MCG TAB PO SCH (09:20)
[2023-07-14] MEDS: PERCOCET 5MG/325MG TAB PO PRN ×3 (10:20→22:57)
[2023-07-14] MEDS: cefTRIAXone SOD 1 GM in D5W MINI-BAG PLUS 50 ML IV SCH (12:32)
[2023-07-14] MEDS: SIMVASTATIN 40 MG TAB PO SCH (20:30)
[2023-07-15 03:52] VITALS: BP 131/61; TEMP 97.8; O2SAT 97
[2023-07-15] MEDS: METOPROLOL TART 25 MG TABLET PO SCH (04:28)
[2023-07-15 05:25] LABS: BASO % 0.4 % (0.0-1.0); EOS # 0.1 10^3/uL (0.0-0.5); EOS % 0.5 % (0.0-3.0); HEMATOCRIT 30.2 % (36.0-47.0); HEMOGLOBIN 10.1 g/dl (12.0-15.5); LYMPH # 0.9 10^3/uL (1.5-5.0); LYMPH % 8.8 % (24.0-44.0); MEAN CORPUSCULAR HEMOGLOBIN 31.5 pg (27.0-33.0); MEAN CORPUSCULAR HGB CONC 33.4 g/dl (32.0-36.5); MEAN CORPUSCULAR VOLUME 94.1 fl (80.0-96.0); MONO # 1.3 10^3/uL (0.0-0.8); MONO % 13.3 % (2.0-8.0); NEUTROPHILS # 7.2 10^3/uL (1.5-8.5); NEUTROPHILS % 73.5 % (36.0-66.0); PLATELET COUNT, AUTOMATED 342 10^3/uL (150-450); RED BLOOD COUNT 3.21 10^6/uL (4.00-5.40); WHITE BLOOD COUNT 9.8 10^3/uL (4.0-10.0)
[2023-07-15 05:49] LABS: BLOOD UREA NITROGEN 47 MG/DL (9-23); CARBON DIOXIDE LEVEL 23 MMOL/L (20-31); CHLORIDE LEVEL 102 MMOL/L (98-107); CREATININE FOR GFR 0.92 MG/DL (0.55-1.30); GLOMERULAR FILTRATION RATE > 60.0 (>32); GLUCOSE, FASTING 85 MG/DL (74-106); POTASSIUM SERUM 4.6 MMOL/L (3.5-5.1); SODIUM LEVEL 133 MMOL/L (136-145)
[2023-07-15] MEDS: PERCOCET 5MG/325MG TAB PO PRN ×2 (07:56→16:53)
[2023-07-15] MEDS: PANTOPRAZOLE 40MG TAB (PROTONIX) PO SCH (07:56)
[2023-07-15] MEDS: APIXABAN 2.5 MG TAB (ELIQUIS) PO SCH (07:56)
[2023-07-15] MEDS: CYANOCOBALAMIN 500 MCG TAB PO SCH (07:56)
[2023-07-15] MEDS: ESCITALOPRAM OXALATE 10 MG TAB (LEXAPRO) PO SCH (07:56)
[2023-07-15] MEDS: CIPRODEX OTIC SUSP 7.5ML AS SCH ×2 (07:57→20:17)
[2023-07-15 08:26] VITALS: BP 169/78; TEMP 97.2; O2SAT 96
[2023-07-15] MEDS: METOPROLOL TART 50 MG TAB PO SCH ×2 (10:29→20:18)
[2023-07-15 12:00] VITALS: BP 132/68; TEMP 97.3; O2SAT 98
[2023-07-15] MEDS: TORSEMIDE 10 MG TABLET PO SCH (13:17)
[2023-07-15] MEDS: cefTRIAXone SOD 1 GM in D5W MINI-BAG PLUS 50 ML IV SCH (13:17)
[2023-07-15 15:29] VITALS: BP 136/61; TEMP 97; O2SAT 98
[2023-07-15 20:15] VITALS: BP 135/65; TEMP 98.4; O2SAT 98
[2023-07-15] MEDS: APIXABAN 5 MG TAB (ELIQUIS) PO SCH (20:18)
[2023-07-15] MEDS: SIMVASTATIN 40 MG TAB PO SCH (20:18)
[2023-07-16 03:47] VITALS: BP 110/55; TEMP 98.4; O2SAT 96
[2023-07-16 08:11] VITALS: BP 133/92; TEMP 98.5; O2SAT 97
[2023-07-16] MEDS: PANTOPRAZOLE 40MG TAB (PROTONIX) PO SCH (08:46)
[2023-07-16] MEDS: ESCITALOPRAM OXALATE 10 MG TAB (LEXAPRO) PO SCH (08:46)
[2023-07-16] MEDS: METOPROLOL TART 50 MG TAB PO SCH ×2 (08:47→22:02)
[2023-07-16] MEDS: TORSEMIDE 10 MG TABLET PO SCH (08:47)
[2023-07-16] MEDS: APIXABAN 5 MG TAB (ELIQUIS) PO SCH ×2 (08:47→22:02)
[2023-07-16] MEDS: CYANOCOBALAMIN 500 MCG TAB PO SCH (08:47)
[2023-07-16] MEDS: CIPRODEX OTIC SUSP 7.5ML AS SCH ×2 (08:47→22:02)
[2023-07-16 10:23] LABS: BASO % 0.3 % (0.0-1.0); EOS % 0.1 % (0.0-3.0); HEMATOCRIT 32.2 % (36.0-47.0); HEMOGLOBIN 10.8 g/dl (12.0-15.5); LYMPH # 0.6 10^3/uL (1.5-5.0); LYMPH % 4.2 % (24.0-44.0); MEAN CORPUSCULAR HEMOGLOBIN 31.9 pg (27.0-33.0); MEAN CORPUSCULAR HGB CONC 33.5 g/dl (32.0-36.5); MONO # 1.3 10^3/uL (0.0-0.8); MONO % 9.9 % (2.0-8.0); NEUTROPHILS # 11.2 10^3/uL (1.5-8.5); NEUTROPHILS % 83.2 % (36.0-66.0); PLATELET COUNT, AUTOMATED 404 10^3/uL (150-450); RED BLOOD COUNT 3.39 10^6/uL (4.00-5.40); WHITE BLOOD COUNT 13.5 10^3/uL (4.0-10.0)
[2023-07-16 10:59] LABS: BLOOD UREA NITROGEN 35 MG/DL (9-23); CALCIUM LEVEL 8.8 MG/DL (8.3-10.6); CARBON DIOXIDE LEVEL 21 MMOL/L (20-31); CHLORIDE LEVEL 102 MMOL/L (98-107); CREATININE FOR GFR 0.78 MG/DL (0.55-1.30); GLOMERULAR FILTRATION RATE > 60.0 (>32); GLUCOSE, FASTING 114 MG/DL (74-106); POTASSIUM SERUM 5.2 MMOL/L (3.5-5.1); SODIUM LEVEL 134 MMOL/L (136-145)
[2023-07-16] MEDS: PERCOCET 5MG/325MG TAB PO PRN ×2 (12:27→19:00)
[2023-07-16] MEDS: cefTRIAXone SOD 1 GM in D5W MINI-BAG PLUS 50 ML IV SCH (12:27)
[2023-07-16 18:54] VITALS: BP 122/59; TEMP 97.5; O2SAT 96
[2023-07-16 20:20] VITALS: BP 133/93; TEMP 97.7; O2SAT 97
[2023-07-16] MEDS: SIMVASTATIN 40 MG TAB PO SCH (22:02)
[2023-07-17 05:48] LABS: BASO % 0.3 % (0.0-1.0); EOS % 0.2 % (0.0-3.0); HEMATOCRIT 31.1 % (36.0-47.0); HEMOGLOBIN 10.2 g/dl (12.0-15.5); LYMPH # 0.8 10^3/uL (1.5-5.0); LYMPH % 6.8 % (24.0-44.0); MEAN CORPUSCULAR HEMOGLOBIN 31.2 pg (27.0-33.0); MEAN CORPUSCULAR HGB CONC 32.8 g/dl (32.0-36.5); MEAN CORPUSCULAR VOLUME 95.1 fl (80.0-96.0); MONO # 1.4 10^3/uL (0.0-0.8); MONO % 11.2 % (2.0-8.0); NEUTROPHILS # 9.7 10^3/uL (1.5-8.5); PLATELET COUNT, AUTOMATED 425 10^3/uL (150-450); RED BLOOD COUNT 3.27 10^6/uL (4.00-5.40); WHITE BLOOD COUNT 12.4 10^3/uL (4.0-10.0)
[2023-07-17 06:00] VITALS: BP 144/79; TEMP 97.3; O2SAT 93
[2023-07-17 06:22] LABS: BLOOD UREA NITROGEN 33 MG/DL (9-23); CALCIUM LEVEL 9.1 MG/DL (8.3-10.6); CARBON DIOXIDE LEVEL 24 MMOL/L (20-31); CHLORIDE LEVEL 101 MMOL/L (98-107); CREATININE FOR GFR 0.81 MG/DL (0.55-1.30); GLOMERULAR FILTRATION RATE > 60.0 (>32); GLUCOSE, FASTING 85 MG/DL (74-106); POTASSIUM SERUM 4.9 MMOL/L (3.5-5.1); SODIUM LEVEL 134 MMOL/L (136-145)
[2023-07-17] MEDS: PANTOPRAZOLE 40MG TAB (PROTONIX) PO SCH (09:21)
[2023-07-17] MEDS: CIPRODEX OTIC SUSP 7.5ML AS SCH ×2 (09:22→20:05)
[2023-07-17] MEDS: APIXABAN 5 MG TAB (ELIQUIS) PO SCH ×2 (09:22→20:05)
[2023-07-17] MEDS: CYANOCOBALAMIN 500 MCG TAB PO SCH (09:22)
[2023-07-17] MEDS: ESCITALOPRAM OXALATE 10 MG TAB (LEXAPRO) PO SCH (09:22)
[2023-07-17] MEDS: METOPROLOL TART 50 MG TAB PO SCH ×2 (09:22→20:07)
[2023-07-17] MEDS: TORSEMIDE 10 MG TABLET PO SCH (09:22)
[2023-07-17] MEDS: PERCOCET 5MG/325MG TAB PO PRN ×2 (09:27→20:10)
[2023-07-17] MEDS: cefTRIAXone SOD 1 GM in D5W MINI-BAG PLUS 50 ML IV SCH (12:32)
[2023-07-17 14:00] VITALS: BP 143/80; TEMP 97.5; O2SAT 96
[2023-07-17] MEDS: SIMVASTATIN 40 MG TAB PO SCH (20:05)
[2023-07-17 20:39] VITALS: BP 104/59; TEMP 97.7; O2SAT 98
[2023-07-18 05:50] LABS: BASO # 0.1 10^3/uL (0.0-0.2); BASO % 0.7 % (0.0-1.0); EOS % 0.1 % (0.0-3.0); HEMATOCRIT 31.2 % (36.0-47.0); HEMOGLOBIN 10.2 g/dl (12.0-15.5); LYMPH % 8.4 % (24.0-44.0); MEAN CORPUSCULAR HEMOGLOBIN 31.1 pg (27.0-33.0); MEAN CORPUSCULAR HGB CONC 32.7 g/dl (32.0-36.5); MEAN CORPUSCULAR VOLUME 95.1 fl (80.0-96.0); MONO # 1.1 10^3/uL (0.0-0.8); MONO % 9.8 % (2.0-8.0); NEUTROPHILS # 8.9 10^3/uL (1.5-8.5); NEUTROPHILS % 77.5 % (36.0-66.0); PLATELET COUNT, AUTOMATED 478 10^3/uL (150-450); RED BLOOD COUNT 3.28 10^6/uL (4.00-5.40); WHITE BLOOD COUNT 11.5 10^3/uL (4.0-10.0)
[2023-07-18 06:00] VITALS: BP 134/78; TEMP 97.6; O2SAT 96
[2023-07-18] MEDS: APIXABAN 5 MG TAB (ELIQUIS) PO SCH ×2 (08:30→21:06)
[2023-07-18] MEDS: TORSEMIDE 10 MG TABLET PO SCH (08:30)
[2023-07-18] MEDS: ESCITALOPRAM OXALATE 10 MG TAB (LEXAPRO) PO SCH (08:30)
[2023-07-18 08:31] LABS: BLOOD UREA NITROGEN 28 MG/DL (9-23); CALCIUM LEVEL 8.7 MG/DL (8.3-10.6); CARBON DIOXIDE LEVEL 24 MMOL/L (20-31); CHLORIDE LEVEL 102 MMOL/L (98-107); CREATININE FOR GFR 0.73 MG/DL (0.55-1.30); GLOMERULAR FILTRATION RATE > 60.0 (>32); GLUCOSE, FASTING 92 MG/DL (74-106); POTASSIUM SERUM 4.9 MMOL/L (3.5-5.1); SODIUM LEVEL 135 MMOL/L (136-145)
[2023-07-18] MEDS: CYANOCOBALAMIN 500 MCG TAB PO SCH (08:31)
[2023-07-18] MEDS: METOPROLOL TART 50 MG TAB PO SCH ×2 (08:31→21:08)
[2023-07-18] MEDS: PANTOPRAZOLE 40MG TAB (PROTONIX) PO SCH (08:31)
[2023-07-18] MEDS: CIPRODEX OTIC SUSP 7.5ML AS SCH (08:33)
[2023-07-18] MEDS ORDERED: BACI1TAB20 PO (08:34)
[2023-07-18] MEDS ORDERED: CIPR7.5D2 AS (08:34)
[2023-07-18] MEDS ORDERED: CEPH750C PO (08:34)
[2023-07-18] MEDS ORDERED: OXYC1TAB23 PO (08:34)
[2023-07-18 08:50] LABS: PROCALCITONIN 0.07 ng/ml
[2023-07-18] MEDS: PERCOCET 5MG/325MG TAB PO PRN ×3 (09:44→21:19)
[2023-07-18] MEDS: cefTRIAXone SOD 1 GM in D5W MINI-BAG PLUS 50 ML IV SCH (11:32)
[2023-07-18 14:00] VITALS: BP 152/83; TEMP 96.8; O2SAT 97
[2023-07-18] MEDS: CEPHALEXIN 500 MG CAP PO SCH (21:06)
[2023-07-18] MEDS: SIMVASTATIN 40 MG TAB PO SCH (21:06)
[2023-07-18 21:08] VITALS: BP 152/82
[2023-07-19 04:52] VITALS: BP 144/80; TEMP 97; O2SAT 98
[2023-07-19] MEDS: PERCOCET 5MG/325MG TAB PO PRN ×2 (05:16→14:53)
[2023-07-19 06:08] LABS: BASO # 0.1 10^3/uL (0.0-0.2); BASO % 0.7 % (0.0-1.0); EOS % 0.2 % (0.0-3.0); HEMATOCRIT 33.2 % (36.0-47.0); HEMOGLOBIN 10.6 g/dl (12.0-15.5); LYMPH # 0.8 10^3/uL (1.5-5.0); LYMPH % 8.7 % (24.0-44.0); MEAN CORPUSCULAR HEMOGLOBIN 30.9 pg (27.0-33.0); MEAN CORPUSCULAR HGB CONC 31.9 g/dl (32.0-36.5); MEAN CORPUSCULAR VOLUME 96.8 fl (80.0-96.0); MONO # 0.9 10^3/uL (0.0-0.8); MONO % 9.8 % (2.0-8.0); NEUTROPHILS # 7.3 10^3/uL (1.5-8.5); NEUTROPHILS % 78.6 % (36.0-66.0); PLATELET COUNT, AUTOMATED 480 10^3/uL (150-450); RED BLOOD COUNT 3.43 10^6/uL (4.00-5.40); WHITE BLOOD COUNT 9.4 10^3/uL (4.0-10.0)
[2023-07-19 06:38] LABS: BLOOD UREA NITROGEN 23 MG/DL (9-23); CARBON DIOXIDE LEVEL 26 MMOL/L (20-31); CHLORIDE LEVEL 102 MMOL/L (98-107); CREATININE FOR GFR 0.73 MG/DL (0.55-1.30); GLOMERULAR FILTRATION RATE > 60.0 (>32); GLUCOSE, FASTING 92 MG/DL (74-106); POTASSIUM SERUM 4.7 MMOL/L (3.5-5.1); SODIUM LEVEL 132 MMOL/L (136-145)
[2023-07-19 06:49] LABS: PROCALCITONIN <0.04 ng/ml
[2023-07-19] MEDS: TORSEMIDE 10 MG TABLET PO SCH (09:46)
[2023-07-19] MEDS: METOPROLOL TART 50 MG TAB PO SCH (09:46)
[2023-07-19] MEDS: APIXABAN 5 MG TAB (ELIQUIS) PO SCH (09:46)
[2023-07-19] MEDS: ESCITALOPRAM OXALATE 10 MG TAB (LEXAPRO) PO SCH (09:46)
[2023-07-19] MEDS: PANTOPRAZOLE 40MG TAB (PROTONIX) PO SCH (09:46)
[2023-07-19] MEDS: CEPHALEXIN 500 MG CAP PO SCH (09:46)
[2023-07-19] MEDS: CYANOCOBALAMIN 500 MCG TAB PO SCH (09:46)
== END 2023-07-19 16:00 | disposition home health service (06) | DRG 872 ==
LOC: M ED 10:30 → EDBD 10:30 → M ED INP 13:08 → ENRESERV 16:44 → M PCU 18:28 → M MSPAV 07-16 18:31
PROVIDERS: ADMIT Internal Medicine; ATTEND Internal Medicine
PROC: 0HDNXZZ Extraction of Left Foot Skin, External Approach (ICD-10-PCS; principal; 2023-07-11)
DX: A41.9 Sepsis, unspecified organism (principal); I50.32 Chronic diastolic (congestive) heart failure; I13.0 Hypertensive heart and chronic kidney disease with heart failure and stage 1 through stage 4 chronic kidney disease, or unspecified chronic kidney disease; L03.116 Cellulitis of left lower limb; N17.9 Acute kidney failure, unspecified; I48.19 Other persistent atrial fibrillation; E87.1 Hypo-osmolality and hyponatremia; L97.529 Non-pressure chronic ulcer of other part of left foot with unspecified severity; D64.9 Anemia, unspecified; I27.20 Pulmonary hypertension, unspecified; N18.30 Chronic kidney disease, stage 3 unspecified; E78.5 Hyperlipidemia, unspecified; R33.9 Retention of urine, unspecified; G47.33 Obstructive sleep apnea (adult) (pediatric); M19.90 Unspecified osteoarthritis, unspecified site; Z96.641 Presence of right artificial hip joint; H60.92 Unspecified otitis externa, left ear; E87.6 Hypokalemia; K21.9 Gastro-esophageal reflux disease without esophagitis; Z66 Do not resuscitate; Z86.73 Personal history of transient ischemic attack (TIA), and cerebral infarction without residual deficits; Z79.01 Long term (current) use of anticoagulants; Z79.899 Other long term (current) drug therapy; Z91.040 Latex allergy status; Z20.822 Contact with and (suspected) exposure to COVID-19; S91.115A Laceration without foreign body of left lesser toe(s) without damage to nail, initial encounter; V00.818A Other accident with wheelchair (powered), initial encounter; Y92.009 Unspecified place in unspecified non-institutional (private) residence as the place of occurrence of the external cause

== ENCOUNTER → 2024-03-05 | Outpatient (CLI) | payer MEDICARE, MEDICAID ==
[~2024-03-05] MED LIST changes: +BACI1TAB20 PO; +CEPH750C PO; +CIPR7.5D2 AS; +LEXA1TAB PO; +OXYC1TAB23 PO; +VITA100065 PO
[2024-03-05 16:17] LABS: ALBUMIN 3.9 G/DL (3.2-5.2); ALKALINE PHOSPHATASE 142 U/L (46-116); ALT/SGPT < 9 U/L (7.0-40); AST/SGOT 15 U/L (<34); BILIRUBIN,TOTAL 0.5 MG/DL (0.3-1.2); BLOOD UREA NITROGEN 23 MG/DL (9-23); CALCIUM LEVEL 9.4 MG/DL (8.3-10.6); CARBON DIOXIDE LEVEL 29 MMOL/L (20-31); CHLORIDE LEVEL 95 MMOL/L (98-107); CHOLESTEROL LEVEL 182 MG/DL (<200); CHOLESTEROL RISK RATIO 2.25 (<5); CREATININE FOR GFR 0.87 MG/DL (0.55-1.30); GLOMERULAR FILTRATION RATE > 60.0 (>32); GLUCOSE, FASTING 87 MG/DL (74-106); HDL CHOLESTEROL 80.6 MG/DL (>40); LDL CHOLESTEROL 84.4 MG/DL (<100); NON-HDL-C 101.4 MG/DL; POTASSIUM SERUM 4.5 MMOL/L (3.5-5.1); SODIUM LEVEL 129 MMOL/L (136-145); TRIGLYCERIDES LEVEL 85 MG/DL (<150)
[2024-03-05 16:20] LABS: FERRITIN 533.6 NG/ML (7.3-270.7)
[2024-03-05 16:21] LABS: FREE T4 1.09 NG/DL (0.89-1.76)
[2024-03-05 17:03] LABS: THYROID STIMULATING HORMONE 1.806 uIU/ML (0.55-4.78)
== END ==
LOC: M PLALAB 12:29
PROVIDERS: ATTEND Nurse Practitioner Adult Health
DX: E78.2 Mixed hyperlipidemia (principal); I10 Essential (primary) hypertension; I48.20 Chronic atrial fibrillation, unspecified; D50.9 Iron deficiency anemia, unspecified; E11.9 Type 2 diabetes mellitus without complications; R09.89 Other specified symptoms and signs involving the circulatory and respiratory systems

== ENCOUNTER 2024-10-10 20:59 | Inpatient (IN) | payer MEDICAID, MEDICARE, OTHER ==
[~2024-10-10] VITALS: Ht 167.6 cm; Wt 76.1 kg
[2024-10-10] MEDS: ACETAMINOPHEN *IV* 1,000 MG in IV 1 EA IV ONE (22:00)
[2024-10-10] MEDS: MORPHINE 2 MG/ML 1ML VIAL IV ONE (22:00)
[2024-10-10] MEDS: ONDANSETRON 4MG 2ML VIAL IV ONE (22:02)
[2024-10-10 22:27] LABS: BASO % 0.2 % (0.0-1.0); HEMOGLOBIN 12.5 g/dl (12.0-15.5); LYMPH # 0.5 10^3/uL (1.5-5.0); LYMPH % 5.3 % (24.0-44.0); MEAN CORPUSCULAR HGB CONC 33.8 g/dl (32.0-36.5); MEAN CORPUSCULAR VOLUME 94.6 fl (80.0-96.0); MONO # 0.7 10^3/uL (0.0-0.8); MONO % 7.6 % (2.0-8.0); NEUTROPHILS # 8.4 10^3/uL (1.5-8.5); NEUTROPHILS % 86.7 % (36.0-66.0); PLATELET COUNT, AUTOMATED 235 10^3/uL (150-450); RED BLOOD COUNT 3.91 10^6/uL (4.00-5.40); WHITE BLOOD COUNT 9.7 10^3/uL (4.0-10.0)
[2024-10-10 23:01] LABS: BLOOD UREA NITROGEN 22 MG/DL (9-23); CALCIUM LEVEL 9.5 MG/DL (8.3-10.6); CARBON DIOXIDE LEVEL 24 MMOL/L (20-31); CHLORIDE LEVEL 100 MMOL/L (98-107); CPK CREATINE PHOSPHOKINASE 67 U/L (34-145); CREATININE FOR GFR 0.63 MG/DL (0.55-1.30); GLOMERULAR FILTRATION RATE > 60.0 (>32); GLUCOSE, FASTING 123 MG/DL (74-106); MAGNESIUM LEVEL 1.7 MG/DL (1.8-2.4); POTASSIUM SERUM 4.2 MMOL/L (3.5-5.1); SODIUM LEVEL 134 MMOL/L (136-145)
[2024-10-11] VITALS (12 sets, daily range): BP systolic 116–169; BP diastolic 64–91; TEMP 97.3–98.2; O2SAT 91–97
[2024-10-11] MEDS: propofoL 200 MG/20 ML VIAL IV.PROC PRN (00:43)
[2024-10-11] MEDS: NS (Normal Saline) 0.9% 1,000 ML IV SCH (00:43)
[2024-10-11] MEDS: PERCOCET 5MG/325MG TAB PO ONE (00:50)
[2024-10-11] MEDS: MAG SULF 1GM/100ML (MAG RUN) 1 GM in IV 1 EA IV ONE (00:50)
[2024-10-11] MEDS: SIMVASTATIN 40 MG TAB PO ONE (00:50)
[2024-10-11] MEDS: ENTRESTO 24-26MG TABLET (SACUBITRIL/VALSARTAN) PO ONE (00:58)
[2024-10-11] MEDS ORDERED: MAG SULF 1GM/100ML (MAG RUN) 1 GM in IV 1 EA IV ONE (01:10)
[2024-10-11] MEDS ORDERED: ESOM1CAP20 PO (01:34)
[2024-10-11] MEDS ORDERED: SODI1TAB6 PO (01:34)
[2024-10-11] MEDS ORDERED: AMLO2.5T3 PO (01:34)
[2024-10-11] MEDS ORDERED: ALBU8.5H INH (01:34)
[2024-10-11] MEDS ORDERED: HOME MED LIST COMPLETE! XX SCH (01:35)
[2024-10-11] MEDS: MORPHINE 2 MG/ML 1ML VIAL IV PRN (04:07)
[2024-10-11 06:07] LABS: HEMATOCRIT 36.7 % (36.0-47.0); HEMOGLOBIN 12.3 g/dl (12.0-15.5); MEAN CORPUSCULAR HEMOGLOBIN 32.1 pg (27.0-33.0); MEAN CORPUSCULAR HGB CONC 33.5 g/dl (32.0-36.5); MEAN CORPUSCULAR VOLUME 95.8 fl (80.0-96.0); PLATELET COUNT, AUTOMATED 210 10^3/uL (150-450); RED BLOOD COUNT 3.83 10^6/uL (4.00-5.40); WHITE BLOOD COUNT 8.6 10^3/uL (4.0-10.0)
[2024-10-11 06:31] LABS: ALBUMIN 3.5 G/DL (3.2-5.2); ALKALINE PHOSPHATASE 112 U/L (35-104); ALT/SGPT 13 U/L (7.0-40); AST/SGOT 19 U/L (<34); BILIRUBIN,TOTAL 0.6 MG/DL (0.3-1.2); BLOOD UREA NITROGEN 20 MG/DL (9-23); CALCIUM LEVEL 9.3 MG/DL (8.3-10.6); CARBON DIOXIDE LEVEL 23 MMOL/L (20-31); CHLORIDE LEVEL 103 MMOL/L (98-107); GLOMERULAR FILTRATION RATE > 60.0 (>32); GLUCOSE, FASTING 119 MG/DL (74-106); POTASSIUM SERUM 4.5 MMOL/L (3.5-5.1); SODIUM LEVEL 137 MMOL/L (136-145); TOTAL PROTEIN 6.5 G/DL (5.7-8.2)
[2024-10-11] MEDS: ENTRESTO 24-26MG TABLET (SACUBITRIL/VALSARTAN) PO SCH (09:00)
[2024-10-11] MEDS: ESCITALOPRAM OXALATE 10 MG TAB (LEXAPRO) PO SCH (09:00)
[2024-10-11] MEDS: oxyCODONE 5MG TAB PO PRN (13:07)
[2024-10-11] MEDS ORDERED: propofoL 200 MG/20 ML VIAL As Ordered ONE (13:38)
[2024-10-11] MEDS ORDERED: MIDAZOLAM INJ 2MG/2ML VIAL As Ordered ONE (13:39)
[2024-10-11] MEDS ORDERED: fentaNYL 100 MCG/2 ML INJECTION As Ordered ONE (13:39)
[2024-10-11] MEDS: MOM 30ML SUSPENSION UDC PO PRN (14:30)
[2024-10-11] MEDS: METOPROLOL SUCC (TopROL XL) 100MG *XL* TAB PO SCH (14:44)
[2024-10-11] MEDS: NYSTATIN 100,000 UNITS/GM TOPICAL PWD 15GM TOP SCH (21:21)
[2024-10-11] MEDS: SIMVASTATIN 40 MG TAB PO SCH (21:23)
[2024-10-11] MEDS: ACETAMINOPHEN 325 MG TAB PO PRN (22:47)
[2024-10-12 03:00] VITALS: BP 148/73; TEMP 97.3; O2SAT 96
[2024-10-12 08:00] VITALS: BP 145/123; TEMP 97.7; O2SAT 97
[2024-10-12 12:00] VITALS: BP 149/84; TEMP 97.9; O2SAT 96
[2024-10-12] MEDS: traMADol 50 MG TAB PO PRN (12:04)
[2024-10-12] MEDS: NAPROXEN 250 MG TAB PO PRN (14:35)
[2024-10-12 19:33] VITALS: BP 140/72; TEMP 97.7; O2SAT 99
[2024-10-13 03:51] VITALS: BP 145/77; TEMP 97.3; O2SAT 96
[2024-10-13 12:00] VITALS: BP 158/68; TEMP 97.5; O2SAT 95
[2024-10-13 19:24] VITALS: BP 156/68; TEMP 96.8; O2SAT 96
[2024-10-13] MEDS: SENOKOT S TAB PO SCH (20:09)
[2024-10-14 03:52] VITALS: BP 142/72; TEMP 97.5; O2SAT 96
[2024-10-14 12:00] VITALS: BP 141/85; TEMP 97; O2SAT 96
[2024-10-14 19:53] VITALS: BP 150/89; TEMP 97.7; O2SAT 98
[2024-10-14] MEDS: RAMELTEON 8 MG TAB (ROZEREM) PO PRN (21:23)
[2024-10-15 04:12] VITALS: BP 144/72; TEMP 97.5; O2SAT 100
[2024-10-15 09:57] VITALS: BP 144/72
[2024-10-15] MEDS ORDERED: ASPI81CH33 PO (10:48)
[2024-10-15] MEDS ORDERED: IBUP-1022 PO (10:49)
[2024-10-15] MEDS ORDERED: TRAM50TA2 PO (10:56)
== END 2024-10-15 14:00 | disposition home health service (06) | DRG 560 ==
LOC: M ED 20:59 → EDBD 20:59 → EEVIPCON 10-11 01:08 → M ED INP 10-11 01:08 → M MS5PR 10-11 02:45
PROVIDERS: ADMIT Internal Medicine; ATTEND Student in an Organized Health Care Education/Training Program
PROC: 0SS9XZZ Reposition Right Hip Joint, External Approach (ICD-10-PCS; principal; 2024-10-11 10:00)
DX: T84.020A Dislocation of internal right hip prosthesis, initial encounter (principal); I50.32 Chronic diastolic (congestive) heart failure; I13.0 Hypertensive heart and chronic kidney disease with heart failure and stage 1 through stage 4 chronic kidney disease, or unspecified chronic kidney disease; I48.91 Unspecified atrial fibrillation; I27.20 Pulmonary hypertension, unspecified; N18.30 Chronic kidney disease, stage 3 unspecified; E78.5 Hyperlipidemia, unspecified; G47.33 Obstructive sleep apnea (adult) (pediatric); M19.90 Unspecified osteoarthritis, unspecified site; Z96.651 Presence of right artificial knee joint; Z66 Do not resuscitate; Z79.899 Other long term (current) drug therapy; Z91.040 Latex allergy status; Z86.73 Personal history of transient ischemic attack (TIA), and cerebral infarction without residual deficits

== ENCOUNTER → 2024-11-27 | Outpatient (CLI) | payer MEDICARE ==
[~2024-11-27] MED LIST changes: +ALBU8.5H INH; +AMLO2.5T3 PO; +ESOM1CAP20 PO; +IBUP-1022 PO; +SODI1TAB6 PO; +TRAM50TA2 PO
== END ==
LOC: M SOG 07:53
PROVIDERS: ATTEND Physician Assistant
DX: Z96.641 Presence of right artificial hip joint (principal); M16.12 Unilateral primary osteoarthritis, left hip

== ENCOUNTER → 2024-12-04 | Outpatient (CLI) | payer MEDICARE, MEDICAID ==
[2024-12-04 18:09] LABS: HEMATOCRIT 36.1 % (36.0-47.0); HEMOGLOBIN 12.2 g/dl (12.0-15.5); MEAN CORPUSCULAR HEMOGLOBIN 31.7 pg (27.0-33.0); MEAN CORPUSCULAR HGB CONC 33.8 g/dl (32.0-36.5); MEAN CORPUSCULAR VOLUME 93.8 fl (80.0-96.0); PLATELET COUNT, AUTOMATED 266 10^3/uL (150-450); RED BLOOD COUNT 3.85 10^6/uL (4.00-5.40); WHITE BLOOD COUNT 5.5 10^3/uL (4.0-10.0)
[2024-12-04 18:53] LABS: ALBUMIN 3.7 G/DL (3.2-5.2); BILIRUBIN,TOTAL 0.3 MG/DL (0.3-1.2); CALCIUM LEVEL 9.4 MG/DL (8.3-10.6); CREATININE FOR GFR 1.02 MG/DL (0.55-1.30); FERRITIN 746.7 NG/ML (7.3-270.7); GLOMERULAR FILTRATION RATE 54.9 (>32); POTASSIUM SERUM 4.8 MMOL/L (3.5-5.1)
== END ==
LOC: M PLALAB 15:05
PROVIDERS: ATTEND Nurse Practitioner Adult Health
DX: I48.20 Chronic atrial fibrillation, unspecified (principal); I10 Essential (primary) hypertension; D50.9 Iron deficiency anemia, unspecified

== ENCOUNTER 2025-02-05 10:21 | Observation (INO) | payer MEDICAID, MEDICARE, OTHER ==
[~2025-02-05] VITALS: Ht 167.6 cm; Wt 74.1 kg
[~2025-02-05 10:21] MED LIST changes: +METOPROLOL SUCC. 100 MG *XL* TAB PO SCH
[2025-02-05] MEDS: MORPHINE 4 MG/ML 1 ML VIAL IV PRN (11:37)
[2025-02-05 11:47] LABS: PLATELET COUNT, AUTOMATED 239 10^3/uL (150-450)
[2025-02-05] MEDS: ONDANSETRON 4MG 2ML VIAL IV ONE (12:08)
[2025-02-05 12:10] LABS: CALCIUM LEVEL 9.9 MG/DL (8.3-10.6); CARBON DIOXIDE LEVEL 24.0 MMOL/L (20-31); CHLORIDE LEVEL 98.0 MMOL/L (98-107); CREATININE FOR GFR 1.08 MG/DL (0.55-1.30); GLOMERULAR FILTRATION RATE 51.3 (>32); POTASSIUM SERUM 4.3 MMOL/L (3.5-5.1); SODIUM LEVEL 134.0 MMOL/L (136-145)
[2025-02-05] MEDS ORDERED: MORPHINE 4 MG/ML 1 ML VIAL IV PRN (12:45)
[2025-02-05] MEDS ORDERED: amLODIPine 5 MG TAB PO ONE (12:45)
[2025-02-05] MEDS ORDERED: LIDOCAINE 2% 100 MG/5 ML SDV (FOR ANES.) As Ordered ONE (13:24)
[2025-02-05] MEDS ORDERED: HOME MED LIST COMPLETE! XX SCH (13:30)
[2025-02-05] MEDS ORDERED: PERCOCET 5MG/325MG TAB PO ONE (15:05)
[2025-02-05] MEDS ORDERED: METOPROLOL SUCC. 100 MG *XL* TAB PO SCH (15:05)
[2025-02-05 15:25] VITALS: BP 150/74
[2025-02-05] MEDS: METOPROLOL SUCC. 100 MG *XL* TAB PO ONE (15:25)
[2025-02-05] MEDS: ENTRESTO 24-26 MG TABLET (SACUBITRIL/VALSARTAN) PO SCH (15:25)
[2025-02-05 16:22] VITALS: BP 138/72; TEMP 97.7; O2SAT 97
== END 2025-02-05 16:38 | disposition home or self-care (01) ==
LOC: EDBD 10:21 → M ED 10:21 → INTOOBSV 12:43 → M ED INP 12:43
PROVIDERS: ADMIT General Practice; ATTEND General Practice
DX: T84.020A Dislocation of internal right hip prosthesis, initial encounter (principal); M24.451 Recurrent dislocation, right hip; Y79.2 Prosthetic and other implants, materials and accessory orthopedic devices associated with adverse incidents; Y92.003 Bedroom of unspecified non-institutional (private) residence as the place of occurrence of the external cause; I48.91 Unspecified atrial fibrillation; G47.33 Obstructive sleep apnea (adult) (pediatric); I13.0 Hypertensive heart and chronic kidney disease with heart failure and stage 1 through stage 4 chronic kidney disease, or unspecified chronic kidney disease; I50.32 Chronic diastolic (congestive) heart failure; N18.30 Chronic kidney disease, stage 3 unspecified; Z86.73 Personal history of transient ischemic attack (TIA), and cerebral infarction without residual deficits; E78.5 Hyperlipidemia, unspecified; M19.90 Unspecified osteoarthritis, unspecified site; Z87.81 Personal history of (healed) traumatic fracture; Z80.0 Family history of malignant neoplasm of digestive organs; Z91.040 Latex allergy status; Z79.899 Other long term (current) drug therapy; Z66 Do not resuscitate
CPT/HCPCS: 27266; 71045; 72170; 73502; 80048; 85027; 93005; 96374; 96375; 99284; G0378; J2405

== ENCOUNTER 2025-02-16 12:27 | Inpatient (IN) | payer MEDICARE ==
[~2025-02-16] VITALS: Ht 167.6 cm; Wt 78.1 kg
[~2025-02-16 12:27] MED LIST changes: -METOPROLOL SUCC. 100 MG *XL* TAB PO SCH
[2025-02-16] MEDS: MORPHINE 2 MG/ML 1 ML VIAL IV PRN (13:32)
[2025-02-16] MEDS: ONDANSETRON 4MG 2ML VIAL IV ONE (13:40)
[2025-02-16 14:12] LABS: PLATELET COUNT, AUTOMATED 308 10^3/uL (150-450)
[2025-02-16 14:31] LABS: CALCIUM LEVEL 9.1 MG/DL (8.3-10.6); CARBON DIOXIDE LEVEL 22.0 MMOL/L (20-31); CHLORIDE LEVEL 103.0 MMOL/L (98-107); CREATININE FOR GFR 1.01 MG/DL (0.55-1.30); GLOMERULAR FILTRATION RATE 55.6 (>32); POTASSIUM SERUM 6.1 MMOL/L (3.5-5.1); SODIUM LEVEL 138.0 MMOL/L (136-145)
[2025-02-16] MEDS ORDERED: HOME MED LIST COMPLETE! XX SCH (14:45)
[2025-02-16] MEDS ORDERED: ACETAMINOPHEN 325 MG TAB PO PRN (15:20)
[2025-02-16] MEDS ORDERED: MAALOX 30 ML SUSP *UDC PO PRN (15:20)
[2025-02-16] MEDS ORDERED: MOM 30 ML SUSPENSION UDC PO PRN (15:20)
[2025-02-16] MEDS ORDERED: MORPHINE 2 MG/ML 1 ML VIAL IV PRN (15:30)
[2025-02-16] MEDS: MORPHINE 4 MG/ML 1 ML VIAL IV PRN (15:40)
[2025-02-16] MEDS: LIDOCAINE 5% PATCH TD ONE (15:40)
[2025-02-16] MEDS: KETOROLAC 30 MG/ML 1 ML VIAL IV ONE (15:41)
[2025-02-16 16:06] LABS: CALCIUM LEVEL 9.3 MG/DL (8.3-10.6); CARBON DIOXIDE LEVEL 25.0 MMOL/L (20-31); CHLORIDE LEVEL 102.0 MMOL/L (98-107); CREATININE FOR GFR 1.11 MG/DL (0.55-1.30); GLOMERULAR FILTRATION RATE 49.6 (>32); POTASSIUM SERUM 4.5 MMOL/L (3.5-5.1); SODIUM LEVEL 140.0 MMOL/L (136-145)
[2025-02-16 16:59] VITALS: BP 134/92; TEMP 97; O2SAT 92
[2025-02-16 20:00] VITALS: BP 127/76; TEMP 96.8; O2SAT 92
[2025-02-17] VITALS (8 sets, daily range): BP systolic 85–126; BP diastolic 52–75; TEMP 97.2–97.9; O2SAT 80–98
[2025-02-17 06:26] LABS: CALCIUM LEVEL 9.5 MG/DL (8.3-10.6); CARBON DIOXIDE LEVEL 27.0 MMOL/L (20-31); CHLORIDE LEVEL 101.0 MMOL/L (98-107); CREATININE FOR GFR 1.58 MG/DL (0.55-1.30); GLOMERULAR FILTRATION RATE 32.5 (>32); MAGNESIUM LEVEL 1.6 MG/DL (1.8-2.4); POTASSIUM SERUM 5.3 MMOL/L (3.5-5.1); SODIUM LEVEL 139.0 MMOL/L (136-145)
[2025-02-17] MEDS: SODIUM CHLORIDE 0.9% 1000 ML IV SCH (07:00)
[2025-02-17] MEDS: PATIROMER SORBITEX CALCIUM 8.4GM POWDER PACKET PO ONE (07:46)
[2025-02-17] MEDS: DEXTROSE 50% 50 ML SYRINGE IV STA (07:46)
[2025-02-17] MEDS: SODIUM CHLORIDE 0.9% 500 ML IV SCH (07:47)
[2025-02-17] MEDS: HumuLIN R (REGULAR) INSULIN (NovoLIN R) **100 U/ML** PER UNIT IV STA (07:53)
[2025-02-17] MEDS: MAG SULF 1GM/100ML (MAG RUN) 1 GM in IV 1 EA IV SCH (08:48)
[2025-02-17] MEDS: LIDOCAINE 5% PATCH TD SCH (08:57)
[2025-02-17] MEDS: PANTOPRAZOLE 40MG TAB PO SCH (08:59)
[2025-02-17] MEDS: NS (Normal Saline) 0.9% 800 ML IV SCH (08:59)
[2025-02-17] MEDS: PREVNAR-20 VACCINE 0.5ML SYRINGE IM.IMMUN ONE (08:59)
[2025-02-17] MEDS ORDERED: [UNRECOGNIZED DRUG - OTHER] IM.IMMUN ONE (11:00)
[2025-02-17] MEDS ORDERED: IPRATROPIUM 0.5 MG/ALBUTEROL 2.5 MG INH SOL UD 3 ML NEB PRN (13:55)
[2025-02-17] MEDS: IPRATROPIUM 0.5 MG/ALBUTEROL 2.5 MG INH SOL UD 3 ML NEB STA (14:26)
[2025-02-17 15:06] LABS: ABG BASE EXCESS -4.6 (-2.0-2.0); ABG HCO3 20.9 MMOL/L (22.0-26.0); ABG O2 SATURATION 97.0 % (95.0-99.0); ABG PARTIAL PRESSURE CO2 39.9 mmHg (35.0-45.0); ABG PARTIAL PRESSURE O2 93.4 mmHg (75.0-100.0); ABG STANDARD HCO3 20.7 MMOL/L. (22.0-26.0); ABG TOTAL CO2 22.1 MMOL/L (23.0-31.0); ABG pH (ARTERIAL) 7.336 UNITS (7.350-7.450)
[2025-02-17 15:07] LABS: CALCIUM LEVEL 9.4 MG/DL (8.3-10.6); CARBON DIOXIDE LEVEL 24.0 MMOL/L (20-31); CHLORIDE LEVEL 102.0 MMOL/L (98-107); CREATININE FOR GFR 1.59 MG/DL (0.55-1.30); GLOMERULAR FILTRATION RATE 32.2 (>32); POTASSIUM SERUM 4.7 MMOL/L (3.5-5.1); SODIUM LEVEL 137.0 MMOL/L (136-145)
[2025-02-17] MEDS: guaiFENesin DM *SUGAR FREE* 5ML**DIABETIC TUSSIN DM PO ONE (16:40)
[2025-02-17] MEDS ORDERED: guaiFENesin ER TABLET 600 MG TAB PO SCH (21:00)
[2025-02-18] MEDS ORDERED: HEPARIN SOD 5000 UNITS/ML 1 ML VIAL/SYRINGE SC SCH (21:00)
== END 2025-02-17 20:29 | disposition short-term general hospital (02) | DRG 949 ==
LOC: M ED 12:27 → EDBD 12:27 → M ED INP 15:17 → M MSPAV 16:27
PROVIDERS: ADMIT Student in an Organized Health Care Education/Training Program; ATTEND Student in an Organized Health Care Education/Training Program
DX: T84.020D Dislocation of internal right hip prosthesis, subsequent encounter (principal); I50.32 Chronic diastolic (congestive) heart failure; I13.0 Hypertensive heart and chronic kidney disease with heart failure and stage 1 through stage 4 chronic kidney disease, or unspecified chronic kidney disease; T84.010A Broken internal right hip prosthesis, initial encounter; I48.91 Unspecified atrial fibrillation; I27.20 Pulmonary hypertension, unspecified; N18.30 Chronic kidney disease, stage 3 unspecified; E78.5 Hyperlipidemia, unspecified; G47.33 Obstructive sleep apnea (adult) (pediatric); M19.90 Unspecified osteoarthritis, unspecified site; Z96.641 Presence of right artificial hip joint; Z86.73 Personal history of transient ischemic attack (TIA), and cerebral infarction without residual deficits; Z79.899 Other long term (current) drug therapy; Z91.040 Latex allergy status; Z66 Do not resuscitate

== ENCOUNTER 2025-04-04 10:16 | Emergency (ER) | payer MEDICARE ==
[~2025-04-04] VITALS: Ht 167.6 cm; Wt 81.1 kg
[~2025-04-04 10:16] MED LIST changes: -IBUP-1022 PO; +IBUP600T42 PO
[2025-04-04 11:13] LABS: BASO # 0.0 10^3/uL (0.0-0.2); BASO % 0.7 % (0.0-1.0); EOS # 0.1 10^3/uL (0.0-0.5); EOS % 2.2 % (0.0-3.0); LYMPH # 0.5 10^3/uL (1.5-5.0); LYMPH % 8.7 % (24.0-44.0); MONO # 0.6 10^3/uL (0.0-0.8); MONO % 9.8 % (2.0-8.0); NEUTROPHILS # 4.7 10^3/uL (1.5-8.5); NEUTROPHILS % 78.3 % (36.0-66.0); PLATELET COUNT, AUTOMATED 293 10^3/uL (150-450)
[2025-04-04] MEDS ORDERED: ASPI-523 PO (11:23)
[2025-04-04 11:25] LABS: INR 1.13
[2025-04-04] MEDS ORDERED: HOME MED LIST COMPLETE! XX SCH (11:25)
[2025-04-04 11:42] LABS: ALT/SGPT 11.0 U/L (7.0-40); AST/SGOT 25.0 U/L (<34); CALCIUM LEVEL 9.4 MG/DL (8.3-10.6); CARBON DIOXIDE LEVEL 24.0 MMOL/L (20-31); CHLORIDE LEVEL 96.0 MMOL/L (98-107); CREATININE FOR GFR 0.93 MG/DL (0.55-1.30); GLOMERULAR FILTRATION RATE 61.0 (>32); POTASSIUM SERUM 4.4 MMOL/L (3.5-5.1); SODIUM LEVEL 130.0 MMOL/L (136-145)
[2025-04-04] MEDS: MORPHINE 2 MG/ML 1 ML VIAL IV PRN (12:33)
[2025-04-04 16:30] VITALS: BP 131/58; TEMP 97.6
[2025-04-04 16:45] VITALS: O2SAT 99
== END 2025-04-04 16:59 | disposition short-term general hospital (02) ==
LOC: M ED 10:16
DX: M24.451 Recurrent dislocation, right hip (principal); N18.30 Chronic kidney disease, stage 3 unspecified; I48.91 Unspecified atrial fibrillation; I50.22 Chronic systolic (congestive) heart failure; I27.0 Primary pulmonary hypertension; Z91.040 Latex allergy status; Z79.51 Long term (current) use of inhaled steroids; Z79.1 Long term (current) use of non-steroidal anti-inflammatories (NSAID); Z79.899 Other long term (current) drug therapy

== ENCOUNTER 2025-07-06 12:54 | Emergency (ER) | payer MEDICARE, MEDICAID ==
[~2025-07-06] VITALS: Ht 167.6 cm; Wt 70.6 kg
[~2025-07-06 12:54] MED LIST changes: +ACET32TAB PO; +ASPI-523 PO; +ATOR1TAB19 PO; +DILT12SRCA PO; +DOXY100T PO; +ELIQ2.5T PO; +LEVO75TAB PO; +LOVE0.6I2 SC; +MELA3TAB78 PO; +MILKSUS3 PO; +OLOP5DRO17 OU; +OXYC-517 PO; +RIFA300C62 PO; +RISATAB3 PO; +SENN-23 PO; +SIME80CH6 PO
[2025-07-06] MEDS: MORPHINE 2 MG/ML 1 ML VIAL IV ONE (13:33)
[2025-07-06 13:42] LABS: BASO # 0.1 10^3/uL (0.0-0.2); BASO % 0.9 % (0.0-1.0); EOS # 0.1 10^3/uL (0.0-0.5); EOS % 1.8 % (0.0-3.0); LYMPH # 0.8 10^3/uL (1.5-5.0); LYMPH % 13.7 % (24.0-44.0); MONO # 0.7 10^3/uL (0.0-0.8); MONO % 11.6 % (2.0-8.0); NEUTROPHILS # 4.1 10^3/uL (1.5-8.5); NEUTROPHILS % 71.8 % (36.0-66.0); PLATELET COUNT, AUTOMATED 434 10^3/uL (150-450)
[2025-07-06 14:34] LABS: ALT/SGPT < 9 U/L (7.0-40); AST/SGOT 14 U/L (<34); CALCIUM LEVEL 8.2 MG/DL (8.3-10.6); CARBON DIOXIDE LEVEL 23 MMOL/L (20-31); CHLORIDE LEVEL 105 MMOL/L (98-107); CREATININE FOR GFR 1.18 MG/DL (0.55-1.30); GLOMERULAR FILTRATION RATE 45.8 (>32); POTASSIUM SERUM 4.7 MMOL/L (3.5-5.1); SODIUM LEVEL 137 MMOL/L (136-145)
[2025-07-06] MEDS ORDERED: ISOVUE-370 76% 100 ML VIAL As Ordered ONE (14:54)
[2025-07-06] MEDS ORDERED: PERCOCET PO (16:12)
[2025-07-06 16:16] VITALS: BP 145/64; TEMP 97; O2SAT 98
== END 2025-07-06 16:29 | disposition home or self-care (01) ==
LOC: M ED 12:54 → EDBD 12:54 → M ED 16:29
DX: K40.90 Unilateral inguinal hernia, without obstruction or gangrene, not specified as recurrent (principal); I48.91 Unspecified atrial fibrillation; I50.22 Chronic systolic (congestive) heart failure; K21.9 Gastro-esophageal reflux disease without esophagitis; I11.0 Hypertensive heart disease with heart failure; Z86.73 Personal history of transient ischemic attack (TIA), and cerebral infarction without residual deficits; Z91.040 Latex allergy status; Z79.1 Long term (current) use of non-steroidal anti-inflammatories (NSAID); Z79.51 Long term (current) use of inhaled steroids; Z79.899 Other long term (current) drug therapy
CPT/HCPCS: 74177; 80048; 80076; 83605; 83690; 85025; 93041; 96374; 99284; Q9967

== ENCOUNTER 2025-07-22 07:48 | Inpatient (IN) | payer MEDICARE, MEDICAID ==
[~2025-07-22] VITALS: Ht 157.5 cm; Wt 66.8 kg
[2025-07-22] VITALS (25 sets, daily range): BP systolic 92–149; BP diastolic 46–91; TEMP 97.9–98.6; O2SAT 94–99
[~2025-07-22 07:48] MED LIST changes: +PERCOCET PO
[2025-07-22 09:41] LABS: BASO # 0.1 10^3/uL (0.0-0.2); BASO % 0.9 % (0.0-1.0); EOS # 0.1 10^3/uL (0.0-0.5); EOS % 0.9 % (0.0-3.0); LYMPH # 0.7 10^3/uL (1.5-5.0); LYMPH % 10.2 % (24.0-44.0); MONO # 0.8 10^3/uL (0.0-0.8); MONO % 12.6 % (2.0-8.0); NEUTROPHILS # 4.8 10^3/uL (1.5-8.5); NEUTROPHILS % 75.1 % (36.0-66.0); PLATELET COUNT, AUTOMATED 444 10^3/uL (150-450)
[2025-07-22 10:02] LABS: ALT/SGPT < 9 U/L (7.0-40); AST/SGOT 15 U/L (<34); CALCIUM LEVEL 9.0 MG/DL (8.3-10.6); CARBON DIOXIDE LEVEL 22 MMOL/L (20-31); CHLORIDE LEVEL 101 MMOL/L (98-107); CREATININE FOR GFR 1.35 MG/DL (0.55-1.30); GLOMERULAR FILTRATION RATE 39.0 (>32); POTASSIUM SERUM 5.2 MMOL/L (3.5-5.1); SODIUM LEVEL 133 MMOL/L (136-145)
[2025-07-22] MEDS: MORPHINE 2 MG/ML 1 ML VIAL IV PRN ×2 (11:13→19:19)
[2025-07-22] MEDS ORDERED: LIDOCAINE 2% 100 MG/5 ML SDV (FOR ANES.) As Ordered ONE (12:26)
[2025-07-22] MEDS ORDERED: METOPROLOL 5 MG/5 ML VIAL As Ordered ONE (13:21)
[2025-07-22] MEDS ORDERED: ONDANSETRON 4MG/2ML VIAL IV PRN (13:45)
[2025-07-22] MEDS ORDERED: HYDROMORPHONE HCL 0.5 MG/0.5 ML SYRINGE As Ordered ONE (13:47)
[2025-07-22] MEDS: HYDROMORPHONE HCL 0.5 MG/0.5 ML SYRINGE IV PRN (13:48)
[2025-07-22] MEDS ORDERED: PHENYLephrine 500MCG 5ML (100MCG/ML) SYRINGE IV PRN (14:45)
[2025-07-22] MEDS: NS 250 ML IV ONE (15:00)
[2025-07-22] MEDS: PHENYLEPHRINE HCL INJ 50 MG in D5W 495 ML IV SCH (18:59)
[2025-07-22] MEDS: AMIODARONE HCL 150 MG in IV 1 EA IV SCH (19:56)
[2025-07-22] MEDS: AMIODARONE HCL 360 MG in IV 1 EA IV SCH (20:46)
[2025-07-22] MEDS: MORPHINE 4 MG/ML 1 ML VIAL IV PRN (22:04)
[2025-07-23] VITALS (73 sets, daily range): BP systolic 72–161; BP diastolic 42–84; TEMP 97.4–98.6; O2SAT 86–100
[2025-07-23] MEDS: diphenhydrAMINE 50 MG/ML VIAL IV ONE (00:19)
[2025-07-23] MEDS: ACETAMINOPHEN *IV* 1,000 MG in IV 1 EA IV ONE (00:19)
[2025-07-23] MEDS: AMIODARONE HCL 360 MG in IV 1 EA IV SCH (02:33)
[2025-07-23 04:27] LABS: PLATELET COUNT, AUTOMATED 406 10^3/uL (150-450)
[2025-07-23 04:49] LABS: CALCIUM LEVEL 8.7 MG/DL (8.3-10.6); CARBON DIOXIDE LEVEL 21.0 MMOL/L (20-31); CHLORIDE LEVEL 101.0 MMOL/L (98-107); CREATININE FOR GFR 1.41 MG/DL (0.55-1.30); GLOMERULAR FILTRATION RATE 37.0 (>32); MAGNESIUM LEVEL 1.3 MG/DL (1.8-2.4); PHOSPHORUS LEVEL 4.2 MG/DL (2.4-5.1); POTASSIUM SERUM 5.7 MMOL/L (3.5-5.1); SODIUM LEVEL 131.0 MMOL/L (136-145)
[2025-07-23] MEDS: MAG SULF 1GM/100ML (MAG RUN) 1 GM in IV 1 EA IV SCH (05:53)
[2025-07-23] MEDS: PANTOPRAZOLE 40MG VIAL IV SCH (09:10)
[2025-07-23] MEDS: SOD POLYSTYRENE SULFONATE SUSP 15GM 60ML UD PO ONE (15:02)
[2025-07-23] MEDS: ESCITALOPRAM OXALATE 10 MG TABLET PO SCH (15:02)
[2025-07-23] MEDS: ATORVASTATIN 10 MG TAB PO SCH (20:37)
[2025-07-23] MEDS: HEPARIN SOD 5000 UNITS/ML 1 ML VIAL/SYRINGE SQ SCH (20:37)
[2025-07-24] VITALS (37 sets, daily range): BP systolic 85–156; BP diastolic 49–83; TEMP 97.1–97.8; O2SAT 96–100
[2025-07-24 05:23] LABS: PLATELET COUNT, AUTOMATED 356 10^3/uL (150-450)
[2025-07-24 05:48] LABS: CALCIUM LEVEL 8.1 MG/DL (8.3-10.6); CARBON DIOXIDE LEVEL 21.0 MMOL/L (20-31); CHLORIDE LEVEL 103.0 MMOL/L (98-107); CREATININE FOR GFR 1.3 MG/DL (0.55-1.30); GLOMERULAR FILTRATION RATE 40.8 (>32); MAGNESIUM LEVEL 1.7 MG/DL (1.8-2.4); PHOSPHORUS LEVEL 3.5 MG/DL (2.4-5.1); POTASSIUM SERUM 4.6 MMOL/L (3.5-5.1); SODIUM LEVEL 133.0 MMOL/L (136-145)
[2025-07-24] MEDS: MAG SULF 1GM/100ML (MAG RUN) 1 GM in IV 1 EA IV ONE (06:38)
[2025-07-24] MEDS: METOPROLOL TART 25 MG TABLET PO SCH (09:00)
[2025-07-24] MEDS: FERROUS SULFATE 325 MG TAB PO SCH (10:59)
[2025-07-24] MEDS: LIDOCAINE 5% PATCH TD SCH (11:00)
[2025-07-24] MEDS: METOPROLOL 5 MG/5 ML VIAL IV STA (19:22)
[2025-07-25] VITALS (11 sets, daily range): BP systolic 109–145; BP diastolic 57–83; TEMP 97–97.9; O2SAT 94–99
[2025-07-25 04:59] LABS: PLATELET COUNT, AUTOMATED 324 10^3/uL (150-450)
[2025-07-25 05:09] LABS: CALCIUM LEVEL 8.9 MG/DL (8.3-10.6); CARBON DIOXIDE LEVEL 22.0 MMOL/L (20-31); CHLORIDE LEVEL 102.0 MMOL/L (98-107); CREATININE FOR GFR 1.0 MG/DL (0.55-1.30); GLOMERULAR FILTRATION RATE 55.9 (>32); MAGNESIUM LEVEL 1.8 MG/DL (1.8-2.4); PHOSPHORUS LEVEL 3.3 MG/DL (2.4-5.1); POTASSIUM SERUM 4.7 MMOL/L (3.5-5.1); SODIUM LEVEL 131.0 MMOL/L (136-145)
[2025-07-25] MEDS ORDERED: LEVALBUTEROL 1.25 MG 0.5ML CONCENTRATE NEB INH PRN (09:35)
[2025-07-25] MEDS: SENNOSIDES/DOCUSATE SODIUM 8.6 MG/50MG TAB PO SCH (11:00)
[2025-07-25] MEDS ORDERED: HOME MED LIST COMPLETE! XX SCH (13:40)
[2025-07-25] MEDS: MOM 30 ML SUSPENSION UDC PO SCH (20:05)
[2025-07-25] MEDS: ENOXAPARIN 80 MG/0.8 ML SYRINGE (J1650 PER 10MG) SC SCH (20:05)
[2025-07-25] MEDS: RAMELTEON 8 MG TAB PO PRN (20:05)
[2025-07-25] MEDS: SIMETHICONE 80MG CHEW TAB PO SCH (20:06)
[2025-07-26] VITALS (8 sets, daily range): BP systolic 115–170; BP diastolic 55–77; TEMP 97.5–99; O2SAT 95–99
[2025-07-26] MEDS: MORPHINE 2 MG/ML 1 ML VIAL IV ONE (00:06)
[2025-07-26 04:32] LABS: PLATELET COUNT, AUTOMATED 316 10^3/uL (150-450)
[2025-07-26 05:04] LABS: CALCIUM LEVEL 8.5 MG/DL (8.3-10.6); CARBON DIOXIDE LEVEL 21.0 MMOL/L (20-31); CHLORIDE LEVEL 105.0 MMOL/L (98-107); CREATININE FOR GFR 0.93 MG/DL (0.55-1.30); GLOMERULAR FILTRATION RATE 61.0 (>32); MAGNESIUM LEVEL 1.7 MG/DL (1.8-2.4); PHOSPHORUS LEVEL 3.6 MG/DL (2.4-5.1); POTASSIUM SERUM 5.2 MMOL/L (3.5-5.1); SODIUM LEVEL 133.0 MMOL/L (136-145)
[2025-07-26] MEDS: MAG SULF 1GM/100ML (MAG RUN) 1 GM in IV 1 EA IV ONE (09:22)
[2025-07-26] MEDS ORDERED: ACETAMINOPHEN 325 MG TAB PO PRN (14:55)
[2025-07-26] MEDS: PATIROMER SORBITEX CALCIUM 8.4GM POWDER PACKET PO ONE (15:34)
[2025-07-26] MEDS ORDERED: METO1TAB87 PO (17:17)
[2025-07-26] MEDS ORDERED: DOXY100T PO (17:17)
[2025-07-26] MEDS ORDERED: DOXYCYCLINE HYCLATE 100 MG TABLET PO SCH (21:00)
== END 2025-07-26 18:43 | disposition short-term general hospital (02) | DRG 949 ==
LOC: M ED 07:48 → M SDC 07:49 → M RR INP 16:36 → M ICU 17:07
PROVIDERS: ADMIT Internal Medicine; ATTEND Internal Medicine
PROC: 0SS9XZZ Reposition Right Hip Joint, External Approach (ICD-10-PCS; principal; 2025-07-22 14:15)
DX: T84.020D Dislocation of internal right hip prosthesis, subsequent encounter (principal); R57.8 Other shock; I47.20 Ventricular tachycardia, unspecified; I34.0 Nonrheumatic mitral (valve) insufficiency; F39 Unspecified mood [affective] disorder; I48.91 Unspecified atrial fibrillation; I50.9 Heart failure, unspecified; I27.20 Pulmonary hypertension, unspecified; N18.30 Chronic kidney disease, stage 3 unspecified; Z86.73 Personal history of transient ischemic attack (TIA), and cerebral infarction without residual deficits; W01.0XXA Fall on same level from slipping, tripping and stumbling without subsequent striking against object, initial encounter; Y92.9 Unspecified place or not applicable; Y93.K1 Activity, walking an animal; K40.90 Unilateral inguinal hernia, without obstruction or gangrene, not specified as recurrent; D64.9 Anemia, unspecified; I95.9 Hypotension, unspecified; E83.42 Hypomagnesemia; E87.5 Hyperkalemia; Z79.899 Other long term (current) drug therapy; Z96.641 Presence of right artificial hip joint; Z91.040 Latex allergy status; Z53.8 Procedure and treatment not carried out for other reasons; Z66 Do not resuscitate